=== PATIENT | female | born 1960 | race Asian ===

== ENCOUNTER 2020-01-05 07:28 | Inpatient (IN) | payer OTHER ==
[2020-01-05] VITALS (12 sets, daily range): BP systolic 112–130; BP diastolic 57–72
[~2020-01-05] VITALS: Ht 162.6 cm; Wt 59.9 kg
--- NOTE | 2020-01-05 07:30 | NUR ---
ED Nurse Note: Patient brought into ED from home by RA 61 due to shortness of breath, per EMS, O2 sat was 74% on RA, on NRB 15L 93% upon arrival to ED. patient is alert awake x 4 ambulatory. patient placed on a hospital gown, on oxygen 15L NRB. Dr. Limon made aware, will continue to monitor.
--- NOTE | 2020-01-05 07:39 | NUR ---
ED Nurse Note: Dr Limon at bedside. RT at bedside.
--- NOTE | 2020-01-05 07:41 | Emergency Room Report ---
History of Present Illness General Chief Complaint: Dyspnea/Respdistress Source: Patient, EMS Present Illness HPI Patient is a 59-year-old female who presents after increased difficulty with breathing for the past 2 days. Patient had been brought by paramedics. She had recent positive novel coronavirus infection.Reports having some trace hemoptysis. Nonproductive cough primarily. prior history of hypertension as well as diabetes. She reports taking metformin. Denies any fever. Denies any chest pain. Denies any leg pain or swelling. Had tested on Monday after preceding URI symptoms. Allergies: Coded Allergies: No Known Allergies (Unverified , 01/05/20) COVID-19 Screening Contact w/high risk pt: No Recent Travel to affected area: No Experienced COVID-19 symptoms?: Yes COVID-19 symptoms experienced: Shortness of Breath, Cough Patient History Past Medical History: see triage record, DM, HTN Past Surgical History: none Now: No Reviewed Nursing Documentation: PMH: Agreed; PSxH: Agreed Nursing Documentation-PMH Past Medical History: No History, Except For Hx Diabetes: Yes Review of Systems All Other Systems: negative except mentioned in HPI Physical Exam Vital Signs Date Time Temp Pulse Resp B/P (MAP) Pulse Ox O2 Delivery O2 Flow Rate FiO2 01/05/20 07:21 97.3 88 22 132/70 (90) 93 Non-Rebreather 15.0 Sp02 EP Interpretation: reviewed, normal General Appearance: normal inspection, alert, GCS 15, moderate distress Head: atraumatic ENT: normal ENT inspection, hearing grossly normal, normal voice Neck: normal inspection, full range of motion, supple, no bony tend Respiratory: normal inspection, lungs clear, normal breath sounds, no respiratory distress, no retraction, no wheezing Cardiovascular #1: regular rate, rhythm, no edema Gastrointestinal: normal inspection, normal bowel sounds, non tender, soft, no guarding, no hernia Genitourinary: no CVA tenderness Musculoskeletal: normal inspection, back normal, normal range of motion Neurologic: alert, motor strength/tone normal, 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 Differential included but was not limited to anemia, pneumonia, pneumothorax, myocardial infarction, pericardial effusion, congestive heart failure, acidosis. Because of complexity of patient' s case laboratory tests and imaging studies were ordered.Chest x-ray 1 view showed bilateral patchy infiltrates consistent with pneumonia versus coronavirus infection. Patient was started on supplemental oxygen. Dr. Brianna Laurent was contacted for [facility] for inpatient management due to panel physician. Labs Test 01/05/20 07:40 01/05/20 08:21 White Blood Count 8.2 K/UL (4.8-10.8) Red Blood Count 4.35 M/UL (4.20-5.40) Hemoglobin 14.0 G/DL (12.0-16.0) Hematocrit 38.3 % (37.0-47.0) Mean Corpuscular Volume 88 FL (80-99) Mean Corpuscular Hemoglobin 32.2 PG (27.0-31.0) Mean Corpuscular Hemoglobin Concent 36.6 G/DL (32.0-36.0) Red Cell Distribution Width 10.0 % (11.6-14.8) Platelet Count 134 K/UL (150-450) Mean Platelet Volume 7.7 FL (6.5-10.1) Neutrophils (%) (Auto) % (45.0-75.0) Lymphocytes (%) (Auto) % (20.0-45.0) Monocytes (%) (Auto) % (1.0-10.0) Eosinophils (%) (Auto) % (0.0-3.0) Basophils (%) (Auto) % (0.0-2.0) Differential Total Cells Counted 100 Neutrophils % (Manual) 95 % (45-75) Lymphocytes % (Manual) 3 % (20-45) Monocytes % (Manual) 2 % (1-10) Eosinophils % (Manual) 0 % (0-3) Basophils % (Manual) 0 % (0-2) Band Neutrophils 0 % (0-8) Platelet Estimate Decreased Platelet Morphology Normal Red Blood Cell Morphology Normal Prothrombin Time 9.5 SEC (9.30-11.50) Prothromb Time International Ratio 0.9 (0.9-1.1) Activated Partial Thromboplast Time 37 SEC (23-33) D-Dimer 0.71 mg/L FEU (0.00-0.49) Sodium Level 133 MMOL/L (136-145) Potassium Level 3.8 MMOL/L (3.5-5.1) Chloride Level 96 MMOL/L (98-107) Carbon Dioxide Level 28 MMOL/L (21-32) Anion Gap 9 mmol/L (5-15) Blood Urea Nitrogen 11 mg/dL (7-18) Creatinine 0.6 MG/DL (0.55-1.30) Estimat Glomerular Filtration Rate > 60 mL/min (>60) Glucose Level 103 MG/DL (74-106) Lactic Acid Level 1.50 mmol/L (0.4-2.0) Calcium Level 9.0 MG/DL (8.5-10.1) Total Bilirubin 0.4 MG/DL (0.2-1.0) Aspartate Amino Transf (AST/SGOT) 51 U/L (15-37) Alanine Aminotransferase (ALT/SGPT) 22 U/L (12-78) Alkaline Phosphatase 53 U/L (46-116) Total Creatine Kinase 120 U/L (26-308) Creatine Kinase MB 0.9 NG/ML (0.0-3.6) Creatine Kinase MB Relative Index 0.7 Troponin I 0.000 ng/mL (0.000-0.056) Pro-B-Type Natriuretic Peptide 194 pg/mL (0-125) Total Protein 7.0 G/DL (6.4-8.2) Albumin 3.0 G/DL (3.4-5.0) Globulin 4.0 g/dL Albumin/Globulin Ratio 0.8 (1.0-2.7) Arterial Blood pH 7.465 (7.350-7.450) Arterial Blood Partial Pressure CO2 38.5 mmHg (35.0-45.0) Arterial Blood Partial Pressure O2 148.0 mmHg (75.0-100.0) Arterial Blood HCO3 27.1 mmol/L (22.0-26.0) Arterial Blood Oxygen Saturation 98.2 % (95-100) Arterial Blood Base Excess 3.3 (-2-2) Jun Test Positive EKG Diagnostic Results Rate: normal Rhythm: NSR ST Segments: no acute changes Last Vital Signs Date Time Temp Pulse Resp B/P (MAP) Pulse Ox O2 Delivery O2 Flow Rate FiO2 4/12/20 07:36 97.3 86 20 130/72 96 Non-Rebreather 15.0 Status: unchanged Disposition: ADMITTED INPATIENT Condition: Stable Tonny Limon MD Jan 05, 2020 07:41
--- NOTE | 2020-01-05 07:45 | NUR ---
ED Nurse Note: patient reports she got tested positive on 12/31/19. patient reports the symptoms (coughing and flu like symptoms) since last week.
[2020-01-05 08:24] LABS: HEMATOCRIT 38.3 % (37.0-47.0); MEAN CORPUSCULAR VOLUME 88 FL (80-99); PLATELET COUNT 134 K/UL (150-450); RED BLOOD COUNT 4.35 M/UL (4.20-5.40); WHITE BLOOD COUNT 8.2 K/UL (4.8-10.8)
[2020-01-05 08:31] LABS: INR 0.9 (0.9-1.1)
[2020-01-05 08:33] LABS: ANION GAP 9 mmol/L (5-15); BLOOD UREA NITROGEN 11 mg/dL (7-18); CARBON DIOXIDE 28 MMOL/L (21-32); CHLORIDE 96 MMOL/L (98-107); CREATININE 0.6 MG/DL (0.55-1.30); POTASSIUM 3.8 MMOL/L (3.5-5.1); SODIUM 133 MMOL/L (136-145)
[2020-01-05] MEDS ORDERED: Azithromycin 500 MG in D5W 275 ML IVPB ONE (08:45)
[2020-01-05] MEDS ORDERED: cefTRIAXone 1 GM in NS 55 ML IVPB ONE (08:45)
[2020-01-05 08:46] LABS: ALANINE AMINOTRANSFERASE 22 U/L (12-78); ALBUMIN/GLOBULIN RATIO 0.8 (1.0-2.7); ALKALINE PHOSPHATASE 53 U/L (46-116); ASPARTATE AMINO TRANSFERASE 51 U/L (15-37); BILIRUBIN,TOTAL 0.4 MG/DL (0.2-1.0); CKMB 0.9 NG/ML (0.0-3.6); CREATINE KINASE 120 U/L (26-308)
--- NOTE | 2020-01-05 10:36 | NUR ---
HAND-OFF: Report given to Bernie CHRISTINE. endorsed all plan of care to Bernie CHRISTINE.
--- NOTE | 2020-01-05 10:51 | Diagnostic Imaging Report ---
EXAM: XR Chest, 1 View CLINICAL HISTORY: SOB TECHNIQUE: Frontal view of the chest. COMPARISON: No relevant prior studies available. FINDINGS: There are bilateral airspace opacities, by far most pronounced in the lower lung zones, though there is some involvement in the right mid and upper lung. Favor infectious etiology, though edema is theoretically possible as well. The heart is not grossly enlarged. There is no pneumothorax. IMPRESSION: Basilar predominant airspace infiltrates are suspicious for pneumonia. Edema is less likely.
--- NOTE | 2020-01-05 11:00 | NUR ---
ED Nurse Note: Received report from EMMETT Ray for continuity of care. Pt is on bed, awake and alert, VSS satting at 96% on 10LPM via venturi mask. Pt is AOx4, calm and cooperative noted with episodes of productive coughing. Safety measures met. will continue to monitor pt.
--- NOTE | 2020-01-05 11:20 | NUR ---
ED Nurse Note: Dr. Laurent at bedside.
--- NOTE | 2020-01-05 11:36 | NUR ---
ED Nurse Note: Pt was able to urinate; obtained specimen, sent to labs.
[2020-01-05 11:42] LABS: APPEARANCE,URINE CLEAR; BILIRUBIN, URINE NEGATIVE (NEGATIVE); GLUCOSE, URINE (UA) 4+ (NEGATIVE); KETONES,URINE 1+ (NEGATIVE); LEUKOCYTE ESTERASE ,URINE NEGATIVE (NEGATIVE); NITRITE,URINE NEGATIVE (NEGATIVE); PH,URINE 6 (4.5-8.0); PROTEIN,URINE 3+ (NEGATIVE); UROBILINOGEN,URINE NORMAL MG/DL (0.0-1.0)
[2020-01-05 11:44] LABS: COLOR,URINE YELLOW
--- NOTE | 2020-01-05 12:08 | NUR ---
ED Nurse Note: Pt was seen by Dr. mOer, ordered pt to be on a non-rebreather mask, called RT.
--- NOTE | 2020-01-05 13:20 | History and Physical ---
History of Present Illness General Reason for Hospitalization: Dyspnea/Respdistress Present Illness HPI 59-year-old female with PMH of HTN, DM on metformin who presents with S OB x2 days. 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 Patient was not given any medications at the time and was sent home, today patient noted worsening shortness of breath and hemoptysis x1. Patient had associated chest pain with her cough, denies any palpitations, diaphoresis. Throughout this time denies any fevers, N/V, diarrhea, abdominal pain, dysuria /hematuria. In the ED, CXR revealed bilateral infiltrates, right larger than left. Patient admitted for further treatment and evaluation. PMH: HTN, DM on metformin FH: Reviewed and not pertinent Sx: Reviewed, patient denies any past surgeries SH: Patient lives at home alone, denies tobacco/EtOH Allergies:NKDA Allergies: Coded Allergies: No Known Allergies (Unverified , 01/05/20) COVID-19 Screening Contact w/high risk pt: No Recent Travel to affected area: No Experienced COVID-19 symptoms?: Yes COVID-19 symptoms experienced: Shortness of Breath, Cough Patient History Healthcare decision maker Resuscitation status Advanced Directive on File Review of Systems Constitutional: Denies: no symptoms, see HPI, chills, sweats, fever, malaise, weakness, other Eye: Denies: no symptoms, see HPI, eye pain, blurred vision, tearing, double vision, nose pain, nose congestion, acuity changes, discharge, other ENT: Denies: no symptoms, see HPI, ear pain, ear discharge, nose pain, nose congestion, throat pain, throat swelling, mouth pain, hearing loss, nasal discharge, other Respiratory: Reports: cough Cardiovascular: Reports: chest pain Gastrointestinal: Denies: no symptoms, see HPI, abdominal pain, constipation, diarrhea, nausea, vomiting, melena, hematemesis, other Genitourinary: Denies: no symptoms, see HPI, discharge, dysuria, frequency, hematuria, pain, retention, incontinence, urgency, vag bleed/dc, other Musculoskeletal: Denies: no symptoms, see HPI, back pain, gout, joint pain, joint swelling, muscle pain, muscle stiffness, other Skin: Denies: no symptoms, see HPI, rash, change in color, change in hair/nails , dryness, lesions, other Psychiatric: Denies: no symptoms, see HPI, prior hx, anxiety, depressed feelings, emotional problems, SI, HI, hallucinations, other Neurological: Denies: no symptoms, see HPI, headache, numbness, paresthesia, seizure, tingling, tremors, focal weakness, syncope, dizziness, other Physical Exam Physical Exam Narrative General: NAD, A&O x 3, communicates easily HEENT: NCAT, EOMi, MMM CV: RRR, no murmurs, rubs, or gallops Pulm: Good air movement in lungs bilaterally, no accessory muscle usage, on nonrebreather GI: Soft, nontender, nondistended Neuro: CN 2-12 grossly intact bilaterally, no focal signs. Ext: No lower extremity edema bilaterally Skin: no rashes lesions or ulcers Last 24 Hour Vital Signs Date Time Temp Pulse Resp B/P (MAP) Pulse Ox O2 Delivery O2 Flow Rate FiO2 01/05/20 12:30 98.6 83 17 121/65 95 Non-Rebreather 15.0 01/05/20 10:45 98.6 82 18 125/67 90 Non-Rebreather 15.0 01/05/20 10:30 97.9 82 26 121/72 92 Venturi Mask 10.0 01/05/20 08:30 98.7 83 23 118/71 97 Non-Rebreather 15.0 01/05/20 07:36 97.3 86 20 130/72 96 Non-Rebreather 15.0 01/05/20 07:30 88 20 Non-Rebreather 15.0 01/05/20 07:21 97.3 88 22 132/70 (90) 93 Non-Rebreather 15.0 Laboratory Tests Test 01/05/20 07:40 01/05/20 08:21 01/05/20 11:28 White Blood Count 8.2 K/UL (4.8-10.8) Red Blood Count 4.35 M/UL (4.20-5.40) Hemoglobin 14.0 G/DL (12.0-16.0) Hematocrit 38.3 % (37.0-47.0) Mean Corpuscular Volume 88 FL (80-99) Mean Corpuscular Hemoglobin 32.2 PG (27.0-31.0) H Mean Corpuscular Hemoglobin Concent 36.6 G/DL (32.0-36.0) H Red Cell Distribution Width 10.0 % (11.6-14.8) L Platelet Count 134 K/UL (150-450) L Mean Platelet Volume 7.7 FL (6.5-10.1) Neutrophils (%) (Auto) % (45.0-75.0) Lymphocytes (%) (Auto) % (20.0-45.0) Monocytes (%) (Auto) % (1.0-10.0) Eosinophils (%) (Auto) % (0.0-3.0) Basophils (%) (Auto) % (0.0-2.0) Differential Total Cells Counted 100 Neutrophils % (Manual) 95 % (45-75) H Lymphocytes % (Manual) 3 % (20-45) L Monocytes % (Manual) 2 % (1-10) Eosinophils % (Manual) 0 % (0-3) Basophils % (Manual) 0 % (0-2) Band Neutrophils 0 % (0-8) Platelet Estimate Decreased L Platelet Morphology Normal Red Blood Cell Morphology Normal Prothrombin Time 9.5 SEC (9.30-11.50) Prothromb Time International Ratio 0.9 (0.9-1.1) Activated Partial Thromboplast Time 37 SEC (23-33) H D-Dimer 0.71 mg/L FEU (0.00-0.49) H Sodium Level 133 MMOL/L (136-145) L Potassium Level 3.8 MMOL/L (3.5-5.1) Chloride Level 96 MMOL/L (98-107) L Carbon Dioxide Level 28 MMOL/L (21-32) Anion Gap 9 mmol/L (5-15) Blood Urea Nitrogen 11 mg/dL (7-18) Creatinine 0.6 MG/DL (0.55-1.30) Estimat Glomerular Filtration Rate > 60 mL/min (>60) Glucose Level 103 MG/DL (74-106) Lactic Acid Level 1.50 mmol/L (0.4-2.0) Calcium Level 9.0 MG/DL (8.5-10.1) Total Bilirubin 0.4 MG/DL (0.2-1.0) Aspartate Amino Transf (AST/SGOT) 51 U/L (15-37) H Alanine Aminotransferase (ALT/SGPT) 22 U/L (12-78) Alkaline Phosphatase 53 U/L (46-116) Total Creatine Kinase 120 U/L (26-308) Creatine Kinase MB 0.9 NG/ML (0.0-3.6) Creatine Kinase MB Relative Index 0.7 Troponin I 0.000 ng/mL (0.000-0.056) Pro-B-Type Natriuretic Peptide 194 pg/mL (0-125) H Total Protein 7.0 G/DL (6.4-8.2) Albumin 3.0 G/DL (3.4-5.0) L Globulin 4.0 g/dL Albumin/Globulin Ratio 0.8 (1.0-2.7) L Arterial Blood pH 7.465 (7.350-7.450) Arterial Blood Partial Pressure CO2 38.5 mmHg (35.0-45.0) Arterial Blood Partial Pressure O2 148.0 mmHg (75.0-100.0) H Arterial Blood HCO3 27.1 mmol/L (22.0-26.0) H Arterial Blood Oxygen Saturation 98.2 % (95-100) Arterial Blood Base Excess 3.3 (-2-2) H Jun Test Positive Urine Color Yellow Urine Appearance Clear Urine pH 6 (4.5-8.0) Urine Specific [place] 1.015 (1.005-1.035) Urine Protein 3+ (NEGATIVE) H Urine Glucose (UA) 4+ (NEGATIVE) H Urine Ketones 1+ (NEGATIVE) H Urine Blood 1+ (NEGATIVE) H Urine Nitrite Negative (NEGATIVE) Urine Bilirubin Negative (NEGATIVE) Urine Urobilinogen Normal MG/DL (0.0-1.0) Urine Leukocyte Esterase Negative (NEGATIVE) Urine RBC 0-2 /HPF (0 - 2) Urine WBC 0-2 /HPF (0 - 2) Urine Squamous Epithelial Cells Few /LPF (NONE/OCC) Urine Bacteria Occasional /HPF (NONE) Urine Yeast Few /HPF (NONE) H Height (Feet): 5 Height (Inches): 4.00 Weight (Pounds): 130 Medications Current Medications Medications (Trade) Dose Ordered Sig/Neha Route PRN Reason Start Time Stop Time Status Last Admin Dose Admin Acetaminophen (Tylenol) 650 mg Q4H PRN ORAL Mild Pain (Pain Scale 1-3) 01/05/20 09:00 02/04/20 08:59 Acetaminophen (Tylenol) 650 mg Q4H PRN ORAL Temp >100.5 01/05/20 09:00 02/04/20 08:59 Dextrose (Dextrose 50%) 25 ml Q30M PRN IV Hypoglycemia 01/05/20 09:00 04/04/20 08:59 Dextrose (Dextrose 50%) 50 ml Q30M PRN IV Hypoglycemia 01/05/20 09:00 04/04/20 08:59 Assessment/Plan Assessment/Plan: 59-year-old female with PMH of HTN, DM on metformin who presents with S OB x2 days. 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 #Acute respiratory failure #COVID positive as o/p #CAP/PNA #Hemoptysis #chest pain - likely MSK 2/2 cough -admit to SDU -droplet/contact isolation -cont. supplemental O2 prn, on non-rebreather -CXR reviewed -trop negative, d-dimer elevated, 0.71 -EKG -f/u on BCx, UCx -f/u on COVID -abx per ID -Pulm and ID following, recs appreciated #HTN -pt unsure of home medications -not hypertensive at this time, ctm #NIDDM, type 2 -holding home metformin while in-pt -ISS, accuchecks qAC/HS DVT PPx: no chemical ppx due to hemoptysis, SCDs Time spent on encounter: 75 mins, >50% on counseling, coordination of care. D/w ER, ER nursing staff, ID and Pulm. Additional 25 mins spent on review of labs, charts, progress notes. Time of note doesn't reflect time of encounter. Veronica Laurent M.D. Jan 05, 2020 13:20
--- NOTE | 2020-01-05 14:57 | NUR ---
ED Nurse Note: Pt's still on bed, awake and alert, VSS, on 10LPM via NRB. Offered warm blanket.
--- NOTE | 2020-01-05 16:00 | NUR ---
ED Nurse Note: Pt complained of mild pain on epigastric area, pain medication given with cup of water. Offered snacks but pt refused. VSS, NAD. Will continue to monitor.
--- NOTE | 2020-01-05 16:15 | Consultation ---
DATE OF CONSULTATION: 01/05/2020 PULMONARY CONSULTATION HISTORY OF PRESENT ILLNESS: This is a 59-year-old female who was admitted to the hospital with shortness of breath. The patient reports having tested positive for COVID-19. She reports hemoptysis. She is a known diabetic and hypertensive. She denies fever or chest pain. The patient was admitted to the hospital. PAST MEDICAL HISTORY: Hypertension, diabetes mellitus. PAST SURGICAL HISTORY: None. REVIEW OF SYSTEMS: The patient denies any headaches, hematemesis, melena. She admits to having hemoptysis. HOME MEDICATIONS: Reviewed and reconciled in chart. PHYSICAL EXAMINATION: GENERAL: Reveals a 59-year-old female. VITAL SIGNS: O2 saturation 93% on non-rebreather mask, blood pressure 130/70, heart rate 84, respirations 18. HEENT: Unremarkable. CHEST: Decreased breath sounds bilaterally with normal heart sounds. ABDOMEN: Soft. No pedal edema LABORATORY AND DIAGNOSTIC DATA: Lab testing shows normal CBC and BMP. Lactic acid 1.5. Troponin negative. Coags are negative. ABG, pH 7.4, pO2 148. Imaging studies shows bilateral infiltrates. IMPRESSION: 1. Bilateral pneumonia. 2. Hemoptysis. 3. Hypertension 4. Diabetes. DISCUSSION: Admitted to the hospital. Agree with management and care. Consider CT chest to exclude PE versus pneumonia. We will follow. Shaun Omer M.D. DR: Liv JOB#: [id number] CC: ROMINA
--- NOTE | 2020-01-05 19:02 | NUR ---
ED Nurse Note: Noted respirations going on 37-40pbm right now. Notified ERMD, called RT.
--- NOTE | 2020-01-05 19:24 | NUR ---
ED Nurse Note: report given to EMMETT Jack for continuity of care.
--- NOTE | 2020-01-05 20:23 | NUR ---
ED Nurse Note: CALLED AND SPOKE TO TIANA CHRISTINE TO RENDER REPORT, NO NURSE ASSIGNED, ROOM NOT READY.
[2020-01-05] MEDS ORDERED: cefTRIAXone 1 GM in D5W 50 ML IVPB SCH (21:30)
--- NOTE | 2020-01-05 21:41 | Infectious Diseases Prog Note ---
Assessment/Plan Assessment/Plan Full consult dictated: A) 1) covid-19 virus infection with pna 2) possible CAP 3) hemoptysis 4) pmh noted P) 1) ceftriaxone and doxycycline 2) hydroxychloroquine 3) avoid azithromycin with potential qtc prolongation 3) will f/u 4) thanks Subjective Allergies: Coded Allergies: No Known Allergies (Unverified , 01/05/20) Objective Vital Signs Last 24 Hour Vital Signs Date Time Temp Pulse Resp B/P (MAP) Pulse Ox O2 Delivery O2 Flow Rate FiO2 01/05/20 18:15 98.6 89 24 127/62 91 Non-Rebreather 15.0 01/05/20 16:31 98.6 01/05/20 16:10 98.6 85 24 121/64 95 Non-Rebreather 15.0 01/05/20 14:56 98.6 88 22 127/62 95 Non-Rebreather 15.0 01/05/20 12:30 98.6 83 17 121/65 95 Non-Rebreather 15.0 01/05/20 10:45 98.6 82 18 125/67 90 Non-Rebreather 15.0 01/05/20 10:30 97.9 82 26 121/72 92 Venturi Mask 10.0 01/05/20 08:30 98.7 83 23 118/71 97 Non-Rebreather 15.0 01/05/20 07:36 97.3 86 20 130/72 96 Non-Rebreather 15.0 01/05/20 07:30 88 20 Non-Rebreather 15.0 01/05/20 07:21 97.3 88 22 132/70 (90) 93 Non-Rebreather 15.0 Height (Feet): 5 Height (Inches): 4.00 Weight (Pounds): 130 Laboratory Tests Test 01/05/20 07:40 01/05/20 08:21 01/05/20 11:28 White Blood Count 8.2 K/UL (4.8-10.8) Red Blood Count 4.35 M/UL (4.20-5.40) Hemoglobin 14.0 G/DL (12.0-16.0) Hematocrit 38.3 % (37.0-47.0) Mean Corpuscular Volume 88 FL (80-99) Mean Corpuscular Hemoglobin 32.2 PG (27.0-31.0) H Mean Corpuscular Hemoglobin Concent 36.6 G/DL (32.0-36.0) H Red Cell Distribution Width 10.0 % (11.6-14.8) L Platelet Count 134 K/UL (150-450) L Mean Platelet Volume 7.7 FL (6.5-10.1) Neutrophils (%) (Auto) % (45.0-75.0) Lymphocytes (%) (Auto) % (20.0-45.0) Monocytes (%) (Auto) % (1.0-10.0) Eosinophils (%) (Auto) % (0.0-3.0) Basophils (%) (Auto) % (0.0-2.0) Differential Total Cells Counted 100 Neutrophils % (Manual) 95 % (45-75) H Lymphocytes % (Manual) 3 % (20-45) L Monocytes % (Manual) 2 % (1-10) Eosinophils % (Manual) 0 % (0-3) Basophils % (Manual) 0 % (0-2) Band Neutrophils 0 % (0-8) Platelet Estimate Decreased L Platelet Morphology Normal Red Blood Cell Morphology Normal Prothrombin Time 9.5 SEC (9.30-11.50) Prothromb Time International Ratio 0.9 (0.9-1.1) Activated Partial Thromboplast Time 37 SEC (23-33) H D-Dimer 0.71 mg/L FEU (0.00-0.49) H Sodium Level 133 MMOL/L (136-145) L Potassium Level 3.8 MMOL/L (3.5-5.1) Chloride Level 96 MMOL/L (98-107) L Carbon Dioxide Level 28 MMOL/L (21-32) Anion Gap 9 mmol/L (5-15) Blood Urea Nitrogen 11 mg/dL (7-18) Creatinine 0.6 MG/DL (0.55-1.30) Estimat Glomerular Filtration Rate > 60 mL/min (>60) Glucose Level 103 MG/DL (74-106) Lactic Acid Level 1.50 mmol/L (0.4-2.0) Calcium Level 9.0 MG/DL (8.5-10.1) Total Bilirubin 0.4 MG/DL (0.2-1.0) Aspartate Amino Transf (AST/SGOT) 51 U/L (15-37) H Alanine Aminotransferase (ALT/SGPT) 22 U/L (12-78) Alkaline Phosphatase 53 U/L (46-116) Total Creatine Kinase 120 U/L (26-308) Creatine Kinase MB 0.9 NG/ML (0.0-3.6) Creatine Kinase MB Relative Index 0.7 Troponin I 0.000 ng/mL (0.000-0.056) Pro-B-Type Natriuretic Peptide 194 pg/mL (0-125) H Total Protein 7.0 G/DL (6.4-8.2) Albumin 3.0 G/DL (3.4-5.0) L Globulin 4.0 g/dL Albumin/Globulin Ratio 0.8 (1.0-2.7) L Arterial Blood pH 7.465 (7.350-7.450) Arterial Blood Partial Pressure CO2 38.5 mmHg (35.0-45.0) Arterial Blood Partial Pressure O2 148.0 mmHg (75.0-100.0) H Arterial Blood HCO3 27.1 mmol/L (22.0-26.0) H Arterial Blood Oxygen Saturation 98.2 % (95-100) Arterial Blood Base Excess 3.3 (-2-2) H Jun Test Positive Urine Color Yellow Urine Appearance Clear Urine pH 6 (4.5-8.0) Urine Specific [place] 1.015 (1.005-1.035) Urine Protein 3+ (NEGATIVE) H Urine Glucose (UA) 4+ (NEGATIVE) H Urine Ketones 1+ (NEGATIVE) H Urine Blood 1+ (NEGATIVE) H Urine Nitrite Negative (NEGATIVE) Urine Bilirubin Negative (NEGATIVE) Urine Urobilinogen Normal MG/DL (0.0-1.0) Urine Leukocyte Esterase Negative (NEGATIVE) Urine RBC 0-2 /HPF (0 - 2) Urine WBC 0-2 /HPF (0 - 2) Urine Squamous Epithelial Cells Few /LPF (NONE/OCC) Urine Bacteria Occasional /HPF (NONE) Urine Yeast Few /HPF (NONE) H Current Medications Medications (Trade) Dose Ordered Sig/Neha Route PRN Reason Start Time Stop Time Status Last Admin Dose Admin Acetaminophen (Tylenol) 650 mg Q4H PRN ORAL Mild Pain (Pain Scale 1-3) 01/05/20 09:00 02/04/20 08:59 01/05/20 16:01 Acetaminophen (Tylenol) 650 mg Q4H PRN ORAL Temp >100.5 01/05/20 09:00 02/04/20 08:59 Dextrose (Dextrose 50%) 25 ml Q30M PRN IV Hypoglycemia 01/05/20 09:00 04/04/20 08:59 Dextrose (Dextrose 50%) 50 ml Q30M PRN IV Hypoglycemia 01/05/20 09:00 04/04/20 08:59 Pham Doyle MD Jan 05, 2020 21:41
[2020-01-05] MEDS ORDERED: Hydroxychloroquine Fact Sheet MISC ONE (21:45)
[2020-01-05] MEDS: Hydroxychloroquine 400mg tab ORAL SCH (21:49)
--- NOTE | 2020-01-05 22:10 | NUR ---
ED Nurse Note: Patient renderd plaquenil along with a fact sheet that could not be scanned. Will continue to monitor until transport.
--- NOTE | 2020-01-05 23:01 | NUR ---
ED Nurse Note: Called and rendered report to Haley CHRISTINE. Room clean with no striker inside.
[2020-01-05] MEDS ORDERED: HYDROCHLOROTH12.5 MG ORAL (23:09)
[2020-01-05] MEDS ORDERED: METFORMIN HCL500 M1 ORAL (23:09)
--- NOTE | 2020-01-05 23:33 | NUR ---
ED Nurse Note: Called to verify striker bed in room prior to transport.
--- NOTE | 2020-01-05 23:59 | NUR ---
ED Nurse Note: Patient transported to floor without incident, $140.00 head verified upon arrival to room, accompanied by certified endoscopy technician and 1 RN.
[2020-01-06] VITALS (7 sets, daily range): BP systolic 114–128; BP diastolic 59–76
--- NOTE | 2020-01-06 | NUR ---
NURSE NOTES: received pt from Marcie CHRISTINE., pt is awake and AOx4 Italian speaker. pt is on non-breather mask 15L and O2sat is at 96-97% with non productive cough. pt's Left AC 20G IV site intact, clean, and patent. call light within reach. director cardiac on. new gown provided.VSS. belonging list paper signed by patient. skin intact. bed at the lowest position, alarmed, and locked. will continue to monitor pt with plan of care.
[2020-01-06] MEDS ORDERED: Benzonatate 100mg Perles ORAL PRN (01:15)
--- NOTE | 2020-01-06 02:45 | Consultation ---
DATE OF CONSULTATION: 01/05/2020 INFECTIOUS DISEASES CONSULTATION CONSULTING PHYSICIAN: Pham Doyle MD. ATTENDING PHYSICIAN: Chema Barnett MD REFERRING PHYSICIAN: Rebecca Laurent DO. REASON FOR CONSULTATION: COVID-19 virus infection per records and history. CHIEF COMPLAINT: The patient's chief complaint coming into hospital is confirmed COVID-19 and hypoxia. HISTORY OF PRESENT ILLNESS: This is a 59-year-old female seen in the emergency room. The patient presents to [facility] with hypoxia, looks like hemoptysis with confirmed COVID-19 testing outside the hospital. The patient had also shortness of breath and nonproductive cough x5 days. She went to [facility] and tested for COVID-19 and she states she was positive. The patient's chest x-ray at [place] showed bilateral lower lobe infiltrates or airspace infiltrates suspicious for pneumonia. Infectious Diseases consultation was requested. The patient was placed on doxycycline, Rocephin, and hydroxychloroquine. MAR was noted. Notes reviewed. Again the patient was seen in the ER and discussed with physician and RN. REVIEW OF SYSTEMS: She has currently no fevers, however, she came in with hemoptysis, hypoxia, cough, shortness of breath. No fevers or chills. CARDIAC: No chest pain. GASTROINTESTINAL: No nausea, vomiting, or diarrhea. GENITOURINARY: No dysuria or frequency. SKIN: No rash. NEUROLOGIC: No seizures. PULMONARY: As discussed hemoptysis, shortness of breath, cough. PAST MEDICAL HISTORY: The patient's past medical history includes the following: The patient has a past medical history of hypertension, diabetes on metformin. ALLERGIES: No known drug allergies. No antibiotic allergies. SOCIAL HISTORY: Negative for smoking, alcohol, drug abuse. FAMILY HISTORY: Noncontributory. Negative for exposure to tuberculosis or cancer. MEDICATIONS: Upon reviewing the MAR, she is on following medications. She is on acetaminophen. She was given Rocephin and azithromycin. I placed her on Rocephin, doxycycline, hydroxychloroquine. Outside medications were noted and reconciliated. In the outpatient setting, I believe is metformin. Unclear what she is taking for high blood pressure. PHYSICAL EXAMINATION: VITAL SIGNS: Temperature is 98.6, pulse rate 89, respiratory rate 24, blood pressure 127/62, saturation 91% on nonrebreather. GENERAL: She is alert and responsive. HEAD AND NECK: Oral exam, no thrush. Eye exam, no icterus. Normocephalic. HEART: Regular. No gallop or murmur ABDOMEN: Soft. Positive bowel sounds. Nontender. LUNGS: Few bilateral rhonchi and rales. SKIN: No rash. MUSCULOSKELETAL: No effusion. Legs are without cellulitis. PERIPHERAL VASCULAR: No cyanosis or gangrene. GENITOURINARY: No [place]. LINE SITES: Without phlebitis. NEUROLOGIC: Generalized weakness and responsive. LABORATORY DATA: White count 8.2, hemoglobin 14.0. Creatinine 0.6. Urinalysis was nitrite negative. Per the records outside COVID-19 testing was positive. Chest x-ray with airspace infiltrates in the basilar area suspicious for pneumonia. UA was leukocyte esterase negative, 0 to 2 white cells. ASSESSMENT AND PLAN: 1. The patient has bilateral pneumonia and per history positive COVID-19 testing. We will follow up on this. However, because of the hypoxia and bilateral infiltrates, the patient will be empirically started on Rocephin and doxycycline for community-acquired pneumonia and also hydroxychloroquine for possible COVID pneumonias especially with hypoxia and positive chest x-ray finding consistent with possible COVID-19 virus infection pneumonia. Continue Rocephin and doxycycline for community-acquired pneumonia and hydroxychloroquine for COVID treatment. I would avoid azithromycin because of the potential for QTc prolongation with hydroxychloroquine. Check followup labs and chest x-ray. The patient placed on COVID-19 virus isolation. 2. Diabetes. 3. Hypertension. 4. Hemoptysis. 5. Continue treatment per primary consultants. 6. No known drug allergies. 7. Social history is negative. 8. Family history is noncontributory. 9. MAR was noted. 10. Case discussed with RN. 11. Continue treatment per primary consultants. Pham Doyle M.D. DR: Florentino JOB#: [id number] CC: ROMINA
--- NOTE | 2020-01-06 03:30 | NUR ---
NURSE NOTES: provided sandwich, orange juice, cranberry juice, and crackers. call light within reach.
[2020-01-06] MEDS: Guaifenesin/DM 10ml syrup ORAL PRN ×2 (03:51→13:36)
[2020-01-06 05:51] LABS: HEMATOCRIT 38.6 % (37.0-47.0); HEMOGLOBIN 13.7 G/DL (12.0-16.0); MEAN CORPUSCULAR VOLUME 90 FL (80-99); PLATELET COUNT 146 K/UL (150-450); RED BLOOD COUNT 4.28 M/UL (4.20-5.40); RED CELL DISTRIBUTION WIDTH 10.5 % (11.6-14.8); WHITE BLOOD COUNT 8.4 K/UL (4.8-10.8)
[2020-01-06 06:17] LABS: ALANINE AMINOTRANSFERASE 21 U/L (12-78); ALBUMIN 2.7 G/DL (3.4-5.0); ALBUMIN/GLOBULIN RATIO 0.8 (1.0-2.7); ALKALINE PHOSPHATASE 58 U/L (46-116); ANION GAP 12 mmol/L (5-15); ASPARTATE AMINO TRANSFERASE 52 U/L (15-37); BILIRUBIN,TOTAL 0.4 MG/DL (0.2-1.0); BLOOD UREA NITROGEN 11 mg/dL (7-18); CALCIUM 8.7 MG/DL (8.5-10.1); CARBON DIOXIDE 27 MMOL/L (21-32); CHLORIDE 98 MMOL/L (98-107); CREATININE 0.6 MG/DL (0.55-1.30); POTASSIUM 4.2 MMOL/L (3.5-5.1); SODIUM 137 MMOL/L (136-145)
--- NOTE | 2020-01-06 07:04 | NUR ---
HAND-OFF: Report given to Shital CHRISTINE., pt stable condition at this moment. endorsed plan of care.
--- NOTE | 2020-01-06 07:10 | NUR ---
NURSE NOTES: Received report from EMMETT Bradford. The patient is resting on the bed without acute distress or shortness of breath. The patient has intermittent coughing, and per night nurse, the patient received cough medication. The patient is on 15L non-rebreather mask, and oxygen saturation is 94% with oxygen therapy. The patient's bed in the lowest position, call light in reach, and fall and aspiration precaution reinforced. IV site intact and patent. Will continue plan of care.
[2020-01-06] MEDS: Hydroxychloroquine 400mg tab ORAL SCH (08:36)
[2020-01-06] MEDS: cefTRIAXone 1 GM in D5W 50 ML IVPB SCH (08:36)
--- NOTE | 2020-01-06 09:39 | General Progress Note ---
Assessment/Plan Assessment/Plan: 59-year-old female with PMH of HTN, DM on metformin who presents with S OB x2 days. 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 #Acute respiratory failure #COVID positive as o/p #CAP/PNA #Hemoptysis - improved #chest pain - likely MSK 2/2 cough - resolved -cont. in-patient medical care -cont. droplet/contact isolation -cont. supplemental O2 prn, on non-rebreather -CXR reviewed, trop negative -d-dimer elevated, 0.71 -f/u on BCx, UCx -f/u on COVID -abx per ID -Pulm and ID following, recs appreciated -updated Dary maurer, , discussed POC, answered all questions to her satisfaction. #HTN -pt unsure of home medications -not hypertensive at this time, ctm #NIDDM, type 2 -holding home metformin while in-pt -ISS, accuchecks qAC/HS DVT PPx: no chemical ppx due to hemoptysis, SCDs Time spent on encounter: 35 mins, >50% on counseling, coordination of care. D/w RN, ID and Pulm. Additional 25 mins spent on phone with Dary maurer, , discussed POC, answered all questions to her satisfaction. Time of note doesn't reflect time of encounter. Subjective Allergies: Coded Allergies: No Known Allergies (Unverified , 01/05/20) Subjective F/u for COVID positive, acute respiratory distress. Appears comfortable on nonrebreather. Denies S OB at this time. Per nurse, continues to have intermittent cough, will desat once off nonrebreather to 70s/80s. No further episodes of hemoptysis. Objective Last 24 Hour Vital Signs Date Time Temp Pulse Resp B/P (MAP) Pulse Ox O2 Delivery O2 Flow Rate FiO2 01/06/20 07:55 97.8 79 20 114/59 (77) 94 01/06/20 07:53 81 01/06/20 04:00 83 01/06/20 04:00 Non-Rebreather 15.0 01/06/20 04:00 15.0 01/06/20 00:21 87 01/06/20 00:00 15.0 01/06/20 00:00 87 01/06/20 00:00 Non-Rebreather 15.0 01/06/20 00:00 Non-Rebreather 15.0 01/05/20 23:59 98.6 91 23 129/57 90 Non-Rebreather 15.0 01/05/20 22:30 98.6 91 23 129/57 90 Non-Rebreather 15.0 01/05/20 21:00 98.6 90 37 120/59 90 Non-Rebreather 15.0 01/05/20 20:00 98.6 78 32 112/61 93 Non-Rebreather 15.0 01/05/20 19:30 98.6 79 31 127/62 91 Non-Rebreather 15.0 01/05/20 18:15 98.6 89 24 127/62 91 Non-Rebreather 15.0 01/05/20 16:31 98.6 01/05/20 16:10 98.6 85 24 121/64 95 Non-Rebreather 15.0 01/05/20 14:56 98.6 88 22 127/62 95 Non-Rebreather 15.0 01/05/20 12:30 98.6 83 17 121/65 95 Non-Rebreather 15.0 01/05/20 10:45 98.6 82 18 125/67 90 Non-Rebreather 15.0 01/05/20 10:30 97.9 82 26 121/72 92 Venturi Mask 10.0 Intake and Output 01/05/20 01/06/20 19:00 07:00 Intake Total 120 ml Balance 120 ml Intake Oral 120 ml # Voids 3 Laboratory Tests 01/05/20 11:28: Urine Color Yellow, Urine Appearance Clear, Urine pH 6, Urine Specific [place] 1.015, Urine Protein 3+H, Urine Glucose (UA) 4+H, Urine Ketones 1+H, Urine Blood 1+H, Urine Nitrite Negative, Urine Bilirubin Negative, Urine Urobilinogen Normal, Urine Leukocyte Esterase Negative, Urine RBC 0-2, Urine WBC 0-2, Urine Squamous Epithelial Cells Few, Urine Bacteria Occasional, Urine Yeast FewH 01/06/20 04:00: White Blood Count 8.4, Red Blood Count 4.28, Hemoglobin 13.7, Hematocrit 38.6, Mean Corpuscular Volume 90, Mean Corpuscular Hemoglobin 32.1H, Mean Corpuscular Hemoglobin Concent 35.5, Red Cell Distribution Width 10.5L, Platelet Count 146L , Mean Platelet Volume 6.9, Neutrophils (%) (Auto) , Lymphocytes (%) (Auto) , Monocytes (%) (Auto) , Eosinophils (%) (Auto) , Basophils (%) (Auto) , Differential Total Cells Counted [Pending], Neutrophils % (Manual) [Pending], Lymphocytes % (Manual) [Pending], Monocytes % (Manual) [Pending], Eosinophils % (Manual) 0, Basophils % (Manual) 0, Band Neutrophils 0, Platelet Estimate DecreasedL, Platelet Morphology Normal, Red Blood Cell Morphology Normal, Sodium Level 137, Potassium Level 4.2, Chloride Level 98, Carbon Dioxide Level 27, Anion Gap 12, Blood Urea Nitrogen 11, Creatinine 0.6, Estimat Glomerular Filtration Rate > 60, Glucose Level 128H, Calcium Level 8.7, Ferritin 910H, Total Bilirubin 0.4, Aspartate Amino Transf (AST/SGOT) 52H, Alanine Aminotransferase (ALT/SGPT) 21, Alkaline Phosphatase 58, Lactate Dehydrogenase 682H, C-Reactive Protein, Quantitative 22.0H, Total Protein 6.3L, Albumin 2.7L, Globulin 3.6, Albumin/Globulin Ratio 0.8L Height (Feet): 5 Height (Inches): 4.00 Weight (Pounds): 133 Objective General: NAD, A&O x 3, communicates easily HEENT: NCAT, EOMi, MMM CV: RRR, no murmurs, rubs, or gallops Pulm: Good air movement in lungs bilaterally, no accessory muscle usage, on nonrebreather GI: Soft, nontender, nondistended Ext: No lower extremity edema bilaterally Veronica Laurent M.D. Jan 06, 2020 09:39
--- NOTE | 2020-01-06 10:20 | NUR ---
*-* NO INSURANCE INFORMATION IN THE BAR UNABLE TO SEND CLINICALS OR REVIEWS *-*
--- NOTE | 2020-01-06 10:22 | Pulmonology Progress Note ---
Assessment/Plan Assessment/Plan 1. Bilateral pneumonia. History of COVID 19 positivity 2. Hemoptysis. 3. Hypertension 4. Diabetes. DISCUSSION: Admitted to the hospital. Agree with management and care. Consider CT chest to exclude PE versus pneumonia. I will follow. Shaun Omer M.D. Subjective Interval Events: Saturating 95% on NRBM Constitutional: Reports: no symptoms HEENT: Repors: no symptoms Respiratory: Reports: shortness of breath Cardiovascular: Reports: no symptoms Gastrointestinal/Abdominal: Reports: no symptoms Allergies: Coded Allergies: No Known Allergies (Unverified , 01/05/20) Objective Last 24 Hour Vital Signs Date Time Temp Pulse Resp B/P (MAP) Pulse Ox O2 Delivery O2 Flow Rate FiO2 01/06/20 07:55 97.8 79 20 114/59 (77) 94 01/06/20 07:53 81 01/06/20 04:00 83 01/06/20 04:00 Non-Rebreather 15.0 01/06/20 04:00 15.0 01/06/20 00:21 87 01/06/20 00:00 15.0 01/06/20 00:00 87 01/06/20 00:00 Non-Rebreather 15.0 01/06/20 00:00 Non-Rebreather 15.0 01/05/20 23:59 98.6 91 23 129/57 90 Non-Rebreather 15.0 01/05/20 22:30 98.6 91 23 129/57 90 Non-Rebreather 15.0 01/05/20 21:00 98.6 90 37 120/59 90 Non-Rebreather 15.0 01/05/20 20:00 98.6 78 32 112/61 93 Non-Rebreather 15.0 01/05/20 19:30 98.6 79 31 127/62 91 Non-Rebreather 15.0 01/05/20 18:15 98.6 89 24 127/62 91 Non-Rebreather 15.0 01/05/20 16:31 98.6 01/05/20 16:10 98.6 85 24 121/64 95 Non-Rebreather 15.0 01/05/20 14:56 98.6 88 22 127/62 95 Non-Rebreather 15.0 01/05/20 12:30 98.6 83 17 121/65 95 Non-Rebreather 15.0 01/05/20 10:45 98.6 82 18 125/67 90 Non-Rebreather 15.0 01/05/20 10:30 97.9 82 26 121/72 92 Venturi Mask 10.0 Intake and Output 01/05/20 01/06/20 19:00 07:00 Intake Total 120 ml Balance 120 ml Intake Oral 120 ml # Voids 3 General Appearance: no acute distress HEENT: normocephalic Respiratory/Chest: chest wall non-tender Cardiovascular: normal peripheral pulses Abdomen: normal bowel sounds Microbiology Date/Time Source Procedure Growth Status 01/05/20 11:28 Urine,Clean Catch Urine Culture - Preliminary NO GROWTH Resulted Laboratory Tests 01/05/20 11:28: Urine Color Yellow, Urine Appearance Clear, Urine pH 6, Urine Specific [place] 1.015, Urine Protein 3+H, Urine Glucose (UA) 4+H, Urine Ketones 1+H, Urine Blood 1+H, Urine Nitrite Negative, Urine Bilirubin Negative, Urine Urobilinogen Normal, Urine Leukocyte Esterase Negative, Urine RBC 0-2, Urine WBC 0-2, Urine Squamous Epithelial Cells Few, Urine Bacteria Occasional, Urine Yeast FewH 01/06/20 04:00: White Blood Count 8.4, Red Blood Count 4.28, Hemoglobin 13.7, Hematocrit 38.6, Mean Corpuscular Volume 90, Mean Corpuscular Hemoglobin 32.1H, Mean Corpuscular Hemoglobin Concent 35.5, Red Cell Distribution Width 10.5L, Platelet Count 146L , Mean Platelet Volume 6.9, Neutrophils (%) (Auto) , Lymphocytes (%) (Auto) , Monocytes (%) (Auto) , Eosinophils (%) (Auto) , Basophils (%) (Auto) , Differential Total Cells Counted 100, Neutrophils % (Manual) 90H, Lymphocytes % (Manual) 8L, Monocytes % (Manual) 2, Eosinophils % (Manual) , Basophils % ( Manual) , Band Neutrophils , Platelet Estimate DecreasedL, Platelet Morphology Normal, Red Blood Cell Morphology Normal, Sodium Level 137, Potassium Level 4.2 , Chloride Level 98, Carbon Dioxide Level 27, Anion Gap 12, Blood Urea Nitrogen 11, Creatinine 0.6, Estimat Glomerular Filtration Rate > 60, Glucose Level 128H , Calcium Level 8.7, Ferritin 910H, Total Bilirubin 0.4, Aspartate Amino Transf (AST/SGOT) 52H, Alanine Aminotransferase (ALT/SGPT) 21, Alkaline Phosphatase 58 , Lactate Dehydrogenase 682H, C-Reactive Protein, Quantitative 22.0H, Total Protein 6.3L, Albumin 2.7L, Globulin 3.6, Albumin/Globulin Ratio 0.8L Current Medications Medications (Trade) Dose Ordered Sig/Neha Route PRN Reason Start Time Stop Time Status Last Admin Dose Admin Acetaminophen (Tylenol) 650 mg Q4H PRN ORAL Mild Pain (Pain Scale 1-3) 01/05/20 09:00 02/04/20 08:59 01/05/20 16:01 Acetaminophen (Tylenol) 650 mg Q4H PRN ORAL Temp >100.5 01/05/20 09:00 02/04/20 08:59 Benzonatate (Tessalon Perles) 100 mg Q8HR PRN ORAL For Cough 01/06/20 01:15 02/05/20 01:14 Ceftriaxone Sodium 1 gm/ Dextrose 50 ml @ 100 mls/hr Q24H IVPB 01/06/20 09:00 01/13/20 08:59 01/06/20 08:36 Dextrose (Dextrose 50%) 25 ml Q30M PRN IV Hypoglycemia 01/05/20 09:00 04/04/20 08:59 Dextrose (Dextrose 50%) 50 ml Q30M PRN IV Hypoglycemia 01/05/20 09:00 04/04/20 08:59 Doxycycline Hyclate 100 mg/ Dextrose 100 ml @ 100 mls/hr Q12HR IV 01/06/20 09:00 01/13/20 08:59 01/06/20 08:35 Guaifenesin/ Dextromethorphan (Robitussin DM Syrup) 10 ml Q4H PRN ORAL For Cough 01/06/20 01:15 04/05/20 01:14 01/06/20 03:51 Hydroxychloroquine Sulfate (Plaquenil) 200 mg BID ORAL 01/06/20 18:00 01/10/20 09:01 Shaun Omer MD Jan 06, 2020 10:22
--- NOTE | 2020-01-06 10:30 | NUR ---
NURSE NOTES: The patient is stable without acute distress or shortness of breath. The patient is on 15L non-rebreather mask, and oxygen saturation is 94%. Will closely monitor the patient.
--- NOTE | 2020-01-06 12:00 | NUR ---
NURSE NOTES: The patient is stable without acute distress or shortness of breath. The patient is still on 15L non-rebreather, and SpO2 is 94%. Based on ED nurse's note, the patient has history of positive COVID. Spoke with the patient's daughter, the patient got tested from [facility] [employer] system on 12/31/2019 and was informed to be positive on 01/02 and the confirmation # was [id number] [id number]. Notified to the charge nurse. Will continue plan of care.
--- NOTE | 2020-01-06 14:00 | NUR ---
NURSE NOTES: The patient is on 15L non-rebreather, and oxygen saturation is 95% but desats easily if the patient is off from non-rebreather mask. Will closely monitor the patient.
--- NOTE | 2020-01-06 16:00 | NUR ---
NURSE NOTES: The patient is still on 15L non-rebreather, and oxygen saturation is 94-97%. The patient denies of shortness of breath. Will continue plan of care.
--- NOTE | 2020-01-06 17:24 | NUR ---
CASE MANAGEMENT: REVIEW 59 YEAR OLD FEMALE BIBA FROM HOME CC: SOB SI: COVID-19 . HYPOXIA . BILATERAL PNA T 97.3 HR 88 RR 22 BP 132/70 SAT 93% NON-REBREATHER FLOW RATE 15.0 ABG: PH 7.465 PCO2 38.5 PO2 148.0 HCO3 27.1 SAT 98.2 BASE 3.3 IS: AZITHROMYCIN IV X1 CEFTRIAXONE IV X1 PLAQUENIL 400MG PO PATIENT ADMITTED TO STEP DOWN UNIT 01/05/2020 DCP: PATIENT IS FROM HOME
--- NOTE | 2020-01-06 18:00 | NUR ---
NURSE NOTES: The patient is stable without acute distress. The patient is still on 15L non-rebreather mask, and oxygen saturation within normal range. Will continue plan of care.
--- NOTE | 2020-01-06 19:30 | NUR ---
HAND-OFF: Report given to EMMETT Sanchez. The patient is resting on the bed without acute distress or shortness of breath. The patient's bed in the lowest position, call light in reach, and fall and aspiration precaution reinforced. The patient is still on 15L non-rebreather mask, and oxygen saturation within normal range. Endorsed plan of care.
--- NOTE | 2020-01-06 19:30 | NUR ---
NURSE NOTES: Pt report received form Daneil COELHO RN. pt is alert and oriented times 4. pt is on NONE rebreather sating at 90%, doctors are aware of O2 sat and charge nurse DANIEL Troncoso and Sandra are aware. pt is on engineer and geologist showing NSR, no acute cardiac abnormalities noted. pt bed is low, locked, armed, call light within reach, bed rails up times 3. will follow plan of care.
[2020-01-07] VITALS: BP 115/65
[2020-01-07 04:00] VITALS: BP 121/68
--- NOTE | 2020-01-07 04:40 | NUR ---
NURSE NOTES: labs/ blood collected. sent to lab.
[2020-01-07 06:37] LABS: HEMATOCRIT 38.3 % (37.0-47.0); HEMOGLOBIN 13.5 G/DL (12.0-16.0); MEAN CORPUSCULAR VOLUME 90 FL (80-99); PLATELET COUNT 185 K/UL (150-450); RED BLOOD COUNT 4.24 M/UL (4.20-5.40); RED CELL DISTRIBUTION WIDTH 10.4 % (11.6-14.8); WHITE BLOOD COUNT 5.6 K/UL (4.8-10.8)
[2020-01-07 06:47] LABS: ANION GAP 9 mmol/L (5-15); BLOOD UREA NITROGEN 14 mg/dL (7-18); CALCIUM 8.8 MG/DL (8.5-10.1); CARBON DIOXIDE 26 MMOL/L (21-32); CHLORIDE 99 MMOL/L (98-107); CREATININE 0.6 MG/DL (0.55-1.30); SODIUM 134 MMOL/L (136-145)
--- NOTE | 2020-01-07 07:35 | NUR ---
HAND-OFF: Report given to Te LINING STUFFER.
--- NOTE | 2020-01-07 07:36 | NUR ---
NURSE NOTES: Late entry: PT and report given by Daniel Oliveros RN; PT A/O x 4, threat monitoring analyst shows SR, during morning rounds no S/S of respiratory distress on nonrebreather mask 15L saturating at 94% semi-sanders position; PT requested water provided as requested[facility] but has food from home dropped off by daughter at bedside; PT has commode at bedside bed at locked at lowest position with bed alarm on side rails x 2 up; PIV L-AC 20g intact patent, will continue to monitor PT.
[2020-01-07 08:00] VITALS: BP 125/62
[2020-01-07] MEDS: cefTRIAXone 1 GM in D5W 50 ML IVPB SCH (09:50)
--- NOTE | 2020-01-07 10:03 | NUR ---
RADIOLOGY DEPT., CHEST X-RAY DONE.-P.DYE
--- NOTE | 2020-01-07 10:08 | NUR ---
*-* INSURANCE *-* ALL CLINICALS AND REVIEWS HAVE BEENF AXED TO: [facility]# [id number] F: [phone] Addendum: 01/07/20 at 1127 by OBED ARZOLA CM VIPUL:BLESSING P: [phone] Addendum: 01/08/20 at 1010 by OBED ARZOLA CM *-* INSURANCE AUTHORIZATION *-* RECEIVED AUTHORIZATION VIA FAX, FAXED TO ADMITTING APPROVED: 01/04- 2 DAY ATINTERMEDIATE/STEP DOWN LOC [facility] NCM: BLESSING F: [phone] DISCHARGE PLANNING P: [phone]
--- NOTE | 2020-01-07 11:00 | Diagnostic Imaging Report ---
Indication: Shortness of breath Technique: One view of the chest Comparison: For 09/13/2020 Findings: There inspiration currently. Bilateral mostly central mostly interstitial disease with hazy airspace opacity is again demonstrated. Consolidation appears less dense at the lung bases, probably due to the better inspiratory effort, but there does appear to be more disease in the upper lungs. The pleural spaces are clear. The heart size is normal. Impression: Shifting infiltrates, with apparent partial clearing of lung bases but increased disease in the upper lungs. Change in appearance may be in part due to improved inspiratory effort, however.
--- NOTE | 2020-01-07 11:05 | Pulmonology Progress Note ---
Assessment/Plan Assessment/Plan 1. Bilateral pneumonia. History of COVID 19 positivity 2. Hemoptysis. 3. Hypertension 4. Diabetes. DISCUSSION: Admitted to the hospital. Agree with management and care. Consider CT chest to exclude PE versus pneumonia. I will follow. Slowly improving Shaun Omer M.D. Subjective Interval Events: None new; remains on NRBM; SaO2 95 % Constitutional: Reports: no symptoms HEENT: Repors: no symptoms Respiratory: Reports: shortness of breath Cardiovascular: Reports: no symptoms Gastrointestinal/Abdominal: Reports: no symptoms Allergies: Coded Allergies: No Known Allergies (Unverified , 01/05/20) Objective Last 24 Hour Vital Signs Date Time Temp Pulse Resp B/P (MAP) Pulse Ox O2 Delivery O2 Flow Rate FiO2 01/07/20 08:00 97.0 81 19 125/62 (83) 93 01/07/20 08:00 15.0 01/07/20 08:00 Non-Rebreather 15.0 01/07/20 08:00 82 01/07/20 04:00 15.0 01/07/20 04:00 Non-Rebreather 15.0 01/07/20 04:00 74 01/07/20 00:00 Non-Rebreather 15.0 01/07/20 00:00 15.0 01/07/20 00:00 88 01/06/20 20:00 15.0 01/06/20 20:00 Non-Rebreather 15.0 01/06/20 20:00 78 01/06/20 16:00 Non-Rebreather 15.0 01/06/20 16:00 97.9 79 20 117/71 (86) 94 01/06/20 16:00 77 01/06/20 16:00 15.0 01/06/20 15:30 97.9 79 20 117/71 (86) 94 01/06/20 12:00 74 01/06/20 12:00 Non-Rebreather 15.0 01/06/20 12:00 98.1 79 20 115/68 (84) 94 01/06/20 12:00 15.0 01/06/20 11:20 98.1 79 20 115/68 (84) 94 Intake and Output 01/06/20 01/07/20 19:00 07:00 Intake Total 700 ml 100 ml Balance 700 ml 100 ml Intake Oral 700 ml IV Total 100 ml # Voids 4 # Bowel Movements 1 General Appearance: no acute distress HEENT: normocephalic Respiratory/Chest: chest wall non-tender, decreased breath sounds Cardiovascular: normal peripheral pulses Abdomen: normal bowel sounds Microbiology Date/Time Source Procedure Growth Status 01/05/20 07:40 Blood Blood Culture - Preliminary NO GROWTH AFTER 24 HOURS Resulted 01/05/20 07:30 Blood Blood Culture - Preliminary NO GROWTH AFTER 24 HOURS Resulted 01/05/20 08:00 Nasopharynx Coronavirus COVID-19 PCR (TAM) - Final Complete 01/05/20 11:28 Urine,Clean Catch Urine Culture - Preliminary Mixed Gram Positive Organism Resulted Laboratory Tests 01/07/20 03:40: White Blood Count 5.6, Red Blood Count 4.24, Hemoglobin 13.5, Hematocrit 38.3, Mean Corpuscular Volume 90, Mean Corpuscular Hemoglobin 31.9H, Mean Corpuscular Hemoglobin Concent 35.4, Red Cell Distribution Width 10.4L, Platelet Count 185, Mean Platelet Volume 6.9, Neutrophils (%) (Auto) , Lymphocytes (%) (Auto) , Monocytes (%) (Auto) , Eosinophils (%) (Auto) , Basophils (%) (Auto) , Differential Total Cells Counted 100, Neutrophils % (Manual) 87H, Lymphocytes % (Manual) 10L, Monocytes % (Manual) 2, Eosinophils % (Manual) 0, Basophils % ( Manual) 0, Myelocytes % 1H, Band Neutrophils 0, Platelet Estimate Adequate, Platelet Morphology Normal, Red Blood Cell Morphology Normal, Sodium Level 134L , Potassium Level 4.0, Chloride Level 99, Carbon Dioxide Level 26, Anion Gap 9, Blood Urea Nitrogen 14, Creatinine 0.6, Estimat Glomerular Filtration Rate > 60 , Glucose Level 188H, Hemoglobin A1c 6.7H, Calcium Level 8.8 Current Medications Medications (Trade) Dose Ordered Sig/Neha Route PRN Reason Start Time Stop Time Status Last Admin Dose Admin Acetaminophen (Tylenol) 650 mg Q4H PRN ORAL Mild Pain (Pain Scale 1-3) 01/05/20 09:00 02/04/20 08:59 01/05/20 16:01 Acetaminophen (Tylenol) 650 mg Q4H PRN ORAL Temp >100.5 01/05/20 09:00 02/04/20 08:59 Benzonatate (Tessalon Perles) 100 mg Q8HR PRN ORAL For Cough 01/06/20 01:15 02/05/20 01:14 Ceftriaxone Sodium 1 gm/ Dextrose 50 ml @ 100 mls/hr Q24H IVPB 01/06/20 09:00 01/13/20 08:59 01/07/20 09:50 Dextrose (Dextrose 50%) 25 ml Q30M PRN IV Hypoglycemia 01/05/20 09:00 04/04/20 08:59 Dextrose (Dextrose 50%) 50 ml Q30M PRN IV Hypoglycemia 01/05/20 09:00 04/04/20 08:59 Doxycycline Hyclate 100 mg/ Dextrose 100 ml @ 100 mls/hr Q12HR IV 01/06/20 09:00 01/13/20 08:59 01/07/20 09:49 Guaifenesin/ Dextromethorphan (Robitussin DM Syrup) 10 ml Q4H PRN ORAL For Cough 01/06/20 01:15 04/05/20 01:14 01/06/20 13:36 Hydroxychloroquine Sulfate (Plaquenil) 200 mg BID ORAL 01/06/20 18:00 01/10/20 09:01 01/07/20 09:50 Insulin Aspart (NovoLOG) BEFORE MEALS AND HS SUBQ 01/07/20 11:30 04/06/20 11:29 Insulin Detemir (Levemir) 5 units DAILY SUBQ 01/07/20 11:30 04/06/20 11:29 Shaun Omer MD Jan 07, 2020 11:05
[2020-01-07] MEDS ORDERED: Levemir Flexpen SUBQ SCH (11:30)
[2020-01-07] MEDS ORDERED: NovoLOG Insulin Flexpen SUBQ SCH ×2 (11:30)
[2020-01-07 12:00] VITALS: BP 133/49
--- NOTE | 2020-01-07 12:03 | NUR ---
NURSE NOTES: MD Negra made rounds, updates given, no new orders given.
[2020-01-07] MEDS: Guaifenesin/DM 10ml syrup ORAL PRN (14:45)
--- NOTE | 2020-01-07 14:55 | NUR ---
NURSE NOTES: Got call from PT family that PT was having trouble breathing, upon entering room with Amalia RT; oxygen got disconnected from the nonrebreather mask, reconnected mask to oxygen, placed a new pulse ox to PT; VSS, no S/S of respiratory distress, PT saturating at 92%. Will continue to monitor PT.
[2020-01-07 16:00] VITALS: BP 140/65
[2020-01-07] MEDS: NovoLOG Insulin Flexpen SUBQ SCH ×2 (16:14→20:38)
--- NOTE | 2020-01-07 16:25 | General Progress Note ---
Assessment/Plan Assessment/Plan: 59-year-old female with PMH of HTN, DM on metformin who presents with SOB x2 days. 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 #Acute respiratory failure #COVID positive as o/p #COVID POSITIVE while in-pt #CAP/PNA #Hemoptysis - resolved #chest pain - likely MSK 2/2 cough - resolved #bacteruria -cont. in-patient medical care, tele -cont. droplet/contact isolation -cont. supplemental O2 prn, on non-rebreather -CXR reviewed, trop negative -d-dimer elevated, 0.71 -COVID Positive -BCx NGTD -UCx w/ bacteriuria, likely contaminant versus colonized, no dysuria at this time we will continue to monitor -abx per ID -Pulm and ID following, recs appreciated -updated Barrera Knox w/POC -Updated nieceDary, , discussed POC, answered all questions to her satisfaction. #HTN -pt unsure of home medications -not hypertensive at this time, ctm #NIDDM, type 2 -holding home metformin while in-pt -ISS low, accuchecks qAC/HS DVT PPx: no chemical ppx due to hemoptysis, SCDs Time spent on encounter: 35 mins, >50% on counseling, coordination of care. D/w RN, ID and Pulm. Additional 25 mins spent on phone with daughter and niece,discussed POC, answered all questions to her satisfaction. Time of note doesn't reflect time of encounter. Subjective Allergies: Coded Allergies: No Known Allergies (Unverified , 01/05/20) Subjective F/u for COVID positive, acute respiratory distress. Remains on nonrebreather. States she feels SOB when off it. Objective Last 24 Hour Vital Signs Date Time Temp Pulse Resp B/P (MAP) Pulse Ox O2 Delivery O2 Flow Rate FiO2 01/07/20 12:00 83 01/07/20 12:00 15.0 01/07/20 12:00 Non-Rebreather 15.0 01/07/20 12:00 97.5 89 20 133/49 (77) 91 01/07/20 08:00 97.0 81 19 125/62 (83) 93 01/07/20 08:00 15.0 01/07/20 08:00 Non-Rebreather 15.0 01/07/20 08:00 82 01/07/20 04:00 15.0 01/07/20 04:00 Non-Rebreather 15.0 01/07/20 04:00 74 01/07/20 00:00 Non-Rebreather 15.0 01/07/20 00:00 15.0 01/07/20 00:00 88 01/06/20 20:00 15.0 01/06/20 20:00 Non-Rebreather 15.0 01/06/20 20:00 78 Intake and Output 01/06/20 01/07/20 19:00 07:00 Intake Total 700 ml 100 ml Balance 700 ml 100 ml Intake Oral 700 ml IV Total 100 ml # Voids 4 # Bowel Movements 1 Laboratory Tests 01/07/20 03:40: White Blood Count 5.6, Red Blood Count 4.24, Hemoglobin 13.5, Hematocrit 38.3, Mean Corpuscular Volume 90, Mean Corpuscular Hemoglobin 31.9H, Mean Corpuscular Hemoglobin Concent 35.4, Red Cell Distribution Width 10.4L, Platelet Count 185, Mean Platelet Volume 6.9, Neutrophils (%) (Auto) , Lymphocytes (%) (Auto) , Monocytes (%) (Auto) , Eosinophils (%) (Auto) , Basophils (%) (Auto) , Differential Total Cells Counted 100, Neutrophils % (Manual) 87H, Lymphocytes % (Manual) 10L, Monocytes % (Manual) 2, Eosinophils % (Manual) 0, Basophils % ( Manual) 0, Myelocytes % 1H, Band Neutrophils 0, Platelet Estimate Adequate, Platelet Morphology Normal, Red Blood Cell Morphology Normal, Sodium Level 134L , Potassium Level 4.0, Chloride Level 99, Carbon Dioxide Level 26, Anion Gap 9, Blood Urea Nitrogen 14, Creatinine 0.6, Estimat Glomerular Filtration Rate > 60 , Glucose Level 188H, Hemoglobin A1c 6.7H, Calcium Level 8.8 Height (Feet): 5 Height (Inches): 4.00 Weight (Pounds): 133 Objective General: NAD, A&O x 3, alert HEENT: NCAT, EOMi, MMM CV: RRR, no murmurs, rubs, or gallops Pulm: CTAB, no accessory muscle usage, on nonrebreather GI: Soft, nontender, nondistended Ext: No lower extremity edema bilaterally Veronica Laurent M.D. Jan 07, 2020 16:25
--- NOTE | 2020-01-07 17:08 | NUR ---
CASE MANAGEMENT: REVIEW SI: COVID-19 DETECTED . HYPOXIA . BILATERAL PNA T 97.0 HR 82 RR 19 BP 133/49 SAT 91% NON-REBREATHER FLOW RATE 15.0 NA 134 IS: VIBRAMYCIN IV Q12HR CEFTRIAXONE IV Q24HR PLAQUENIL 200MG PO BID STEP DOWN UNIT STATUS DCP: PATIENT IS FROM HOME
--- NOTE | 2020-01-07 18:52 | NUR ---
NURSE NOTES: PT family dropped of porridge for PT; provided PT with everything that was brought by the family; PT kept clean and dry; will continue to monitor PT.
--- NOTE | 2020-01-07 19:20 | NUR ---
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 pt remains stable. pt is alert and oriented times 4, able to follow commands. pt is on non rebreather sating at 94% O2. doctors are aware. pt is on oil analyst showing NSR, no cardiac distress noted. pt bed is low, locked, armed, call light within reach, will follow plan of care.
--- NOTE | 2020-01-07 19:28 | NUR ---
HAND-OFF: Report and PT given to Daniel Oliveros RN. Endorsed EKG tracing to be done for plaquenil QTC value evaluation.
--- NOTE | 2020-01-07 19:39 | Infectious Diseases Prog Note ---
Assessment/Plan Assessment/Plan ASSESSMENT AND PLAN: 1. covid-19 virus infection with pna, possible CAP, hypoxia - hydroxychloroquine - day # 3/5 - rocephin and doxycycline for CAP - day # 3 - monitor labs and chest x-ray - monitor respiratory status - telemetry, EKG if not done 2. Diabetes. 3. Hypertension. 4. Hemoptysis. 5. Continue treatment per primary consultants. 6. No known drug allergies. 7. Social history is negative. 8. Family history is noncontributory. 9. MAR was noted. 10. Case discussed with RN. 11. Continue treatment per primary consultants. Subjective Constitutional: Denies: fever HEENT: Reports: congestion Respiratory: Reports: shortness of breath Cardiovascular: Denies: chest pain Gastrointestinal/Abdominal: Denies: nausea, vomiting, diarrhea Genitourinary: Reports: other - no pollard Neurologic: Denies: headache Psychiatric: Denies: depression Skin: Denies: rash Hematologic: Denies: bleeding Musculoskeletal: Denies: pain Allergies: Coded Allergies: No Known Allergies (Unverified , 01/05/20) Objective Vital Signs Last 24 Hour Vital Signs Date Time Temp Pulse Resp B/P (MAP) Pulse Ox O2 Delivery O2 Flow Rate FiO2 01/07/20 16:00 Non-Rebreather 15.0 01/07/20 16:00 15.0 01/07/20 16:00 94 01/07/20 16:00 98.4 90 19 140/65 (90) 94 01/07/20 12:00 83 01/07/20 12:00 15.0 01/07/20 12:00 Non-Rebreather 15.0 01/07/20 12:00 97.5 89 20 133/49 (77) 91 01/07/20 08:00 97.0 81 19 125/62 (83) 93 01/07/20 08:00 15.0 01/07/20 08:00 Non-Rebreather 15.0 01/07/20 08:00 82 01/07/20 04:00 15.0 01/07/20 04:00 Non-Rebreather 15.0 01/07/20 04:00 74 01/07/20 00:00 Non-Rebreather 15.0 01/07/20 00:00 15.0 01/07/20 00:00 88 01/06/20 20:00 15.0 01/06/20 20:00 Non-Rebreather 15.0 01/06/20 20:00 78 Height (Feet): 5 Height (Inches): 4.00 Weight (Pounds): 133 General Appearance: no acute distress HEENT: normocephalic, atraumatic, anicteric, mucous membranes moist, other - mild sob Respiratory/Chest: crackles/rales, rhonchi - bilaterally Cardiovascular: normal rate, regular rhythm, no gallop/murmur, no JVD Abdomen: normal bowel sounds, soft, non tender, no organomegaly, non distended Genitourinary: other - no pollard Extremities: no cyanosis Skin: no rash 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 Bilateral mostly central mostly interstitial disease with hazy airspace opacity is again demonstrated. Consolidation appears less dense at the lung bases, probably due to the better inspiratory effort, but there does appear to be more disease in the upper lungs. The pleural spaces are clear. The heart size is normal. Impression: Shifting infiltrates, with apparent partial clearing of lung bases but increased disease in the upper lungs. Change in appearance may be in part due to improved inspiratory effort, however. Microbiology Date/Time Source Procedure Growth Status 01/05/20 07:40 Blood Blood Culture - Preliminary NO GROWTH AFTER 24 HOURS Resulted 01/05/20 07:30 Blood Blood Culture - Preliminary NO GROWTH AFTER 24 HOURS Resulted 01/05/20 08:00 Nasopharynx Coronavirus COVID-19 PCR (TAM) - Final Complete 01/05/20 11:28 Urine,Clean Catch Urine Culture - Preliminary Mixed Gram Positive Organism Resulted Laboratory Tests Test 01/07/20 03:40 White Blood Count 5.6 K/UL (4.8-10.8) Red Blood Count 4.24 M/UL (4.20-5.40) Hemoglobin 13.5 G/DL (12.0-16.0) Hematocrit 38.3 % (37.0-47.0) Mean Corpuscular Volume 90 FL (80-99) Mean Corpuscular Hemoglobin 31.9 PG (27.0-31.0) H Mean Corpuscular Hemoglobin Concent 35.4 G/DL (32.0-36.0) Red Cell Distribution Width 10.4 % (11.6-14.8) L Platelet Count 185 K/UL (150-450) Mean Platelet Volume 6.9 FL (6.5-10.1) Neutrophils (%) (Auto) % (45.0-75.0) Lymphocytes (%) (Auto) % (20.0-45.0) Monocytes (%) (Auto) % (1.0-10.0) Eosinophils (%) (Auto) % (0.0-3.0) Basophils (%) (Auto) % (0.0-2.0) Differential Total Cells Counted 100 Neutrophils % (Manual) 87 % (45-75) H Lymphocytes % (Manual) 10 % (20-45) L Monocytes % (Manual) 2 % (1-10) Eosinophils % (Manual) 0 % (0-3) Basophils % (Manual) 0 % (0-2) Myelocytes % 1 % (0-0) H Band Neutrophils 0 % (0-8) Platelet Estimate Adequate Platelet Morphology Normal Red Blood Cell Morphology Normal Sodium Level 134 MMOL/L (136-145) L Potassium Level 4.0 MMOL/L (3.5-5.1) Chloride Level 99 MMOL/L (98-107) Carbon Dioxide Level 26 MMOL/L (21-32) Anion Gap 9 mmol/L (5-15) Blood Urea Nitrogen 14 mg/dL (7-18) Creatinine 0.6 MG/DL (0.55-1.30) Estimat Glomerular Filtration Rate > 60 mL/min (>60) Glucose Level 188 MG/DL (74-106) H Hemoglobin A1c 6.7 % (4.3-6.0) H Calcium Level 8.8 MG/DL (8.5-10.1) Current Medications Medications (Trade) Dose Ordered Sig/Neha Route PRN Reason Start Time Stop Time Status Last Admin Dose Admin Acetaminophen (Tylenol) 650 mg Q4H PRN ORAL Mild Pain (Pain Scale 1-3) 01/05/20 09:00 02/04/20 08:59 01/05/20 16:01 Acetaminophen (Tylenol) 650 mg Q4H PRN ORAL Temp >100.5 01/05/20 09:00 02/04/20 08:59 Benzonatate (Tessalon Perles) 100 mg Q8HR PRN ORAL For Cough 01/06/20 01:15 02/05/20 01:14 Ceftriaxone Sodium 1 gm/ Dextrose 50 ml @ 100 mls/hr Q24H IVPB 01/06/20 09:00 01/13/20 08:59 01/07/20 09:50 Dextrose (Dextrose 50%) 25 ml Q30M PRN IV Hypoglycemia 01/05/20 09:00 04/04/20 08:59 Dextrose (Dextrose 50%) 50 ml Q30M PRN IV Hypoglycemia 01/05/20 09:00 04/04/20 08:59 Doxycycline Hyclate 100 mg/ Dextrose 100 ml @ 100 mls/hr Q12HR IV 01/06/20 09:00 01/13/20 08:59 01/07/20 09:49 Guaifenesin/ Dextromethorphan (Robitussin DM Syrup) 10 ml Q4H PRN ORAL For Cough 01/06/20 01:15 04/05/20 01:14 01/07/20 14:45 Hydroxychloroquine Sulfate (Plaquenil) 200 mg BID ORAL 01/06/20 18:00 01/10/20 09:01 01/07/20 18:39 Insulin Aspart (NovoLOG) BEFORE MEALS AND HS SUBQ 01/07/20 16:30 04/06/20 16:29 01/07/20 16:14 Pham Doyle MD Jan 07, 2020 19:39
[2020-01-07 20:00] VITALS: BP 148/71
[2020-01-08] VITALS: BP 152/75
[2020-01-08 04:00] VITALS: BP 139/76
--- NOTE | 2020-01-08 04:40 | NUR ---
NURSE NOTES: LABS/ BLOOD DRAWN. taken to lab. EKG done. stored in pts file.
[2020-01-08] MEDS: Guaifenesin/DM 10ml syrup ORAL PRN (05:48)
[2020-01-08] MEDS: NovoLOG Insulin Flexpen SUBQ SCH ×4 (05:56→20:30)
[2020-01-08 06:32] LABS: HEMATOCRIT 37.4 % (37.0-47.0); HEMOGLOBIN 13.7 G/DL (12.0-16.0); MEAN CORPUSCULAR VOLUME 90 FL (80-99); PLATELET COUNT 208 K/UL (150-450); RED BLOOD COUNT 4.14 M/UL (4.20-5.40); RED CELL DISTRIBUTION WIDTH 10.5 % (11.6-14.8); WHITE BLOOD COUNT 9.7 K/UL (4.8-10.8)
[2020-01-08 06:56] LABS: ANION GAP 16 mmol/L (5-15); BLOOD UREA NITROGEN 9 mg/dL (7-18); CALCIUM 8.8 MG/DL (8.5-10.1); CARBON DIOXIDE 22 MMOL/L (21-32); CHLORIDE 98 MMOL/L (98-107); CREATININE 0.5 MG/DL (0.55-1.30); POTASSIUM 3.8 MMOL/L (3.5-5.1); SODIUM 136 MMOL/L (136-145)
--- NOTE | 2020-01-08 07:30 | NUR ---
HAND-OFF: Report given to Kelly CHRISTINE TELE. Pt remains stable
[2020-01-08 08:00] VITALS: BP 122/70
--- NOTE | 2020-01-08 08:00 | NUR ---
[facility] (REPORT FROM RICARDO CHRISTINE). PT IS 59 YEAR OLD FEMALE POSITIVE FOR COVID ([facility] APT #[id number]). SHE TESTED POSITIVE AT [facility] ON 12/31/19 & 01/03/20. ORIENTED PT TO UNIT AND STAFF. EDUCATED ON FALL RISK PRECAUTIONS AND RISK FOR SKIN BREAKDOWN. SAFE AND CLUTTER FREE ENVIRONMENT MAINTAINED AT ALL TIMES. ALL NEEDS ANTICIPATED AND MET. CALL LIGHT KEPT WITHIN REACH AT ALL TIMES. UPDATED PT/PT PRIMARY CONTACT (DAUGHTER) ON PLAN OF CARE. VERBALIZED UNDERSTANDING. Addendum: 01/08/20 at 1405 by Fabi Hayden RN PLEASE NOTE PT VERBALIZES SHE HAS ALL BELONGINGS WITH HER UPON ARRIVAL TO TELE UNIT. PT HAS $140 DOLLARS HUFF (EDUCATED PT ON SENDING HUFF TO SECURITY/FAMILY MEDICINE RESIDENT, PT DECLINED-ON ISOLATION FOR COVID).
--- NOTE | 2020-01-08 08:10 | NUR ---
NURSE NOTES: Patient transferred to 202-1.per bed,observe,droplet,contact isolation,positive COVID,patient on mask,on non rebreather mask,breathing easy,stable,belongings sent with patient,family notfiied,orders transferred
[2020-01-08] MEDS ORDERED: cefTRIAXone 1 GM in D5W 50 ML IVPB SCH (09:00)
[2020-01-08] MEDS ORDERED: Guaifenesin/DM 10ml syrup ORAL PRN (09:15)
--- NOTE | 2020-01-08 09:38 | NUR ---
CASE MANAGEMENT:REVIEW 01/08/20 SI: COVID 19 PNEUMONIA 99.9 N 84 20 139/76 98% ON NON REBREATHER @ 15L GLUCOSE+205 IS: IV ROCEPHIN Q24 IV DOXYCYCLINE Q12 PLAQUENIL PO BID : NOW ON TELEMETRY UNIT DCP: PATIENT IS FROM HOME PLAN: PLAQUENIL ~ DAY 4/5 IV ABX ~ DAY 3
--- NOTE | 2020-01-08 10:27 | General Progress Note ---
Assessment/Plan Assessment/Plan: 59-year-old female with PMH of HTN, DM on metformin who presents with SOB x2 days. 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 #Acute respiratory failure #COVID positive as o/p #COVID POSITIVE while in-pt #CAP/PNA #Hemoptysis - resolved #chest pain - likely MSK 2/2 cough - resolved -cont. in-patient medical care, tele -cont. droplet/contact isolation -cont. supplemental O2 prn, on non-rebreather -CXR reviewed, trop negative -COVID Positive -BCx NGTD -abx per ID -Pulm and ID following, recs appreciated -D/w Pulm, Dr. Omer, will give pt one dose Lasix -Updated Dary maurer, , discussed code status today, answered all questions to her satisfaction. #Elevated D-Dimer -could be 2/2 to above/COVID -d-dimer, 0.71 -anticoagulation held 2/2 hemoptysis from admission -will check LE US #Asymptomatic bacteruria -UCx w/ bacteriuria, likely contaminant versus colonized -no dysuria at this time -continue to monitor -ID following #HTN -pt unsure of home medications -not hypertensive at this time, ctm #NIDDM, type 2 -holding home metformin while in-pt -Hgb A1c 6.7 -ISS low, accuchecks qAC/HS DVT PPx: no chemical ppx due to hemoptysis, SCDs Time spent on encounter: 36 mins, >50% on counseling, coordination of care. Additional 40 mins spent discussing with Pulm, Dr. Omer regarding pt's SOB and obtaining LE US and updating family as well as code status regarding intubation, pt is full code. Time of note doesn't reflect time of encounter. Subjective Allergies: Coded Allergies: No Known Allergies (Unverified , 01/05/20) Subjective F/u for COVID positive, acute respiratory distress. States she feels S OB today, remains on nonrebreather. No further episodes of hemoptysis at this time. Objective Last 24 Hour Vital Signs Date Time Temp Pulse Resp B/P (MAP) Pulse Ox O2 Delivery O2 Flow Rate FiO2 4/15/20 08:00 82 01/08/20 06:18 98.9 01/08/20 04:00 15.0 01/08/20 04:00 89 01/08/20 04:00 99.9 84 20 139/76 (97) 98 01/08/20 04:00 Non-Rebreather 15.0 01/08/20 00:00 89 01/08/20 00:00 Non-Rebreather 15.0 01/08/20 00:00 97.7 81 21 152/75 (100) 97 01/08/20 00:00 15.0 01/07/20 20:00 98.8 84 19 148/71 (96) 96 01/07/20 20:00 Non-Rebreather 15.0 01/07/20 20:00 90 01/07/20 20:00 15.0 01/07/20 16:00 Non-Rebreather 15.0 01/07/20 16:00 15.0 01/07/20 16:00 94 01/07/20 16:00 98.4 90 19 140/65 (90) 94 01/07/20 12:00 83 01/07/20 12:00 15.0 01/07/20 12:00 Non-Rebreather 15.0 01/07/20 12:00 97.5 89 20 133/49 (77) 91 Intake and Output 01/07/20 01/08/20 19:00 07:00 Intake Total 1650 ml 100 ml Balance 1650 ml 100 ml Intake Oral 1500 ml 100 ml IV Total 150 ml # Voids 3 # Bowel Movements 1 Laboratory Tests 01/08/20 05:30: White Blood Count 9.7#, Red Blood Count 4.14L, Hemoglobin 13.7, Hematocrit 37.4 , Mean Corpuscular Volume 90, Mean Corpuscular Hemoglobin 33.0H, Mean Corpuscular Hemoglobin Concent 36.5H, Red Cell Distribution Width 10.5L, Platelet Count 208, Mean Platelet Volume 7.1, Neutrophils (%) (Auto) , Lymphocytes (%) (Auto) , Monocytes (%) (Auto) , Eosinophils (%) (Auto) , Basophils (%) (Auto) , Differential Total Cells Counted 100, Neutrophils % ( Manual) 92H, Lymphocytes % (Manual) 6L, Monocytes % (Manual) 2, Eosinophils % ( Manual) 0, Basophils % (Manual) 0, Band Neutrophils 0, Platelet Estimate Adequate, Platelet Morphology Normal, Red Blood Cell Morphology Normal, Sodium Level 136, Potassium Level 3.8, Chloride Level 98, Carbon Dioxide Level 22, Anion Gap 16H, Blood Urea Nitrogen 9, Creatinine 0.5L, Estimat Glomerular Filtration Rate > 60, Glucose Level 205H, Calcium Level 8.8 Height (Feet): 5 Height (Inches): 4.00 Weight (Pounds): 124 Objective General: NAD, A&O x 3, alert, awake, no diaphoresis HEENT: NCAT, EOMi, MMM CV: RRR, no murmurs, rubs, or gallops Pulm: CTAB, no accessory muscle usage, on nonrebreather GI: Soft, nontender, nondistended Ext: No lower extremity edema bilaterally Veronica Laurent M.D. Jan 08, 2020 10:27
--- NOTE | 2020-01-08 11:15 | Pulmonology Progress Note ---
Assessment/Plan Assessment/Plan 1. Bilateral pneumonia. History of COVID 19 positivity 2. Hemoptysis. 3. Hypertension 4. Diabetes. DISCUSSION: Admitted to the hospital. Agree with management and care. Consider CT chest to exclude PE versus pneumonia. I will follow. Slowly improving On NRBM but SaO2 now 95% Shaun Omer M.D. Subjective Interval Events: None new Constitutional: Reports: no symptoms HEENT: Repors: no symptoms Respiratory: Reports: no symptoms Cardiovascular: Reports: no symptoms Allergies: Coded Allergies: No Known Allergies (Unverified , 01/05/20) Objective Last 24 Hour Vital Signs Date Time Temp Pulse Resp B/P (MAP) Pulse Ox O2 Delivery O2 Flow Rate FiO2 01/08/20 08:00 15.0 01/08/20 08:00 Non-Rebreather 15.0 01/08/20 08:00 97.5 88 20 122/70 (87) 95 01/08/20 08:00 82 01/08/20 06:18 98.9 01/08/20 04:00 15.0 01/08/20 04:00 89 01/08/20 04:00 99.9 84 20 139/76 (97) 98 01/08/20 04:00 Non-Rebreather 15.0 01/08/20 00:00 89 01/08/20 00:00 Non-Rebreather 15.0 01/08/20 00:00 97.7 81 21 152/75 (100) 97 01/08/20 00:00 15.0 01/07/20 20:00 98.8 84 19 148/71 (96) 96 01/07/20 20:00 Non-Rebreather 15.0 01/07/20 20:00 90 01/07/20 20:00 15.0 01/07/20 16:00 Non-Rebreather 15.0 01/07/20 16:00 15.0 01/07/20 16:00 94 01/07/20 16:00 98.4 90 19 140/65 (90) 94 01/07/20 12:00 83 01/07/20 12:00 15.0 01/07/20 12:00 Non-Rebreather 15.0 01/07/20 12:00 97.5 89 20 133/49 (77) 91 Intake and Output 01/07/20 01/08/20 19:00 07:00 Intake Total 1650 ml 100 ml Balance 1650 ml 100 ml Intake Oral 1500 ml 100 ml IV Total 150 ml # Voids 3 # Bowel Movements 1 General Appearance: no acute distress HEENT: normocephalic Respiratory/Chest: chest wall non-tender Cardiovascular: normal peripheral pulses Abdomen: normal bowel sounds Microbiology Date/Time Source Procedure Growth Status 01/05/20 11:28 Urine,Clean Catch Urine Culture - Preliminary Mixed Gram Positive Organism Resulted Laboratory Tests 01/08/20 05:30: White Blood Count 9.7#, Red Blood Count 4.14L, Hemoglobin 13.7, Hematocrit 37.4 , Mean Corpuscular Volume 90, Mean Corpuscular Hemoglobin 33.0H, Mean Corpuscular Hemoglobin Concent 36.5H, Red Cell Distribution Width 10.5L, Platelet Count 208, Mean Platelet Volume 7.1, Neutrophils (%) (Auto) , Lymphocytes (%) (Auto) , Monocytes (%) (Auto) , Eosinophils (%) (Auto) , Basophils (%) (Auto) , Differential Total Cells Counted 100, Neutrophils % ( Manual) 92H, Lymphocytes % (Manual) 6L, Monocytes % (Manual) 2, Eosinophils % ( Manual) 0, Basophils % (Manual) 0, Band Neutrophils 0, Platelet Estimate Adequate, Platelet Morphology Normal, Red Blood Cell Morphology Normal, Sodium Level 136, Potassium Level 3.8, Chloride Level 98, Carbon Dioxide Level 22, Anion Gap 16H, Blood Urea Nitrogen 9, Creatinine 0.5L, Estimat Glomerular Filtration Rate > 60, Glucose Level 205H, Calcium Level 8.8 Current Medications Medications (Trade) Dose Ordered Sig/Neha Route PRN Reason Start Time Stop Time Status Last Admin Dose Admin Acetaminophen (Tylenol) 650 mg Q4H PRN ORAL Mild Pain (Pain Scale 1-3) 01/08/20 09:00 02/04/20 08:59 01/08/20 09:21 Acetaminophen (Tylenol) 650 mg Q4H PRN ORAL Temp >100.5 01/08/20 09:00 02/04/20 08:59 Benzonatate (Tessalon Perles) 100 mg Q8H PRN ORAL For Cough 01/08/20 14:00 02/07/20 13:59 Ceftriaxone Sodium 1 gm/ Dextrose 50 ml @ 100 mls/hr Q24H IVPB 01/08/20 09:00 01/13/20 08:59 01/08/20 10:30 Dextrose (Dextrose 50%) 25 ml Q30M PRN IV Hypoglycemia 01/08/20 08:30 04/04/20 08:59 Dextrose (Dextrose 50%) 50 ml Q30M PRN IV Hypoglycemia 01/08/20 08:30 04/04/20 08:59 Doxycycline Hyclate 100 mg/ Dextrose 100 ml @ 100 mls/hr Q12HR IV 01/08/20 09:00 01/13/20 08:59 01/08/20 09:16 Guaifenesin/ Dextromethorphan (Robitussin DM Syrup) 10 ml Q4H PRN ORAL For Cough 01/08/20 09:15 04/05/20 01:14 01/08/20 09:20 Hydroxychloroquine Sulfate (Plaquenil) 200 mg BID ORAL 01/08/20 09:00 01/10/20 09:01 01/08/20 09:20 Insulin Aspart (NovoLOG) BEFORE MEALS AND HS SUBQ 01/08/20 11:30 04/06/20 16:29 Shaun Omer MD Jan 08, 2020 11:15
[2020-01-08 12:00] VITALS: BP 132/70
--- NOTE | 2020-01-08 13:59 | NUR ---
*-* INSURANCE *-* UPDATED CLINICALS AND REVIEWS HAVE BEEN FAXED TO: [facility] TRK# [id number] VIPUL:BLESSING P: [phone] F: [phone]
[2020-01-08] MEDS ORDERED: Benzonatate 100mg Perles ORAL PRN (14:00)
[2020-01-08 16:07] VITALS: BP 127/80
--- NOTE | 2020-01-08 19:15 | NUR ---
GAVE FULL REPORT TO SEE CHRISTINE. PT RESTING IN BED NO APPARENT DISTRESS.
--- NOTE | 2020-01-08 19:30 | NUR ---
NURSE NOTES: Report received from EMMETT Dunlap. Patient alert, awake, and seen sitting up on bed. AOX4. Able to verbalize needsOn 15L oxygen per nonrebreather mask. No signs of acute distress or difficulty breathing. IV on RFA 18g, intact, and flushed. No erythema, bleeding, or infiltration. Denies pain or discomfort at this time. Skin intact. Bed rails raised x2. Bed in lowest position, brakes engaged, call light placed within reach. Will continue to monitor.
[2020-01-08 20:00] VITALS: BP 124/78
--- NOTE | 2020-01-08 21:27 | NUR ---
NURSE NOTES: Called and left a message with Dr. Gonzalez's answering service regarding patient's request for Morphine sulfate. Awaiting call back from supervisor functional testing doctor. Addendum: 01/08/20 at 2128 by Abdifatah Liu RN [facility]
[2020-01-08] MEDS ORDERED: Morphine Sulfate 2mg/ml Inj(IV/IM USE ONLY) IVP SCH (21:45)
[2020-01-09] VITALS: BP 141/77
[2020-01-09 04:00] VITALS: BP 138/76
--- NOTE | 2020-01-09 04:50 | NUR ---
NURSE NOTES: Dr. Tonny Miranda ([phone]) called inquiring about patient's condition because patient called him complaining of shortness of breath. Relayed that the patient is on 15L nonrebreather mask and has been saturating at 97%. Asked for nurse to call him back if anything changes with patient's condition.
--- NOTE | 2020-01-09 05:00 | NUR ---
NURSE NOTES: Called and left a message with Dr. Posadas regarding patient's anxiety. Awaiting call back.
--- NOTE | 2020-01-09 05:07 | NUR ---
NURSE NOTES: Dr. Vargas returned the call and ordered for Ativan 1mg PO once. Will carry out order.
[2020-01-09] MEDS ORDERED: LORazepam 1mg tab ORAL SCH (05:15)
[2020-01-09 05:21] LABS: HEMATOCRIT 37.6 % (37.0-47.0); HEMOGLOBIN 13.5 G/DL (12.0-16.0); MEAN CORPUSCULAR VOLUME 89 FL (80-99); PLATELET COUNT 197 K/UL (150-450); RED BLOOD COUNT 4.22 M/UL (4.20-5.40); RED CELL DISTRIBUTION WIDTH 10.3 % (11.6-14.8); WHITE BLOOD COUNT 13.9 K/UL (4.8-10.8)
[2020-01-09 05:50] LABS: ANION GAP 16 mmol/L (5-15); BLOOD UREA NITROGEN 9 mg/dL (7-18); CALCIUM 8.5 MG/DL (8.5-10.1); CARBON DIOXIDE 22 MMOL/L (21-32); CHLORIDE 93 MMOL/L (98-107); CREATININE 0.6 MG/DL (0.55-1.30); POTASSIUM 3.3 MMOL/L (3.5-5.1); SODIUM 131 MMOL/L (136-145)
[2020-01-09] MEDS: NovoLOG Insulin Flexpen SUBQ SCH ×4 (06:29→21:00)
--- NOTE | 2020-01-09 06:38 | NUR ---
NURSE NOTES: Patient noted to be asleep on bed. Oxygen saturating at 97%.
--- NOTE | 2020-01-09 07:26 | NUR ---
HAND-OFF: Report given to Wero RN. Plan of care endorsed.
--- NOTE | 2020-01-09 07:30 | NUR ---
NURSE NOTES: Received patient sitting on floor, calling someone on her cellphone. No SOB or acute distress. Assisted patient back to bed. Placed back on non rebreather mask. No complaints of discomfor or pain at this time. IV line intact. Refused to change into hospital gown. HOB elevated. Bed locked in lowest position. Call light within reach. Will continue plan of care.
[2020-01-09 08:00] VITALS: BP 144/69
[2020-01-09] MEDS ORDERED: cefTRIAXone 1 GM in D5W 55 ML IVPB SCH (09:00)
--- NOTE | 2020-01-09 09:20 | NUR ---
CASE MANAGEMENT:REVIEW 01/09/20 SI: COVID 19 PNEUMONIA 98.0 87 18 138/76 98% ON NON REBREATHER @ 15L WBC+13.9 NA-131 K-3.3 GLUCOSE+226 IS: IV ROCEPHIN Q24 IV DOXYCYCLINE Q12 PLAQUENIL PO BID : NOW ON TELEMETRY UNIT DCP: PATIENT IS FROM HOME PLAN: PLAQUENIL ~ DAY 5/5 IV ABX ~ DAY 4
--- NOTE | 2020-01-09 09:44 | NUR ---
NURSE NOTES: Patient noted to be trying to get up several times, but is easily redirected back to bed each time.
--- NOTE | 2020-01-09 10:32 | NUR ---
*-* INSURANCE *-* UPDATED CLINICALS AND REVIEWS HAVE BEEN FAXED TO: [facility] TRK# [id number] NCM:BLESSING P: [phone] F: [phone] Addendum: 01/10/20 at 0902 by OBED ARZOLA CM *-* INSURANCE AUTHORIZATION *-* RECEIVED A FAX WITH FROM [employer]. WITH AUTH FAXED TO ADMITING; APPROVED: 01/04- @ [facility] TRK# [id number] NCM:ANISA CANTU P: [phone] F: [phone] F: [phone] DISCHARGIGNG NEEDS P: [phone]
--- NOTE | 2020-01-09 11:08 | Pulmonology Progress Note ---
Assessment/Plan Assessment/Plan 1. Bilateral pneumonia. History of COVID 19 positivity 2. Hemoptysis. Resolved 3. Hypertension 4. Diabetes. DISCUSSION: Agree with management and care. Await lower ext duplex. I will follow. Slowly improving On NRBM but SaO2 now 95-99% Shaun Omer M.D. Subjective Interval Events: Saturating better Constitutional: Reports: no symptoms HEENT: Repors: no symptoms Respiratory: Reports: no symptoms Cardiovascular: Reports: no symptoms Gastrointestinal/Abdominal: Reports: no symptoms Allergies: Coded Allergies: No Known Allergies (Unverified , 01/05/20) Objective Last 24 Hour Vital Signs Date Time Temp Pulse Resp B/P (MAP) Pulse Ox O2 Delivery O2 Flow Rate FiO2 01/09/20 10:35 96 144/69 01/09/20 09:00 Non-Rebreather 15.0 01/09/20 08:00 98.0 100 22 144/69 (94) 99 01/09/20 08:00 15.0 01/09/20 08:00 96 01/09/20 04:00 15.0 01/09/20 04:00 87 01/09/20 04:00 98.0 92 18 138/76 (96) 98 01/09/20 00:00 88 01/09/20 00:00 96.6 95 19 141/77 (98) 92 01/08/20 21:00 Non-Rebreather 15.0 01/08/20 20:00 89 01/08/20 20:00 15.0 01/08/20 20:00 97.7 91 20 124/78 (93) 96 01/08/20 16:07 15.0 01/08/20 16:07 97.6 94 20 127/80 (96) 95 01/08/20 16:00 89 01/08/20 12:00 98 01/08/20 12:00 97.4 92 18 132/70 (90) 97 01/08/20 12:00 15.0 Intake and Output 01/08/20 01/09/20 19:00 07:00 Intake Total 500 ml 100 ml Output Total 600 ml Balance -100 ml 100 ml Intake Oral 500 ml IV Total 100 ml Output Urine Total 600 ml # Voids 2 # Bowel Movements 1 1 General Appearance: no acute distress HEENT: normocephalic Respiratory/Chest: chest wall non-tender, lungs clear Cardiovascular: normal peripheral pulses Abdomen: normal bowel sounds Laboratory Tests 01/09/20 03:53: White Blood Count 13.9H, Red Blood Count 4.22, Hemoglobin 13.5, Hematocrit 37.6 , Mean Corpuscular Volume 89, Mean Corpuscular Hemoglobin 31.9H, Mean Corpuscular Hemoglobin Concent 35.8, Red Cell Distribution Width 10.3L, Platelet Count 197, Mean Platelet Volume 6.3L, Neutrophils (%) (Auto) , Lymphocytes (%) (Auto) , Monocytes (%) (Auto) , Eosinophils (%) (Auto) , Basophils (%) (Auto) , Differential Total Cells Counted 100, Neutrophils % ( Manual) 90H, Lymphocytes % (Manual) 9L, Monocytes % (Manual) 1, Eosinophils % ( Manual) 0, Basophils % (Manual) 0, Band Neutrophils 0, Platelet Estimate Adequate, Platelet Morphology Normal, Red Blood Cell Morphology Normal, Sodium Level 131L, Potassium Level 3.3L, Chloride Level 93L, Carbon Dioxide Level 22, Anion Gap 16H, Blood Urea Nitrogen 9, Creatinine 0.6, Estimat Glomerular Filtration Rate > 60, Glucose Level 226H, Calcium Level 8.5 Current Medications Medications (Trade) Dose Ordered Sig/Neha Route PRN Reason Start Time Stop Time Status Last Admin Dose Admin Acetaminophen (Tylenol) 650 mg Q4H PRN ORAL Mild Pain (Pain Scale 1-3) 01/08/20 09:00 02/04/20 08:59 01/08/20 09:21 Acetaminophen (Tylenol) 650 mg Q4H PRN ORAL Temp >100.5 01/08/20 09:00 02/04/20 08:59 Amlodipine Besylate (Norvasc) 5 mg DAILY ORAL 01/09/20 10:00 02/08/20 09:59 01/09/20 10:35 Benzonatate (Tessalon Perles) 100 mg Q8H PRN ORAL For Cough 01/08/20 14:00 02/07/20 13:59 Dextrose (Dextrose 50%) 25 ml Q30M PRN IV Hypoglycemia 01/08/20 08:30 04/04/20 08:59 Dextrose (Dextrose 50%) 50 ml Q30M PRN IV Hypoglycemia 01/08/20 08:30 04/04/20 08:59 Doxycycline Hyclate 100 mg/ Dextrose 100 ml @ 100 mls/hr Q12HR IV 01/08/20 09:00 01/13/20 08:59 01/09/20 08:35 Guaifenesin/ Dextromethorphan (Robitussin DM Syrup) 10 ml Q4H PRN ORAL For Cough 01/08/20 09:15 04/05/20 01:14 01/08/20 09:20 Hydroxychloroquine Sulfate (Plaquenil) 200 mg BID ORAL 01/08/20 09:00 01/10/20 09:01 01/09/20 08:34 Insulin Aspart (NovoLOG) BEFORE MEALS AND HS SUBQ 01/08/20 11:30 04/06/20 16:29 01/09/20 06:29 Piperacillin Sod/ Tazobactam Sod 3.375 gm/Sodium Chloride 110 ml @ 27.5 mls/hr Q8H IVPB 01/09/20 11:00 01/16/20 10:59 Shaun Omer MD Jan 09, 2020 11:07
[2020-01-09] MEDS: Piperacillin/Tazobactam 3.375 GM in NS 110 ML IVPB SCH ×2 (11:19→18:01)
--- NOTE | 2020-01-09 11:51 | NUR ---
NURSE NOTES: Patient complaining of SOB, RR at 32. O2 sat taken, fluctuating from 89-96. Dr Omer aware, ordered for ABG stat, noted and carried out.
[2020-01-09 12:00] VITALS: BP 160/79
--- NOTE | 2020-01-09 12:35 | NUR ---
NURSE NOTES: Patient found sitting on floor crouched, said she did not fall. Still complaining of SOB, already reported previously to MD. Assisted back to bed.
--- NOTE | 2020-01-09 12:41 | NUR ---
NURSE NOTES: ABG results relayed to Dr Omer, with orders to place patient on prone position. Noted and carried out. Latest RR noted at 42.
--- NOTE | 2020-01-09 13:00 | General Progress Note ---
Assessment/Plan Assessment/Plan: 59-year-old female with PMH of HTN, DM on metformin who presents with SOB x2 days. Patient notes [employer] she had nonproductive cough x5 days, 2 days ago went to a community clinic and was tested for COVID 19 and was stated she was positive. #Acute respiratory failure #COVID positive as o/p #COVID POSITIVE while in-pt #CAP/PNA #Hemoptysis - resolved #chest pain - likely MSK 2/2 cough - resolved -cont. in-patient medical care, tele -cont. droplet/contact isolation -cont. supplemental O2 prn, on non-rebreather -CXR reviewed, trop negative -COVID Positive -BCx NGTD -abx per ID -ID: hydroxychloroquine, zosyn and doxcy -D/w Pulm, Dr. Omer, pt appears to be decompensating, will place pt in prone position, -STAT CXR ordered -Updated Dary maurer, , who put daughter, Ree, on the phone, updated both on pt presentation, concern for acute decompensation, POC was explained to both family members. #Elevated D-Dimer -likely 2/2 to above/COVID -d-dimer, 0.71 -LE US ordered, pending #Asymptomatic bacteruria -UCx w/ bacteriuria, likely contaminant versus colonized -no dysuria at this time -continue to monitor -ID following #HTN -pt unsure of home medications -not hypertensive at this time, ctm #NIDDM, type 2 -holding home metformin while in-pt -Hgb A1c 6.7 -ISS low, accuchecks qAC/HS DVT PPx: SCDs Time spent on encounter: 37 mins, spent 25 mins w/coordination of care, discussed proning, CXR and respiration status w/Pulm and RN. Additional 25 mins spent on phone with daughter and niece as mentioned above. Time of note doesn't reflect time of encounter. Subjective Allergies: Coded Allergies: No Known Allergies (Unverified , 01/05/20) Subjective F/u for COVID positive, acute respiratory distress. Had episode of confusion this AM. States breathing unchanged, still feels SOB on nonrebreather. Objective Last 24 Hour Vital Signs Date Time Temp Pulse Resp B/P (MAP) Pulse Ox O2 Delivery O2 Flow Rate FiO2 4/16/20 12:00 98.0 102 28 160/79 (106) 92 01/09/20 12:00 15.0 01/09/20 10:35 96 144/69 01/09/20 09:00 Non-Rebreather 15.0 01/09/20 08:00 98.0 100 22 144/69 (94) 99 01/09/20 08:00 15.0 01/09/20 08:00 96 01/09/20 04:00 15.0 01/09/20 04:00 87 01/09/20 04:00 98.0 92 18 138/76 (96) 98 01/09/20 00:00 88 01/09/20 00:00 96.6 95 19 141/77 (98) 92 01/08/20 21:00 Non-Rebreather 15.0 01/08/20 20:00 89 01/08/20 20:00 15.0 01/08/20 20:00 97.7 91 20 124/78 (93) 96 01/08/20 16:07 15.0 01/08/20 16:07 97.6 94 20 127/80 (96) 95 01/08/20 16:00 89 Intake and Output 01/08/20 01/09/20 19:00 07:00 Intake Total 500 ml 100 ml Output Total 600 ml Balance -100 ml 100 ml Intake Oral 500 ml IV Total 100 ml Output Urine Total 600 ml # Voids 2 # Bowel Movements 1 1 Laboratory Tests 01/09/20 03:53: White Blood Count 13.9H, Red Blood Count 4.22, Hemoglobin 13.5, Hematocrit 37.6 , Mean Corpuscular Volume 89, Mean Corpuscular Hemoglobin 31.9H, Mean Corpuscular Hemoglobin Concent 35.8, Red Cell Distribution Width 10.3L, Platelet Count 197, Mean Platelet Volume 6.3L, Neutrophils (%) (Auto) , Lymphocytes (%) (Auto) , Monocytes (%) (Auto) , Eosinophils (%) (Auto) , Basophils (%) (Auto) , Differential Total Cells Counted 100, Neutrophils % ( Manual) 90H, Lymphocytes % (Manual) 9L, Monocytes % (Manual) 1, Eosinophils % ( Manual) 0, Basophils % (Manual) 0, Band Neutrophils 0, Platelet Estimate Adequate, Platelet Morphology Normal, Red Blood Cell Morphology Normal, Sodium Level 131L, Potassium Level 3.3L, Chloride Level 93L, Carbon Dioxide Level 22, Anion Gap 16H, Blood Urea Nitrogen 9, Creatinine 0.6, Estimat Glomerular Filtration Rate > 60, Glucose Level 226H, Calcium Level 8.5 01/09/20 12:11: Arterial Blood pH 7.455H, Arterial Blood Partial Pressure CO2 29.0L, Arterial Blood Partial Pressure O2 56.5L, Arterial Blood HCO3 19.9L, Arterial Blood Oxygen Saturation 89.7*L, Arterial Blood Base Excess -2.8L, Jun Test Positive Height (Feet): 5 Height (Inches): 4.00 Weight (Pounds): 124 Objective General: NAD, A&O x 3, alert, awake, no diaphoresis HEENT: NCAT, EOMi, MMM CV: RRR, no murmurs, rubs, or gallops Pulm: CTAB, no wheezes/rales/rhonchi, on nonrebreather GI: Soft, nontender, nondistended Ext: No lower extremity edema bilaterally Veronica Laurent M.D. Jan 09, 2020 13:00
[2020-01-09] MEDS ORDERED: Morphine Sulfate 2mg/ml Inj(IV/IM USE ONLY) IVP SCH (13:15)
--- NOTE | 2020-01-09 13:26 | NUR ---
NURSE NOTES: Dr Laurent made aware of patient's condition, with orders for morphine 1mg IV now, noted and carried out. Daughter Barrera trying to attempt facetime with patient, patient made aware. Patient maintained on prone position.
--- NOTE | 2020-01-09 14:32 | NUR ---
NURSE NOTES: Patient verbalizes she is feeling better, no complaints of pain. RR at 34. Patient is calm and relaxed in bed.
--- NOTE | 2020-01-09 14:58 | Diagnostic Imaging Report ---
Indication: Shortness of breath Technique: One view of the chest Comparison: 01/07/2020 Findings: Hazy infiltrates throughout the right lung have worsened since prior study. There is also slight worsening of hazy left mid and lower lung infiltrates since prior study. The heart size is normal. The pleural spaces remain clear. Impression: Worsening bilateral infiltrates, likely pneumonia, right greater than left, over 2 days
--- NOTE | 2020-01-09 15:07 | NUR ---
RADIOLOGY DEPT., CHEST X-RAY COMPLETED.-P.DYE
[2020-01-09 16:00] VITALS: BP 147/76
--- NOTE | 2020-01-09 16:14 | NUR ---
NURSE NOTES: Patient noted getting out of bed to find a more comfortable position. Easily redirected back to bed. RR at 44.
--- NOTE | 2020-01-09 19:00 | NUR ---
NURSE NOTES: Patient with SOB, requesting for morphine for discomfort but Dr Laurent denied to give orders. Instead gave orders for stat ABG, to refer results to Dr Omer, orders noted and carried out.
--- NOTE | 2020-01-09 19:12 | NUR ---
HAND-OFF: Report given to Zac. Endorsed to relay stat ABG results to Dr Omer for possible transfer to ICU and intubation.
--- NOTE | 2020-01-09 19:13 | NUR ---
Received pt from Mikey Mendoza. Pt is awake in bed on non rebreather mask 15L. Pt is tachypneic with HOB elevated. Iv site intact and patent. Bed locked in lowest position bed alarm on, call light within reach. Isolation precautions active. Will follow up with ABG results and notify Dr. Omer per request.
--- NOTE | 2020-01-09 19:39 | Consultation ---
History of Present Illness General Chief Complaint: Dyspnea/Respdistress Reason for Consultation: hyponatremia Present Illness HPI This is a 59 year old female with past medical history of diabetes and hypertension, presented on 01/04 with several days of progressively worsening shortness of breath and cough. She was found to be positive for covid. Hospital course complicated by hyponatremia. Allergies: Coded Allergies: No Known Allergies (Unverified , 01/05/20) Medication History Scheduled Hydrochlorothiazide* (Hydrochlorothiazide*), 12.5 MG ORAL DAILY, (Reported) Metformin Hcl* (Metformin Hcl*), 500 MG ORAL TWICE A DAY, (Reported) Patient History Healthcare decision maker jose luis westfall Resuscitation status Full Code Advanced Directive on File No Review of Systems All Other Systems: negative except mentioned in HPI Physical Exam Last 24 Hour Vital Signs Date Time Temp Pulse Resp B/P (MAP) Pulse Ox O2 Delivery O2 Flow Rate FiO2 01/09/20 16:00 92 01/09/20 16:00 97.9 95 44 147/76 (99) 92 01/09/20 16:00 15.0 01/09/20 12:00 98.0 102 28 160/79 (106) 92 01/09/20 12:00 100 01/09/20 12:00 15.0 01/09/20 10:35 96 144/69 01/09/20 09:00 Non-Rebreather 15.0 01/09/20 08:00 98.0 100 22 144/69 (94) 99 01/09/20 08:00 15.0 01/09/20 08:00 96 01/09/20 04:00 15.0 01/09/20 04:00 87 01/09/20 04:00 98.0 92 18 138/76 (96) 98 01/09/20 00:00 88 01/09/20 00:00 96.6 95 19 141/77 (98) 92 01/08/20 21:00 Non-Rebreather 15.0 01/08/20 20:00 89 01/08/20 20:00 15.0 01/08/20 20:00 97.7 91 20 124/78 (93) 96 Intake and Output 01/08/20 01/09/20 19:00 07:00 Intake Total 500 ml 100 ml Output Total 600 ml Balance -100 ml 100 ml Intake Oral 500 ml IV Total 100 ml Output Urine Total 600 ml # Voids 2 # Bowel Movements 1 1 Laboratory Tests Test 01/09/20 03:53 01/09/20 12:11 White Blood Count 13.9 K/UL (4.8-10.8) H Red Blood Count 4.22 M/UL (4.20-5.40) Hemoglobin 13.5 G/DL (12.0-16.0) Hematocrit 37.6 % (37.0-47.0) Mean Corpuscular Volume 89 FL (80-99) Mean Corpuscular Hemoglobin 31.9 PG (27.0-31.0) H Mean Corpuscular Hemoglobin Concent 35.8 G/DL (32.0-36.0) Red Cell Distribution Width 10.3 % (11.6-14.8) L Platelet Count 197 K/UL (150-450) Mean Platelet Volume 6.3 FL (6.5-10.1) L Neutrophils (%) (Auto) % (45.0-75.0) Lymphocytes (%) (Auto) % (20.0-45.0) Monocytes (%) (Auto) % (1.0-10.0) Eosinophils (%) (Auto) % (0.0-3.0) Basophils (%) (Auto) % (0.0-2.0) Differential Total Cells Counted 100 Neutrophils % (Manual) 90 % (45-75) H Lymphocytes % (Manual) 9 % (20-45) L Monocytes % (Manual) 1 % (1-10) Eosinophils % (Manual) 0 % (0-3) Basophils % (Manual) 0 % (0-2) Band Neutrophils 0 % (0-8) Platelet Estimate Adequate Platelet Morphology Normal Red Blood Cell Morphology Normal Sodium Level 131 MMOL/L (136-145) L Potassium Level 3.3 MMOL/L (3.5-5.1) L Chloride Level 93 MMOL/L (98-107) L Carbon Dioxide Level 22 MMOL/L (21-32) Anion Gap 16 mmol/L (5-15) H Blood Urea Nitrogen 9 mg/dL (7-18) Creatinine 0.6 MG/DL (0.55-1.30) Estimat Glomerular Filtration Rate > 60 mL/min (>60) Glucose Level 226 MG/DL (74-106) H Calcium Level 8.5 MG/DL (8.5-10.1) Arterial Blood pH 7.455 (7.350-7.450) Arterial Blood Partial Pressure CO2 29.0 mmHg (35.0-45.0) L Arterial Blood Partial Pressure O2 56.5 mmHg (75.0-100.0) L Arterial Blood HCO3 19.9 mmol/L (22.0-26.0) L Arterial Blood Oxygen Saturation 89.7 % (95-100) *L Arterial Blood Base Excess -2.8 (-2-2) L Jun Test Positive Height (Feet): 5 Height (Inches): 4.00 Weight (Pounds): 124 Medications Current Medications Medications (Trade) Dose Ordered Sig/Neha Route PRN Reason Start Time Stop Time Status Last Admin Dose Admin Acetaminophen (Tylenol) 650 mg Q4H PRN ORAL Mild Pain (Pain Scale 1-3) 01/08/20 09:00 02/04/20 08:59 01/08/20 09:21 Acetaminophen (Tylenol) 650 mg Q4H PRN ORAL Temp >100.5 01/08/20 09:00 02/04/20 08:59 Amlodipine Besylate (Norvasc) 5 mg DAILY ORAL 01/09/20 10:00 02/08/20 09:59 01/09/20 10:35 Benzonatate (Tessalon Perles) 100 mg Q8H PRN ORAL For Cough 01/08/20 14:00 02/07/20 13:59 Dextrose (Dextrose 50%) 25 ml Q30M PRN IV Hypoglycemia 01/08/20 08:30 04/04/20 08:59 Dextrose (Dextrose 50%) 50 ml Q30M PRN IV Hypoglycemia 01/08/20 08:30 04/04/20 08:59 Doxycycline Hyclate 100 mg/ Dextrose 100 ml @ 100 mls/hr Q12HR IV 01/08/20 09:00 01/13/20 08:59 01/09/20 08:35 Guaifenesin/ Dextromethorphan (Robitussin DM Syrup) 10 ml Q4H PRN ORAL For Cough 01/08/20 09:15 04/05/20 01:14 01/08/20 09:20 Hydroxychloroquine Sulfate (Plaquenil) 200 mg BID ORAL 01/08/20 09:00 01/10/20 09:01 01/09/20 17:46 Insulin Aspart (NovoLOG) BEFORE MEALS AND HS SUBQ 01/08/20 11:30 04/06/20 16:29 01/09/20 16:38 Piperacillin Sod/ Tazobactam Sod 3.375 gm/Sodium Chloride 110 ml @ 27.5 mls/hr Q8H IVPB 01/09/20 11:00 01/16/20 10:59 01/09/20 18:01 Objective Narrative General: NAD, A&O x 3, alert, awake, no diaphoresis HEENT: NCAT, EOMi, MMM CV: RRR, no murmurs, rubs, or gallops Pulm: CTAB, no wheezes/rales/rhonchi, on nonrebreather GI: Soft, nontender, nondistended Ext: No lower extremity edema bilaterally Assessment/Plan Diagnosis [place] I: #Hyponatremia- mild- l r/o SIADH in the setting of pneumonia #hypokalemia- repleted #COVID pneumonia #hypoxemic respiratary failure #HTN #DM - check urine osm and urine sodium - check TSH - check am cortisol - replete K - abx per ID- on zosyn, doxy, plaquenil - continue amlodipine 5mg daily - BG control - breathing tx per pulm - supplemental O2 Justin Hopper M.D. Jan 09, 2020 19:39
[2020-01-09 20:00] VITALS: BP 129/61
--- NOTE | 2020-01-09 20:02 | Infectious Diseases Prog Note ---
Assessment/Plan Assessment/Plan ASSESSMENT AND PLAN: 1. covid-19 virus infection with pna, possible CAP, hypoxia ? septic, leukocytosis - hydroxychloroquine - day # 5/5 - cover bacterial pna/infection with vancomycin and zosyn, on doxycycline - monitor labs and chest x-ray - monitor respiratory status - chest x-ray worse - may need icu care - communicated with Dr. Laurent 2. Diabetes. 3. Hypertension. 4. Hemoptysis. 5. Continue treatment per primary consultants. 6. No known drug allergies. 7. Social history is negative. 8. Family history is noncontributory. 9. MAR was noted. 10. Case discussed with RN. 11. Continue treatment per primary consultants. Subjective Constitutional: Reports: fatigue, other - increased sob, on 15 liters O2; Denies: fever HEENT: Reports: congestion Respiratory: Reports: shortness of breath Gastrointestinal/Abdominal: Denies: nausea, vomiting, diarrhea Genitourinary: Reports: other - no pollard Neurologic: Denies: headache Psychiatric: Reports: other - NA Skin: Denies: rash Hematologic: Denies: bleeding Musculoskeletal: Denies: pain Allergies: Coded Allergies: No Known Allergies (Unverified , 01/05/20) Objective Vital Signs Last 24 Hour Vital Signs Date Time Temp Pulse Resp B/P (MAP) Pulse Ox O2 Delivery O2 Flow Rate FiO2 01/09/20 16:00 92 01/09/20 16:00 97.9 95 44 147/76 (99) 92 01/09/20 16:00 15.0 01/09/20 12:00 98.0 102 28 160/79 (106) 92 01/09/20 12:00 100 01/09/20 12:00 15.0 01/09/20 10:35 96 144/69 01/09/20 09:00 Non-Rebreather 15.0 01/09/20 08:00 98.0 100 22 144/69 (94) 99 01/09/20 08:00 15.0 01/09/20 08:00 96 01/09/20 04:00 15.0 01/09/20 04:00 87 01/09/20 04:00 98.0 92 18 138/76 (96) 98 01/09/20 00:00 88 01/09/20 00:00 96.6 95 19 141/77 (98) 92 01/08/20 21:00 Non-Rebreather 15.0 01/08/20 20:00 89 01/08/20 20:00 15.0 01/08/20 20:00 97.7 91 20 124/78 (93) 96 Height (Feet): 5 Height (Inches): 4.00 Weight (Pounds): 124 General Appearance: other - + sob HEENT: normocephalic, atraumatic, anicteric Respiratory/Chest: crackles/rales, rhonchi - bilaterally Cardiovascular: normal rate, regular rhythm, no gallop/murmur Abdomen: normal bowel sounds, soft, non tender, no organomegaly, non distended Genitourinary: other - no pollard Extremities: no cyanosis Skin: no rash Neurologic/Psychiatric: method consultant II-XII grossly normal, alert, responsive Lymphatic: no neck adenopathy Musculoskeletal: no effusion Objective 01/07/20 - Procedure: XRAY Chest 1v Indication: Shortness of breath Technique: One view of the chest Comparison: For 09/13/2020 Findings: There inspiration currently. Bilateral mostly central mostly interstitial disease with hazy airspace opacity is again demonstrated. Consolidation appears less dense at the lung bases, probably due to the better inspiratory effort, but there does appear to be more disease in the upper lungs. The pleural spaces are clear. The heart size is normal. Impression: Shifting infiltrates, with apparent partial clearing of lung bases but increased disease in the upper lungs. Change in appearance may be in part due to improved inspiratory effort, however. Chest x-ray - 01/09/20 - Procedure: XRAY Chest 1v Indication: Shortness of breath Technique: One view of the chest Comparison: 01/07/2020 Findings: Hazy infiltrates throughout the right lung have worsened since prior study. There is also slight worsening of hazy left mid and lower lung infiltrates since prior study. The heart size is normal. The pleural spaces remain clear. Impression: Worsening bilateral infiltrates, likely pneumonia, right greater than left, over 2 days Microbiology Date/Time Source Procedure Growth Status 01/05/20 07:40 Blood Blood Culture - Preliminary NO GROWTH AFTER 72 HOURS Resulted 01/05/20 08:00 Nasopharynx Coronavirus COVID-19 PCR (TAM) - Final Complete 01/05/20 11:28 Urine,Clean Catch Urine Culture - Preliminary Mixed Gram Positive Organism YEAST Resulted Laboratory Tests Test 01/09/20 03:53 01/09/20 12:11 01/09/20 19:45 White Blood Count 13.9 K/UL (4.8-10.8) H Red Blood Count 4.22 M/UL (4.20-5.40) Hemoglobin 13.5 G/DL (12.0-16.0) Hematocrit 37.6 % (37.0-47.0) Mean Corpuscular Volume 89 FL (80-99) Mean Corpuscular Hemoglobin 31.9 PG (27.0-31.0) H Mean Corpuscular Hemoglobin Concent 35.8 G/DL (32.0-36.0) Red Cell Distribution Width 10.3 % (11.6-14.8) L Platelet Count 197 K/UL (150-450) Mean Platelet Volume 6.3 FL (6.5-10.1) L Neutrophils (%) (Auto) % (45.0-75.0) Lymphocytes (%) (Auto) % (20.0-45.0) Monocytes (%) (Auto) % (1.0-10.0) Eosinophils (%) (Auto) % (0.0-3.0) Basophils (%) (Auto) % (0.0-2.0) Differential Total Cells Counted 100 Neutrophils % (Manual) 90 % (45-75) H Lymphocytes % (Manual) 9 % (20-45) L Monocytes % (Manual) 1 % (1-10) Eosinophils % (Manual) 0 % (0-3) Basophils % (Manual) 0 % (0-2) Band Neutrophils 0 % (0-8) Platelet Estimate Adequate Platelet Morphology Normal Red Blood Cell Morphology Normal Sodium Level 131 MMOL/L (136-145) L Potassium Level 3.3 MMOL/L (3.5-5.1) L Chloride Level 93 MMOL/L (98-107) L Carbon Dioxide Level 22 MMOL/L (21-32) Anion Gap 16 mmol/L (5-15) H Blood Urea Nitrogen 9 mg/dL (7-18) Creatinine 0.6 MG/DL (0.55-1.30) Estimat Glomerular Filtration Rate > 60 mL/min (>60) Glucose Level 226 MG/DL (74-106) H Calcium Level 8.5 MG/DL (8.5-10.1) Arterial Blood pH 7.455 (7.350-7.450) 7.446 (7.350-7.450) Arterial Blood Partial Pressure CO2 29.0 mmHg (35.0-45.0) L 30.0 mmHg (35.0-45.0) L Arterial Blood Partial Pressure O2 56.5 mmHg (75.0-100.0) L 77.1 mmHg (75.0-100.0) Arterial Blood HCO3 19.9 mmol/L (22.0-26.0) L 20.2 mmol/L (22.0-26.0) L Arterial Blood Oxygen Saturation 89.7 % (95-100) *L 95.1 % (95-100) Arterial Blood Base Excess -2.8 (-2-2) L -2.7 (-2-2) L Jun Test Positive Positive Current Medications Medications (Trade) Dose Ordered Sig/Neha Route PRN Reason Start Time Stop Time Status Last Admin Dose Admin Acetaminophen (Tylenol) 650 mg Q4H PRN ORAL Mild Pain (Pain Scale 1-3) 01/08/20 09:00 02/04/20 08:59 01/09/20 19:39 Acetaminophen (Tylenol) 650 mg Q4H PRN ORAL Temp >100.5 01/08/20 09:00 02/04/20 08:59 Amlodipine Besylate (Norvasc) 5 mg DAILY ORAL 01/09/20 10:00 02/08/20 09:59 01/09/20 10:35 Benzonatate (Tessalon Perles) 100 mg Q8H PRN ORAL For Cough 01/08/20 14:00 02/07/20 13:59 Dextrose (Dextrose 50%) 25 ml Q30M PRN IV Hypoglycemia 01/08/20 08:30 04/04/20 08:59 Dextrose (Dextrose 50%) 50 ml Q30M PRN IV Hypoglycemia 01/08/20 08:30 04/04/20 08:59 Doxycycline Hyclate 100 mg/ Dextrose 100 ml @ 100 mls/hr Q12HR IV 01/08/20 09:00 01/13/20 08:59 01/09/20 08:35 Guaifenesin/ Dextromethorphan (Robitussin DM Syrup) 10 ml Q4H PRN ORAL For Cough 01/08/20 09:15 04/05/20 01:14 01/08/20 09:20 Hydroxychloroquine Sulfate (Plaquenil) 200 mg BID ORAL 01/08/20 09:00 01/10/20 09:01 01/09/20 17:46 Insulin Aspart (NovoLOG) BEFORE MEALS AND HS SUBQ 01/08/20 11:30 04/06/20 16:29 01/09/20 16:38 Piperacillin Sod/ Tazobactam Sod 3.375 gm/Sodium Chloride 110 ml @ 27.5 mls/hr Q8H IVPB 01/09/20 11:00 01/16/20 10:59 01/09/20 18:01 Pham Doyle MD Jan 09, 2020 20:02
[2020-01-09] MEDS: Vancomycin 1.5gm/NS Premix IVPB SCH (21:00)
[2020-01-09] MEDS: Morphine Sulfate 2mg/ml Inj(IV/IM USE ONLY) IVP PRN (21:07)
[2020-01-10] VITALS (19 sets, daily range): BP systolic 41–160; BP diastolic 19–108
--- NOTE | 2020-01-10 01:35 | NUR ---
HAND-OFF: Report given to EMMETT Hatch. Transferred pt to ICU, with oxygen support. Belongings verified. Pt has $101.[address] to [address] money in lock box, stating she wants to keep the money. Iv site intact and patent. Bed locked in lowest position, call light within reach. Endorsed plan of care.
--- NOTE | 2020-01-10 02:00 | NUR ---
NURSE NOTES: received pt from tele awake and restless and c/o of pain medicated with ms relief
[2020-01-10] MEDS: Morphine Sulfate 2mg/ml Inj(IV/IM USE ONLY) IVP PRN ×3 (02:45→18:29)
[2020-01-10] MEDS: Piperacillin/Tazobactam 3.375 GM in NS 110 ML IVPB SCH ×3 (03:00→18:27)
--- NOTE | 2020-01-10 04:00 | NUR ---
NURSE NOTES: pt awake and restless asking for pain
[2020-01-10 04:55] LABS: HEMATOCRIT 37.7 % (37.0-47.0); HEMOGLOBIN 13.7 G/DL (12.0-16.0); MEAN CORPUSCULAR VOLUME 89 FL (80-99); PLATELET COUNT 161 K/UL (150-450); RED BLOOD COUNT 4.24 M/UL (4.20-5.40); RED CELL DISTRIBUTION WIDTH 10.2 % (11.6-14.8); WHITE BLOOD COUNT 14.7 K/UL (4.8-10.8)
[2020-01-10 05:21] LABS: ALANINE AMINOTRANSFERASE 24 U/L (12-78); ALBUMIN 2.1 G/DL (3.4-5.0); ALBUMIN/GLOBULIN RATIO 0.5 (1.0-2.7); ALKALINE PHOSPHATASE 127 U/L (46-116); ANION GAP 16 mmol/L (5-15); ASPARTATE AMINO TRANSFERASE 52 U/L (15-37); BILIRUBIN,TOTAL 0.7 MG/DL (0.2-1.0); BLOOD UREA NITROGEN 10 mg/dL (7-18); CALCIUM 8.5 MG/DL (8.5-10.1); CARBON DIOXIDE 21 MMOL/L (21-32); CHLORIDE 92 MMOL/L (98-107); CREATININE 0.6 MG/DL (0.55-1.30); POTASSIUM 3.3 MMOL/L (3.5-5.1); SODIUM 129 MMOL/L (136-145)
[2020-01-10 05:29] LABS: PHOSPHORUS 2.3 MG/DL (2.5-4.9)
[2020-01-10] MEDS: NovoLOG Insulin Flexpen SUBQ SCH ×4 (05:45→20:54)
--- NOTE | 2020-01-10 06:00 | NUR ---
NURSE NOTES:restles at in tre[place]
--- NOTE | 2020-01-10 07:30 | NUR ---
HAND-OFF: Report given to dejan urbano using sbar.
--- NOTE | 2020-01-10 07:33 | NUR ---
NURSE NOTES: late entry: received report from filomena. roche pt in bed, restless. moving about the bed, removing cardiac leads and bp cuff. pt a/ox4. on non-rebreather 15l 100%. labored breaths, accessory muscles. desats in 88, ranging 88-95%. abdomen soft, round. no bm since 01/07. diet ccho, poor appetite. blood sugar checks ac+hs last 194 units given. pt continent. no drains. iv access rt ac18g, lt ac 22g. tkp. pt moves upper and lower extremities. pt educated on use of call light, encouraged to lay prone to better saturate. locked in low position. airborne precautions in place. will contine to monitor pt.
--- NOTE | 2020-01-10 08:54 | General Progress Note ---
Assessment/Plan Assessment/Plan: 59-year-old female with PMH of HTN, DM on metformin who presents with SOB x2 days. Patient notes [employer] she had nonproductive cough x5 days, 2 days ago went to a community clinic and was tested for COVID 19 and was stated she was positive. #Acute respiratory failure #COVID positive as o/p #COVID POSITIVE while in-pt #CAP/PNA #Hemoptysis - resolved #chest pain - likely MSK 2/2 cough - resolved -cont. in-patient medical care, tele -cont. droplet/contact isolation -cont. supplemental O2 prn, on non-rebreather -CXR reviewed, trop negative -COVID Positive -BCx NGTD -01/08 CXR reviwed with interval worsening of lungs -on NRBM SpO2 95-99% -d/w pt use of Actrema and Ivermectin, pt states she understands the risks and benefits and wishes to try these medications at this time -D/w Dr. Omer and Dr. Doyle who are aware and agree -d/c doxycycline -start azithro, Actrema, Ivermectin per ID/Pulm -encourage prone positioning -Updated daughter, eRe, , explained to daughter medications, potential outcomes, advanced life care planning and code status, answered all questions to her satisfaction. #Hyponatremia -concern for SIADH given setting of PNA -Urine/Serum Osm pending -Nephro consulted, recs appreciated #Elevated D-Dimer -likely 2/2 to above/COVID -d-dimer, 0.71 -LE US ordered, pending #Asymptomatic bacteruria -UCx w/ bacteriuria, likely contaminant versus colonized -no dysuria at this time -continue to monitor -ID following #HTN -pt unsure of home medications -not hypertensive at this time, ctm #NIDDM, type 2 -holding home metformin while in-pt -Hgb A1c 6.7 -ISS low, accuchecks qAC/HS DVT PPx: SCDs Time spent on encounter: 65 mins, 36 mins spent on critical care time. Critical Care Services performed include: Telemetry Review Hemodynamic measurement interpretation Laboratory data review and interpretation Radiology image review and interpretation Interpretation of ABG's Discussion of patient's care with ICU team, Nursing staff D/w Dr. Omer and Dr. Doyle reguarding CXR, medications Spent additional 30 mins discussing with pt's daughter code status, end of life , medications. Answered all questions to her satisfaction. Time of note doesn't reflect time of encounter. Subjective Allergies: Coded Allergies: No Known Allergies (Unverified , 01/05/20) Subjective F/u for COVID positive, acute respiratory distress. Pt w/increased work of breathing yesterday, improved w/morphine. Pt transferred to ICU for further care. Remains on non-rebreather, states breathing is same as previous days. Denies CP , abd pain at this time. Objective Last 24 Hour Vital Signs Date Time Temp Pulse Resp B/P (MAP) Pulse Ox O2 Delivery O2 Flow Rate FiO2 01/10/20 07:00 97 110/70 (83) 94 01/10/20 06:40 95 Non-Rebreather 15.0 100 01/10/20 06:00 97 118/70 (86) 97 01/10/20 05:00 97 124/108 (113) 99 01/10/20 04:00 Non-Rebreather 15.0 01/10/20 04:00 97 40 118/58 (78) 95 01/10/20 04:00 15.0 01/10/20 04:00 100 01/10/20 03:17 99 26 103/61 (75) 92 01/10/20 03:00 98 32 110/46 (67) 96 01/10/20 02:00 98.4 96 29 116/70 (85) 98 01/10/20 00:00 96 01/10/20 00:00 97.0 96 22 127/73 (91) 90 01/09/20 21:00 Non-Rebreather 15.0 01/09/20 20:09 97.9 01/09/20 20:00 88 01/09/20 20:00 97.7 88 26 129/61 (83) 90 01/09/20 20:00 15.0 01/09/20 16:00 92 01/09/20 16:00 97.9 95 44 147/76 (99) 92 01/09/20 16:00 15.0 01/09/20 12:00 98.0 102 28 160/79 (106) 92 4/16/20 12:00 100 01/09/20 12:00 15.0 01/09/20 10:35 96 144/69 01/09/20 09:00 Non-Rebreather 15.0 Intake and Output 01/09/20 01/10/20 19:00 07:00 Intake Total 510.0 ml 850 ml Output Total 250 ml Balance 510.0 ml 600 ml Intake Oral 300 ml 850 ml IV Total 210.0 ml Output Urine Total 250 ml # Voids 1 Laboratory Tests 01/09/20 12:11: Arterial Blood pH 7.455H, Arterial Blood Partial Pressure CO2 29.0L, Arterial Blood Partial Pressure O2 56.5L, Arterial Blood HCO3 19.9L, Arterial Blood Oxygen Saturation 89.7*L, Arterial Blood Base Excess -2.8L, Jun Test Positive 01/09/20 19:45: Arterial Blood pH 7.446, Arterial Blood Partial Pressure CO2 30.0L, Arterial Blood Partial Pressure O2 77.1, Arterial Blood HCO3 20.2L, Arterial Blood Oxygen Saturation 95.1, Arterial Blood Base Excess -2.7L, Jun Test Positive 01/09/20 22:35: Urine Random Sodium < 20L, Urine Creatinine 78.6 01/10/20 03:26: White Blood Count 14.7H, Red Blood Count 4.24, Hemoglobin 13.7, Hematocrit 37.7 , Mean Corpuscular Volume 89, Mean Corpuscular Hemoglobin 32.3H, Mean Corpuscular Hemoglobin Concent 36.3H, Red Cell Distribution Width 10.2L, Platelet Count 161, Mean Platelet Volume 7.4, Neutrophils (%) (Auto) , Lymphocytes (%) (Auto) , Monocytes (%) (Auto) , Eosinophils (%) (Auto) , Basophils (%) (Auto) , Neutrophils % (Manual) [Pending], Lymphocytes % (Manual) [Pending], Platelet Estimate [Pending], Platelet Morphology [Pending], Sodium Level 129L, Potassium Level 3.3L, Chloride Level 92L, Carbon Dioxide Level 21, Anion Gap 16H, Blood Urea Nitrogen 10, Creatinine 0.6, Estimat Glomerular Filtration Rate > 60, Glucose Level 195H, Osmolality 271L, Calcium Level 8.5, Phosphorus Level 2.3L, Magnesium Level 1.8, Total Bilirubin 0.7, Aspartate Amino Transf (AST/SGOT) 52H, Alanine Aminotransferase (ALT/SGPT) 24, Alkaline Phosphatase 127H, Total Protein 6.3L, Albumin 2.1L, Globulin 4.2, Albumin/ Globulin Ratio 0.5L, Thyroid Stimulating Hormone (TSH) 0.176L, Cortisol AM Sample [Pending] Height (Feet): 5 Height (Inches): 4.00 Weight (Pounds): 124 Objective General: NAD, A&O x 3, alert, awake, laying lateral recumbent HEENT: NCAT, EOMi, MMM CV: RRR, no murmurs, rubs, or gallops Pulm: CTAB, no wheezes/rales/rhonchi, on nonrebreather GI: Soft, nontender, nondistended Ext: No lower extremity edema bilaterally Veronica Laurent M.D. Jan 10, 2020 08:53
--- NOTE | 2020-01-10 08:57 | NUR ---
*-* INSURANCE *-* UPDATED CLINICALS AND REVIEWS HAVE BEEN FAXED TO: [facility] TRK# [id number] VIPUL:BLESSING P: [phone] F: [phone]
--- NOTE | 2020-01-10 10:17 | NUR ---
NURSE NOTES: late entry: md joiner here to see pt. was informed of sob, sats, pt unwilling to remain in prone position for extended periods. c/o pain and requests morphine atc. k 3.3.
--- NOTE | 2020-01-10 10:18 | Pulmonology Progress Note ---
Assessment/Plan Assessment/Plan 1. Bilateral pneumonia. COVID 19 positivity 2. Hemoptysis. Resolved 3. Hypertension 4. Diabetes. 5. Hyponatremia 6. Hypoklemia 7. Worsening CXR DISCUSSION: Agree with management and care. Await lower ext duplex. I will follow. On NRBM but SaO2 now 95-99% Has begun proning since yesterday Will treat with Actemra and Ivermecti Added Azithro DC Vibramicin Discussed with patient nd advised risks nd benefits of Actemra and Ivermectin Patient agrees Dr Brianna Laurent aware and agrees Dr. Meneses (ID) aware and agrees Shaun Omer M.D. Subjective Interval Events: Transferred to ICU over night due to hypoxemia. Constitutional: Reports: no symptoms HEENT: Repors: no symptoms Respiratory: Reports: shortness of breath Cardiovascular: Reports: no symptoms Gastrointestinal/Abdominal: Reports: no symptoms Genitourinary: Reports: no symptoms Allergies: Coded Allergies: No Known Allergies (Unverified , 01/05/20) Objective Last 24 Hour Vital Signs Date Time Temp Pulse Resp B/P (MAP) Pulse Ox O2 Delivery O2 Flow Rate FiO2 01/10/20 09:55 102 133/69 01/10/20 07:00 97 110/70 (83) 94 01/10/20 06:40 95 Non-Rebreather 15.0 100 01/10/20 06:00 97 118/70 (86) 97 01/10/20 05:00 97 124/108 (113) 99 01/10/20 04:00 Non-Rebreather 15.0 01/10/20 04:00 97 40 118/58 (78) 95 01/10/20 04:00 15.0 01/10/20 04:00 100 01/10/20 03:17 99 26 103/61 (75) 92 01/10/20 03:00 98 32 110/46 (67) 96 01/10/20 02:00 98.4 96 29 116/70 (85) 98 01/10/20 00:00 96 01/10/20 00:00 97.0 96 22 127/73 (91) 90 4/16/20 21:00 Non-Rebreather 15.0 01/09/20 20:09 97.9 01/09/20 20:00 88 01/09/20 20:00 97.7 88 26 129/61 (83) 90 01/09/20 20:00 15.0 01/09/20 16:00 92 01/09/20 16:00 97.9 95 44 147/76 (99) 92 01/09/20 16:00 15.0 01/09/20 12:00 98.0 102 28 160/79 (106) 92 01/09/20 12:00 100 01/09/20 12:00 15.0 01/09/20 10:35 96 144/69 Intake and Output 01/09/20 01/10/20 19:00 07:00 Intake Total 510.0 ml 850 ml Output Total 250 ml Balance 510.0 ml 600 ml Intake Oral 300 ml 850 ml IV Total 210.0 ml Output Urine Total 250 ml # Voids 1 General Appearance: no acute distress HEENT: normocephalic Respiratory/Chest: chest wall non-tender, decreased breath sounds Cardiovascular: normal peripheral pulses Laboratory Tests 01/09/20 12:11: Arterial Blood pH 7.455H, Arterial Blood Partial Pressure CO2 29.0L, Arterial Blood Partial Pressure O2 56.5L, Arterial Blood HCO3 19.9L, Arterial Blood Oxygen Saturation 89.7*L, Arterial Blood Base Excess -2.8L, Jun Test Positive 01/09/20 19:45: Arterial Blood pH 7.446, Arterial Blood Partial Pressure CO2 30.0L, Arterial Blood Partial Pressure O2 77.1, Arterial Blood HCO3 20.2L, Arterial Blood Oxygen Saturation 95.1, Arterial Blood Base Excess -2.7L, Jun Test Positive 01/09/20 22:35: Urine Random Sodium < 20L, Urine Creatinine 78.6 01/10/20 03:26: White Blood Count 14.7H, Red Blood Count 4.24, Hemoglobin 13.7, Hematocrit 37.7 , Mean Corpuscular Volume 89, Mean Corpuscular Hemoglobin 32.3H, Mean Corpuscular Hemoglobin Concent 36.3H, Red Cell Distribution Width 10.2L, Platelet Count 161, Mean Platelet Volume 7.4, Neutrophils (%) (Auto) , Lymphocytes (%) (Auto) , Monocytes (%) (Auto) , Eosinophils (%) (Auto) , Basophils (%) (Auto) , Differential Total Cells Counted 100, Neutrophils % ( Manual) 93H, Lymphocytes % (Manual) 2L, Monocytes % (Manual) 0L, Eosinophils % ( Manual) 0, Basophils % (Manual) 0, Band Neutrophils 5, Platelet Estimate Adequate, Platelet Morphology Normal, Red Blood Cell Morphology Normal, Sodium Level 129L, Potassium Level 3.3L, Chloride Level 92L, Carbon Dioxide Level 21, Anion Gap 16H, Blood Urea Nitrogen 10, Creatinine 0.6, Estimat Glomerular Filtration Rate > 60, Glucose Level 195H, Osmolality 271L, Calcium Level 8.5, Phosphorus Level 2.3L, Magnesium Level 1.8, Total Bilirubin 0.7, Aspartate Amino Transf (AST/SGOT) 52H, Alanine Aminotransferase (ALT/SGPT) 24, Alkaline Phosphatase 127H, Total Protein 6.3L, Albumin 2.1L, Globulin 4.2, Albumin/ Globulin Ratio 0.5L, Thyroid Stimulating Hormone (TSH) 0.176L, Cortisol AM Sample [Pending] Current Medications Medications (Trade) Dose Ordered Sig/Neha Route PRN Reason Start Time Stop Time Status Last Admin Dose Admin Acetaminophen (Tylenol) 650 mg Q4H PRN ORAL Mild Pain (Pain Scale 1-3) 01/08/20 09:00 02/04/20 08:59 01/09/20 19:39 Acetaminophen (Tylenol) 650 mg Q4H PRN ORAL Temp >100.5 01/08/20 09:00 02/04/20 08:59 Amlodipine Besylate (Norvasc) 5 mg DAILY ORAL 01/09/20 10:00 02/08/20 09:59 01/10/20 09:55 Azithromycin 250 mg/Dextrose 275 ml @ 275 mls/hr Q24HRS IV 01/10/20 11:00 01/15/20 10:59 Benzonatate (Tessalon Perles) 100 mg Q8H PRN ORAL For Cough 01/08/20 14:00 02/07/20 13:59 Dextrose (Dextrose 50%) 25 ml Q30M PRN IV Hypoglycemia 01/08/20 08:30 04/04/20 08:59 Dextrose (Dextrose 50%) 50 ml Q30M PRN IV Hypoglycemia 01/08/20 08:30 04/04/20 08:59 Furosemide (Lasix) 40 mg ONCE IV 01/10/20 10:00 01/10/20 11:00 Guaifenesin/ Dextromethorphan (Robitussin DM Syrup) 10 ml Q4H PRN ORAL For Cough 01/08/20 09:15 04/05/20 01:14 01/08/20 09:20 Insulin Aspart (NovoLOG) BEFORE MEALS AND HS SUBQ 01/08/20 11:30 04/06/20 16:29 01/10/20 05:45 Ivermectin (StromectoL) 12 mg ONCE ONCE ORAL 01/10/20 10:00 01/10/20 10:01 UNV Morphine Sulfate (Morphine Sulfate) 1 mg EVERY 6 HOURS PRN IVP Severe Pain (Pain Scale 7-10) 01/09/20 20:30 01/16/20 20:29 01/10/20 09:58 Piperacillin Sod/ Tazobactam Sod 3.375 gm/Sodium Chloride 110 ml @ 27.5 mls/hr Q8H IVPB 01/09/20 11:00 01/16/20 10:59 01/10/20 03:00 Potassium Chloride 100 ml @ 100 mls/hr Q1H IVPB 01/10/20 10:30 01/10/20 13:29 Tocilizumab 400 mg/Sodium Chloride 130 ml @ 130 mls/hr ONCE ONCE IV 01/10/20 11:30 01/10/20 12:29 Vancomycin HCl (Vanco rx to dose) 1 ea DAILY PRN MISC Per rx protocol 01/09/20 20:00 02/08/20 19:59 Vancomycin/Sodium Chloride 275 ml @ 137.5 mls/ hr Q24H IVPB 01/09/20 21:00 01/14/20 20:59 01/09/20 21:00 Shaun Omer MD Jan 10, 2020 10:18
--- NOTE | 2020-01-10 10:24 | Diagnostic Imaging Report ---
Indication: Dyspnea Technique: One view of the chest Comparison: 01/09/2020 Findings: There is worsening bilateral parenchymal consolidation throughout the right lung and increased consolidation in the left mid and lower lung with some involvement of the apices as well, less severe than on the right. There may be a small amount of pleural fluid now present. Impression: Worsening bilateral right greater than left infiltrates Suspect developing bilateral pleural effusions
--- NOTE | 2020-01-10 10:50 | NUR ---
RD ASSESSMENT & RECOMMENDATIONS SEE CARE ACTIVITY FOR COMPLETE ASSESSMENT DAILY ESTIMATED NEEDS: Needs based on DM, cardiac, pulmonary/ 56kg 25-30 kcals/kg 6083-8004 total kcals 1-1.3 g protein/kg 56-73 g total protein 20-25 mL/kg 9695-5330 total fluid mLs NUTRITION DIAGNOSIS: Altered nutrition related lab values R/T clinical condition, diabetes as evidenced by low Na (129), elev BG (195 226), elev POC glu (194 214 208 218 218), A1C 6.7. CURRENT DIET:CCHO MED, mech soft finely chopped PO DIET RECOMMENDATIONS: Continue CCHO Med/ texture as tolerated ADDITIONAL RECOMMENDATIONS: * Calibrated bedscale wt * Consider [employer] for appropriate texture -> for possible texture upgrade for improved PO acceptance * Monitor for hypoglycemia w/ poor PO * Add Glucerna TID w/ poor PO * Monitor lytes, replete as needed
[2020-01-10] MEDS: Azithromycin 250 MG in D5W 275 ML IV SCH (10:54)
--- NOTE | 2020-01-10 11:03 | NUR ---
CASE MANAGEMENT:REVIEW 01/10/20 SI: COVID 19 PNEUMONIA 97.0 102 40 110/70 94% ON NON REBREATHER @ 15L 100% FIO2 WBC+14.7 NA-129 K-3.3 GLUCOSE+271 IS: IV TOCILIZUMAB X1 IVERMECTIN PO X1 IV AZITHROMYCIN Q24 IV VANCOMYCIN Q24 IV ZOSYN Q8HRS IV KCL Q1HRS X3 BAGS NORVASC PO QD : NOW ON TELEMETRY UNIT DCP: PATIENT IS FROM HOME PLAN: PRONE POSITIONING
--- NOTE | 2020-01-10 11:20 | NUR ---
NURSE NOTES: 10kcl administered. ivp.
--- NOTE | 2020-01-10 11:29 | Infectious Diseases Prog Note ---
Assessment/Plan Assessment/Plan ASSESSMENT AND PLAN: Patient in icu exam deferred for covid-19 isolation - patient seen thru window d/w RN 1. covid-19 virus infection with pna, possible CAP, hypoxia ? septic, leukocytosis - s/p hydroxychloroquine - day # 5/5 - cover bacterial pna/infection with vancomycin and zosyn - tocilizumab - monitor labs and chest x-ray - monitor respiratory status - chest x-ray worse - communicated with Dr. Laurent - d/w Dr. Omer 2. Diabetes. 3. Hypertension. 4. Hemoptysis. 5. Continue treatment per primary consultants. 6. No known drug allergies. 7. Social history is negative. 8. Family history is noncontributory. 9. MAR was noted. 10. Case discussed with RN. 11. Continue treatment per primary consultants. Subjective Allergies: Coded Allergies: No Known Allergies (Unverified , 01/05/20) Objective Vital Signs Last 24 Hour Vital Signs Date Time Temp Pulse Resp B/P (MAP) Pulse Ox O2 Delivery O2 Flow Rate FiO2 01/10/20 09:55 102 133/69 01/10/20 07:00 97 110/70 (83) 94 01/10/20 06:40 95 Non-Rebreather 15.0 100 01/10/20 06:00 97 118/70 (86) 97 01/10/20 05:00 97 124/108 (113) 99 01/10/20 04:00 Non-Rebreather 15.0 01/10/20 04:00 97 40 118/58 (78) 95 01/10/20 04:00 15.0 01/10/20 04:00 100 01/10/20 03:17 99 26 103/61 (75) 92 01/10/20 03:00 98 32 110/46 (67) 96 01/10/20 02:00 98.4 96 29 116/70 (85) 98 01/10/20 00:00 96 01/10/20 00:00 97.0 96 22 127/73 (91) 90 01/09/20 21:00 Non-Rebreather 15.0 01/09/20 20:09 97.9 01/09/20 20:00 88 01/09/20 20:00 97.7 88 26 129/61 (83) 90 01/09/20 20:00 15.0 01/09/20 16:00 92 01/09/20 16:00 97.9 95 44 147/76 (99) 92 01/09/20 16:00 15.0 01/09/20 12:00 98.0 102 28 160/79 (106) 92 01/09/20 12:00 100 01/09/20 12:00 15.0 Height (Feet): 5 Height (Inches): 4.00 Weight (Pounds): 124 Objective 01/07/20 - Procedure: XRAY Chest 1v Indication: Shortness of breath Technique: One view of the chest Comparison: For 09/13/2020 Findings: There inspiration currently. Bilateral mostly central mostly interstitial disease with hazy airspace opacity is again demonstrated. Consolidation appears less dense at the lung bases, probably due to the better inspiratory effort, but there does appear to be more disease in the upper lungs. The pleural spaces are clear. The heart size is normal. Impression: Shifting infiltrates, with apparent partial clearing of lung bases but increased disease in the upper lungs. Change in appearance may be in part due to improved inspiratory effort, however. Chest x-ray - 01/09/20 - Procedure: XRAY Chest 1v Indication: Shortness of breath Technique: One view of the chest Comparison: 01/07/2020 Findings: Hazy infiltrates throughout the right lung have worsened since prior study. There is also slight worsening of hazy left mid and lower lung infiltrates since prior study. The heart size is normal. The pleural spaces remain clear. Impression: Worsening bilateral infiltrates, likely pneumonia, right greater than left, over 2 days Laboratory Tests Test 01/09/20 12:11 01/09/20 19:45 01/09/20 22:35 01/10/20 03:26 Arterial Blood pH 7.455 (7.350-7.450) 7.446 (7.350-7.450) Arterial Blood Partial Pressure CO2 29.0 mmHg (35.0-45.0) L 30.0 mmHg (35.0-45.0) L Arterial Blood Partial Pressure O2 56.5 mmHg (75.0-100.0) L 77.1 mmHg (75.0-100.0) Arterial Blood HCO3 19.9 mmol/L (22.0-26.0) L 20.2 mmol/L (22.0-26.0) L Arterial Blood Oxygen Saturation 89.7 % (95-100) *L 95.1 % (95-100) Arterial Blood Base Excess -2.8 (-2-2) L -2.7 (-2-2) L Jun Test Positive Positive Urine Random Sodium < 20 mmol/L (20-110) L Urine Creatinine 78.6 MG/DL (30.0-125.0) White Blood Count 14.7 K/UL (4.8-10.8) H Red Blood Count 4.24 M/UL (4.20-5.40) Hemoglobin 13.7 G/DL (12.0-16.0) Hematocrit 37.7 % (37.0-47.0) Mean Corpuscular Volume 89 FL (80-99) Mean Corpuscular Hemoglobin 32.3 PG (27.0-31.0) H Mean Corpuscular Hemoglobin Concent 36.3 G/DL (32.0-36.0) H Red Cell Distribution Width 10.2 % (11.6-14.8) L Platelet Count 161 K/UL (150-450) Mean Platelet Volume 7.4 FL (6.5-10.1) Neutrophils (%) (Auto) % (45.0-75.0) Lymphocytes (%) (Auto) % (20.0-45.0) Monocytes (%) (Auto) % (1.0-10.0) Eosinophils (%) (Auto) % (0.0-3.0) Basophils (%) (Auto) % (0.0-2.0) Differential Total Cells Counted 100 Neutrophils % (Manual) 93 % (45-75) H Lymphocytes % (Manual) 2 % (20-45) L Monocytes % (Manual) 0 % (1-10) L Eosinophils % (Manual) 0 % (0-3) Basophils % (Manual) 0 % (0-2) Band Neutrophils 5 % (0-8) Platelet Estimate Adequate Platelet Morphology Normal Red Blood Cell Morphology Normal Sodium Level 129 MMOL/L (136-145) L Potassium Level 3.3 MMOL/L (3.5-5.1) L Chloride Level 92 MMOL/L (98-107) L Carbon Dioxide Level 21 MMOL/L (21-32) Anion Gap 16 mmol/L (5-15) H Blood Urea Nitrogen 10 mg/dL (7-18) Creatinine 0.6 MG/DL (0.55-1.30) Estimat Glomerular Filtration Rate > 60 mL/min (>60) Glucose Level 195 MG/DL (74-106) H Osmolality 271 mOsm/kg (297-317) L Calcium Level 8.5 MG/DL (8.5-10.1) Phosphorus Level 2.3 MG/DL (2.5-4.9) L Magnesium Level 1.8 MG/DL (1.8-2.4) Total Bilirubin 0.7 MG/DL (0.2-1.0) Aspartate Amino Transf (AST/SGOT) 52 U/L (15-37) H Alanine Aminotransferase (ALT/SGPT) 24 U/L (12-78) Alkaline Phosphatase 127 U/L (46-116) H Total Protein 6.3 G/DL (6.4-8.2) L Albumin 2.1 G/DL (3.4-5.0) L Globulin 4.2 g/dL Albumin/Globulin Ratio 0.5 (1.0-2.7) L Thyroid Stimulating Hormone (TSH) 0.176 uiU/mL (0.358-3.740) Cortisol AM Sample Pending Current Medications Medications (Trade) Dose Ordered Sig/Neha Route PRN Reason Start Time Stop Time Status Last Admin Dose Admin Acetaminophen (Tylenol) 650 mg Q4H PRN ORAL Mild Pain (Pain Scale 1-3) 01/08/20 09:00 02/04/20 08:59 01/10/20 10:57 Acetaminophen (Tylenol) 650 mg Q4H PRN ORAL Temp >100.5 01/08/20 09:00 02/04/20 08:59 Amlodipine Besylate (Norvasc) 5 mg DAILY ORAL 01/09/20 10:00 02/08/20 09:59 01/10/20 09:55 Azithromycin 250 mg/Dextrose 275 ml @ 275 mls/hr Q24HRS IV 01/10/20 11:00 01/15/20 10:59 01/10/20 10:54 Benzonatate (Tessalon Perles) 100 mg Q8H PRN ORAL For Cough 01/08/20 14:00 02/07/20 13:59 Dextrose (Dextrose 50%) 25 ml Q30M PRN IV Hypoglycemia 01/08/20 08:30 04/04/20 08:59 Dextrose (Dextrose 50%) 50 ml Q30M PRN IV Hypoglycemia 01/08/20 08:30 04/04/20 08:59 Guaifenesin/ Dextromethorphan (Robitussin DM Syrup) 10 ml Q4H PRN ORAL For Cough 01/08/20 09:15 04/05/20 01:14 01/08/20 09:20 Insulin Aspart (NovoLOG) BEFORE MEALS AND HS SUBQ 01/08/20 11:30 04/06/20 16:29 01/10/20 05:45 Ivermectin (StromectoL) 12 mg ONCE ONCE ORAL 01/10/20 11:30 01/10/20 11:31 Morphine Sulfate (Morphine Sulfate) 1 mg EVERY 6 HOURS PRN IVP Severe Pain (Pain Scale 7-10) 01/09/20 20:30 01/16/20 20:29 01/10/20 09:58 Piperacillin Sod/ Tazobactam Sod 3.375 gm/Sodium Chloride 110 ml @ 27.5 mls/hr Q8H IVPB 01/09/20 11:00 01/16/20 10:59 01/10/20 10:54 Potassium Chloride 100 ml @ 100 mls/hr Q1H IVPB 01/10/20 10:30 01/10/20 13:29 01/10/20 10:53 Tocilizumab 400 mg/Sodium Chloride 130 ml @ 130 mls/hr ONCE ONCE IV 01/10/20 11:30 01/10/20 12:29 Vancomycin HCl (Vanco rx to dose) 1 ea DAILY PRN MISC Per rx protocol 01/09/20 20:00 02/08/20 19:59 Vancomycin/Sodium Chloride 275 ml @ 137.5 mls/ hr Q24H IVPB 01/09/20 21:00 01/14/20 20:59 01/09/20 21:00 Pham Doyle MD Jan 10, 2020 11:29
[2020-01-10] MEDS ORDERED: Tocilizumab 400 MG in NS 110 ML IV ONE (11:30)
--- NOTE | 2020-01-10 11:48 | NUR ---
*-* INSURANCE *-* UPDATED CLINICALS AND REVIEWS HAVE BEEN FAXED TO: [facility] TRK# [id number] VIPUL:BLESSING P: [phone] F: [phone]
--- NOTE | 2020-01-10 12:00 | NUR ---
NURSE NOTES: late entry: pt restless. moving about the bed, removing cardiac leads and bp cuff. pt gets wrapped up in tubing . new iv placed lt and rt hand 22g. on non-rebreather 15l 100%. labored breaths. desats in 88, ranging 88-95%. pt refused lunch, poor appetite. blood sugar checks. pt voids used bedpan. assisted pt into prone to better saturate, sats increased to 99%. pt unable to lay in that position for extended period. estimated 15-20min. locked in low position. airborne precautions in place. will continue to monitor pt.
--- NOTE | 2020-01-10 12:41 | Nephrology Progress Note ---
Assessment/Plan Plan #Hyponatremia- mild- l r/o SIADH in the setting of pneumonia #hypokalemia- repleted #COVID pneumonia #hypoxemic respiratary failure #HTN #DM - lasix 40IV today - replete K - will consider one dose of tolvaptan if sodium continues to drop - repeat urine sodium and os - abx per ID- on zosyn, doxy, plaquenil - continue amlodipine 5mg daily - BG control - breathing tx per pulm - supplemental O2 Subjective ROS Limited/Unobtainable: Yes Subjective Transferred to ICU for worsening resp failure sodium down to 129 K low -repleted s/p lasox 40 IV chest xray with worsning infiltrate Objective Objective Last 24 Hour Vital Signs Date Time Temp Pulse Resp B/P (MAP) Pulse Ox O2 Delivery O2 Flow Rate FiO2 01/10/20 09:55 102 133/69 01/10/20 07:00 97 110/70 (83) 94 01/10/20 06:40 95 Non-Rebreather 15.0 100 01/10/20 06:00 97 118/70 (86) 97 01/10/20 05:00 97 124/108 (113) 99 01/10/20 04:00 Non-Rebreather 15.0 01/10/20 04:00 97 40 118/58 (78) 95 01/10/20 04:00 15.0 01/10/20 04:00 100 01/10/20 03:17 99 26 103/61 (75) 92 01/10/20 03:00 98 32 110/46 (67) 96 01/10/20 02:00 98.4 96 29 116/70 (85) 98 01/10/20 00:00 96 01/10/20 00:00 97.0 96 22 127/73 (91) 90 01/09/20 21:00 Non-Rebreather 15.0 01/09/20 20:09 97.9 01/09/20 20:00 88 01/09/20 20:00 97.7 88 26 129/61 (83) 90 01/09/20 20:00 15.0 01/09/20 16:00 92 01/09/20 16:00 97.9 95 44 147/76 (99) 92 01/09/20 16:00 15.0 Intake and Output 01/09/20 01/10/20 19:00 07:00 Intake Total 510.0 ml 850 ml Output Total 250 ml Balance 510.0 ml 600 ml Intake Oral 300 ml 850 ml IV Total 210.0 ml Output Urine Total 250 ml # Voids 1 Laboratory Tests 01/09/20 19:45: Arterial Blood pH 7.446, Arterial Blood Partial Pressure CO2 30.0L, Arterial Blood Partial Pressure O2 77.1, Arterial Blood HCO3 20.2L, Arterial Blood Oxygen Saturation 95.1, Arterial Blood Base Excess -2.7L, Jun Test Positive 01/09/20 22:35: Urine Random Sodium < 20L, Urine Creatinine 78.6 01/10/20 03:26: White Blood Count 14.7H, Red Blood Count 4.24, Hemoglobin 13.7, Hematocrit 37.7 , Mean Corpuscular Volume 89, Mean Corpuscular Hemoglobin 32.3H, Mean Corpuscular Hemoglobin Concent 36.3H, Red Cell Distribution Width 10.2L, Platelet Count 161, Mean Platelet Volume 7.4, Neutrophils (%) (Auto) , Lymphocytes (%) (Auto) , Monocytes (%) (Auto) , Eosinophils (%) (Auto) , Basophils (%) (Auto) , Differential Total Cells Counted 100, Neutrophils % ( Manual) 93H, Lymphocytes % (Manual) 2L, Monocytes % (Manual) 0L, Eosinophils % ( Manual) 0, Basophils % (Manual) 0, Band Neutrophils 5, Platelet Estimate Adequate, Platelet Morphology Normal, Red Blood Cell Morphology Normal, Sodium Level 129L, Potassium Level 3.3L, Chloride Level 92L, Carbon Dioxide Level 21, Anion Gap 16H, Blood Urea Nitrogen 10, Creatinine 0.6, Estimat Glomerular Filtration Rate > 60, Glucose Level 195H, Osmolality 271L, Calcium Level 8.5, Phosphorus Level 2.3L, Magnesium Level 1.8, Total Bilirubin 0.7, Aspartate Amino Transf (AST/SGOT) 52H, Alanine Aminotransferase (ALT/SGPT) 24, Alkaline Phosphatase 127H, Total Protein 6.3L, Albumin 2.1L, Globulin 4.2, Albumin/ Globulin Ratio 0.5L, Thyroid Stimulating Hormone (TSH) 0.176L, Cortisol AM Sample [Pending] Height (Feet): 5 Height (Inches): 4.00 Weight (Pounds): 124 General Appearance: lethargic Neck: non-tender Cardiovascular: normal peripheral pulses, normal rate Respiratory/Chest: rhonchi - bilaterally, other - on non-rebreather Abdomen: normal bowel sounds, non tender Extremities: non-tender Justin Hopper M.D. Jan 10, 2020 12:41
--- NOTE | 2020-01-10 15:10 | NUR ---
RADIOLOGY DEPT., CHEST X-RAY DONE.-P.DYE
--- NOTE | 2020-01-10 16:20 | NUR ---
NURSE NOTES: late entry: pt restless. moving about the bed, removed bp cuff. on non-rebreather 15l 100%. labored breaths. desats in 88, ranging 88-95%. pt refused lunch, poor appetite. pt in high fowlers. pt requests bedpan, voids x 1. u.a obtained, sent to lab. pt c/o of pain, requested morpine. administered per md order. airborne precautions in place. will continue to monitor pt.
--- NOTE | 2020-01-10 19:24 | NUR ---
NURSE NOTES: Received patient from EMMETT Weston. Will continue plan of care.
--- NOTE | 2020-01-10 20:00 | NUR ---
NURSE NOTES: Patient is sleeping and keeps moving around in bed. Vital signs stable. No temperature, 97.7F at the moment. On non-rebreather mask at 100% 15L. Shows signs of no distress. Will continue plan of care.
--- NOTE | 2020-01-10 20:01 | NUR ---
HAND-OFF: Report given to ne roche endorsed pt belongings. and photos from daughter.
--- NOTE | 2020-01-10 20:30 | NUR ---
NURSE NOTES: $101.93 is placed at the bedside with patient. Patient refuses to place belonging (money) in hospital safe.
[2020-01-10] MEDS: Vancomycin 1.5gm/NS Premix IVPB SCH (20:52)
--- NOTE | 2020-01-10 22:00 | NUR ---
NURSE NOTES: Patient is extremely restless and keeps moving in bed. She states that she understands to not get out of bed and to use the call light. Also shows understanding to keep the mask on and to either sit in high fowlers position or prone to breathe better. Safety measures are on, bed low, locked and alarm is on. Will monitor.
[2020-01-11] VITALS (31 sets, daily range): BP systolic 65–137; BP diastolic 27–78
[2020-01-11] MEDS: Morphine Sulfate 2mg/ml Inj(IV/IM USE ONLY) IVP PRN (00:56)
--- NOTE | 2020-01-11 02:00 | NUR ---
NURSE NOTES: Patient continues to extremely restless. Was seen hanging off the bed, feet touching the floor. Restraints are highly recommended for patient has been reminded numerous times to relax, rest and to not get out of bed.
--- NOTE | 2020-01-11 02:05 | NUR ---
NURSE NOTES: Patient has already pulled out 3/4 IV, continues to pull off O2 mask and pulling on other medical devices. Restraint education given.
[2020-01-11] MEDS: Piperacillin/Tazobactam 3.375 GM in NS 110 ML IVPB SCH ×3 (03:24→20:25)
--- NOTE | 2020-01-11 04:00 | NUR ---
NURSE NOTES: Daughter Barrera called for updates. Provided updates and explained to her that patient was needed to be placed on non-violent bilateral soft wrist restraints. She states an understanding for her mom's safety. Patient is finally resting, occasionally still shows restlessness but saturations are now above 90%. Will call daughter when patient is more awake and alert.
--- NOTE | 2020-01-11 05:00 | NUR ---
NURSE NOTES: Patient became very lethargic and O2 saturations are not >90% anymore. STAT ABG ordered. Blood drawn and sent to the lab for morning results.
--- NOTE | 2020-01-11 05:25 | NUR ---
NURSE NOTES: ABG resulted, Dr. Omer called to inform his with the results and he said to intubate. Informed him to contact ER
--- NOTE | 2020-01-11 06:00 | NUR ---
NURSE NOTES: Patient was intubated by Dr. Suarez. ETT 7.5 @ 23cm to the lipline to vent with settings of AC:14, TV:500, FiO2:100%.
--- NOTE | 2020-01-11 06:17 | Emergency Room Report ---
History of Present Illness General Chief Complaint: Dyspnea/Respdistress Source: Patient, EMS Present Illness Allergies: Coded Allergies: No Known Allergies (Unverified , 01/05/20) COVID-19 Screening Contact w/high risk pt: No Recent Travel to affected area: No Experienced COVID-19 symptoms?: Yes COVID-19 symptoms experienced: Shortness of Breath, Cough Patient History Now: No Nursing Documentation-PM Past Medical History: No History, Except For Hx Cardiac Problems: Yes Hx Hypertension: Yes Hx Diabetes: Yes Hx Cancer: No Hx Gastrointestinal Problems: No Hx Neurological Problems: No Physical Exam Vital Signs Date Time Temp Pulse Resp B/P (MAP) Pulse Ox O2 Delivery O2 Flow Rate FiO2 01/07/20 08:00 82 01/07/20 08:00 Non-Rebreather 15.0 01/07/20 08:00 97.0 19 125/62 (83) 93 01/10/20 06:40 100 Procedures Critical Care Time Critical Care Time i. I feel this is a highly complex case requiring extensive working including EKG/Rhythm strip, Xray/CT/US, Blood/urine lab work, repeat exams while in ED, and administration of strong opiates/narcotics for pain control, admission to hospital or close patient follow up. Total time: 30 min bedside evaluation and treatment excludes procedures (EKG). Reason for critical care: Respiratory failure Possible complications: hypotension, hypertension, [place], shock, arrhythmias, metabolic acidosis, end organ damage, respiratory failure. Interventions: Intubation Course: Patient COVID positive. Attempted treatment with nonrebreather. Patient not tolerating prone positioning. O2 sats worsening. ABG worsening. I intubated patient using glide scope. I wore full PAPR. O2 saturations improved. Equal breath sounds bilaterally. Consultations: nursing staff, EMS, family Performed by: Dr Suarez Tolerated well condition = critical j. because of unstable vital signs this patient had a condition that could potentially threaten life or limb. I feel this is a critical patient who required my full attention while patient was considered critical. Total Critical Care Time excluding procedures was greater than 35 minutes Intubation Intubation : Consent: Emergent Intubation Method: orotracheal Tube Size (cm): 7.5 Medications: Etomidate, Rocuronium Breath Sounds after Intubation: equal Intubation Complications: no complications Post Intubation Xray: Yes Attempts: One Patient Tolerated: Well Complications: None Medical Decision Making Diagnostic Impression: Primary Impression: Respiratory failure with hypoxia Additional Impressions: COVID-19 virus infection Diabetes type 2, controlled ER Course PAPRI was called to the ICU to evaluate this patient. COVID positive confirmed. Hypoxic. Not tolerating prone positioning. ABGs worsening. On evaluation patient hypoxic. Altered. In isolation. I wore full PAPR. Patient intubated using glide scope. Equal breath sounds bilaterally. O2 saturations improved. Care resumed by admitting physician Last Vital Signs Date Time Temp Pulse Resp B/P (MAP) Pulse Ox O2 Delivery O2 Flow Rate FiO2 01/11/20 05:00 140 35 82 01/11/20 04:00 Non-Rebreather 15.0 01/11/20 01:19 72/34 (47) 01/11/20 00:00 98.2 01/10/20 19:15 28 Status: improved Disposition: ADMITTED INPATIENT Condition: Critical Referrals: NOT CHOSEN IPA/,REFERRING (PCP) Bernabe Suarez MD Jan 11, 2020 06:17
[2020-01-11] MEDS: NovoLOG Insulin Flexpen SUBQ SCH ×4 (06:30→20:58)
[2020-01-11 06:38] LABS: HEMOGLOBIN 14.6 G/DL (12.0-16.0); MEAN CORPUSCULAR VOLUME 91 FL (80-99); PLATELET COUNT 98 K/UL (150-450); RED BLOOD COUNT 4.53 M/UL (4.20-5.40); RED CELL DISTRIBUTION WIDTH 11.1 % (11.6-14.8); WHITE BLOOD COUNT 17.7 K/UL (4.8-10.8)
[2020-01-11 06:49] LABS: ANION GAP 24 mmol/L (5-15); BLOOD UREA NITROGEN 15 mg/dL (7-18); CALCIUM 8.8 MG/DL (8.5-10.1); CARBON DIOXIDE 17 MMOL/L (21-32); CHLORIDE 92 MMOL/L (98-107); CREATININE 0.8 MG/DL (0.55-1.30); SODIUM 132 MMOL/L (136-145)
--- NOTE | 2020-01-11 07:00 | NUR ---
NURSE NOTES: Attempted to reach daughter Barrera kruse via cell phone for updates but no answer.
--- NOTE | 2020-01-11 07:30 | NUR ---
HAND-OFF: Report given to EMMETT Jackson.
--- NOTE | 2020-01-11 07:50 | NUR ---
NURSE NOTES: Called and left a message for Dr Hopper regarding patient's lab sodium and potassium lab results this morning. Awaiting for call back/orders.
--- NOTE | 2020-01-11 08:00 | NUR ---
NURSE NOTES: Received report from Yadira Mata RN. Observed patient in bed, appears to be sleeping. Patient is orally intubated with vent settings AC 12 TV 500 FiO2 100% and PEEP 5. Patient is saturating 100%. Patient has an OGT, pending xray/placement confirmation. campus monitor shows sinus tachycardia with HR 140. Bed locked, alarmed, and in lowest position, side rails up x3, and call light left within reach. Patient remains is on airborne precautions at this time. Will continue to monitor.
--- NOTE | 2020-01-11 09:17 | NUR ---
RD ASSESSMENT & RECOMMENDATIONS SEE CARE ACTIVITY FOR COMPLETE ASSESSMENT DAILY ESTIMATED NEEDS: Needs based on DM, Cardiac, Critical Care/ 56kg 22-28 kcals/kg 8998-2952 total kcals 1.2-2 g protein/kg 67-112 g total protein 20-25 mL/kg 5665-5849 total fluid mLs NUTRITION DIAGNOSIS: * Swallowing difficulty R/T respiratory status as evidenced by s/p intubation, w/ an order OGT insertion, pt is COVID-19 positive * Altered nutrition related lab values R/T clinical condition, diabetes as evidenced by low Na (129->132), elev BG (274 195 226), elev POC glu (194-323), A1C 6.7. CURRENT DIET:NPO PO DIET RECOMMENDATIONS: ACOUSTIC ENGINEER eval post extubation ENTERAL NUTRITION RECOMMENDATIONS: Vital AF 1.2 @ 50ml/hr x 24 hrs to provide 1200ml, 1440kcal, 90g prot, 973ml free water * As medically appropriate, initiate TF. * Vital AF 1.2 recommended for critical care and carb control * Initiate Vital AF 1.2 @ 20ml/hr x 6 hrs, advance 10ml q 4-6 hrs as tolerated to goal rate. * HOB over 30 degrees/ water flush per MD ADDITIONAL RECOMMENDATIONS: * Calibrated bedscale wt * Monitor lytes, replete as needed (phos low) * Monitor BGs closely w/ TF, need for additional glycemics . . .
--- NOTE | 2020-01-11 09:24 | Diagnostic Imaging Report ---
EXAM: XR Chest, 1 View CLINICAL HISTORY: S/P INTUB TECHNIQUE: Frontal view of the chest. COMPARISON: Chest x-rays dated 01/10/20 FINDINGS: Lungs: No significant interval change in the diffuse interstitial and alveolar opacities in bilateral lungs. Pleural space: Unremarkable. The costophrenic angles are sharp. No visible pneumothorax. Heart: Unremarkable. No cardiomegaly. Mediastinum: Unremarkable. Bones/joints: Unremarkable. Tubes, lines and devices: Endotracheal tube tip approximately 4.3 cm above the lauri. NG tube extends below the diaphragm, with its tip in the left upper abdominal quadrant, likely within the gastric body. Telemetry leads overlie the thorax. IMPRESSION: 1. Endotracheal tube tip approximately 4.3 cm above the lauri, with expected radiographic position. 2. No significant interval change in the diffuse interstitial and alveolar opacities in bilateral lungs. This is concerning for multifocal pneumonia versus pulmonary edema or ARDS.
--- NOTE | 2020-01-11 09:39 | NUR ---
NURSE NOTES: Unable to give medication at this time; awaiting for xray results for placement confirmation of OGT.
--- NOTE | 2020-01-11 10:04 | Diagnostic Imaging Report ---
EXAM: XR Abdomen, 2 Views CLINICAL HISTORY: NGT TECHNIQUE: Frontal supine views of the abdomen/pelvis . COMPARISON: No relevant prior studies available. FINDINGS: Intraperitoneal space: No evidence of free air below the diaphragm. Gastrointestinal tract: There is a relative paucity bowel gas, with an unremarkable pattern. Organs: The renal shadows appear unremarkable. No evidence of organomegaly. No abnormal calcifications in the abdomen or pelvis. Bones/joints: Unremarkable. Tubes, lines and devices: Nasogastric tube tip in the left upper abdominal quadrant, likely within the gastric body. Telemetry leads overlie the upper abdomen. IMPRESSION: Nasogastric tube tip in the left upper abdominal quadrant, likely within the gastric body.
--- NOTE | 2020-01-11 10:05 | NUR ---
NURSE NOTES: Dr Vigil present in the unit, reported lab results for this morning, states he will put in some orders. Also ordered to insert pollard catheter, will enter and will carry out. Patient still appears to be sleeping at this time, orally intubated, saturating 98%. RT at bedside for ABG draw. Will continue to monitor patient.
--- NOTE | 2020-01-11 11:45 | Pulmonology Progress Note ---
Assessment/Plan Assessment/Plan 1. Bilateral pneumonia. COVID 19 positivity 2. Hemoptysis. Resolved 3. Hypertension 4. Diabetes. 5. Hyponatremia 6. Respiratory failure; intubated 01/10/20 DISCUSSION: Agree with management and care. Will adjust vent Will start propofol Will treat with Actemra and Ivermecti On Azithro DC Vibramicin Discussed with patient and advised risks nd benefits of Actemra and Ivermectin Patient agrees Dr Brianna Laurent aware and agrees Dr. Meneses (ID) aware and agrees Shaun Omer M.D. Subjective Interval Events: Intubated overnight Constitutional: Reports: no symptoms HEENT: Repors: no symptoms Respiratory: Reports: no symptoms Cardiovascular: Reports: no symptoms Gastrointestinal/Abdominal: Reports: no symptoms Allergies: Coded Allergies: No Known Allergies (Unverified , 01/05/20) Objective Last 24 Hour Vital Signs Date Time Temp Pulse Resp B/P (MAP) Pulse Ox O2 Delivery O2 Flow Rate FiO2 01/11/20 11:00 105 25 110/75 (87) 100 01/11/20 10:53 108 22 100 01/11/20 10:00 104 26 96/63 (74) 98 01/11/20 09:20 105 24 100 01/11/20 09:00 104 96/63 01/11/20 09:00 109 30 96/54 (68) 100 01/11/20 08:00 109 01/11/20 08:00 118 23 97/49 (65) 99 01/11/20 07:14 94 Mechanical Ventilator 40.0 100 01/11/20 07:04 94 14 100 01/11/20 07:00 144 19 121/66 (84) 100 01/11/20 06:00 84 19 100 01/11/20 06:00 Mechanical Ventilator 01/11/20 06:00 147 13 135/72 (93) 100 01/11/20 06:00 40 01/11/20 05:00 140 35 82 01/11/20 04:00 143 28 30 01/11/20 04:00 Non-Rebreather 15.0 01/11/20 04:00 15.0 4/18/20 03:29 118 01/11/20 03:00 128 25 94 01/11/20 02:00 109 40 87 01/11/20 01:19 83 29 72/34 (47) 01/11/20 01:00 91 27 65/27 (40) 97 01/11/20 00:05 127 42 135/71 (92) 90 01/11/20 00:00 Non-Rebreather 15.0 01/11/20 00:00 98.2 103 31 83/69 (74) 80 01/11/20 00:00 15.0 01/10/20 23:03 84 01/10/20 23:00 88 25 106/85 (92) 97 01/10/20 22:00 79 29 106/66 (79) 90 01/10/20 21:00 85 25 116/52 (73) 90 01/10/20 21:00 Non-Rebreather 15.0 01/10/20 20:18 97.6 92 22 106/59 (75) 76 01/10/20 20:10 85 01/10/20 20:00 112 37 01/10/20 20:00 15.0 01/10/20 20:00 Non-Rebreather 15.0 01/10/20 19:15 95 Nasal Cannula 2.0 28 01/10/20 19:00 87 01/10/20 18:00 93 21 119/54 (75) 97 01/10/20 17:27 107 35 160/65 (96) 89 01/10/20 17:00 94 33 97 01/10/20 16:00 15.0 01/10/20 16:00 84 01/10/20 16:00 99.3 88 38 97 01/10/20 15:00 94 33 83/54 (64) 99 01/10/20 14:00 106 28 85 01/10/20 13:00 81 25 98 01/10/20 12:00 91 37 96 01/10/20 12:00 15.0 01/10/20 12:00 100 Intake and Output 01/10/20 01/11/20 19:00 07:00 Intake Total 1630.0 ml 496.96 ml Balance 1630.0 ml 496.96 ml Intake Oral 265 ml IV Total 1365.0 ml 496.96 ml # Voids 3 3 General Appearance: no acute distress HEENT: normocephalic Respiratory/Chest: chest wall non-tender, decreased breath sounds Cardiovascular: normal peripheral pulses Abdomen: normal bowel sounds Laboratory Tests 01/10/20 19:05: Urine Osmolality 503H 01/11/20 04:00: Arterial Blood pH 7.228*L, Arterial Blood Partial Pressure CO2 38.1, Arterial Blood Partial Pressure O2 45.4*L, Arterial Blood HCO3 15.5*L, Arterial Blood Oxygen Saturation 75.6*L, Arterial Blood Base Excess -11.3*L, Jun Test Positive 01/11/20 05:00: White Blood Count 17.7H, Red Blood Count 4.53, Hemoglobin 14.6, Hematocrit 41.0 , Mean Corpuscular Volume 91, Mean Corpuscular Hemoglobin 32.2H, Mean Corpuscular Hemoglobin Concent 35.5, Red Cell Distribution Width 11.1L, Platelet Count 98L, Mean Platelet Volume 8.2, Neutrophils (%) (Auto) , Lymphocytes (%) (Auto) , Monocytes (%) (Auto) , Eosinophils (%) (Auto) , Basophils (%) (Auto) , Differential Total Cells Counted 100, Neutrophils % ( Manual) 93H, Lymphocytes % (Manual) 4L, Monocytes % (Manual) 1, Eosinophils % ( Manual) 0, Basophils % (Manual) 0, Metamyelocytes % 1H, Band Neutrophils 1, Platelet Estimate DecreasedL, Platelet Morphology Normal, Red Blood Cell Morphology Normal, Sodium Level 132L, Potassium Level 3.0L, Chloride Level 92L, Carbon Dioxide Level 17L, Anion Gap 24H, Blood Urea Nitrogen 15, Creatinine 0.8 , Estimat Glomerular Filtration Rate > 60, Glucose Level 274H, Calcium Level 8.8 01/11/20 10:14: Arterial Blood pH 7.367, Arterial Blood Partial Pressure CO2 30.0L, Arterial Blood Partial Pressure O2 143.0H, Arterial Blood HCO3 16.8*L, Arterial Blood Oxygen Saturation 97.8, Arterial Blood Base Excess -7.2L, Jun Test Positive Current Medications Medications (Trade) Dose Ordered Sig/Neha Route PRN Reason Start Time Stop Time Status Last Admin Dose Admin Acetaminophen (Tylenol) 650 mg Q4H PRN ORAL Mild Pain (Pain Scale 1-3) 01/08/20 09:00 02/04/20 08:59 01/10/20 18:28 Acetaminophen (Tylenol) 650 mg Q4H PRN ORAL Temp >100.5 01/08/20 09:00 02/04/20 08:59 Amlodipine Besylate (Norvasc) 5 mg DAILY ORAL 01/09/20 10:00 02/08/20 09:59 01/10/20 09:55 Azithromycin 250 mg/Dextrose 275 ml @ 275 mls/hr Q24HRS IV 01/10/20 11:00 01/15/20 10:59 01/10/20 10:54 Benzonatate (Tessalon Perles) 100 mg Q8H PRN ORAL For Cough 01/08/20 14:00 02/07/20 13:59 Dextrose (Dextrose 50%) 25 ml Q30M PRN IV Hypoglycemia 01/08/20 08:30 04/04/20 08:59 Dextrose (Dextrose 50%) 50 ml Q30M PRN IV Hypoglycemia 01/08/20 08:30 04/04/20 08:59 Guaifenesin/ Dextromethorphan (Robitussin DM Syrup) 10 ml Q4H PRN ORAL For Cough 01/08/20 09:15 04/05/20 01:14 01/08/20 09:20 Insulin Aspart (NovoLOG) BEFORE MEALS AND HS SUBQ 01/08/20 11:30 04/06/20 16:29 01/11/20 06:30 Morphine Sulfate (Morphine Sulfate) 1 mg EVERY 6 HOURS PRN IVP Severe Pain (Pain Scale 7-10) 01/09/20 20:30 01/16/20 20:29 01/11/20 00:56 Piperacillin Sod/ Tazobactam Sod 3.375 gm/Sodium Chloride 110 ml @ 27.5 mls/hr Q8H IVPB 01/09/20 11:00 01/16/20 10:59 01/11/20 03:24 Vancomycin HCl (Vanco rx to dose) 1 ea DAILY PRN MISC Per rx protocol 01/09/20 20:00 02/08/20 19:59 Vancomycin/Sodium Chloride 275 ml @ 137.5 mls/ hr Q24H IVPB 01/09/20 21:00 01/14/20 20:59 01/10/20 20:52 Shaun Omer MD Jan 11, 2020 11:45
[2020-01-11] MEDS: Azithromycin 250 MG in D5W 275 ML IV SCH (11:52)
--- NOTE | 2020-01-11 12:00 | NUR ---
NURSE NOTES: Patient lethargic at this time. Repositioned, oral care provided. Patient remains orally intubated with ETT 7.5 @ 23cm middle lipline. Vent settings are AC 12, TV 500, FiO2 100%, and PEEP 5. Patient is saturating 100% at this time. Blood glucose 287mg/dL, insulin held; pt is NPO at this time. OGT in place. Bradshaw catheter inserted using sterile technique, patient tolerated procedure well. Urine output noted to be pale yellow, 150ml. Bag placed to drain by gravity. Restraints care provided. Patient left clean and dry. No s/s of pain/distress. Will continue to monitor.
--- NOTE | 2020-01-11 12:25 | General Progress Note ---
Assessment/Plan Assessment/Plan: 59-year-old female with PMH of HTN, DM on metformin who presents with SOB x2 days. 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 #Acute hypoxic respiratory failure #COVID positive as o/p #COVID POSITIVE while in-pt #CAP/PNA #Hemoptysis - resolved #chest pain - likely MSK 2/2 cough - resolved -Appreciate ICU care -Cont current vent setting per Pulm, wean as tolerated -cont. droplet/contact isolation -cont. supplemental O2 prn, on non-rebreather -CXR reviewed, trop negative -COVID Positive -BCx NGTD -on NRBM SpO2 95-99% -S/pActrema and Ivermectin -D/w Dr. Omer and Dr. Doyle who are aware and agree -d/c doxycycline -start azithro, Actrema, Ivermectin per ID/Pulm -encourage prone positioning -Updated daughter, Barrera, #Hyponatremia #Hypokalemia -concern for SIADH given setting of PNA -Replace with IV KCl, BMP in AM -Nephro consulted, recs appreciated #Elevated D-Dimer -likely 2/2 to above/COVID -d-dimer, 0.71 #Asymptomatic bacteruria -UCx w/ bacteriuria, likely contaminant versus colonized -no dysuria at this time -continue to monitor -ID following #HTN -pt unsure of home medications -CTM #NIDDM, type 2 -holding home metformin while in-pt -Hgb A1c 6.7 -ISS low, accuchecks qAC/HS DVT PPx: SCDs Time spent on encounter: 70 mins, 38 mins spent on critical care time. Critical Care Services performed include: Telemetry Review Hemodynamic measurement interpretation Laboratory data review and interpretation Radiology image review and interpretation Interpretation of ABG's Review of vent setting Discussion of patient's care with ICU team, Nursing staff D/w Dr. Omer and Dr. Doyle Time of note doesn't reflect time of encounter. Subjective Date patient seen: Jan 11, 2020 Time patient seen: 09:00 ROS Limited/Unobtainable: Yes Allergies: Coded Allergies: No Known Allergies (Unverified , 01/05/20) Subjective Covering for Dr. Laurent Patient became hypoxic and confused overnight, ABG done which showed pH 7.22, PCO2 38 PO2 45 patient was intubated at the recommendation of Pulmonology Spoke with daughter this morning to provide update on patient's condition and her plan of care. Objective Last 24 Hour Vital Signs Date Time Temp Pulse Resp B/P (MAP) Pulse Ox O2 Delivery O2 Flow Rate FiO2 01/11/20 11:00 105 25 110/75 (87) 100 01/11/20 10:53 108 22 100 01/11/20 10:00 104 26 96/63 (74) 98 01/11/20 09:20 105 24 100 01/11/20 09:00 104 96/63 01/11/20 09:00 109 30 96/54 (68) 100 01/11/20 08:00 109 01/11/20 08:00 118 23 97/49 (65) 99 01/11/20 07:14 94 Mechanical Ventilator 40.0 100 01/11/20 07:04 94 14 100 01/11/20 07:00 144 19 121/66 (84) 100 01/11/20 06:00 84 19 100 01/11/20 06:00 Mechanical Ventilator 01/11/20 06:00 147 13 135/72 (93) 100 01/11/20 06:00 40 01/11/20 05:00 140 35 82 01/11/20 04:00 143 28 30 01/11/20 04:00 Non-Rebreather 15.0 01/11/20 04:00 15.0 01/11/20 03:29 118 01/11/20 03:00 128 25 94 01/11/20 02:00 109 40 87 01/11/20 01:19 83 29 72/34 (47) 01/11/20 01:00 91 27 65/27 (40) 97 01/11/20 00:05 127 42 135/71 (92) 90 01/11/20 00:00 Non-Rebreather 15.0 01/11/20 00:00 98.2 103 31 83/69 (74) 80 01/11/20 00:00 15.0 01/10/20 23:03 84 01/10/20 23:00 88 25 106/85 (92) 97 01/10/20 22:00 79 29 106/66 (79) 90 01/10/20 21:00 85 25 116/52 (73) 90 01/10/20 21:00 Non-Rebreather 15.0 01/10/20 20:18 97.6 92 22 106/59 (75) 76 01/10/20 20:10 85 01/10/20 20:00 112 37 01/10/20 20:00 15.0 01/10/20 20:00 Non-Rebreather 15.0 01/10/20 19:15 95 Nasal Cannula 2.0 28 01/10/20 19:00 87 01/10/20 18:00 93 21 119/54 (75) 97 01/10/20 17:27 107 35 160/65 (96) 89 01/10/20 17:00 94 33 97 01/10/20 16:00 15.0 01/10/20 16:00 84 01/10/20 16:00 99.3 88 38 97 01/10/20 15:00 94 33 83/54 (64) 99 01/10/20 14:00 106 28 85 01/10/20 13:00 81 25 98 Intake and Output 01/10/20 01/11/20 19:00 07:00 Intake Total 1630.0 ml 496.96 ml Balance 1630.0 ml 496.96 ml Intake Oral 265 ml IV Total 1365.0 ml 496.96 ml # Voids 3 3 Laboratory Tests 01/10/20 19:05: Urine Osmolality 503H 01/11/20 04:00: Arterial Blood pH 7.228*L, Arterial Blood Partial Pressure CO2 38.1, Arterial Blood Partial Pressure O2 45.4*L, Arterial Blood HCO3 15.5*L, Arterial Blood Oxygen Saturation 75.6*L, Arterial Blood Base Excess -11.3*L, Jun Test Positive 01/11/20 05:00: White Blood Count 17.7H, Red Blood Count 4.53, Hemoglobin 14.6, Hematocrit 41.0 , Mean Corpuscular Volume 91, Mean Corpuscular Hemoglobin 32.2H, Mean Corpuscular Hemoglobin Concent 35.5, Red Cell Distribution Width 11.1L, Platelet Count 98L, Mean Platelet Volume 8.2, Neutrophils (%) (Auto) , Lymphocytes (%) (Auto) , Monocytes (%) (Auto) , Eosinophils (%) (Auto) , Basophils (%) (Auto) , Differential Total Cells Counted 100, Neutrophils % ( Manual) 93H, Lymphocytes % (Manual) 4L, Monocytes % (Manual) 1, Eosinophils % ( Manual) 0, Basophils % (Manual) 0, Metamyelocytes % 1H, Band Neutrophils 1, Platelet Estimate DecreasedL, Platelet Morphology Normal, Red Blood Cell Morphology Normal, Sodium Level 132L, Potassium Level 3.0L, Chloride Level 92L, Carbon Dioxide Level 17L, Anion Gap 24H, Blood Urea Nitrogen 15, Creatinine 0.8 , Estimat Glomerular Filtration Rate > 60, Glucose Level 274H, Calcium Level 8.8 , Triglycerides Level [Pending] 01/11/20 10:14: Arterial Blood pH 7.367, Arterial Blood Partial Pressure CO2 30.0L, Arterial Blood Partial Pressure O2 143.0H, Arterial Blood HCO3 16.8*L, Arterial Blood Oxygen Saturation 97.8, Arterial Blood Base Excess -7.2L, Jun Test Positive Height (Feet): 5 Height (Inches): 4.00 Weight (Pounds): 124 General Appearance: lethargic, other - Intubated Neck: normal alignment Cardiovascular: normal rate, regular rhythm Respiratory/Chest: lungs clear, normal breath sounds Abdomen: non tender, soft Benjamin Sarah MD Jan 11, 2020 12:25
--- NOTE | 2020-01-11 12:30 | NUR ---
NURSE NOTES: Triglycerides drawn prior to starting propofol drip. Propofol started at 5mcg/kg/hr as ordered. Patient remains orally intubated. Dr Omer ordered to change vent settings, will notify RT. Will continue to monitor patient.
[2020-01-11] MEDS ORDERED: Rocuronium Bromide 50mg/5ml Inj IV ONE (13:16)
[2020-01-11] MEDS ORDERED: Etomidate 40mg/20ml Inj IV ONE (13:16)
--- NOTE | 2020-01-11 14:00 | NUR ---
NURSE NOTES: RT notified to change vent settings per Dr Omer's order. FiO2 down to 80%, AC 18; patient continue to saturate 98-100%. Bilateral wrist restraints remains on to prevent self extubation. Potassium replacement ongoing. Patient is sedated at -2RASS. Propofol infusing at 5mcg/hr. No s/s of pain/discomfort at this time.
--- NOTE | 2020-01-11 16:00 | NUR ---
NURSE NOTES: Dr Omer notified and made aware regarding patient's triglyceride levels, ordered to stop Propofol drip. New orders for sedation given as PRN. Patient remains lethargic. Patient remains orally intubated, restraints on bilateral wrists to prevent self extubation. Bradshaw catheter intact. No s/s of pain/distress at this time. Will continue to monitor.
--- NOTE | 2020-01-11 18:00 | Infectious Diseases Prog Note ---
Assessment/Plan Assessment/Plan ASSESSMENT AND PLAN: Patient in icu exam deferred for covid-19 isolation - patient seen thru window d/w RN 1. covid-19 virus infection with pna, possible bacterial pna, hypoxia, vent, respiratory failure sepsis, fevers, leukocytosis - s/p hydroxychloroquine - day # 5/5 - cover bacterial pna/infection with vancomycin and zosyn, on azithromycin - tocilizumab x 1 given - monitor labs and chest x-ray - monitor respiratory status - chest x-ray worse 2. Diabetes. 3. Hypertension. 4. Hemoptysis. 5. Continue treatment per primary consultants. 6. No known drug allergies. 7. Social history is negative. 8. Family history is noncontributory. 9. MAR was noted. 10. Case discussed with RN. 11. Continue treatment per primary consultants. 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 Gastrointestinal/Abdominal: Denies: nausea, vomiting, diarrhea Genitourinary: Reports: other - + pollard Neurologic: Reports: other - sedated Psychiatric: Reports: other - NA Skin: Denies: rash Hematologic: Denies: bleeding Musculoskeletal: Reports: other - NA Allergies: Coded Allergies: No Known Allergies (Unverified , 01/05/20) Objective Vital Signs Last 24 Hour Vital Signs Date Time Temp Pulse Resp B/P (MAP) Pulse Ox O2 Delivery O2 Flow Rate FiO2 01/11/20 17:25 108 28 80 01/11/20 16:30 101.6 100 29 117/69 (85) 97 01/11/20 16:00 105 01/11/20 16:00 80 01/11/20 16:00 108 31 118/67 (84) 98 01/11/20 16:00 Mechanical Ventilator 01/11/20 15:30 107 28 113/66 (82) 99 01/11/20 15:29 114 38 80 01/11/20 15:00 108 27 114/64 (81) 98 01/11/20 15:00 29 114/64 Mechanical Ventilator 01/11/20 14:30 109 29 120/73 (89) 99 01/11/20 14:15 112 29 121/66 (84) 97 4/18/20 14:00 29 132/72 Mechanical Ventilator 01/11/20 14:00 113 30 132/72 (92) 96 01/11/20 13:30 108 27 117/69 (85) 96 01/11/20 13:22 109 29 80 01/11/20 13:15 108 31 127/67 (87) 97 01/11/20 13:00 105 27 124/75 (91) 100 01/11/20 13:00 28 124/75 Mechanical Ventilator 01/11/20 12:58 106 35 131/71 (91) 100 01/11/20 12:43 106 27 137/71 (93) 99 01/11/20 12:39 108 27 125/70 (88) 99 01/11/20 12:18 25 110/75 Mechanical Ventilator 40.0 100 01/11/20 12:00 Mechanical Ventilator 01/11/20 12:00 100 01/11/20 12:00 108 01/11/20 12:00 98.9 103 28 113/71 (85) 100 01/11/20 11:00 105 25 110/75 (87) 100 01/11/20 10:53 108 22 100 01/11/20 10:00 104 26 96/63 (74) 98 01/11/20 09:20 105 24 100 01/11/20 09:00 104 96/63 01/11/20 09:00 109 30 96/54 (68) 100 01/11/20 08:00 Mechanical Ventilator 01/11/20 08:00 109 01/11/20 08:00 118 23 97/49 (65) 99 01/11/20 08:00 100 01/11/20 07:14 94 Mechanical Ventilator 40.0 100 01/11/20 07:04 94 14 100 01/11/20 07:00 144 19 121/66 (84) 100 01/11/20 06:00 84 19 100 01/11/20 06:00 Mechanical Ventilator 01/11/20 06:00 147 13 135/72 (93) 100 01/11/20 06:00 40 01/11/20 05:00 140 35 82 01/11/20 04:00 143 28 30 01/11/20 04:00 Non-Rebreather 15.0 01/11/20 04:00 15.0 01/11/20 03:29 118 01/11/20 03:00 128 25 94 01/11/20 02:00 109 40 87 01/11/20 01:19 83 29 72/34 (47) 01/11/20 01:00 91 27 65/27 (40) 97 01/11/20 00:05 127 42 135/71 (92) 90 01/11/20 00:00 Non-Rebreather 15.0 01/11/20 00:00 98.2 103 31 83/69 (74) 80 01/11/20 00:00 15.0 01/10/20 23:03 84 01/10/20 23:00 88 25 106/85 (92) 97 01/10/20 22:00 79 29 106/66 (79) 90 01/10/20 21:00 85 25 116/52 (73) 90 01/10/20 21:00 Non-Rebreather 15.0 01/10/20 20:18 97.6 92 22 106/59 (75) 76 01/10/20 20:10 85 01/10/20 20:00 112 37 01/10/20 20:00 15.0 01/10/20 20:00 Non-Rebreather 15.0 01/10/20 19:15 95 Nasal Cannula 2.0 28 01/10/20 19:00 87 01/10/20 18:00 93 21 119/54 (75) 97 Height (Feet): 5 Height (Inches): 4.00 Weight (Pounds): 124 General Appearance: other - on vent, no pressors HEENT: normocephalic, atraumatic, anicteric Respiratory/Chest: crackles/rales, rhonchi - bilaterally Cardiovascular: normal rate, regular rhythm, no gallop/murmur, no JVD Abdomen: normal bowel sounds, soft, non tender, no organomegaly, non distended Genitourinary: other - + pollard - urine clear Extremities: no cyanosis Skin: no rash Neurologic/Psychiatric: other - sedated, weak, on vent Lymphatic: no neck adenopathy Musculoskeletal: no effusion Objective 01/07/20 - Procedure: XRAY Chest 1v Indication: Shortness of breath Technique: One view of the chest Comparison: For 09/13/2020 Findings: There inspiration currently. Bilateral mostly central mostly interstitial disease with hazy airspace opacity is again demonstrated. Consolidation appears less dense at the lung bases, probably due to the better inspiratory effort, but there does appear to be more disease in the upper lungs. The pleural spaces are clear. The heart size is normal. Impression: Shifting infiltrates, with apparent partial clearing of lung bases but increased disease in the upper lungs. Change in appearance may be in part due to improved inspiratory effort, however. Chest x-ray - 01/09/20 - Procedure: XRAY Chest 1v Indication: Shortness of breath Technique: One view of the chest Comparison: 01/07/2020 Findings: Hazy infiltrates throughout the right lung have worsened since prior study. There is also slight worsening of hazy left mid and lower lung infiltrates since prior study. The heart size is normal. The pleural spaces remain clear. Impression: Worsening bilateral infiltrates, likely pneumonia, right greater than left, over 2 days Chest x-ray - 01/11/20 - IMPRESSION: 1. Endotracheal tube tip approximately 4.3 cm above the lauri, with expected radiographic position. 2. No significant interval change in the diffuse interstitial and alveolar opacities in bilateral lungs. This is concerning for multifocal pneumonia versus pulmonary edema or ARDS. Microbiology Date/Time Source Procedure Growth Status 01/05/20 07:40 Blood Blood Culture - Final NO GROWTH AFTER 5 DAYS Complete 01/05/20 08:00 Nasopharynx Coronavirus COVID-19 PCR (TAM) - Final Complete 01/05/20 11:28 Urine,Clean Catch Urine Culture - Final Mixed Gram Positive Organism Shazia Glabrata Complete Laboratory Tests Test 01/10/20 19:05 01/11/20 04:00 01/11/20 05:00 01/11/20 10:14 Urine Osmolality 503 mOsm/kg (429-449) H Arterial Blood pH 7.228 (7.350-7.450) 7.367 (7.350-7.450) Arterial Blood Partial Pressure CO2 38.1 mmHg (35.0-45.0) 30.0 mmHg (35.0-45.0) L Arterial Blood Partial Pressure O2 45.4 mmHg (75.0-100.0) 143.0 mmHg (75.0-100.0) H Arterial Blood HCO3 15.5 mmol/L (22.0-26.0) *L 16.8 mmol/L (22.0-26.0) *L Arterial Blood Oxygen Saturation 75.6 % (95-100) *L 97.8 % (95-100) Arterial Blood Base Excess -11.3 (-2-2) *L -7.2 (-2-2) L Jun Test Positive Positive White Blood Count 17.7 K/UL (4.8-10.8) H Red Blood Count 4.53 M/UL (4.20-5.40) Hemoglobin 14.6 G/DL (12.0-16.0) Hematocrit 41.0 % (37.0-47.0) Mean Corpuscular Volume 91 FL (80-99) Mean Corpuscular Hemoglobin 32.2 PG (27.0-31.0) H Mean Corpuscular Hemoglobin Concent 35.5 G/DL (32.0-36.0) Red Cell Distribution Width 11.1 % (11.6-14.8) L Platelet Count 98 K/UL (150-450) L Mean Platelet Volume 8.2 FL (6.5-10.1) Neutrophils (%) (Auto) % (45.0-75.0) Lymphocytes (%) (Auto) % (20.0-45.0) Monocytes (%) (Auto) % (1.0-10.0) Eosinophils (%) (Auto) % (0.0-3.0) Basophils (%) (Auto) % (0.0-2.0) Differential Total Cells Counted 100 Neutrophils % (Manual) 93 % (45-75) H Lymphocytes % (Manual) 4 % (20-45) L Monocytes % (Manual) 1 % (1-10) Eosinophils % (Manual) 0 % (0-3) Basophils % (Manual) 0 % (0-2) Metamyelocytes % 1 % (0-0) H Band Neutrophils 1 % (0-8) Platelet Estimate Decreased L Platelet Morphology Normal Red Blood Cell Morphology Normal Sodium Level 132 MMOL/L (136-145) L Potassium Level 3.0 MMOL/L (3.5-5.1) L Chloride Level 92 MMOL/L (98-107) L Carbon Dioxide Level 17 MMOL/L (21-32) L Anion Gap 24 mmol/L (5-15) H Blood Urea Nitrogen 15 mg/dL (7-18) Creatinine 0.8 MG/DL (0.55-1.30) Estimat Glomerular Filtration Rate > 60 mL/min (>60) Glucose Level 274 MG/DL (74-106) H Calcium Level 8.8 MG/DL (8.5-10.1) Triglycerides Level 199 MG/DL (30-150) H Test 01/11/20 12:30 Triglycerides Level 186 MG/DL (30-150) H Current Medications Medications (Trade) Dose Ordered Sig/Neha Route PRN Reason Start Time Stop Time Status Last Admin Dose Admin Acetaminophen (Tylenol) 650 mg Q4H PRN ORAL Mild Pain (Pain Scale 1-3) 01/08/20 09:00 02/04/20 08:59 01/11/20 17:00 Acetaminophen (Tylenol) 650 mg Q4H PRN ORAL Temp >100.5 01/08/20 09:00 02/04/20 08:59 Azithromycin 250 mg/Dextrose 275 ml @ 275 mls/hr Q24HRS IV 01/10/20 11:00 01/15/20 10:59 01/11/20 11:52 Benzonatate (Tessalon Perles) 100 mg Q8H PRN ORAL For Cough 01/08/20 14:00 02/07/20 13:59 Dextrose (Dextrose 50%) 25 ml Q30M PRN IV Hypoglycemia 01/08/20 08:30 04/04/20 08:59 Dextrose (Dextrose 50%) 50 ml Q30M PRN IV Hypoglycemia 01/08/20 08:30 04/04/20 08:59 Guaifenesin/ Dextromethorphan (Robitussin DM Syrup) 10 ml Q4H PRN ORAL For Cough 01/08/20 09:15 04/05/20 01:14 01/08/20 09:20 Insulin Aspart (NovoLOG) BEFORE MEALS AND HS SUBQ 01/08/20 11:30 04/06/20 16:29 01/11/20 06:30 Midazolam HCl 100 ml @ 0 mls/hr Q24H PRN IV Agitation 01/11/20 16:15 04/10/20 16:14 Morphine Sulfate (Morphine Sulfate) 1 mg EVERY 6 HOURS PRN IVP Severe Pain (Pain Scale 7-10) 01/09/20 20:30 01/16/20 20:29 01/11/20 00:56 Piperacillin Sod/ Tazobactam Sod 3.375 gm/Sodium Chloride 110 ml @ 27.5 mls/hr Q8H IVPB 01/11/20 20:00 01/18/20 19:59 Potassium Chloride 100 ml @ 50 mls/hr ONCE ONCE IVPB 01/11/20 17:00 01/11/20 18:59 01/11/20 16:27 Vancomycin HCl (Vanco rx to dose) 1 ea DAILY PRN MISC Per rx protocol 01/09/20 20:00 02/08/20 19:59 Vancomycin/Sodium Chloride 275 ml @ 137.5 mls/ hr Q24H IVPB 01/09/20 21:00 01/14/20 20:59 01/10/20 20:52 Pham Doyle MD Jan 11, 2020 18:00
--- NOTE | 2020-01-11 18:00 | NUR ---
NURSE NOTES: Patient remains lethargic. Orally intubated with 7.5 at 23cm lipline, with vent settings AC 18, TV 500, FiO2 80%, and PEEP 5. OGT in place; pt remains NPO. Bed bath given, no BM noted, left patient clean and dry. Bradshaw catheter intact and draining well to gravity. Repositioned patient and placed pillows on bilateral lower extremities. Restraints care provided, released and reapplied. Skin and circulation intact. Patient was febrile 101.6F axillary, tylenol was given and cooling measures applied. No s/s of pain/discomfort. Will continue to monitor.
--- NOTE | 2020-01-11 18:30 | NUR ---
NURSE NOTES: Late entry: Spoke with patient's daughter, updated with plan of care, informed and made aware of patient's condition; daughter verbalized understanding.
--- NOTE | 2020-01-11 19:16 | NUR ---
HAND-OFF: Report given to Justine Mata RN. Endorsed plan of care.
--- NOTE | 2020-01-11 19:30 | NUR ---
Nurse Note: Report received from EMMETT Jackson for continuity of care. Pt resting in bed, no signs of acute distress, does not show signs of pain. Pt is tachypneic; ETT 7.5 at 23cm lip line, vent settings AC 18, TV 500, FiO2 80%, and PEEP 5. Three peripheral IV noted; patent, infusing NS to keep lines open. Per AM nurse, axillary temp 101.6F, cooling measures and Tylenol administered. Bradshaw cath intact, urine output noted. Bilateral soft wrist restraint noted; skin intact, peripheral pulses present. All safety measures met; will continue to monitor.
--- NOTE | 2020-01-11 20:05 | NUR ---
RESPIRATORY NOTE: Received pt on AC 18, 500VT, 80%, PEEP +5. Pt intubated w/ ETT 7.5 @ 23cm lipline, secured by anchorfast. Pt restless/sedated. B/S viridiana. diminished, sxn scant amounts of bloody secretions. Vent plugged into red outlet, ambubag at bedside. Pt in no apparent distress at this time. Will continue to monitor pt.
--- NOTE | 2020-01-11 20:30 | NUR ---
Nurse Note: Versed started at 1 mg/hr; pt struggling with intubation. Pt RR 34 with rapid and shallow breaths. No changes to vent settings per RT. Oral temp 98.6F oral after Tylenol and cooling measures. All safety measures met; will continue to monitor.
--- NOTE | 2020-01-11 21:20 | Consultation ---
History of Present Illness General Date patient seen: Jan 10, 2020 Chief Complaint: Dyspnea/Respdistress Reason for Consultation: hyponatremia Present Illness HPI 59 year old female with past medical history of diabetes and hypertension, presented on 01/04 with several days of progressively worsening shortness of breath and cough. She was found to be positive for covid. Hospital course complicated by hyponatremia. 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 jose luis westfall Resuscitation status Full Code Advanced Directive on File No Physical Exam General Appearance: lethargic Lines, tubes and drains: peripheral Physical Exam Narrative pupils reactive withdraws all 4 to pain cc 35 min Last 24 Hour Vital Signs Date Time Temp Pulse Resp B/P (MAP) Pulse Ox O2 Delivery O2 Flow Rate FiO2 01/11/20 20:24 34 Endotracheal Tube 80 01/11/20 19:00 104 32 125/65 (85) 97 01/11/20 18:00 107 26 117/70 (86) 98 01/11/20 17:30 101.6 01/11/20 17:25 108 28 80 01/11/20 17:00 107 32 125/70 (88) 95 01/11/20 16:30 101.6 100 29 117/69 (85) 97 01/11/20 16:00 105 01/11/20 16:00 80 01/11/20 16:00 108 31 118/67 (84) 98 01/11/20 16:00 Mechanical Ventilator 01/11/20 15:30 107 28 113/66 (82) 99 01/11/20 15:29 114 38 80 01/11/20 15:00 108 27 114/64 (81) 98 01/11/20 15:00 29 114/64 Mechanical Ventilator 01/11/20 14:30 109 29 120/73 (89) 99 01/11/20 14:15 112 29 121/66 (84) 97 01/11/20 14:00 29 132/72 Mechanical Ventilator 01/11/20 14:00 113 30 132/72 (92) 96 01/11/20 13:30 108 27 117/69 (85) 96 01/11/20 13:22 109 29 80 20 13:15 108 31 127/67 (87) 97 01/11/20 13:00 105 27 124/75 (91) 100 01/11/20 13:00 28 124/75 Mechanical Ventilator 01/11/20 12:58 106 35 131/71 (91) 100 01/11/20 12:43 106 27 137/71 (93) 99 20 12:39 108 27 125/70 (88) 99 01/11/20 12:18 25 110/75 Mechanical Ventilator 40.0 100 01/11/20 12:00 Mechanical Ventilator 01/11/20 12:00 100 01/11/20 12:00 108 01/11/20 12:00 98.9 103 28 113/71 (85) 100 01/11/20 11:00 105 25 110/75 (87) 100 01/11/20 10:53 108 22 100 01/11/20 10:00 104 26 96/63 (74) 98 01/11/20 09:20 105 24 100 01/11/20 09:00 104 96/63 01/11/20 09:00 109 30 96/54 (68) 100 01/11/20 08:00 Mechanical Ventilator 01/11/20 08:00 109 01/11/20 08:00 118 23 97/49 (65) 99 01/11/20 08:00 100 01/11/20 07:14 94 Mechanical Ventilator 40.0 100 01/11/20 07:04 94 14 100 01/11/20 07:00 144 19 121/66 (84) 100 01/11/20 06:00 84 19 100 01/11/20 06:00 Mechanical Ventilator 01/11/20 06:00 147 13 135/72 (93) 100 01/11/20 06:00 40 01/11/20 05:00 140 35 82 01/11/20 04:00 143 28 30 01/11/20 04:00 Non-Rebreather 15.0 01/11/20 04:00 15.0 01/11/20 03:29 118 01/11/20 03:00 128 25 94 01/11/20 02:00 109 40 87 01/11/20 01:19 83 29 72/34 (47) 01/11/20 01:00 91 27 65/27 (40) 97 01/11/20 00:05 127 42 135/71 (92) 90 01/11/20 00:00 Non-Rebreather 15.0 01/11/20 00:00 98.2 103 31 83/69 (74) 80 01/11/20 00:00 15.0 01/10/20 23:03 84 01/10/20 23:00 88 25 106/85 (92) 97 01/10/20 22:00 79 29 106/66 (79) 90 Intake and Output 01/10/20 01/11/20 19:00 07:00 Intake Total 1630.0 ml 496.96 ml Balance 1630.0 ml 496.96 ml Intake Oral 265 ml IV Total 1365.0 ml 496.96 ml # Voids 3 3 Laboratory Tests Test 01/11/20 04:00 01/11/20 05:00 01/11/20 10:14 01/11/20 12:30 Arterial Blood pH 7.228 (7.350-7.450) 7.367 (7.350-7.450) Arterial Blood Partial Pressure CO2 38.1 mmHg (35.0-45.0) 30.0 mmHg (35.0-45.0) L Arterial Blood Partial Pressure O2 45.4 mmHg (75.0-100.0) 143.0 mmHg (75.0-100.0) H Arterial Blood HCO3 15.5 mmol/L (22.0-26.0) *L 16.8 mmol/L (22.0-26.0) *L Arterial Blood Oxygen Saturation 75.6 % (95-100) *L 97.8 % (95-100) Arterial Blood Base Excess -11.3 (-2-2) *L -7.2 (-2-2) L Jun Test Positive Positive White Blood Count 17.7 K/UL (4.8-10.8) H Red Blood Count 4.53 M/UL (4.20-5.40) Hemoglobin 14.6 G/DL (12.0-16.0) Hematocrit 41.0 % (37.0-47.0) Mean Corpuscular Volume 91 FL (80-99) Mean Corpuscular Hemoglobin 32.2 PG (27.0-31.0) H Mean Corpuscular Hemoglobin Concent 35.5 G/DL (32.0-36.0) Red Cell Distribution Width 11.1 % (11.6-14.8) L Platelet Count 98 K/UL (150-450) L Mean Platelet Volume 8.2 FL (6.5-10.1) Neutrophils (%) (Auto) % (45.0-75.0) Lymphocytes (%) (Auto) % (20.0-45.0) Monocytes (%) (Auto) % (1.0-10.0) Eosinophils (%) (Auto) % (0.0-3.0) Basophils (%) (Auto) % (0.0-2.0) Differential Total Cells Counted 100 Neutrophils % (Manual) 93 % (45-75) H Lymphocytes % (Manual) 4 % (20-45) L Monocytes % (Manual) 1 % (1-10) Eosinophils % (Manual) 0 % (0-3) Basophils % (Manual) 0 % (0-2) Metamyelocytes % 1 % (0-0) H Band Neutrophils 1 % (0-8) Platelet Estimate Decreased L Platelet Morphology Normal Red Blood Cell Morphology Normal Sodium Level 132 MMOL/L (136-145) L Potassium Level 3.0 MMOL/L (3.5-5.1) L Chloride Level 92 MMOL/L (98-107) L Carbon Dioxide Level 17 MMOL/L (21-32) L Anion Gap 24 mmol/L (5-15) H Blood Urea Nitrogen 15 mg/dL (7-18) Creatinine 0.8 MG/DL (0.55-1.30) Estimat Glomerular Filtration Rate > 60 mL/min (>60) Glucose Level 274 MG/DL (74-106) H Calcium Level 8.8 MG/DL (8.5-10.1) Triglycerides Level 199 MG/DL (30-150) H 186 MG/DL (30-150) H Height (Feet): 5 Height (Inches): 4.00 Weight (Pounds): 124 Medications Current Medications Medications (Trade) Dose Ordered Sig/Neha Route PRN Reason Start Time Stop Time Status Last Admin Dose Admin Acetaminophen (Tylenol) 650 mg Q4H PRN ORAL Mild Pain (Pain Scale 1-3) 01/08/20 09:00 02/04/20 08:59 01/11/20 17:00 Acetaminophen (Tylenol) 650 mg Q4H PRN ORAL Temp >100.5 01/08/20 09:00 02/04/20 08:59 Azithromycin 250 mg/Dextrose 275 ml @ 275 mls/hr Q24HRS IV 01/10/20 11:00 01/15/20 10:59 01/11/20 11:52 Benzonatate (Tessalon Perles) 100 mg Q8H PRN ORAL For Cough 01/08/20 14:00 02/07/20 13:59 Dextrose (Dextrose 50%) 25 ml Q30M PRN IV Hypoglycemia 01/08/20 08:30 04/04/20 08:59 Dextrose (Dextrose 50%) 50 ml Q30M PRN IV Hypoglycemia 01/08/20 08:30 04/04/20 08:59 Guaifenesin/ Dextromethorphan (Robitussin DM Syrup) 10 ml Q4H PRN ORAL For Cough 01/08/20 09:15 04/05/20 01:14 01/08/20 09:20 Insulin Aspart (NovoLOG) BEFORE MEALS AND HS SUBQ 01/08/20 11:30 04/06/20 16:29 01/11/20 20:58 Midazolam HCl 100 ml @ 0 mls/hr Q24H PRN IV Agitation 01/11/20 16:15 04/10/20 16:14 01/11/20 20:24 Morphine Sulfate (Morphine Sulfate) 1 mg EVERY 6 HOURS PRN IVP Severe Pain (Pain Scale 7-10) 01/09/20 20:30 01/16/20 20:29 01/11/20 00:56 Piperacillin Sod/ Tazobactam Sod 3.375 gm/Sodium Chloride 110 ml @ 27.5 mls/hr Q8H IVPB 01/11/20 20:00 01/18/20 19:59 01/11/20 20:25 Vancomycin HCl (Vanco rx to dose) 1 ea DAILY PRN MISC Per rx protocol 01/09/20 20:00 02/08/20 19:59 Vancomycin/Sodium Chloride 275 ml @ 137.5 mls/ hr Q24H IVPB 01/09/20 21:00 01/14/20 20:59 01/10/20 20:52 Assessment/Plan Problem List: (1) Diabetes mellitus out of control ICD Codes: E11.65 - Type 2 diabetes mellitus with hyperglycemia SNOMED: 78723948, 060091074 (2) Anemia ICD Codes: D64.9 - Anemia, unspecified SNOMED: 111731999 (3) Elevated LFTs ICD Codes: R79.89 - Other specified abnormal findings of blood chemistry SNOMED: 708782709, 534311741 (4) Respiratory failure with hypoxia ICD Codes: J96.91 - Respiratory failure, unspecified with hypoxia SNOMED: 29596076057877734 Qualifiers: Qualified Codes: J96.91 - Respiratory failure, unspecified with hypoxia (5) COVID-19 virus infection ICD Codes: U07.1 - COVID-19 SNOMED: 904250885 (6) Diabetes type 2, controlled ICD Codes: E11.9 - Type 2 diabetes mellitus without complications SNOMED: 34861701, 774278601 Qualifiers: Qualified Codes: E11.8 - Type 2 diabetes mellitus with unspecified complications (7) HTN (hypertension) ICD Codes: I10 - Essential (primary) hypertension SNOMED: 71266746 Assessment/Plan: now with resp failure, sepsis encephalopathy, acute icu level of care imminent intubation map > 65 for herbologist perfusion broad spectrum atb covd management ct brain when able Royal Peguero MD Jan 11, 2020 21:20
--- NOTE | 2020-01-11 21:21 | Neurology Progress Note ---
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, intubated covid + fevers intubated and sedated Objective Physical Exam Last Vital Signs Date Time Temp Pulse Resp B/P (MAP) Pulse Ox O2 Delivery O2 Flow Rate FiO2 01/11/20 20:24 34 Endotracheal Tube 80 01/11/20 19:00 104 125/65 (85) 97 01/11/20 17:30 101.6 01/11/20 12:18 40.0 Laboratory Tests Test 01/11/20 04:00 01/11/20 05:00 01/11/20 10:14 01/11/20 12:30 Arterial Blood pH 7.228 (7.350-7.450) 7.367 (7.350-7.450) Arterial Blood Partial Pressure CO2 38.1 mmHg (35.0-45.0) 30.0 mmHg (35.0-45.0) L Arterial Blood Partial Pressure O2 45.4 mmHg (75.0-100.0) 143.0 mmHg (75.0-100.0) H Arterial Blood HCO3 15.5 mmol/L (22.0-26.0) *L 16.8 mmol/L (22.0-26.0) *L Arterial Blood Oxygen Saturation 75.6 % (95-100) *L 97.8 % (95-100) Arterial Blood Base Excess -11.3 (-2-2) *L -7.2 (-2-2) L Jun Test Positive Positive White Blood Count 17.7 K/UL (4.8-10.8) H Red Blood Count 4.53 M/UL (4.20-5.40) Hemoglobin 14.6 G/DL (12.0-16.0) Hematocrit 41.0 % (37.0-47.0) Mean Corpuscular Volume 91 FL (80-99) Mean Corpuscular Hemoglobin 32.2 PG (27.0-31.0) H Mean Corpuscular Hemoglobin Concent 35.5 G/DL (32.0-36.0) Red Cell Distribution Width 11.1 % (11.6-14.8) L Platelet Count 98 K/UL (150-450) L Mean Platelet Volume 8.2 FL (6.5-10.1) Neutrophils (%) (Auto) % (45.0-75.0) Lymphocytes (%) (Auto) % (20.0-45.0) Monocytes (%) (Auto) % (1.0-10.0) Eosinophils (%) (Auto) % (0.0-3.0) Basophils (%) (Auto) % (0.0-2.0) Differential Total Cells Counted 100 Neutrophils % (Manual) 93 % (45-75) H Lymphocytes % (Manual) 4 % (20-45) L Monocytes % (Manual) 1 % (1-10) Eosinophils % (Manual) 0 % (0-3) Basophils % (Manual) 0 % (0-2) Metamyelocytes % 1 % (0-0) H Band Neutrophils 1 % (0-8) Platelet Estimate Decreased L Platelet Morphology Normal Red Blood Cell Morphology Normal Sodium Level 132 MMOL/L (136-145) L Potassium Level 3.0 MMOL/L (3.5-5.1) L Chloride Level 92 MMOL/L (98-107) L Carbon Dioxide Level 17 MMOL/L (21-32) L Anion Gap 24 mmol/L (5-15) H Blood Urea Nitrogen 15 mg/dL (7-18) Creatinine 0.8 MG/DL (0.55-1.30) Estimat Glomerular Filtration Rate > 60 mL/min (>60) Glucose Level 274 MG/DL (74-106) H Calcium Level 8.8 MG/DL (8.5-10.1) Triglycerides Level 199 MG/DL (30-150) H 186 MG/DL (30-150) H Head: normocophalic Neck: no rigidity Neurologic Exam Objective intubated sedated withdraws to pain cc 35 min Impression/Recommendations Problems: (1) Respiratory failure with hypoxia (2) COVID-19 virus infection (3) Diabetes type 2, controlled (4) HTN (hypertension) Diagnostic Impression Encephalopathy, now intubated. Rule out hemorrhagic encephalitis if no improvement in MS COVID + Royal Peguero MD Jan 11, 2020 21:21
--- NOTE | 2020-01-11 22:00 | NUR ---
Nurse Note: Tolerating versed well; pt no longer fighting vent and no titration needed. Pt resting. BS 336; 6U insulin administered per sliding scale. Restraints noted; no skin breakdown. Bradshaw cath patent with urine output noted. Oral care completed; turned as needed. All safety measures met; will continue to monitor.
[2020-01-11] MEDS ORDERED: Vancomycin 1.5gm/NS Premix IVPB SCH (23:00)
--- NOTE | 2020-01-11 23:35 | NUR ---
Nurse Note: Pt was tolerating Versed at 1ml/hr. Titrated Versed per protocol; pt fighting vent, RR fluctuating between 34-38 bpm; pt on 6ml/hr. Pt reacts to suctioning and light touch. Afebrile, HR >100bpm, O2 99% on vent. Urine output noted. All safety measures met; will continue to monitor.
[2020-01-12] VITALS (37 sets, daily range): BP systolic 63–134; BP diastolic 34–74
[2020-01-12] MEDS: Morphine Sulfate 2mg/ml Inj(IV/IM USE ONLY) IVP PRN (00:18)
--- NOTE | 2020-01-12 01:35 | NUR ---
Nurse Note: Pt titrated up on Versed; pt remains HR >100bpm, RR >30 breath per min. 100.9F axillary, Tylenol administered. Pt resting. No BM; urine output present. Pt suctioned as needed; oral care provided. All safety measures met; will continue to monitor.
--- NOTE | 2020-01-12 03:45 | NUR ---
Nurse Note: Oral temp 101.4F; axillary temp 102.6F. Ice packs applied. Pt cleaned, turned; kept comfortable. Bradshaw care completed. Passive range of motion performed on all extremities. Skin remains intact. Versed at 18 ml/hr infusing; pt tolerating well. Spoke with Barrera, daughter , provided with updates. All safety measures met; will continue to monitor.
[2020-01-12] MEDS: Piperacillin/Tazobactam 3.375 GM in NS 110 ML IVPB SCH ×3 (04:15→20:07)
[2020-01-12] MEDS: NovoLOG Insulin Flexpen SUBQ SCH ×4 (06:11→21:02)
--- NOTE | 2020-01-12 06:40 | NUR ---
Nurse Note: Pt resting in bed, no signs of acute distress, does not show signs of pain. Axillary temp at 102.7; ice applied. Pt is tachypneic; ETT 7.5 at 23cm lip line, vent settings AC 18, TV 500, FiO2 80%, and PEEP 5. Three peripheral IV noted; patent, infusing NS to keep lines open. Versed infusing at 18ml/hr. Bradshaw cath intact, urine output noted. No BM. Skin remains intact. Bilateral soft wrist restraint noted; skin intact, peripheral pulses present. Head of bed kept above 30 degrees. All safety measures met; will continue to monitor.
[2020-01-12 07:03] LABS: ANION GAP 15 mmol/L (5-15); BLOOD UREA NITROGEN 36 mg/dL (7-18); CALCIUM 8.3 MG/DL (8.5-10.1); CARBON DIOXIDE 23 MMOL/L (21-32); CHLORIDE 100 MMOL/L (98-107); CREATININE 1.8 MG/DL (0.55-1.30); POTASSIUM 3.6 MMOL/L (3.5-5.1); SODIUM 138 MMOL/L (136-145)
--- NOTE | 2020-01-12 07:27 | NUR ---
Nurse Note: Endorsed care to EMMETT Myers.
--- NOTE | 2020-01-12 09:45 | Nephrology Progress Note ---
Assessment/Plan Plan #Hyponatremia- mild- l r/o SIADH in the setting of pneumonia- improved #KADEN- concerns for developing ATN in the setting of sepsis- r/o vanco toxicity #hypokalemia- repleted #COVID pneumonia #hypoxemic respiratary failure #HTN #DM - start 1/2NS + 20 meq kcl at 75cc/hr - check UA - check urine sodium and urine cr - switching vanco to linezolid - s/p actemra - will consider one dose of tolvaptan if sodium continues to drop - hold amlodipine 5mg daily - abx per ID- on vanco zosyn, doxy, plaquenil - BG control - breathing tx per pulm - supplemental O2 Subjective ROS Limited/Unobtainable: Yes Subjective intubated for worsening resp failure recevied actemra febrile cr up to1.8 Objective Objective Last 24 Hour Vital Signs Date Time Temp Pulse Resp B/P (MAP) Pulse Ox O2 Delivery O2 Flow Rate FiO2 01/12/20 09:10 100 38 80 01/12/20 07:25 127 38 80 01/12/20 07:00 102.7 126 38 116/70 (85) 98 01/12/20 06:10 34 Endotracheal Tube 80 01/12/20 06:00 123 35 120/73 (89) 97 01/12/20 06:00 101.4 01/12/20 05:30 31 Endotracheal Tube 80 01/12/20 05:29 123 33 80 01/12/20 05:00 121 31 114/70 (85) 97 01/12/20 04:30 31 Endotracheal Tube 80 01/12/20 04:00 114 27 115/66 (82) 98 01/12/20 04:00 Mechanical Ventilator 01/12/20 04:00 80 01/12/20 04:00 114 01/12/20 03:30 28 Endotracheal Tube 80 01/12/20 03:27 120 33 80 01/12/20 03:00 101.4 120 32 109/60 (76) 97 01/12/20 02:30 32 Mechanical Ventilator 80 01/12/20 02:00 123 35 104/66 (79) 93 01/12/20 01:50 100.9 01/12/20 01:50 100.9 01/12/20 01:30 34 Endotracheal Tube 80 01/12/20 01:00 130 30 102/70 (81) 100 01/12/20 00:59 124 35 80 01/12/20 00:30 37 Endotracheal Tube 80 01/12/20 00:00 Mechanical Ventilator 01/12/20 00:00 80 01/12/20 00:00 123 01/12/20 00:00 100.9 123 35 120/74 (89) 93 01/11/20 23:30 34 Endotracheal Tube 80 01/11/20 23:27 107 31 80 01/11/20 23:15 30 Endotracheal Tube 80 01/11/20 23:00 32 Endotracheal Tube 80 01/11/20 23:00 107 28 133/78 (96) 97 01/11/20 22:45 38 Endotracheal Tube 80 01/11/20 22:30 36 Endotracheal Tube 80 01/11/20 22:15 28 Mechanical Ventilator 80 01/11/20 22:00 98.6 104 34 128/73 (91) 97 01/11/20 22:00 98.6 01/11/20 21:24 28 Mechanical Ventilator 80 01/11/20 21:16 103 40 80 01/11/20 21:09 24 Mechanical Ventilator 80 01/11/20 21:00 101 33 122/69 (86) 99 01/11/20 20:54 26 Mechanical Ventilator 80 01/11/20 20:39 28 Mechanical Ventilator 80 01/11/20 20:24 34 Endotracheal Tube 80 01/11/20 20:03 113 39 80 01/11/20 20:00 100 01/11/20 20:00 100 31 113/70 (84) 98 20 20:00 Mechanical Ventilator 01/11/20 20:00 80 01/11/20 19:00 104 32 125/65 (85) 97 01/11/20 18:00 107 26 117/70 (86) 98 1820 17:25 108 28 80 20 17:00 107 32 125/70 (88) 95 01/11/20 16:30 101.6 100 29 117/69 (85) 97 20 16:00 105 01/11/20 16:00 80 20 16:00 108 31 118/67 (84) 98 01/11/20 16:00 Mechanical Ventilator 01/11/20 15:30 107 28 113/66 (82) 99 01/11/20 15:29 114 38 80 01/11/20 15:00 108 27 114/64 (81) 98 01/11/20 15:00 29 114/64 Mechanical Ventilator 01/11/20 14:30 109 29 120/73 (89) 99 01/11/20 14:15 112 29 121/66 (84) 97 01/11/20 14:00 29 132/72 Mechanical Ventilator 01/11/20 14:00 113 30 132/72 (92) 96 01/11/20 13:30 108 27 117/69 (85) 96 01/11/20 13:22 109 29 80 01/11/20 13:15 108 31 127/67 (87) 97 01/11/20 13:00 105 27 124/75 (91) 100 01/11/20 13:00 28 124/75 Mechanical Ventilator 01/11/20 12:58 106 35 131/71 (91) 100 01/11/20 12:43 106 27 137/71 (93) 99 01/11/20 12:39 108 27 125/70 (88) 99 01/11/20 12:18 25 110/75 Mechanical Ventilator 40.0 100 01/11/20 12:00 Mechanical Ventilator 01/11/20 12:00 100 01/11/20 12:00 108 01/11/20 12:00 98.9 103 28 113/71 (85) 100 01/11/20 11:00 105 25 110/75 (87) 100 01/11/20 10:53 108 22 100 01/11/20 10:00 104 26 96/63 (74) 98 Intake and Output 01/11/20 01/12/20 19:00 07:00 Intake Total 743.84369 ml 665 ml Output Total 570 ml 410 ml Balance 173.63499 ml 255 ml Free Water 180 ml IV Total 693.12009 ml 485 ml Other 50 ml Output Urine Total 570 ml 410 ml Laboratory Tests 01/11/20 10:14: Arterial Blood pH 7.367, Arterial Blood Partial Pressure CO2 30.0L, Arterial Blood Partial Pressure O2 143.0H, Arterial Blood HCO3 16.8*L, Arterial Blood Oxygen Saturation 97.8, Arterial Blood Base Excess -7.2L, Jun Test Positive 01/11/20 12:30: Triglycerides Level 186H 01/12/20 05:05: Sodium Level 138, Potassium Level 3.6, Chloride Level 100, Carbon Dioxide Level 23, Anion Gap 15, Blood Urea Nitrogen 36H, Creatinine 1.8#H, Estimat Glomerular Filtration Rate 29.0, Glucose Level 350H, Calcium Level 8.3L, Phosphorus Level 2.0L, Magnesium Level 2.2 Height (Feet): 5 Height (Inches): 4.00 Weight (Pounds): 124 Justni Hopper M.D. Jan 12, 2020 09:45
--- NOTE | 2020-01-12 10:05 | NUR ---
NURSE NOTES: Dr. Omer updated of patient condition at the bedside, patient remains on ventilator setting of AC 18, Tv: 500, Fio2 of 80% and peep of 5. informed of phosphorus level of 2.0, will place orders. no verbal orders given at this time.
[2020-01-12] MEDS ORDERED: Sodium Phosphate 30 MM in NS 275 ML IVPB ONE (11:00)
--- NOTE | 2020-01-12 11:06 | Pulmonology Progress Note ---
Assessment/Plan Assessment/Plan 1. Bilateral pneumonia. COVID 19 positivity 2. Hemoptysis. Resolved 3. Hypertension 4. Diabetes. 5. Hyponatremia 6. Respiratory failure; intubated 01/10/20 DISCUSSION: Agree with management and care. Will adjust vent Will provide sedation IV fluids plus bolus Has received Actemra and Ivermecti On Azithro DC Vibramicin Discussed with patient and advised risks nd benefits of Actemra and Ivermectin Patient agrees Dr Brianna Laurent aware and agrees Dr. Meneses (ID) aware and agrees Shaun Omer M.D. Subjective Interval Events: Remains intubated; mild leucocytosisl; cr 1.8 Constitutional: Reports: no symptoms HEENT: Repors: no symptoms Respiratory: Reports: no symptoms Cardiovascular: Reports: no symptoms Gastrointestinal/Abdominal: Reports: no symptoms Genitourinary: Reports: no symptoms Allergies: Coded Allergies: No Known Allergies (Unverified , 01/05/20) Objective Last 24 Hour Vital Signs Date Time Temp Pulse Resp B/P (MAP) Pulse Ox O2 Delivery O2 Flow Rate FiO2 01/12/20 10:30 112 18 84/53 (63) 100 01/12/20 10:00 90 18 104/64 (77) 100 01/12/20 09:30 106 30 115/68 (84) 99 01/12/20 09:10 100 38 80 01/12/20 09:00 112 32 103/68 (80) 99 01/12/20 08:30 119 33 111/71 (84) 100 01/12/20 08:00 80 01/12/20 08:00 Mechanical Ventilator 01/12/20 08:00 102.3 121 32 106/66 (79) 99 01/12/20 08:00 125 01/12/20 07:30 123 34 100/67 (78) 98 01/12/20 07:25 127 38 80 01/12/20 07:00 102.7 126 38 116/70 (85) 98 01/12/20 06:10 34 Endotracheal Tube 80 01/12/20 06:00 123 35 120/73 (89) 97 01/12/20 06:00 101.4 01/12/20 05:30 31 Endotracheal Tube 80 01/12/20 05:29 123 33 80 01/12/20 05:00 121 31 114/70 (85) 97 01/12/20 04:30 31 Endotracheal Tube 80 01/12/20 04:00 114 27 115/66 (82) 98 01/12/20 04:00 Mechanical Ventilator 01/12/20 04:00 80 01/12/20 04:00 114 01/12/20 03:30 28 Endotracheal Tube 80 01/12/20 03:27 120 33 80 01/12/20 03:00 101.4 120 32 109/60 (76) 97 01/12/20 02:30 32 Mechanical Ventilator 80 01/12/20 02:00 123 35 104/66 (79) 93 01/12/20 01:50 100.9 01/12/20 01:50 100.9 01/12/20 01:30 34 Endotracheal Tube 80 01/12/20 01:00 130 30 102/70 (81) 100 01/12/20 00:59 124 35 80 01/12/20 00:30 37 Endotracheal Tube 80 01/12/20 00:00 Mechanical Ventilator 01/12/20 00:00 80 01/12/20 00:00 123 01/12/20 00:00 100.9 123 35 120/74 (89) 93 01/11/20 23:30 34 Endotracheal Tube 80 01/11/20 23:27 107 31 80 01/11/20 23:15 30 Endotracheal Tube 80 01/11/20 23:00 32 Endotracheal Tube 80 01/11/20 23:00 107 28 133/78 (96) 97 01/11/20 22:45 38 Endotracheal Tube 80 01/11/20 22:30 36 Endotracheal Tube 80 01/11/20 22:15 28 Mechanical Ventilator 80 01/11/20 22:00 98.6 104 34 128/73 (91) 97 01/11/20 22:00 98.6 01/11/20 21:24 28 Mechanical Ventilator 80 01/11/20 21:16 103 40 80 01/11/20 21:09 24 Mechanical Ventilator 80 01/11/20 21:00 101 33 122/69 (86) 99 01/11/20 20:54 26 Mechanical Ventilator 80 4/18/20 20:39 28 Mechanical Ventilator 80 18/20 20:24 34 Endotracheal Tube 80 01/10/20 20:03 113 39 80 418/20 20:00 100 18/20 20:00 100 31 113/70 (84) 98 418/20 20:00 Mechanical Ventilator 20 20:00 80 4/18/20 19:00 104 32 125/65 (85) 97 01/11/20 18:00 107 26 117/70 (86) 98 20 17:25 108 28 80 418/20 17:00 107 32 125/70 (88) 95 20 16:30 101.6 100 29 117/69 (85) 97 01/11/20 16:00 105 01/11/20 16:00 80 01/11/20 16:00 108 31 118/67 (84) 98 01/11/20 16:00 Mechanical Ventilator 01/11/20 15:30 107 28 113/66 (82) 99 01/11/20 15:29 114 38 80 01/11/20 15:00 108 27 114/64 (81) 98 01/10/20 15:00 29 114/64 Mechanical Ventilator 01/11/20 14:30 109 29 120/73 (89) 99 01/10/ 14:15 112 29 121/66 (84) 97 01/10/20 14:00 29 132/72 Mechanical Ventilator 01/11/20 14:00 113 30 132/72 (92) 96 01/10/20 13:30 108 27 117/69 (85) 96 01/11/20 13:22 109 29 80 20 13:15 108 31 127/67 (87) 97 18/20 13:00 105 27 124/75 (91) 100 18/20 13:00 28 124/75 Mechanical Ventilator 01/11/20 12:58 106 35 131/71 (91) 100 01/10/20 12:43 106 27 137/71 (93) 99 01/10/20 12:39 108 27 125/70 (88) 99 18/20 12:18 25 110/75 Mechanical Ventilator 40.0 100 01/11/20 12:00 Mechanical Ventilator 01/11/20 12:00 100 01/11/20 12:00 108 01/11/20 12:00 98.9 103 28 113/71 (85) 100 Intake and Output 01/11/20 01/12/20 19:00 07:00 Intake Total 743.92056 ml 665 ml Output Total 570 ml 410 ml Balance 173.38660 ml 255 ml Free Water 180 ml IV Total 693.69801 ml 485 ml Other 50 ml Output Urine Total 570 ml 410 ml General Appearance: no acute distress HEENT: normocephalic Respiratory/Chest: chest wall non-tender, lungs clear Abdomen: normal bowel sounds Laboratory Tests 01/11/20 12:30: Triglycerides Level 186H 01/12/20 05:05: Sodium Level 138, Potassium Level 3.6, Chloride Level 100, Carbon Dioxide Level 23, Anion Gap 15, Blood Urea Nitrogen 36H, Creatinine 1.8#H, Estimat Glomerular Filtration Rate 29.0, Glucose Level 350H, Calcium Level 8.3L, Phosphorus Level 2.0L, Magnesium Level 2.2 Current Medications Medications (Trade) Dose Ordered Sig/Neha Route PRN Reason Start Time Stop Time Status Last Admin Dose Admin Acetaminophen (Tylenol) 650 mg Q4H PRN ORAL Mild Pain (Pain Scale 1-3) 01/08/20 09:00 02/04/20 08:59 01/12/20 00:38 Acetaminophen (Tylenol) 650 mg Q4H PRN ORAL Temp >100.5 01/08/20 09:00 02/04/20 08:59 Azithromycin 250 mg/Dextrose 275 ml @ 275 mls/hr Q24HRS IV 01/10/20 11:00 01/15/20 10:59 01/11/20 11:52 Benzonatate (Tessalon Perles) 100 mg Q8H PRN ORAL For Cough 01/08/20 14:00 02/07/20 13:59 Dextrose (Dextrose 50%) 25 ml Q30M PRN IV Hypoglycemia 01/08/20 08:30 04/04/20 08:59 Dextrose (Dextrose 50%) 50 ml Q30M PRN IV Hypoglycemia 01/08/20 08:30 04/04/20 08:59 Guaifenesin/ Dextromethorphan (Robitussin DM Syrup) 10 ml Q4H PRN ORAL For Cough 01/08/20 09:15 7/12/20 01:14 01/08/20 09:20 Insulin Aspart (NovoLOG) BEFORE MEALS AND HS SUBQ 01/08/20 11:30 04/06/20 16:29 01/12/20 06:11 Midazolam HCl 100 ml @ 0 mls/hr Q24H PRN IV Agitation 01/11/20 16:15 04/10/20 16:14 01/12/20 06:10 Morphine Sulfate (Morphine Sulfate) 1 mg EVERY 6 HOURS PRN IVP Severe Pain (Pain Scale 7-10) 01/09/20 20:30 01/16/20 20:29 01/12/20 00:18 Piperacillin Sod/ Tazobactam Sod 3.375 gm/Sodium Chloride 110 ml @ 27.5 mls/hr Q8H IVPB 01/11/20 20:00 01/18/20 19:59 01/12/20 04:15 Sodium Chloride 1,000 ml @ 75 mls/hr [id number] IV 01/12/20 09:45 02/11/20 09:44 Sodium Phosphate 30 mm/Sodium Chloride 285 ml @ 47.5 mls/hr ONCE ONCE IVPB 01/12/20 11:00 01/12/20 16:59 Vancomycin HCl (Vanco rx to dose) 1 ea DAILY PRN MISC Per rx protocol 01/09/20 20:00 02/08/20 19:59 Shaun Omer MD Jan 12, 2020 11:06
--- NOTE | 2020-01-12 11:10 | General Progress Note ---
Assessment/Plan Assessment/Plan: 59-year-old female with PMH of HTN, DM on metformin who presents with SOB x2 days. 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 #Acute hypoxic respiratory failure #COVID positive as o/p #COVID POSITIVE while in-pt #CAP/PNA -Appreciate ICU care -Cont current vent setting per Pulm, wean as tolerated -cont. droplet/contact isolation -cont. supplemental O2 prn, on non-rebreather -CXR reviewed, trop negative -COVID Positive -BCx NGTD -S/p Actemra and Ivermectin -D/w Dr. Omer -continue vanco, Zosyn, azithromycin -Updated daughter, Barrera, #Hyponatremia #Hypokalemia #KADEN -Nephro following, recs appreciated monitor BMP closely #Elevated D-Dimer -likely 2/2 to above/COVID -d-dimer, 0.71 #Asymptomatic bacteruria -UCx w/ bacteriuria, likely contaminant versus colonized -no dysuria at this time -continue to monitor -ID following #HTN -pt unsure of home medications -CTM #NIDDM, type 2 -holding home metformin while in-pt -Hgb A1c 6.7 -ISS low, accuchecks qAC/HS DVT PPx: SCDs Time spent on encounter: 75 mins, 40 mins spent on critical care time. Critical Care Services performed include: Telemetry Review Hemodynamic measurement interpretation Laboratory data review and interpretation Radiology image review and interpretation Interpretation of ABG's Review of vent setting Discussion of patient's care with ICU team, Nursing staff D/w Dr. Omer and Dr. Doyle Time of note doesn't reflect time of encounter. Subjective Date patient seen: Jan 12, 2020 Time patient seen: 09:22 ROS Limited/Unobtainable: Yes Allergies: Coded Allergies: No Known Allergies (Unverified , 01/05/20) Subjective Covering for Dr. 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 Objective Last 24 Hour Vital Signs Date Time Temp Pulse Resp B/P (MAP) Pulse Ox O2 Delivery O2 Flow Rate FiO2 01/12/20 10:30 112 18 84/53 (63) 100 4/19/20 10:00 90 18 104/64 (77) 100 01/12/20 09:30 106 30 115/68 (84) 99 01/12/20 09:10 100 38 80 01/12/20 09:00 112 32 103/68 (80) 99 01/12/20 08:30 119 33 111/71 (84) 100 01/12/20 08:00 80 01/12/20 08:00 Mechanical Ventilator 01/12/20 08:00 102.3 121 32 106/66 (79) 99 01/12/20 08:00 125 01/12/20 07:30 123 34 100/67 (78) 98 01/12/20 07:25 127 38 80 01/12/20 07:00 102.7 126 38 116/70 (85) 98 01/12/20 06:10 34 Endotracheal Tube 80 01/12/20 06:00 123 35 120/73 (89) 97 01/12/20 06:00 101.4 01/12/20 05:30 31 Endotracheal Tube 80 01/12/20 05:29 123 33 80 01/12/20 05:00 121 31 114/70 (85) 97 01/12/20 04:30 31 Endotracheal Tube 80 01/12/20 04:00 114 27 115/66 (82) 98 01/12/20 04:00 Mechanical Ventilator 01/12/20 04:00 80 01/12/20 04:00 114 01/12/20 03:30 28 Endotracheal Tube 80 01/12/20 03:27 120 33 80 01/12/20 03:00 101.4 120 32 109/60 (76) 97 01/12/20 02:30 32 Mechanical Ventilator 80 01/12/20 02:00 123 35 104/66 (79) 93 01/12/20 01:50 100.9 01/12/20 01:50 100.9 01/12/20 01:30 34 Endotracheal Tube 80 01/12/20 01:00 130 30 102/70 (81) 100 01/12/20 00:59 124 35 80 01/12/20 00:30 37 Endotracheal Tube 80 01/12/20 00:00 Mechanical Ventilator 01/12/20 00:00 80 01/12/20 00:00 123 01/12/20 00:00 100.9 123 35 120/74 (89) 93 4/18/20 23:30 34 Endotracheal Tube 80 18/20 23:27 107 31 80 4/18/20 23:15 30 Endotracheal Tube 80 1820 23:00 32 Endotracheal Tube 80 4/18/20 23:00 107 28 133/78 (96) 97 18/20 22:45 38 Endotracheal Tube 80 20 22:30 36 Endotracheal Tube 80 01/10/20 22:15 28 Mechanical Ventilator 80 20 22:00 98.6 104 34 128/73 (91) 97 1820 22:00 98.6 18/20 21:24 28 Mechanical Ventilator 80 20 21:16 103 40 80 01/10/20 21:09 24 Mechanical Ventilator 80 01/10/20 21:00 101 33 122/69 (86) 99 18/20 20:54 26 Mechanical Ventilator 80 20 20:39 28 Mechanical Ventilator 80 20 20:24 34 Endotracheal Tube 80 20 20:03 113 39 80 418/20 20:00 100 /18/20 20:00 100 31 113/70 (84) 98 18/20 20:00 Mechanical Ventilator 20 20:00 80 01/10/20 19:00 104 32 125/65 (85) 97 4/18/20 18:00 107 26 117/70 (86) 98 4/18/20 17:25 108 28 80 /18/20 17:00 107 32 125/70 (88) 95 18/20 16:30 101.6 100 29 117/69 (85) 97 4/18/20 16:00 105 /18/20 16:00 80 418/20 16:00 108 31 118/67 (84) 98 18/20 16:00 Mechanical Ventilator 20 15:30 107 28 113/66 (82) 99 18/20 15:29 114 38 80 4/18/20 15:00 108 27 114/64 (81) 98 4/18/20 15:00 29 114/64 Mechanical Ventilator 20 14:30 109 29 120/73 (89) 99 4/18/20 14:15 112 29 121/66 (84) 97 01/11/20 14:00 29 132/72 Mechanical Ventilator 01/11/20 14:00 113 30 132/72 (92) 96 01/11/20 13:30 108 27 117/69 (85) 96 01/11/20 13:22 109 29 80 01/11/20 13:15 108 31 127/67 (87) 97 01/11/20 13:00 105 27 124/75 (91) 100 01/11/20 13:00 28 124/75 Mechanical Ventilator 01/11/20 12:58 106 35 131/71 (91) 100 01/11/20 12:43 106 27 137/71 (93) 99 01/11/20 12:39 108 27 125/70 (88) 99 01/11/20 12:18 25 110/75 Mechanical Ventilator 40.0 100 01/11/20 12:00 Mechanical Ventilator 01/11/20 12:00 100 01/11/20 12:00 108 01/11/20 12:00 98.9 103 28 113/71 (85) 100 01/11/20 11:00 105 25 110/75 (87) 100 Intake and Output 01/11/20 01/12/20 19:00 07:00 Intake Total 743.22006 ml 665 ml Output Total 570 ml 410 ml Balance 173.94738 ml 255 ml Free Water 180 ml IV Total 693.58384 ml 485 ml Other 50 ml Output Urine Total 570 ml 410 ml Laboratory Tests 01/11/20 12:30: Triglycerides Level 186H 01/12/20 05:05: Sodium Level 138, Potassium Level 3.6, Chloride Level 100, Carbon Dioxide Level 23, Anion Gap 15, Blood Urea Nitrogen 36H, Creatinine 1.8#H, Estimat Glomerular Filtration Rate 29.0, Glucose Level 350H, Calcium Level 8.3L, Phosphorus Level 2.0L, Magnesium Level 2.2 Height (Feet): 5 Height (Inches): 4.00 Weight (Pounds): 124 General Appearance: other - Intubated Neck: normal alignment Cardiovascular: normal rate, regular rhythm Respiratory/Chest: lungs clear, normal breath sounds Benjamin Sarah MD Jan 12, 2020 11:10
--- NOTE | 2020-01-12 12:05 | NUR ---
NURSE NOTES: Dr. Taveras called to inform of blood pressure at 75/34, left message on dr. joiner mailbox.
--- NOTE | 2020-01-12 12:14 | NUR ---
NURSE NOTES: Dr. Omer returned call and ordered to place for Levophed and central line insertion.
--- NOTE | 2020-01-12 12:35 | NUR ---
NURSE NOTES: Consent for central Line placement from daughter Barrera Parikh. consent verified by EMMETT camacho over telephone. ER physician called to inform of order.
--- NOTE | 2020-01-12 12:45 | Diagnostic Imaging Report ---
EXAM: XR Chest, 1 View CLINICAL HISTORY: Shortness of breath TECHNIQUE: Frontal view of the chest. COMPARISON: Chest x-ray dated 01/11/20 FINDINGS: Lungs: No significant change in diffuse bilateral interstitial and airspace opacities. Pleural space: Unremarkable. The costophrenic angles are sharp. No visible pneumothorax. Heart: Unremarkable. No cardiomegaly. Mediastinum: Unremarkable. Bones/joints: Unremarkable. Tubes, lines and devices: Stable positioning of endotracheal and nasogastric tubes pre- Telemetry leads overlie the thorax. IMPRESSION: No significant changes compared to the prior chest x-ray. Persistent diffuse patchy bilateral pulmonary opacities.
[2020-01-12] MEDS: Azithromycin 250 MG in D5W 275 ML IV SCH (12:47)
--- NOTE | 2020-01-12 12:51 | Infectious Diseases Prog Note ---
Assessment/Plan Assessment/Plan ASSESSMENT AND PLAN: Patient in icu exam deferred for covid-19 isolation - patient seen thru window d/w RN 1. covid-19 virus infection with pna, possible bacterial pna, hypoxia, vent, respiratory failure sepsis, fevers, leukocytosis - s/p hydroxychloroquine - day # 5/ - cover bacterial pna/infection with zosyn, zyvox, azithromycin - tocilizumab x 1 given - monitor labs and chest x-ray - monitor respiratory status - chest x-ray worse - critical 2. Diabetes. 3. Hypertension. 4. Hemoptysis. 5. Continue treatment per primary consultants. 6. No known drug allergies. 7. Social history is negative. 8. Family history is noncontributory. 9. MAR was noted. 10. Case discussed with RN. 11. Continue treatment per primary consultants. Subjective Allergies: Coded Allergies: No Known Allergies (Unverified , 01/05/20) Objective Vital Signs Last 24 Hour Vital Signs Date Time Temp Pulse Resp B/P (MAP) Pulse Ox O2 Delivery O2 Flow Rate FiO2 01/12/20 12:30 97 18 86/34 (51) 100 01/12/20 12:00 97 01/12/20 12:00 98 18 75/34 (48) 100 01/12/20 11:30 101 18 70/38 (49) 100 01/12/20 11:20 109 24 80 01/12/20 11:00 109 18 63/42 (49) 100 01/12/20 10:30 112 18 84/53 (63) 100 01/12/20 10:00 90 18 104/64 (77) 100 01/12/20 09:30 106 30 115/68 (84) 99 01/12/20 09:10 100 38 80 01/12/20 09:00 112 32 103/68 (80) 99 01/12/20 08:30 119 33 111/71 (84) 100 01/12/20 08:00 80 01/12/20 08:00 Mechanical Ventilator 01/12/20 08:00 102.3 121 32 106/66 (79) 99 01/12/20 08:00 125 01/12/20 07:30 123 34 100/67 (78) 98 01/12/20 07:25 127 38 80 01/12/20 07:00 102.7 126 38 116/70 (85) 98 01/12/20 06:10 34 Endotracheal Tube 80 01/12/20 06:00 123 35 120/73 (89) 97 01/12/20 06:00 101.4 01/12/20 05:30 31 Endotracheal Tube 80 01/12/20 05:29 123 33 80 01/12/20 05:00 121 31 114/70 (85) 97 01/12/20 04:30 31 Endotracheal Tube 80 01/12/20 04:00 114 27 115/66 (82) 98 01/12/20 04:00 Mechanical Ventilator 01/12/20 04:00 80 01/12/20 04:00 114 01/12/20 03:30 28 Endotracheal Tube 80 01/12/20 03:27 120 33 80 01/12/20 03:00 101.4 120 32 109/60 (76) 97 01/12/20 02:30 32 Mechanical Ventilator 80 01/12/20 02:00 123 35 104/66 (79) 93 01/12/20 01:50 100.9 01/12/20 01:50 100.9 01/12/20 01:30 34 Endotracheal Tube 80 01/12/20 01:00 130 30 102/70 (81) 100 01/12/20 00:59 124 35 80 01/12/20 00:30 37 Endotracheal Tube 80 01/12/20 00:00 Mechanical Ventilator 01/12/20 00:00 80 01/12/20 00:00 123 01/12/20 00:00 100.9 123 35 120/74 (89) 93 01/11/20 23:30 34 Endotracheal Tube 80 01/11/20 23:27 107 31 80 01/11/20 23:15 30 Endotracheal Tube 80 01/11/20 23:00 32 Endotracheal Tube 80 01/11/20 23:00 107 28 133/78 (96) 97 01/11/20 22:45 38 Endotracheal Tube 80 01/11/20 22:30 36 Endotracheal Tube 80 01/11/20 22:15 28 Mechanical Ventilator 80 01/11/20 22:00 98.6 104 34 128/73 (91) 97 01/11/20 22:00 98.6 01/11/20 21:24 28 Mechanical Ventilator 80 01/11/20 21:16 103 40 80 4/18/20 21:09 24 Mechanical Ventilator 80 20 21:00 101 33 122/69 (86) 99 20 20:54 26 Mechanical Ventilator 80 01/11/20 20:39 28 Mechanical Ventilator 80 01/11/20 20:24 34 Endotracheal Tube 80 20 20:03 113 39 80 20 20:00 100 20 20:00 100 31 113/70 (84) 98 20 20:00 Mechanical Ventilator 01/11/20 20:00 80 01/11/20 19:00 104 32 125/65 (85) 97 01/11/20 18:00 107 26 117/70 (86) 98 01/11/20 17:25 108 28 80 01/11/20 17:00 107 32 125/70 (88) 95 01/11/20 16:30 101.6 100 29 117/69 (85) 97 01/11/20 16:00 105 01/11/20 16:00 80 01/11/20 16:00 108 31 118/67 (84) 98 01/11/20 16:00 Mechanical Ventilator 01/11/20 15:30 107 28 113/66 (82) 99 01/11/20 15:29 114 38 80 01/11/20 15:00 108 27 114/64 (81) 98 01/11/20 15:00 29 114/64 Mechanical Ventilator 01/11/20 14:30 109 29 120/73 (89) 99 01/11/20 14:15 112 29 121/66 (84) 97 01/11/20 14:00 29 132/72 Mechanical Ventilator 01/11/20 14:00 113 30 132/72 (92) 96 20 13:30 108 27 117/69 (85) 96 20 13:22 109 29 80 01/11/20 13:15 108 31 127/67 (87) 97 20 13:00 105 27 124/75 (91) 100 20 13:00 28 124/75 Mechanical Ventilator 01/11/20 12:58 106 35 131/71 (91) 100 Height (Feet): 5 Height (Inches): 4.00 Weight (Pounds): 124 Objective 01/07/20 - Procedure: XRAY Chest 1v Indication: Shortness of breath Technique: One view of the chest Comparison: For 09/13/2020 Findings: There inspiration currently. Bilateral mostly central mostly interstitial disease with hazy airspace opacity is again demonstrated. Consolidation appears less dense at the lung bases, probably due to the better inspiratory effort, but there does appear to be more disease in the upper lungs. The pleural spaces are clear. The heart size is normal. Impression: Shifting infiltrates, with apparent partial clearing of lung bases but increased disease in the upper lungs. Change in appearance may be in part due to improved inspiratory effort, however. Chest x-ray - 01/09/20 - Procedure: XRAY Chest 1v Indication: Shortness of breath Technique: One view of the chest Comparison: 01/07/2020 Findings: Hazy infiltrates throughout the right lung have worsened since prior study. There is also slight worsening of hazy left mid and lower lung infiltrates since prior study. The heart size is normal. The pleural spaces remain clear. Impression: Worsening bilateral infiltrates, likely pneumonia, right greater than left, over 2 days Chest x-ray - 01/11/20 - IMPRESSION: 1. Endotracheal tube tip approximately 4.3 cm above the lauri, with expected radiographic position. 2. No significant interval change in the diffuse interstitial and alveolar opacities in bilateral lungs. This is concerning for multifocal pneumonia versus pulmonary edema or ARDS. Laboratory Tests Test 01/12/20 05:05 Sodium Level 138 MMOL/L (136-145) Potassium Level 3.6 MMOL/L (3.5-5.1) Chloride Level 100 MMOL/L (98-107) Carbon Dioxide Level 23 MMOL/L (21-32) Anion Gap 15 mmol/L (5-15) Blood Urea Nitrogen 36 mg/dL (7-18) H Creatinine 1.8 MG/DL (0.55-1.30) #H Estimat Glomerular Filtration Rate 29.0 mL/min (>60) Glucose Level 350 MG/DL (74-106) H Calcium Level 8.3 MG/DL (8.5-10.1) L Phosphorus Level 2.0 MG/DL (2.5-4.9) L Magnesium Level 2.2 MG/DL (1.8-2.4) Current Medications Medications (Trade) Dose Ordered Sig/Neha Route PRN Reason Start Time Stop Time Status Last Admin Dose Admin Acetaminophen (Tylenol) 650 mg Q4H PRN ORAL Mild Pain (Pain Scale 1-3) 01/08/20 09:00 02/04/20 08:59 01/12/20 00:38 Acetaminophen (Tylenol) 650 mg Q4H PRN ORAL Temp >100.5 01/08/20 09:00 02/04/20 08:59 Azithromycin 250 mg/Dextrose 275 ml @ 275 mls/hr Q24HRS IV 01/10/20 11:00 01/15/20 10:59 01/11/20 11:52 Benzonatate (Tessalon Perles) 100 mg Q8H PRN ORAL For Cough 01/08/20 14:00 02/07/20 13:59 Dextrose (Dextrose 50%) 25 ml Q30M PRN IV Hypoglycemia 01/08/20 08:30 04/04/20 08:59 Dextrose (Dextrose 50%) 50 ml Q30M PRN IV Hypoglycemia 01/08/20 08:30 04/04/20 08:59 Guaifenesin/ Dextromethorphan (Robitussin DM Syrup) 10 ml Q4H PRN ORAL For Cough 01/08/20 09:15 04/05/20 01:14 01/08/20 09:20 Insulin Aspart (NovoLOG) BEFORE MEALS AND HS SUBQ 01/08/20 11:30 04/06/20 16:29 01/12/20 06:11 Midazolam HCl 100 ml @ 0 mls/hr Q24H PRN IV Agitation 01/11/20 16:15 04/10/20 16:14 01/12/20 06:10 Morphine Sulfate (Morphine Sulfate) 1 mg EVERY 6 HOURS PRN IVP Severe Pain (Pain Scale 7-10) 01/09/20 20:30 01/16/20 20:29 01/12/20 00:18 Norepinephrine Bitartrate 4 mg/ Dextrose 250 ml @ 0 mls/hr Q24H IV 01/12/20 12:30 02/11/20 12:29 Piperacillin Sod/ Tazobactam Sod 3.375 gm/Sodium Chloride 110 ml @ 27.5 mls/hr Q8H IVPB 01/11/20 20:00 01/18/20 19:59 01/12/20 04:15 Sodium 1,000 ml @ 75 mls/hr [id number] IV 01/12/20 12:00 02/11/20 11:59 Sodium Chloride 1,000 ml @ 75 mls/hr [id number] IV 01/12/20 09:45 02/11/20 09:44 Sodium Phosphate 30 mm/Sodium Chloride 285 ml @ 47.5 mls/hr ONCE ONCE IVPB 01/12/20 11:00 01/12/20 16:59 Vancomycin HCl (Vanco rx to dose) 1 ea DAILY PRN MISC Per rx protocol 01/09/20 20:00 02/08/20 19:59 Pham Doyle MD Jan 12, 2020 12:51
[2020-01-12] MEDS: 1/2NS w/KCl 20mEq 1000ml 1,000 ML IV SCH (13:25)
--- NOTE | 2020-01-12 13:43 | Consultation ---
History of Present Illness General Date patient seen: Jan 12, 2020 Chief Complaint: Dyspnea/Respdistress Reason for Consultation: hyponatremia Present Illness HPI 59 year old female presented to [facility] [place] [facility] with SOB. noted to by hypoxic and abnormal labs. intubated in ICU on support. ill and deteriorating. surgery called to evaluate and assist with care. patient seen, chart reviewed, patient examined. COVID + Allergies: Coded Allergies: No Known Allergies (Unverified , 01/05/20) Medication History Scheduled Hydrochlorothiazide* (Hydrochlorothiazide*), 12.5 MG ORAL DAILY, (Reported) Metformin Hcl* (Metformin Hcl*), 500 MG ORAL TWICE A DAY, (Reported) Patient History Limited by: medical condition History Provided By: Medical Record, PMD Healthcare decision maker jose luis westfall Resuscitation status Full Code Advanced Directive on File No Past Medical/Surgical History Past Medical/Surgical History: (1) Respiratory failure with hypoxia (2) COVID-19 virus infection (3) Diabetes type 2, controlled (4) HTN (hypertension) Review of Systems ROS Narrative unable to obtain given medical condition Physical Exam General Appearance: moderate distress Lines, tubes and drains: other HEENT: normocephalic, anicteric Neck: normal inspection Respiratory/Chest: no respiratory distress, no accessory muscle use, decreased breath sounds, on vent Cardiovascular/Chest: tachycardia Abdomen: soft, no organomegaly, no mass Extremities: normal inspection, no calf tenderness, normal capillary refill Skin Exam: warm/dry Neurologic: unresponsiveness Last 24 Hour Vital Signs Date Time Temp Pulse Resp B/P (MAP) Pulse Ox O2 Delivery O2 Flow Rate FiO2 01/12/20 12:30 97 18 86/34 (51) 100 01/12/20 12:00 97 01/12/20 12:00 98 18 75/34 (48) 100 01/12/20 11:30 101 18 70/38 (49) 100 01/12/20 11:20 109 24 80 01/12/20 11:00 109 18 63/42 (49) 100 01/12/20 10:30 112 18 84/53 (63) 100 01/12/20 10:00 90 18 104/64 (77) 100 01/12/20 09:30 106 30 115/68 (84) 99 01/12/20 09:10 100 38 80 01/12/20 09:00 112 32 103/68 (80) 99 01/12/20 08:30 119 33 111/71 (84) 100 01/12/20 08:00 80 01/12/20 08:00 Mechanical Ventilator 01/12/20 08:00 102.3 121 32 106/66 (79) 99 01/12/20 08:00 125 01/12/20 07:30 123 34 100/67 (78) 98 01/12/20 07:25 127 38 80 01/12/20 07:00 102.7 126 38 116/70 (85) 98 01/12/20 06:10 34 Endotracheal Tube 80 01/12/20 06:00 123 35 120/73 (89) 97 01/12/20 06:00 101.4 01/12/20 05:30 31 Endotracheal Tube 80 01/12/20 05:29 123 33 80 01/12/20 05:00 121 31 114/70 (85) 97 01/12/20 04:30 31 Endotracheal Tube 80 01/12/20 04:00 114 27 115/66 (82) 98 01/12/20 04:00 Mechanical Ventilator 01/12/20 04:00 80 01/12/20 04:00 114 01/12/20 03:30 28 Endotracheal Tube 80 01/12/20 03:27 120 33 80 01/12/20 03:00 101.4 120 32 109/60 (76) 97 01/12/20 02:30 32 Mechanical Ventilator 80 01/12/20 02:00 123 35 104/66 (79) 93 01/12/20 01:50 100.9 01/12/20 01:50 100.9 01/12/20 01:30 34 Endotracheal Tube 80 01/12/20 01:00 130 30 102/70 (81) 100 01/12/20 00:59 124 35 80 01/12/20 00:30 37 Endotracheal Tube 80 01/12/20 00:00 Mechanical Ventilator 01/12/20 00:00 80 01/12/20 00:00 123 01/12/20 00:00 100.9 123 35 120/74 (89) 93 01/11/20 23:30 34 Endotracheal Tube 80 01/11/20 23:27 107 31 80 01/11/20 23:15 30 Endotracheal Tube 80 01/11/20 23:00 32 Endotracheal Tube 80 4/18/20 23:00 107 28 133/78 (96) 97 18/20 22:45 38 Endotracheal Tube 80 01/10/20 22:30 36 Endotracheal Tube 80 18/20 22:15 28 Mechanical Ventilator 80 18/20 22:00 98.6 104 34 128/73 (91) 97 18/20 22:00 98.6 18/20 21:24 28 Mechanical Ventilator 80 01/10/20 21:16 103 40 80 18/20 21:09 24 Mechanical Ventilator 80 18/20 21:00 101 33 122/69 (86) 99 18/20 20:54 26 Mechanical Ventilator 80 20 20:39 28 Mechanical Ventilator 80 01/10/20 20:24 34 Endotracheal Tube 80 20 20:03 113 39 80 18/20 20:00 100 20 20:00 100 31 113/70 (84) 98 20 20:00 Mechanical Ventilator 20 20:00 80 20 19:00 104 32 125/65 (85) 97 01/10/20 18:00 107 26 117/70 (86) 98 18/20 17:25 108 28 80 18/20 17:00 107 32 125/70 (88) 95 18/20 16:30 101.6 100 29 117/69 (85) 97 18/20 16:00 105 18/20 16:00 80 01/10/20 16:00 108 31 118/67 (84) 98 18/20 16:00 Mechanical Ventilator 20 15:30 107 28 113/66 (82) 99 18/20 15:29 114 38 80 18/20 15:00 108 27 114/64 (81) 98 18/20 15:00 29 114/64 Mechanical Ventilator 20 14:30 109 29 120/73 (89) 99 01/10/20 14:15 112 29 121/66 (84) 97 20 14:00 29 132/72 Mechanical Ventilator 1820 14:00 113 30 132/72 (92) 96 Intake and Output 01/11/20 01/12/20 19:00 07:00 Intake Total 743.14125 ml 665 ml Output Total 570 ml 410 ml Balance 173.00186 ml 255 ml Free Water 180 ml IV Total 693.21671 ml 485 ml Other 50 ml Output Urine Total 570 ml 410 ml Laboratory Tests Test 01/12/20 05:05 Sodium Level 138 MMOL/L (136-145) Potassium Level 3.6 MMOL/L (3.5-5.1) Chloride Level 100 MMOL/L (98-107) Carbon Dioxide Level 23 MMOL/L (21-32) Anion Gap 15 mmol/L (5-15) Blood Urea Nitrogen 36 mg/dL (7-18) H Creatinine 1.8 MG/DL (0.55-1.30) #H Estimat Glomerular Filtration Rate 29.0 mL/min (>60) Glucose Level 350 MG/DL (74-106) H Calcium Level 8.3 MG/DL (8.5-10.1) L Phosphorus Level 2.0 MG/DL (2.5-4.9) L Magnesium Level 2.2 MG/DL (1.8-2.4) Height (Feet): 5 Height (Inches): 4.00 Weight (Pounds): 124 Medications Current Medications Medications (Trade) Dose Ordered Sig/Neha Route PRN Reason Start Time Stop Time Status Last Admin Dose Admin Acetaminophen (Tylenol) 650 mg Q4H PRN ORAL Mild Pain (Pain Scale 1-3) 01/08/20 09:00 02/04/20 08:59 01/12/20 00:38 Acetaminophen (Tylenol) 650 mg Q4H PRN ORAL Temp >100.5 01/08/20 09:00 02/04/20 08:59 Azithromycin 250 mg/Dextrose 275 ml @ 275 mls/hr Q24HRS IV 01/10/20 11:00 01/15/20 10:59 01/12/20 12:47 Benzonatate (Tessalon Perles) 100 mg Q8H PRN ORAL For Cough 01/08/20 14:00 02/07/20 13:59 Dextrose (Dextrose 50%) 25 ml Q30M PRN IV Hypoglycemia 01/08/20 08:30 04/04/20 08:59 Dextrose (Dextrose 50%) 50 ml Q30M PRN IV Hypoglycemia 01/08/20 08:30 04/04/20 08:59 Guaifenesin/ Dextromethorphan (Robitussin DM Syrup) 10 ml Q4H PRN ORAL For Cough 01/08/20 09:15 04/05/20 01:14 01/08/20 09:20 Insulin Aspart (NovoLOG) BEFORE MEALS AND HS SUBQ 01/08/20 11:30 04/06/20 16:29 01/12/20 13:21 Linezolid 300 ml @ 300 mls/hr EVERY 12 HOURS IVPB 01/12/20 21:00 01/19/20 20:59 Midazolam HCl 100 ml @ 0 mls/hr Q24H PRN IV Agitation 01/11/20 16:15 04/10/20 16:14 01/12/20 06:10 Morphine Sulfate (Morphine Sulfate) 1 mg EVERY 6 HOURS PRN IVP Severe Pain (Pain Scale 7-10) 01/09/20 20:30 01/16/20 20:29 01/12/20 00:18 Norepinephrine Bitartrate 4 mg/ Dextrose 250 ml @ 0 mls/hr Q24H IV 01/12/20 12:30 02/11/20 12:29 Piperacillin Sod/ Tazobactam Sod 3.375 gm/Sodium Chloride 110 ml @ 27.5 mls/hr Q8H IVPB 01/11/20 20:00 01/18/20 19:59 01/12/20 13:24 Sodium 1,000 ml @ 75 mls/hr [id number] IV 01/12/20 12:00 02/11/20 11:59 01/12/20 13:25 Sodium Chloride 1,000 ml @ 75 mls/hr [id number] IV 01/12/20 09:45 02/11/20 09:44 01/12/20 12:48 Sodium Phosphate 30 mm/Sodium Chloride 285 ml @ 47.5 mls/hr ONCE ONCE IVPB 01/12/20 11:00 01/12/20 16:59 01/12/20 12:47 Assessment/Plan Problem List: (1) Respiratory failure with hypoxia Assessment & Plan: COVID + intubated on support ICD Codes: J96.91 - Respiratory failure, unspecified with hypoxia SNOMED: 74005186832719986 (2) COVID-19 virus infection Assessment & Plan: septic covid organ failure hypotensive needs urgent pressors needs central venous access see noted fluids vent support w will follow with recs ICD Codes: U07.1 - COVID-19 SNOMED: 525603718 (3) Diabetes type 2, controlled ICD Codes: E11.9 - Type 2 diabetes mellitus without complications SNOMED: 34383970, 048370889 (4) HTN (hypertension) ICD Codes: I10 - Essential (primary) hypertension SNOMED: 07563336 Jaylan Daley Jan 12, 2020 13:43
--- NOTE | 2020-01-12 13:45 | Operative Note - PDOC ---
Operative Note Operative Note Date of Operation/Procedure: Jan 12, 2020 Pre-op Diagnosis: sepsis COVID 19+ hypotensive multiorgan failure Post-op Diagnosis: same as pre-op Surgeon: barbie Anesthesia: local Specimen: none Complications: none Condition: unstable Estimated Blood Loss: minimal Drains: none Implant(s) used?: No Indications for Procedure see consult note Description of Procedure all COVID precautions taken right groin prepped and draped local infiltrated finder needle used and right femoral vein cannulated on first stick. good venous flow noted guidewire placed and needle removed small skin incision made. dilator used triple lumen catheter placed over wire without complication wire removed and discarded. line sutured in place all 3 ports flushed and aspirated dressings applied okay for use Jaylan Daley Jan 12, 2020 13:45
--- NOTE | 2020-01-12 14:35 | NUR ---
NURSE NOTES: Dr. gotti placed central line catheter on the right femoral. scant amount of blood noted at the insertion site, patient started in Levophed at 2mcg/min, titrated up to 8mcg/min with bp of 130 sbp. patient currently running d51/2ns with 20mEq of potassium.
--- NOTE | 2020-01-12 14:45 | NUR ---
NURSE NOTES: Dr. Garcia updated on patient progression after central line placement, no verbal orders given at this time.
[2020-01-12 16:34] LABS: APPEARANCE,URINE CLOUDY; BILIRUBIN, URINE NEGATIVE (NEGATIVE); GLUCOSE, URINE (UA) 2+ (NEGATIVE); KETONES,URINE 1+ (NEGATIVE); LEUKOCYTE ESTERASE ,URINE NEGATIVE (NEGATIVE); NITRITE,URINE NEGATIVE (NEGATIVE); PH,URINE 5 (4.5-8.0); PROTEIN,URINE 3+ (NEGATIVE); UROBILINOGEN,URINE NORMAL MG/DL (0.0-1.0)
[2020-01-12 16:45] LABS: COLOR,URINE YELLOW
--- NOTE | 2020-01-12 17:50 | NUR ---
NURSE NOTES: Dr. Hopper office called to report results of morning urinalysis, sodium urine osmolality. left call back number.
--- NOTE | 2020-01-12 18:06 | NUR ---
NURSE NOTES: Dr. Felton updated on patient condition this morning at the bedside, no verbal orders given at this time.
--- NOTE | 2020-01-12 19:34 | NUR ---
HAND-OFF: Report given to EMMETT lFetcher.
--- NOTE | 2020-01-12 19:40 | NUR ---
Nurse Note: Report received from EMMETT Myers for continuity of care. Pt sedated, no movement noted in bed, no signs of acute distress, does not show signs of pain. ETT 7.5 at 23cm lip line, vent settings AC 18, TV 500, FiO2 80%, and PEEP 8. Three peripheral IV noted; patent, infusing NS to keep lines open. RT femoral central line placed; infusing 1/2 NS at 50cc. Levophed infusing at 6mcg/min via RT femoral central line. Bradshaw cath intact, urine output noted. No BM. Skin remains intact. Bilateral soft wrist restraint taken off; skin intact, peripheral pulses weak but present. Head of bed kept above 30 degrees. Pt has cooling blankets and ice on body. All safety measures met; will continue to monitor.
[2020-01-12] MEDS: Dyna-Hex 2% Top Sol 2oz TOPIC SCH (20:07)
--- NOTE | 2020-01-12 20:26 | Neurology Progress Note ---
Interim History Interim History ROS Limited/Unobtainable: Yes Interim History covid + fevers intubated and sedated Objective Physical Exam Last Vital Signs Date Time Temp Pulse Resp B/P (MAP) Pulse Ox O2 Delivery O2 Flow Rate FiO2 01/12/20 18:30 88 18 133/54 (80) 96 01/12/20 16:51 100 01/12/20 16:00 Mechanical Ventilator 01/12/20 16:00 98.5 01/11/20 12:18 40.0 Laboratory Tests Test 01/12/20 05:05 01/12/20 14:00 Sodium Level 138 MMOL/L (136-145) Potassium Level 3.6 MMOL/L (3.5-5.1) Chloride Level 100 MMOL/L (98-107) Carbon Dioxide Level 23 MMOL/L (21-32) Anion Gap 15 mmol/L (5-15) Blood Urea Nitrogen 36 mg/dL (7-18) H Creatinine 1.8 MG/DL (0.55-1.30) #H Estimat Glomerular Filtration Rate 29.0 mL/min (>60) Glucose Level 350 MG/DL (74-106) H Calcium Level 8.3 MG/DL (8.5-10.1) L Phosphorus Level 2.0 MG/DL (2.5-4.9) L Magnesium Level 2.2 MG/DL (1.8-2.4) Urine Color Yellow Urine Appearance Cloudy Urine pH 5 (4.5-8.0) Urine Specific Lorman 1.015 (1.005-1.035) Urine Protein 3+ (NEGATIVE) H Urine Glucose (UA) 2+ (NEGATIVE) H Urine Ketones 1+ (NEGATIVE) H Urine Blood 3+ (NEGATIVE) H Urine Nitrite Negative (NEGATIVE) Urine Bilirubin Negative (NEGATIVE) Urine Urobilinogen Normal MG/DL (0.0-1.0) Urine Leukocyte Esterase Negative (NEGATIVE) Urine RBC 0-2 /HPF (0 - 2) Urine WBC 0-2 /HPF (0 - 2) Urine Squamous Epithelial Cells Few /LPF (NONE/OCC) Urine Bacteria Moderate /HPF (NONE) H Urine Yeast Moderate /HPF (NONE) H Urine Random Sodium < 20 mmol/L (20-110) L Urine Creatinine 222.4 MG/DL (30.0-125.0) H Head: normocophalic Neck: no rigidity Neurologic Exam Objective intubated sedated withdraws to pain cc 35 min Impression/Recommendations Problems: (1) Respiratory failure with hypoxia (2) COVID-19 virus infection (3) Diabetes type 2, controlled (4) HTN (hypertension) Diagnostic Impression Encephalopathy, now intubated. Rule out hemorrhagic encephalitis if no improvement in MS COVID + Royal Peguero MD Jan 12, 2020 20:26
--- NOTE | 2020-01-12 22:00 | NUR ---
Nurse Note: Vanco trough drawn and sent to lab; awaiting results. Pt was seen by RT, no changes to vent and pt was suctioned. Ice removed from body; axillary temp 97.7F. New bag of levo hung at 2150 starting at 6 mcg/min; MAP >65. All safety measures met; will continue to monitor.
[2020-01-13] VITALS (33 sets, daily range): BP systolic 81–154; BP diastolic 46–75
--- NOTE | 2020-01-13 00:30 | NUR ---
Nurse Note: Pt remains at baseline. Pt calm, VSS, no signs of acute distress. Pt remains on vent; tolerating well. Pt continues to be on levo at 6 mcg/min via RT femoral central line. All safety measures met; will continue to monitor.
--- NOTE | 2020-01-13 02:00 | NUR ---
Nurse Note: Pt afebrile, cooling blanket turned off. No changes to vent settings. No changes to levo infusion rate. Urine output noted. All safety measures met; will continue to monitor.
[2020-01-13] MEDS: 1/2NS w/KCl 20mEq 1000ml 1,000 ML IV SCH (03:08)
[2020-01-13] MEDS: Piperacillin/Tazobactam 3.375 GM in NS 110 ML IVPB SCH ×3 (03:09→20:47)
--- NOTE | 2020-01-13 04:30 | NUR ---
Nurse Note: BP at 75/58; increased levophed rate per protocol; will monitor BP. HR >100 beats per min. RT femoral central line dressing changed; slight blood around insertion site. No gag reflex seen with suctioned by RT. Redness seen at mid sacrum; pt turned as needed. Head of bed elevated 30 degree. All safety measures met; will continue to monitor.
[2020-01-13 05:10] LABS: HEMATOCRIT 38.6 % (37.0-47.0); HEMOGLOBIN 13.4 G/DL (12.0-16.0); MEAN CORPUSCULAR VOLUME 93 FL (80-99); PLATELET COUNT 18 K/UL (150-450); RED BLOOD COUNT 4.15 M/UL (4.20-5.40); RED CELL DISTRIBUTION WIDTH 12.1 % (11.6-14.8); WHITE BLOOD COUNT 21.8 K/UL (4.8-10.8)
[2020-01-13 05:39] LABS: ANION GAP 16 mmol/L (5-15); BLOOD UREA NITROGEN 44 mg/dL (7-18); CALCIUM 7.4 MG/DL (8.5-10.1); CARBON DIOXIDE 21 MMOL/L (21-32); CHLORIDE 102 MMOL/L (98-107); CREATININE 2.1 MG/DL (0.55-1.30); PHOSPHORUS 5.1 MG/DL (2.5-4.9); POTASSIUM 3.7 MMOL/L (3.5-5.1); SODIUM 138 MMOL/L (136-145)
[2020-01-13] MEDS: NovoLOG Insulin Flexpen SUBQ SCH ×4 (06:38→21:35)
--- NOTE | 2020-01-13 06:40 | NUR ---
Nurse Note; Pt sedated, no movement noted in bed, no signs of acute distress, does not show signs of pain. ETT 7.5 at 23cm lip line, vent settings AC 18, TV 500, FiO2 80%, and PEEP 8. Three peripheral IV noted; patent, infusing NS to keep lines open. RT femoral central line placed; infusing 1/2 NS at 50cc. Levophed infusing at 14mcg/min via RT femoral central line. New Levo started, BP 85/58. Bradshaw cath intact, urine output noted. No BM. Sacral pressure injury noted, picture taken and uploaded. Peripheral pulses weak but present. Head of bed kept above 30 degrees. All safety measures met; will continue to monitor.
--- NOTE | 2020-01-13 07:20 | NUR ---
Nurse Note: Endorsed care to EMMETT Pedraza for continuity of care.
--- NOTE | 2020-01-13 07:30 | NUR ---
NURSE NOTES: Received report from EMMETT Fletcher. Pt is observed laying in bed, appears to be sleeping, non responsive to voice and/or painful stimuli. Patient is orally intubated, ETT 7.5, 23cm at the lip line, with vent settings AC 18 TV 500 FiO2 100% and PEEP 8. Patient is saturating 100%. Patient has an OGT, Currently clamped as pt is NPO. media monitor shows Sinus Tachycardia with HR 115. Right femoral TLC running Levophed @ 14mcg/min and 1/2 NS w/ 20mEq KCL @ 75mL/hr. Bed locked and in lowest position, side rails up x3, and call light left within reach. Patient remains on airborne precautions at this time. Will continue to monitor.
[2020-01-13] MEDS: Azithromycin 250 MG in D5W 275 ML IV SCH (09:10)
--- NOTE | 2020-01-13 09:40 | NUR ---
NURSE NOTES: Dr. Omer at bedside assessing pt. Updated him of pt's current condition. Patient's ventilator settings changed to AC: 24, TV: 500, Fio2 of 100% and peep of 8.
--- NOTE | 2020-01-13 09:47 | NUR ---
NURSE NOTES: Tylenol 650MG given and ice packs applied for temp of 101.2. Will monitor.
--- NOTE | 2020-01-13 10:02 | General Progress Note ---
Assessment/Plan Assessment/Plan: 59-year-old female with PMH of HTN, DM on metformin who presents with SOB x2 days. Patient notes PULL OVER she had nonproductive cough x5 days, 2 days ago went to a community clinic and was tested for COVID 19 and was stated she was positive. #Acute hypoxic respiratory failure s/p intubation 01/09 #COVID positive as o/p #COVID POSITIVE while in-pt #CAP/PNA #Elevated D-Dimer -Appreciate ICU care -intubated 01/09 -Cont current vent setting per Pulm, wean as tolerated -cont. droplet/contact isolation -BCx NGTD -S/p Actemra and Ivermectin -continue vanco, Zosyn, azithromycin -CXR with worsening infiltrates -prone positioning initiated -lasix 60 x1 -D/w Dr. Omer, Dr. Doyle, Dr. Hopper, plan to transfer to [facility] for higher level of care -Updated daughterBarrera, -transfer order in place #Thrombocytopenia -plts 18 this am, ?lab error -no signs of bleeding -cont to monitor for signs of bleeding -transfuse for signs of bleeding and plts <50k or when plts <10k -repeat CBC #Hyponatremia #Hypokalemia #KADEN -Cr worsening today, 0.8>>1.5>>2.1 -Concern for need for CRRT -Nephro following, plan to transfer to [facility] for higher level of care #Asymptomatic bacteruria -UCx w/ bacteriuria, likely contaminant versus colonized -no dysuria at this time -continue to monitor -ID following #HTN -pt unsure of home medications -CTM #NIDDM, type 2 -holding home metformin while in-pt -Hgb A1c 6.7 -ISS low, accuchecks qAC/HS DVT PPx: SCDs Prognosis: poor Time spent on encounter: 75 mins, 40 mins spent on critical care time. Critical Care Services performed include: Telemetry Review Hemodynamic measurement interpretation Laboratory data review and interpretation Radiology image review and interpretation Interpretation of ABG's Review of vent setting Discussion of patient's care with ICU team, Nursing staff D/w Dr. Omer, Dr. Doyle, and Dr. Hopper on POC. Time of note doesn't reflect time of encounter. Subjective Allergies: Coded Allergies: No Known Allergies (Unverified , 01/05/20) Subjective F/u for COVID positive, acute respiratory distress s/p intubation. Pt remains intubated, non-responsive at this time off sedation. CXR with worsening infiltrates, concern for ARDS, Cr worsening. Objective Last 24 Hour Vital Signs Date Time Temp Pulse Resp B/P (MAP) Pulse Ox O2 Delivery O2 Flow Rate FiO2 01/13/20 09:30 110 18 130/62 (84) 100 01/13/20 09:00 111 18 129/60 (83) 100 01/13/20 08:30 110 18 122/56 (78) 100 01/13/20 08:00 100 01/13/20 08:00 101.2 114 18 124/65 (84) 100 01/13/20 08:00 Mechanical Ventilator 01/13/20 07:30 116 18 132/67 (88) 100 01/13/20 07:15 117 18 129/62 (84) 100 01/13/20 07:14 116 18 100 01/13/20 07:00 115 18 125/65 (85) 100 01/13/20 07:00 122/67 01/13/20 06:14 92/60 01/13/20 06:00 113 18 115/64 (81) 100 01/13/20 06:00 85/58 01/13/20 05:00 111 18 85/58 (67) 100 01/13/20 05:00 102/63 01/13/20 04:45 107/61 01/13/20 04:30 102/64 01/13/20 04:15 98/61 01/13/20 04:00 98/57 01/13/20 04:00 97.7 106 18 102/63 (76) 100 01/13/20 04:00 95 01/13/20 04:00 Mechanical Ventilator 01/13/20 04:00 106 01/13/20 04:00 100 01/13/20 03:45 96/73 01/13/20 03:30 75/88 01/13/20 03:30 97 18 100 01/13/20 03:15 81/45 01/13/20 03:00 70/52 01/13/20 03:00 97 18 81/46 (58) 100 01/13/20 02:00 113/55 4/20/20 02:00 97 18 118/56 (76) 100 01/13/20 01:00 96 17 109/48 (68) 100 01/13/20 01:00 109/48 01/13/20 00:00 113/58 01/13/20 00:00 97.9 95 18 119/56 (77) 100 01/13/20 00:00 Mechanical Ventilator 01/13/20 00:00 100 01/12/20 23:30 97 18 100 01/12/20 23:00 94 18 124/57 (79) 100 01/12/20 23:00 121/62 01/12/20 22:00 97.7 92 18 133/61 (85) 100 01/12/20 22:00 128/53 01/12/20 22:00 97.7 01/12/20 21:50 129/60 01/12/20 21:00 89 16 134/61 (85) 100 01/12/20 20:00 100 01/12/20 20:00 97.4 91 17 128/53 (78) 95 01/12/20 20:00 Mechanical Ventilator 01/12/20 20:00 91 01/12/20 19:30 89 18 100 01/12/20 18:30 88 18 133/54 (80) 96 01/12/20 18:00 87 18 129/54 (79) 95 01/12/20 17:30 91 18 129/51 (77) 95 01/12/20 17:00 92 18 123/50 (74) 95 01/12/20 16:51 96 13 100 01/12/20 16:30 94 18 128/49 (75) 95 01/12/20 16:00 100 01/12/20 16:00 Mechanical Ventilator 01/12/20 16:00 92 01/12/20 16:00 98.5 96 18 126/51 (76) 95 01/12/20 15:30 97 18 125/50 (75) 95 01/12/20 15:00 96 18 131/49 (76) 86 01/12/20 14:45 97 18 130/49 (76) 87 01/12/20 14:30 97 18 127/49 (75) 87 01/12/20 14:15 97 18 113/51 (71) 88 01/12/20 14:00 99.5 99 18 126/49 (74) 88 01/12/20 14:00 95/42 01/12/20 13:45 98 18 95/42 (59) 91 01/12/20 13:28 99 18 100 01/12/20 13:00 100.2 99 18 84/36 (52) 94 01/12/20 12:30 97 18 86/34 (51) 100 01/12/20 12:00 Mechanical Ventilator 01/12/20 12:00 100 01/12/20 12:00 97 01/12/20 12:00 98 18 75/34 (48) 100 01/12/20 11:30 101 18 70/38 (49) 100 01/12/20 11:20 109 24 80 01/12/20 11:00 109 18 63/42 (49) 100 01/12/20 10:30 112 18 84/53 (63) 100 Intake and Output 01/12/20 01/13/20 19:00 07:00 Intake Total 1835.750 ml 1455.0 ml Output Total 470 ml 570 ml Balance 1365.750 ml 885.0 ml Free Water 180 ml IV Total 1835.750 ml 1275.0 ml Output Urine Total 470 ml 570 ml Laboratory Tests 01/12/20 14:00: Urine Color Yellow, Urine Appearance Cloudy, Urine pH 5, Urine Specific Brenton 1.015, Urine Protein 3+H, Urine Glucose (UA) 2+H, Urine Ketones 1+H, Urine Blood 3+H, Urine Nitrite Negative, Urine Bilirubin Negative, Urine Urobilinogen Normal, Urine Leukocyte Esterase Negative, Urine RBC 0-2, Urine WBC 0-2, Urine Squamous Epithelial Cells Few, Urine Bacteria ModerateH, Urine Yeast ModerateH, Urine Random Sodium < 20L, Urine Creatinine 222.4H 01/12/20 20:00: Vancomycin Level Trough 12.4H 01/13/20 04:00: White Blood Count 21.8H, Red Blood Count 4.15L, Hemoglobin 13.4, Hematocrit 38.6 , Mean Corpuscular Volume 93, Mean Corpuscular Hemoglobin 32.3H, Mean Corpuscular Hemoglobin Concent 34.8, Red Cell Distribution Width 12.1, Platelet Count 18L, Mean Platelet Volume 7.3, Neutrophils (%) (Auto) , Lymphocytes (%) ( Auto) , Monocytes (%) (Auto) , Eosinophils (%) (Auto) , Basophils (%) (Auto) , Differential Total Cells Counted 100, Neutrophils % (Manual) 96H, Lymphocytes % (Manual) 2L, Monocytes % (Manual) 1, Basophils % (Manual) 1, Platelet Estimate [ Pending], Platelet Morphology [Pending], Red Blood Cell Morphology Normal, Sodium Level 138, Potassium Level 3.7, Chloride Level 102, Carbon Dioxide Level 21, Anion Gap 16H, Blood Urea Nitrogen 44H, Creatinine 2.1H, Estimat Glomerular Filtration Rate 24.3, Glucose Level 404H, Calcium Level 7.4L, Phosphorus Level 5.1H, Magnesium Level 2.1 01/13/20 08:44: Arterial Blood pH 7.200*L, Arterial Blood Partial Pressure CO2 57.1*H, Arterial Blood Partial Pressure O2 137.1H, Arterial Blood HCO3 21.8L, Arterial Blood Oxygen Saturation 97.9, Arterial Blood Base Excess -6.8L, Jun Test Positive Height (Feet): 5 Height (Inches): 4.00 Weight (Pounds): 132 Objective General: intubated, unresponsive off sedation HEENT: NCAT, ET tube in place CV: tachycardic, HR 105 on exam Pulm: coarse rhonchi, b/l symmetrical rise in lungs GI: Soft, nontender, nondistended Ext: No lower extremity edema bilaterally Veronica Laurent M.D. Jan 13, 2020 10:02
--- NOTE | 2020-01-13 10:20 | Surgery Progress Note ---
Surgery Progress Note Subjective Additional Comments worsening leukocytosis ill appearing line okay prognosis guarded Objective Last 24 Hour Vital Signs Date Time Temp Pulse Resp B/P (MAP) Pulse Ox O2 Delivery O2 Flow Rate FiO2 01/13/20 10:00 106 24 124/53 (76) 100 01/13/20 10:00 124/53 01/13/20 09:30 110 18 130/62 (84) 100 01/13/20 09:00 111 18 129/60 (83) 100 01/13/20 09:00 129/60 01/13/20 08:30 110 18 122/56 (78) 100 01/13/20 08:00 100 01/13/20 08:00 101.2 114 18 124/65 (84) 100 01/13/20 08:00 Mechanical Ventilator 01/13/20 07:30 116 18 132/67 (88) 100 01/13/20 07:15 117 18 129/62 (84) 100 01/13/20 07:14 116 18 100 01/13/20 07:00 115 18 125/65 (85) 100 01/13/20 07:00 122/67 01/13/20 06:14 92/60 01/13/20 06:00 113 18 115/64 (81) 100 01/13/20 06:00 85/58 01/13/20 05:00 111 18 85/58 (67) 100 01/13/20 05:00 102/63 01/13/20 04:45 107/61 01/13/20 04:30 102/64 01/13/20 04:15 98/61 01/13/20 04:00 98/57 01/13/20 04:00 97.7 106 18 102/63 (76) 100 01/13/20 04:00 95 01/13/20 04:00 Mechanical Ventilator 01/13/20 04:00 106 01/13/20 04:00 100 01/13/20 03:45 96/73 01/13/20 03:30 75/88 01/13/20 03:30 97 18 100 01/13/20 03:15 81/45 01/13/20 03:00 70/52 01/13/20 03:00 97 18 81/46 (58) 100 01/13/20 02:00 113/55 01/13/20 02:00 97 18 118/56 (76) 100 01/13/20 01:00 96 17 109/48 (68) 100 01/13/20 01:00 109/48 01/13/20 00:00 113/58 01/13/20 00:00 97.9 95 18 119/56 (77) 100 01/13/20 00:00 Mechanical Ventilator 01/13/20 00:00 100 01/12/20 23:30 97 18 100 01/12/20 23:00 94 18 124/57 (79) 100 01/12/20 23:00 121/62 01/12/20 22:00 97.7 92 18 133/61 (85) 100 01/12/20 22:00 128/53 01/12/20 22:00 97.7 01/12/20 21:50 129/60 01/12/20 21:00 89 16 134/61 (85) 100 01/12/20 20:00 100 01/12/20 20:00 97.4 91 17 128/53 (78) 95 01/12/20 20:00 Mechanical Ventilator 01/12/20 20:00 91 01/12/20 19:30 89 18 100 01/12/20 18:30 88 18 133/54 (80) 96 01/12/20 18:00 87 18 129/54 (79) 95 01/12/20 17:30 91 18 129/51 (77) 95 01/12/20 17:00 92 18 123/50 (74) 95 01/12/20 16:51 96 13 100 01/12/20 16:30 94 18 128/49 (75) 95 01/12/20 16:00 100 01/12/20 16:00 Mechanical Ventilator 01/12/20 16:00 92 01/12/20 16:00 98.5 96 18 126/51 (76) 95 01/12/20 15:30 97 18 125/50 (75) 95 01/12/20 15:00 96 18 131/49 (76) 86 01/12/20 14:45 97 18 130/49 (76) 87 01/12/20 14:30 97 18 127/49 (75) 87 01/12/20 14:15 97 18 113/51 (71) 88 01/12/20 14:00 99.5 99 18 126/49 (74) 88 01/12/20 14:00 95/42 01/12/20 13:45 98 18 95/42 (59) 91 01/12/20 13:28 99 18 100 01/12/20 13:00 100.2 99 18 84/36 (52) 94 01/12/20 12:30 97 18 86/34 (51) 100 01/12/20 12:00 Mechanical Ventilator 01/12/20 12:00 100 01/12/20 12:00 97 01/12/20 12:00 98 18 75/34 (48) 100 01/12/20 11:30 101 18 70/38 (49) 100 01/12/20 11:20 109 24 80 01/12/20 11:00 109 18 63/42 (49) 100 01/12/20 10:30 112 18 84/53 (63) 100 I&O Intake and Output 01/12/20 01/13/20 18:59 06:59 Intake Total 1771.250 ml 1537.5 ml Output Total 510 ml 470 ml Balance 1261.250 ml 1067.5 ml Free Water 180 ml IV Total 1771.250 ml 1357.5 ml Output Urine Total 510 ml 470 ml Dressing: dry Wound: clean Drains: other Cardiovascular: RSR Respiratory: decreased breath sounds Abdomen: soft, non-tender, present bowel sounds Extremities: no cyanosis Laboratory Tests Test 01/12/20 14:00 01/12/20 20:00 01/13/20 04:00 01/13/20 08:44 Urine Color Yellow Urine Appearance Cloudy Urine pH 5 (4.5-8.0) Urine Specific [place] 1.015 (1.005-1.035) Urine Protein 3+ (NEGATIVE) H Urine Glucose (UA) 2+ (NEGATIVE) H Urine Ketones 1+ (NEGATIVE) H Urine Blood 3+ (NEGATIVE) H Urine Nitrite Negative (NEGATIVE) Urine Bilirubin Negative (NEGATIVE) Urine Urobilinogen Normal MG/DL (0.0-1.0) Urine Leukocyte Esterase Negative (NEGATIVE) Urine RBC 0-2 /HPF (0 - 2) Urine WBC 0-2 /HPF (0 - 2) Urine Squamous Epithelial Cells Few /LPF (NONE/OCC) Urine Bacteria Moderate /HPF (NONE) H Urine Yeast Moderate /HPF (NONE) H Urine Random Sodium < 20 mmol/L (20-110) L Urine Creatinine 222.4 MG/DL (30.0-125.0) H Vancomycin Level Trough 12.4 ug/mL (5.0-12.0) H White Blood Count 21.8 K/UL (4.8-10.8) H Red Blood Count 4.15 M/UL (4.20-5.40) L Hemoglobin 13.4 G/DL (12.0-16.0) Hematocrit 38.6 % (37.0-47.0) Mean Corpuscular Volume 93 FL (80-99) Mean Corpuscular Hemoglobin 32.3 PG (27.0-31.0) H Mean Corpuscular Hemoglobin Concent 34.8 G/DL (32.0-36.0) Red Cell Distribution Width 12.1 % (11.6-14.8) Platelet Count 18 K/UL (150-450) L Mean Platelet Volume 7.3 FL (6.5-10.1) Neutrophils (%) (Auto) % (45.0-75.0) Lymphocytes (%) (Auto) % (20.0-45.0) Monocytes (%) (Auto) % (1.0-10.0) Eosinophils (%) (Auto) % (0.0-3.0) Basophils (%) (Auto) % (0.0-2.0) Differential Total Cells Counted 100 Neutrophils % (Manual) 96 % (45-75) H Lymphocytes % (Manual) 2 % (20-45) L Monocytes % (Manual) 1 % (1-10) Basophils % (Manual) 1 % (0-2) Platelet Estimate Pending Platelet Morphology Pending Red Blood Cell Morphology Normal Sodium Level 138 MMOL/L (136-145) Potassium Level 3.7 MMOL/L (3.5-5.1) Chloride Level 102 MMOL/L (98-107) Carbon Dioxide Level 21 MMOL/L (21-32) Anion Gap 16 mmol/L (5-15) H Blood Urea Nitrogen 44 mg/dL (7-18) H Creatinine 2.1 MG/DL (0.55-1.30) H Estimat Glomerular Filtration Rate 24.3 mL/min (>60) Glucose Level 404 MG/DL (74-106) H Calcium Level 7.4 MG/DL (8.5-10.1) L Phosphorus Level 5.1 MG/DL (2.5-4.9) H Magnesium Level 2.1 MG/DL (1.8-2.4) Arterial Blood pH 7.200 (7.350-7.450) Arterial Blood Partial Pressure CO2 57.1 mmHg (35.0-45.0) *H Arterial Blood Partial Pressure O2 137.1 mmHg (75.0-100.0) H Arterial Blood HCO3 21.8 mmol/L (22.0-26.0) L Arterial Blood Oxygen Saturation 97.9 % (95-100) Arterial Blood Base Excess -6.8 (-2-2) L Jun Test Positive Plan Problems: (1) Respiratory failure with hypoxia Assessment & Plan: COVID + intubated on support (2) COVID-19 virus infection Assessment & Plan: septic covid organ failure hypotensive needs urgent pressors needs central venous access see noted fluids vent support w will follow with recs (3) Diabetes type 2, controlled (4) HTN (hypertension) Jaylan Daley Jan 13, 2020 10:20
[2020-01-13] MEDS: Norepinephrine Bitartrate 8 MG in D5W 500ml 550 ML IV SCH (10:30)
--- NOTE | 2020-01-13 11:04 | Pulmonology Progress Note ---
Assessment/Plan Assessment/Plan 1. Bilateral pneumonia. COVID 19 positivity 2. Hemoptysis. Resolved 3. Hypertension 4. Diabetes. 5. Hyponatremia 6. Respiratory failure; intubated 01/10/20 7. ARDS 8. ATN DISCUSSION: Agree with management and care. Will adjust vent Will provide sedation as needed; currently unresponsive IV fluids plus bolus Has received Actemra and Ivermecti On Azithro Discussed previously with patient and advised risks and benefits of Actemra and Ivermectin Patient agreed May need HD Shaun Omer M.D. Subjective Interval Events: CXR shows bilateral whiteout; pt unresponsive Constitutional: Reports: no symptoms HEENT: Repors: no symptoms Respiratory: Reports: no symptoms Cardiovascular: Reports: no symptoms Gastrointestinal/Abdominal: Reports: no symptoms Allergies: Coded Allergies: No Known Allergies (Unverified , 01/05/20) Objective Last 24 Hour Vital Signs Date Time Temp Pulse Resp B/P (MAP) Pulse Ox O2 Delivery O2 Flow Rate FiO2 01/13/20 10:30 128/63 01/13/20 10:15 100.9 01/13/20 10:00 106 24 124/53 (76) 100 01/13/20 10:00 124/53 01/13/20 09:30 110 18 130/62 (84) 100 01/13/20 09:00 111 18 129/60 (83) 100 01/13/20 09:00 129/60 01/13/20 08:30 110 18 122/56 (78) 100 01/13/20 08:00 100 01/13/20 08:00 101.2 114 18 124/65 (84) 100 01/13/20 08:00 Mechanical Ventilator 01/13/20 07:30 116 18 132/67 (88) 100 01/13/20 07:15 117 18 129/62 (84) 100 01/13/20 07:14 116 18 100 01/13/20 07:00 115 18 125/65 (85) 100 01/13/20 07:00 122/67 01/13/20 06:14 92/60 4/20/20 06:00 113 18 115/64 (81) 100 01/13/20 06:00 85/58 01/13/20 05:00 111 18 85/58 (67) 100 01/13/20 05:00 102/63 01/13/20 04:45 107/61 01/13/20 04:30 102/64 01/13/20 04:15 98/61 01/13/20 04:00 98/57 01/13/20 04:00 97.7 106 18 102/63 (76) 100 01/13/20 04:00 95 01/13/20 04:00 Mechanical Ventilator 01/13/20 04:00 106 01/13/20 04:00 100 01/13/20 03:45 96/73 01/13/20 03:30 75/88 01/13/20 03:30 97 18 100 01/13/20 03:15 81/45 01/13/20 03:00 70/52 01/13/20 03:00 97 18 81/46 (58) 100 01/13/20 02:00 113/55 01/13/20 02:00 97 18 118/56 (76) 100 01/13/20 01:00 96 17 109/48 (68) 100 01/13/20 01:00 109/48 01/13/20 00:00 113/58 01/13/20 00:00 97.9 95 18 119/56 (77) 100 01/13/20 00:00 Mechanical Ventilator 01/13/20 00:00 100 01/12/20 23:30 97 18 100 01/12/20 23:00 94 18 124/57 (79) 100 01/12/20 23:00 121/62 01/12/20 22:00 97.7 92 18 133/61 (85) 100 01/12/20 22:00 128/53 01/12/20 22:00 97.7 01/12/20 21:50 129/60 01/12/20 21:00 89 16 134/61 (85) 100 01/12/20 20:00 100 01/12/20 20:00 97.4 91 17 128/53 (78) 95 20 20:00 Mechanical Ventilator 01/12/20 20:00 91 01/12/20 19:30 89 18 100 01/12/20 18:30 88 18 133/54 (80) 96 01/12/20 18:00 87 18 129/54 (79) 95 01/12/20 17:30 91 18 129/51 (77) 95 01/12/20 17:00 92 18 123/50 (74) 95 01/12/20 16:51 96 13 100 01/12/20 16:30 94 18 128/49 (75) 95 01/12/20 16:00 100 01/12/20 16:00 Mechanical Ventilator 01/12/20 16:00 92 01/12/20 16:00 98.5 96 18 126/51 (76) 95 01/12/20 15:30 97 18 125/50 (75) 95 01/12/20 15:00 96 18 131/49 (76) 86 01/12/20 14:45 97 18 130/49 (76) 87 01/12/20 14:30 97 18 127/49 (75) 87 01/12/20 14:15 97 18 113/51 (71) 88 01/12/20 14:00 99.5 99 18 126/49 (74) 88 01/12/20 14:00 95/42 01/12/20 13:45 98 18 95/42 (59) 91 01/12/20 13:28 99 18 100 01/12/20 13:00 100.2 99 18 84/36 (52) 94 01/12/20 12:30 97 18 86/34 (51) 100 01/12/20 12:00 Mechanical Ventilator 01/12/20 12:00 100 01/12/20 12:00 97 01/12/20 12:00 98 18 75/34 (48) 100 01/12/20 11:30 101 18 70/38 (49) 100 01/12/20 11:20 109 24 80 Intake and Output 01/12/20 01/13/20 19:00 07:00 Intake Total 1835.750 ml 1455.0 ml Output Total 470 ml 570 ml Balance 1365.750 ml 885.0 ml Free Water 180 ml IV Total 1835.750 ml 1275.0 ml Output Urine Total 470 ml 570 ml General Appearance: no acute distress HEENT: normocephalic Respiratory/Chest: chest wall non-tender, decreased breath sounds Cardiovascular: normal peripheral pulses Abdomen: normal bowel sounds Extremities: no cyanosis Neurologic/Psychiatric: unresponsiveness Microbiology Date/Time Source Procedure Growth Status 01/12/20 14:00 Urine,Clean Catch Urine Culture - Preliminary NO GROWTH Resulted Laboratory Tests 01/12/20 14:00: Urine Color Yellow, Urine Appearance Cloudy, Urine pH 5, Urine Specific [place] 1.015, Urine Protein 3+H, Urine Glucose (UA) 2+H, Urine Ketones 1+H, Urine Blood 3+H, Urine Nitrite Negative, Urine Bilirubin Negative, Urine Urobilinogen Normal, Urine Leukocyte Esterase Negative, Urine RBC 0-2, Urine WBC 0-2, Urine Squamous Epithelial Cells Few, Urine Bacteria ModerateH, Urine Yeast ModerateH, Urine Random Sodium < 20L, Urine Creatinine 222.4H 01/12/20 20:00: Vancomycin Level Trough 12.4H 01/13/20 04:00: White Blood Count 21.8H, Red Blood Count 4.15L, Hemoglobin 13.4, Hematocrit 38.6 , Mean Corpuscular Volume 93, Mean Corpuscular Hemoglobin 32.3H, Mean Corpuscular Hemoglobin Concent 34.8, Red Cell Distribution Width 12.1, Platelet Count 18L, Mean Platelet Volume 7.3, Neutrophils (%) (Auto) , Lymphocytes (%) ( Auto) , Monocytes (%) (Auto) , Eosinophils (%) (Auto) , Basophils (%) (Auto) , Differential Total Cells Counted 100, Neutrophils % (Manual) 96H, Lymphocytes % (Manual) 2L, Monocytes % (Manual) 1, Eosinophils % (Manual) 0, Basophils % ( Manual) 1, Band Neutrophils 0, Platelet Estimate DecreasedL, Platelet Morphology Normal, Red Blood Cell Morphology Normal, Sodium Level 138, Potassium Level 3.7, Chloride Level 102, Carbon Dioxide Level 21, Anion Gap 16H , Blood Urea Nitrogen 44H, Creatinine 2.1H, Estimat Glomerular Filtration Rate 24.3, Glucose Level 404H, Calcium Level 7.4L, Phosphorus Level 5.1H, Magnesium Level 2.1 01/13/20 08:44: Arterial Blood pH 7.200*L, Arterial Blood Partial Pressure CO2 57.1*H, Arterial Blood Partial Pressure O2 137.1H, Arterial Blood HCO3 21.8L, Arterial Blood Oxygen Saturation 97.9, Arterial Blood Base Excess -6.8L, Jun Test Positive Current Medications Medications (Trade) Dose Ordered Sig/Neha Route PRN Reason Start Time Stop Time Status Last Admin Dose Admin Acetaminophen (Tylenol) 650 mg Q4H PRN ORAL Mild Pain (Pain Scale 1-3) 01/08/20 09:00 02/04/20 08:59 01/13/20 09:45 Acetaminophen (Tylenol) 650 mg Q4H PRN ORAL Temp >100.5 01/08/20 09:00 02/04/20 08:59 Azithromycin 250 mg/Dextrose 275 ml @ 275 mls/hr Q24HRS IV 01/10/20 11:00 01/15/20 10:59 01/13/20 09:10 Benzonatate (Tessalon Perles) 100 mg Q8H PRN ORAL For Cough 01/08/20 14:00 02/07/20 13:59 Chlorhexidine Gluconate (Saritha-Hex 2%) 1 applic DAILY@2000 TOPIC 01/12/20 20:00 04/11/20 19:59 01/12/20 20:07 Dextrose (Dextrose 50%) 25 ml Q30M PRN IV Hypoglycemia 01/08/20 08:30 04/04/20 08:59 Dextrose (Dextrose 50%) 50 ml Q30M PRN IV Hypoglycemia 01/08/20 08:30 04/04/20 08:59 Guaifenesin/ Dextromethorphan (Robitussin DM Syrup) 10 ml Q4H PRN ORAL For Cough 01/08/20 09:15 04/05/20 01:14 01/08/20 09:20 Insulin Aspart (NovoLOG) BEFORE MEALS AND HS SUBQ 01/08/20 11:30 04/06/20 16:29 01/13/20 06:38 Linezolid 300 ml @ 300 mls/hr EVERY 12 HOURS IVPB 01/12/20 21:00 01/19/20 20:59 01/13/20 09:10 Midazolam HCl 100 ml @ 0 mls/hr Q24H PRN IV Agitation 01/11/20 16:15 04/10/20 16:14 01/12/20 06:10 Morphine Sulfate (Morphine Sulfate) 1 mg EVERY 6 HOURS PRN IVP Severe Pain (Pain Scale 7-10) 01/09/20 20:30 01/16/20 20:29 01/12/20 00:18 Norepinephrine Bitartrate 8 mg/ Dextrose 558 ml @ 0 mls/hr Q24H IV 01/13/20 10:00 02/12/20 09:59 01/13/20 10:30 Piperacillin Sod/ Tazobactam Sod 3.375 gm/Sodium Chloride 110 ml @ 27.5 mls/hr Q8H IVPB 01/11/20 20:00 01/18/20 19:59 01/13/20 03:09 Sodium 1,000 ml @ 75 mls/hr [id number] IV 01/12/20 12:00 02/11/20 11:59 01/13/20 03:08 Shaun Omer MD Jan 13, 2020 11:04
--- NOTE | 2020-01-13 11:10 | Diagnostic Imaging Report ---
Indication: Shortness of breath Technique: One view of the chest Comparison: 01/12/2020 Findings: Solitary inspiration on the current exam. Interstitial and airspace opacities appear slightly improved, but this is probably artifact of the greater lung volumes. Diffuse mostly airspace opacities in the right lung appear worse than on the prior exam despite the better inspiration. No effusions. The heart size is normal. Stable satisfactory positions of endotracheal and orogastric tubes. Impression: Probably stable left and slightly worse right parenchymal opacities, over one day, appearance suggestive of pneumonia/ARDS
--- NOTE | 2020-01-13 11:31 | NUR ---
Social Work Patient is currently intubated in the ICU. Chart reviewed as well as Psychosocial Assessment completed with daughter, Barrera Parikh ([phone]) who explains she lives in [place]. Patient has a sister, Vinh Sandhu ([phone]) who lives in [facility] and is supportive as needed. According to daughter, patient lives alone in a multi-plex with multiple steps and was independent prior, still driving. 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 Daughter is an only child and making the decisions for patient (patient does not have an AD), while daughter requests for full code, full treatment. Daughter explains she would like communication to be provided as soon as possible, i.e intubation, extubation. Pending progress at this time. Brief support provided to daughter who also explains she has been in regular contact with nursing. SW/CM to follow for support and/or other discharge planning needs (as needed).
--- NOTE | 2020-01-13 11:34 | NUR ---
*-* INSURANCE *-* UPDATED CLINICALS AND REVIEWS HAVE BEEN FAXED TO: [facility] TRK# [id number] VIPUL:BLESSING P: [phone] F: [phone] Addendum: 01/13/20 at 1440 by OBED ARZOLA CM F: [phone]
--- NOTE | 2020-01-13 12:10 | NUR ---
NURSE NOTES: Temp now down to 99.5. Pt turned and repositioned for comfort. Oral care complete. Spoke to daughter, updated her on pt's current condition.
--- NOTE | 2020-01-13 12:18 | Nephrology Progress Note ---
Assessment/Plan Plan #KADEN- concerns for developing ATN in the setting of sepsis- r/o vanco toxicity- now with worsening renal failure #Hyponatremia- mild- l r/o SIADH in the setting of pneumonia- improved #hypokalemia- repleted #COVID pneumonia #hypoxemic respiratary failure #HTN #DM - lasix 60 IV today - maharkur placamenet to HD initiation if uop declines - plan for transfer to [facility] for higher level care- will likely need CVVHD and possibly echo support - CXR with worsening infiltrates - prone positioning initiated - switching vanco to linezolid - s/p actemra - hold amlodipine 5mg daily - BG control - breathing tx per pulm - supplemental O2 via vent Subjective ROS Limited/Unobtainable: Yes Subjective intubated for worsening resp failure recevied actemra worsening resp status cr up to 2.1 Objective Objective Last 24 Hour Vital Signs Date Time Temp Pulse Resp B/P (MAP) Pulse Ox O2 Delivery O2 Flow Rate FiO2 01/13/20 12:00 99.5 103 24 143/75 (97) 100 01/13/20 11:30 100 24 154/73 (100) 100 01/13/20 11:18 102 24 100 01/13/20 11:00 100 24 139/71 (93) 100 01/13/20 10:30 128/63 01/13/20 10:15 100.9 01/13/20 10:00 106 24 124/53 (76) 100 01/13/20 10:00 124/53 01/13/20 09:30 110 18 130/62 (84) 100 01/13/20 09:00 111 18 129/60 (83) 100 01/13/20 09:00 129/60 01/13/20 08:30 110 18 122/56 (78) 100 01/13/20 08:00 100 01/13/20 08:00 101.2 114 18 124/65 (84) 100 01/13/20 08:00 Mechanical Ventilator 01/13/20 07:30 116 18 132/67 (88) 100 01/13/20 07:15 117 18 129/62 (84) 100 01/13/20 07:14 116 18 100 01/13/20 07:00 115 18 125/65 (85) 100 01/13/20 07:00 122/67 4/20/20 06:14 92/60 01/13/20 06:00 113 18 115/64 (81) 100 01/13/20 06:00 85/58 01/13/20 05:00 111 18 85/58 (67) 100 01/13/20 05:00 102/63 01/13/20 04:45 107/61 01/13/20 04:30 102/64 01/13/20 04:15 98/61 01/13/20 04:00 98/57 01/13/20 04:00 97.7 106 18 102/63 (76) 100 01/13/20 04:00 95 01/13/20 04:00 Mechanical Ventilator 01/13/20 04:00 106 01/13/20 04:00 100 01/13/20 03:45 96/73 01/13/20 03:30 75/88 01/13/20 03:30 97 18 100 01/13/20 03:15 81/45 01/13/20 03:00 70/52 01/13/20 03:00 97 18 81/46 (58) 100 01/13/20 02:00 113/55 01/13/20 02:00 97 18 118/56 (76) 100 01/13/20 01:00 96 17 109/48 (68) 100 01/13/20 01:00 109/48 01/13/20 00:00 113/58 01/13/20 00:00 97.9 95 18 119/56 (77) 100 01/13/20 00:00 Mechanical Ventilator 01/13/20 00:00 100 01/12/20 23:30 97 18 100 01/12/20 23:00 94 18 124/57 (79) 100 01/12/20 23:00 121/62 01/12/20 22:00 97.7 92 18 133/61 (85) 100 01/12/20 22:00 128/53 01/12/20 22:00 97.7 01/12/20 21:50 129/60 01/12/20 21:00 89 16 134/61 (85) 100 01/12/20 20:00 100 01/12/20 20:00 97.4 91 17 128/53 (78) 95 01/12/20 20:00 Mechanical Ventilator 01/12/20 20:00 91 01/12/20 19:30 89 18 100 01/12/20 18:30 88 18 133/54 (80) 96 01/12/20 18:00 87 18 129/54 (79) 95 01/12/20 17:30 91 18 129/51 (77) 95 01/12/20 17:00 92 18 123/50 (74) 95 01/12/20 16:51 96 13 100 01/12/20 16:30 94 18 128/49 (75) 95 01/12/20 16:00 100 01/12/20 16:00 Mechanical Ventilator 01/12/20 16:00 92 01/12/20 16:00 98.5 96 18 126/51 (76) 95 01/12/20 15:30 97 18 125/50 (75) 95 01/12/20 15:00 96 18 131/49 (76) 86 01/12/20 14:45 97 18 130/49 (76) 87 01/12/20 14:30 97 18 127/49 (75) 87 01/12/20 14:15 97 18 113/51 (71) 88 01/12/20 14:00 99.5 99 18 126/49 (74) 88 01/12/20 14:00 95/42 01/12/20 13:45 98 18 95/42 (59) 91 01/12/20 13:28 99 18 100 01/12/20 13:00 100.2 99 18 84/36 (52) 94 01/12/20 12:30 97 18 86/34 (51) 100 Intake and Output 01/12/20 01/13/20 19:00 07:00 Intake Total 1835.750 ml 1455.0 ml Output Total 470 ml 570 ml Balance 1365.750 ml 885.0 ml Free Water 180 ml IV Total 1835.750 ml 1275.0 ml Output Urine Total 470 ml 570 ml Laboratory Tests 01/12/20 14:00: Urine Color Yellow, Urine Appearance Cloudy, Urine pH 5, Urine Specific [place] 1.015, Urine Protein 3+H, Urine Glucose (UA) 2+H, Urine Ketones 1+H, Urine Blood 3+H, Urine Nitrite Negative, Urine Bilirubin Negative, Urine Urobilinogen Normal, Urine Leukocyte Esterase Negative, Urine RBC 0-2, Urine WBC 0-2, Urine Squamous Epithelial Cells Few, Urine Bacteria ModerateH, Urine Yeast ModerateH, Urine Random Sodium < 20L, Urine Creatinine 222.4H 01/12/20 20:00: Vancomycin Level Trough 12.4H 01/13/20 04:00: White Blood Count 21.8H, Red Blood Count 4.15L, Hemoglobin 13.4, Hematocrit 38.6 , Mean Corpuscular Volume 93, Mean Corpuscular Hemoglobin 32.3H, Mean Corpuscular Hemoglobin Concent 34.8, Red Cell Distribution Width 12.1, Platelet Count 18L, Mean Platelet Volume 7.3, Neutrophils (%) (Auto) , Lymphocytes (%) ( Auto) , Monocytes (%) (Auto) , Eosinophils (%) (Auto) , Basophils (%) (Auto) , Differential Total Cells Counted 100, Neutrophils % (Manual) 96H, Lymphocytes % (Manual) 2L, Monocytes % (Manual) 1, Eosinophils % (Manual) 0, Basophils % ( Manual) 1, Band Neutrophils 0, Platelet Estimate DecreasedL, Platelet Morphology Normal, Red Blood Cell Morphology Normal, Sodium Level 138, Potassium Level 3.7, Chloride Level 102, Carbon Dioxide Level 21, Anion Gap 16H , Blood Urea Nitrogen 44H, Creatinine 2.1H, Estimat Glomerular Filtration Rate 24.3, Glucose Level 404H, Calcium Level 7.4L, Phosphorus Level 5.1H, Magnesium Level 2.1 01/13/20 08:44: Arterial Blood pH 7.200*L, Arterial Blood Partial Pressure CO2 57.1*H, Arterial Blood Partial Pressure O2 137.1H, Arterial Blood HCO3 21.8L, Arterial Blood Oxygen Saturation 97.9, Arterial Blood Base Excess -6.8L, Jun Test Positive Height (Feet): 5 Height (Inches): 4.00 Weight (Pounds): 132 Justin Hopper M.D. Jan 13, 2020 12:18
--- NOTE | 2020-01-13 12:31 | Discharge Summary ---
Discharge Summary Hospital Course Date of Admission Jan 05, 2020 at 08:35 Date of Discharge Admitting Diagnosis Confirmed COVID19, Hypoxia HPI Bryant Parikh is a 59 year old female who was admitted on Jan 05, 2020 at 08: 35 for Confirmed Covid19, Hypoxia Hospital Course 59-year-old female with PMH of HTN, DM on metformin who presents with SOB x2 days. Patient notes [employer] she had nonproductive cough x5 days, 2 days ago went to a community clinic and was tested positive for COVID 19. She comes in for respiratory distress and was once again tested positive for COVID. Pt was placed on non-rebreather, BCx negative, Pulm, Dr. Omer, ID Dr. Doyle were consulted and pt was started on hydroxychloroquin and completed 5 day course, pt was also on CTX and azithromycin for PNA. Pt was tolerating NRB w/ SpO2 maintaining in 95-99% on 15L for several days however were unable to wean off NRB. CXR on 01/08 showed interval worsening of lungs, pt was transferred to ICU for higher level of care on 01/08, at which time pt was started on Actrema, Ivermectin and azithro after discussing w/pt, Pulm and ID. Pt was subsequently intubated on 01/10 due to acute respiratory failure. Pt now on vanc, zoysn and azithromycin per ID. Today pt with worsening renal function, CXR with appearance suggestive of PNA/ARDS, d/w Pulm, Nephro and ID and concern for higher level of care is needed. Transfer for [facility] was placed. Pt transferred to [facility] for CRRT and possible ECMO. Accepting physician will be Dr. Asia Blanchard. Discussed w/cleo Rust, , who is aware of plan. #Acute hypoxic respiratory failure #COVID positive as o/p #COVID POSITIVE while in-pt #CAP/PNA #Hyponatremia #Hypokalemia #KADEN #Elevated D-Dimer #Asymptomatic bacteruria #HTN #NIDDM, type 2 D/c planning >30 mins. Discharge Condition Upon Discharge: critical Discharge Vital Signs Last Vital Signs Date Time Temp Pulse Resp B/P (MAP) Pulse Ox O2 Delivery O2 Flow Rate FiO2 01/13/20 11:18 102 24 100 01/13/20 10:30 128/63 01/13/20 10:15 100.9 01/13/20 10:00 100 01/13/20 08:00 Mechanical Ventilator 01/11/20 12:18 40.0 Discharge Disposition Patient was discharged to transfer to [facility] for higher level of care. Veronica Laurent M.D. Jan 13, 2020 12:31
--- NOTE | 2020-01-13 13:21 | NUR ---
CASE MANAGEMENT: REVIEW SI: COVID-19 . PNA T 101.2 HR 116 RR 24 BP 122/56 SAT 100% MECH VENT FIO2 100 WBC 21.8 BUN 44 CR 2.1 ABG: PH 7.200 PCO2 57.1 P02 137.1 HCO3 21.8 SAT 97.9 BASE -6.8 IS: AZITHROMYCIN IV Q24HR ZOSYN IV Q8HR ZYVOX IV Q12HR LEVOPHED IV Q24HR LASIX 60MG X1 STEP DOWN UNIT STATUS DCP: PATIENT IS FROM HOME. ORDER TO TRANSFER TO [facility]. ALL CLINICALS FAXED TO TRANSFER CENTER.
--- NOTE | 2020-01-13 13:30 | NUR ---
NURSE NOTES: Pt Platelet count reported to be [address] Laurent made aware.
--- NOTE | 2020-01-13 13:49 | NUR ---
CASE MANAGEMENT: DCP ORDER TO TRANSFER TO [facility] NOTED CLINICAL DOCUMENTATION FAXED TO TRANSFER CENTER [phone] / [phone] FAX PER DOC PATIENT IS NOT YET FINANCIALLY ACCEPTED. ACCEPTING / DR BIN SIERRA Addendum: 01/14/20 at 1159 by DIEGO LOU CM PATIENT REFERRED TO [facility] [phone]
--- NOTE | 2020-01-13 14:00 | NUR ---
NURSE NOTES: Central line dressing changed, d/t blood around the insertion site and no Biopatch present. Dressing is not clean, dry, and intact. No evidence of bleeding noted during and after dressing change. Pt tolerated well.
--- NOTE | 2020-01-13 15:10 | NUR ---
NURSE NOTES: Pt proned with the help of 2 RTs and 2 other RNs. Pt tolerated well. Levophed running at 10mcg/min.
--- NOTE | 2020-01-13 16:00 | NUR ---
NURSE NOTES: Levophed decreased to 7mcg/min to maintain SBP >90. Pt remains proned. No distress noted.
[2020-01-13 16:36] LABS: HEMATOCRIT 36.9 % (37.0-47.0); HEMOGLOBIN 12.4 G/DL (12.0-16.0); MEAN CORPUSCULAR VOLUME 95 FL (80-99); PLATELET COUNT 15 K/UL (150-450); RED BLOOD COUNT 3.89 M/UL (4.20-5.40); WHITE BLOOD COUNT 20.2 K/UL (4.8-10.8)
--- NOTE | 2020-01-13 17:05 | NUR ---
NURSE NOTES:WOUND CARE NOTES:Pt presents with Sacral DTPI. Base of wound is indurated purple with maroon borders. No other areas of skin concerns noted. Tx.Plan: Apply Moisture Barrier Paste to buttocks. Cover with Optifoam drsg. Change every 3 days and prn. Apply Cavilon Skin Barrier to both heels. Cover each heel with Optifoam drsg. Change every 7 days and prn. APM/SENDY Mattress overlay. Reposition at least every 2hours or as tolerated. Off-load heels with pillow.
[2020-01-13] MEDS ORDERED: Levemir Flexpen SUBQ SCH (18:00)
--- NOTE | 2020-01-13 19:08 | NUR ---
HAND-OFF: Report given to EMMETT Fletcher.
--- NOTE | 2020-01-13 19:26 | NUR ---
NURSE NOTES: Dr Laurent aware of platelet count of 15. Ordered to transfuse 1 unit platelets if platelets drop below 10. MD Moncada consulted.
[2020-01-13 19:38] LABS: ANION GAP 13 mmol/L (5-15); BLOOD UREA NITROGEN 44 mg/dL (7-18); CALCIUM 7.4 MG/DL (8.5-10.1); CARBON DIOXIDE 23 MMOL/L (21-32); CHLORIDE 103 MMOL/L (98-107); CREATININE 2.4 MG/DL (0.55-1.30); POTASSIUM 3.2 MMOL/L (3.5-5.1); SODIUM 139 MMOL/L (136-145)
--- NOTE | 2020-01-13 19:40 | NUR ---
Nurse Note: Report received from EMMETT Duncan for continuity of care. Pt non verbal, non responsive to deep pain and oral suction, does not show signs of pain. Pt intubated ETT 7.5, 23cm at the lip line, with vent settings AC 24 TV 500 FiO2 100% and PEEP 8, with 100% O2 sat. Ice on pt d/t fever. RT femoral central line infusing Levophed at 7mcg/min and 1/2 NS with 20mEq KCL at 75cc. Peripheral IVs on bilateral extremities. OGT present, no feedings. Bradshaw cath present and urine output noted. Pt is in prone position. All safety measures met; will continue to monitor.
[2020-01-13] MEDS: Dyna-Hex 2% Top Sol 2oz TOPIC SCH (20:47)
--- NOTE | 2020-01-13 20:57 | Infectious Diseases Prog Note ---
Assessment/Plan Assessment/Plan ASSESSMENT AND PLAN: 1. covid-19 virus infection with pna, possible bacterial pna, hypoxia, vent, respiratory failure, sepsis/shock, fevers, leukocytosis, ARF, ARDS - s/p hydroxychloroquine - day # 5/5 - cover bacterial pna/infection with zosyn, zyvox, azithromycin - tocilizumab x 1 given - monitor labs and chest x-ray - monitor respiratory status - chest x-ray worse - critical - for transfer to [facility] - ecmo and CRRT 2. Diabetes. 3. Hypertension. 4. Hemoptysis. 5. Continue treatment per primary consultants. 6. No known drug allergies. 7. Social history is negative. 8. Family history is noncontributory. 9. MAR was noted. 10. Case discussed with RN. 11. Continue treatment per primary consultants. Subjective Constitutional: Reports: fever, other - on vent, on pressors HEENT: Reports: congestion Respiratory: Reports: shortness of breath Cardiovascular: Reports: other - + pressors Gastrointestinal/Abdominal: Denies: nausea, vomiting, diarrhea Genitourinary: Reports: other - + pollard Neurologic: Reports: other - weak, lethargic Psychiatric: Reports: other - NA Skin: Denies: rash Hematologic: Denies: bleeding Musculoskeletal: Reports: other - NA Allergies: Coded Allergies: No Known Allergies (Unverified , 01/05/20) Objective Vital Signs Last 24 Hour Vital Signs Date Time Temp Pulse Resp B/P (MAP) Pulse Ox O2 Delivery O2 Flow Rate FiO2 01/13/20 20:00 100 01/13/20 20:00 Mechanical Ventilator 01/13/20 20:00 97 22 127/73 (91) 100 01/13/20 19:00 97 0 126/49 (74) 100 01/13/20 19:00 126/49 01/13/20 18:00 129/50 01/13/20 18:00 98 24 112/70 (84) 100 01/13/20 17:30 100 24 123/70 (87) 100 01/13/20 17:15 100 24 119/70 (86) 100 01/13/20 17:00 119/70 01/13/20 17:00 100.2 101 24 120/71 (87) 100 01/13/20 16:33 100.2 01/13/20 16:30 103 24 137/75 (95) 100 01/13/20 16:00 104 01/13/20 16:00 100.7 104 24 128/71 (90) 100 01/13/20 16:00 100 01/13/20 16:00 131/72 4 16:00 Mechanical Ventilator 01/13/20 15:30 105 24 136/69 (91) 100 01/13/20 15:05 100 18 100 01/13/20 15:00 112/56 01/13/20 15:00 104 24 135/74 (94) 100 01/13/20 14:00 101 24 136/73 (94) 100 01/13/20 14:00 136/76 01/13/20 13:30 101 24 142/65 (90) 100 01/13/20 13:00 104 24 139/75 (96) 100 01/13/20 13:00 145/71 01/13/20 12:00 99.5 103 24 143/75 (97) 100 01/13/20 12:00 102 01/13/20 12:00 Mechanical Ventilator 01/13/20 12:00 150/73 01/13/20 12:00 100 01/13/20 11:30 100 24 154/73 (100) 100 01/13/20 11:18 102 24 100 01/13/20 11:00 150/70 01/13/20 11:00 100 24 139/71 (93) 100 01/13/20 10:30 128/63 01/13/20 10:00 106 24 124/53 (76) 100 01/13/20 10:00 124/53 01/13/20 10:00 100 01/13/20 09:30 110 18 130/62 (84) 100 01/13/20 09:00 111 18 129/60 (83) 100 01/13/20 09:00 129/60 01/13/20 08:30 110 18 122/56 (78) 100 01/13/20 08:00 116 01/13/20 08:00 100 01/13/20 08:00 101.2 114 18 124/65 (84) 100 01/13/20 08:00 Mechanical Ventilator 01/13/20 07:30 116 18 132/67 (88) 100 01/13/20 07:15 117 18 129/62 (84) 100 01/13/20 07:14 116 18 100 01/13/20 07:00 115 18 125/65 (85) 100 01/13/20 07:00 122/67 01/13/20 06:14 92/60 20 06:00 113 18 115/64 (81) 100 01/13/20 06:00 85/58 01/13/20 05:00 111 18 85/58 (67) 100 01/13/20 05:00 102/63 01/13/20 04:45 107/61 01/13/20 04:30 102/64 01/13/20 04:15 98/61 01/13/20 04:00 98/57 01/13/20 04:00 97.7 106 18 102/63 (76) 100 01/13/20 04:00 95 01/13/20 04:00 Mechanical Ventilator 01/13/20 04:00 106 01/13/20 04:00 100 01/13/20 03:45 96/73 01/13/20 03:30 75/88 01/13/20 03:30 97 18 100 01/13/20 03:15 81/45 01/13/20 03:00 70/52 01/13/20 03:00 97 18 81/46 (58) 100 01/13/20 02:00 113/55 01/13/20 02:00 97 18 118/56 (76) 100 01/13/20 01:00 96 17 109/48 (68) 100 01/13/20 01:00 109/48 01/13/20 00:00 113/58 01/13/20 00:00 97.9 95 18 119/56 (77) 100 01/13/20 00:00 Mechanical Ventilator 01/13/20 00:00 100 01/12/20 23:30 97 18 100 01/12/20 23:00 94 18 124/57 (79) 100 01/12/20 23:00 121/62 01/12/20 22:00 97.7 92 18 133/61 (85) 100 01/12/20 22:00 128/53 01/12/20 22:00 97.7 01/12/20 21:50 129/60 01/12/20 21:00 89 16 134/61 (85) 100 Height (Feet): 5 Height (Inches): 4.00 Weight (Pounds): 132 General Appearance: other - + vent and pressors, fi02 - 100%, prone position HEENT: normocephalic, atraumatic, other - oral - intubated Respiratory/Chest: crackles/rales, rhonchi - bilaterally, pleural rub - on vent , other Cardiovascular: normal rate, regular rhythm Abdomen: normal bowel sounds, soft, non tender, no organomegaly Genitourinary: other - + pollard Extremities: no cyanosis Skin: no rash 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 Bilateral mostly central mostly interstitial disease with hazy airspace opacity is again demonstrated. Consolidation appears less dense at the lung bases, probably due to the better inspiratory effort, but there does appear to be more disease in the upper lungs. The pleural spaces are clear. The heart size is normal. Impression: Shifting infiltrates, with apparent partial clearing of lung bases but increased disease in the upper lungs. Change in appearance may be in part due to improved inspiratory effort, however. Chest x-ray - 01/09/20 - Procedure: XRAY Chest 1v Indication: Shortness of breath Technique: One view of the chest Comparison: 01/07/2020 Findings: Hazy infiltrates throughout the right lung have worsened since prior study. There is also slight worsening of hazy left mid and lower lung infiltrates since prior study. The heart size is normal. The pleural spaces remain clear. Impression: Worsening bilateral infiltrates, likely pneumonia, right greater than left, over 2 days Chest x-ray - 01/11/20 - IMPRESSION: 1. Endotracheal tube tip approximately 4.3 cm above the lauri, with expected radiographic position. Chest x-ray - 01/13/20 - Procedure: XRAY Chest 1v Indication: Shortness of breath Technique: One view of the chest Comparison: 01/12/2020 Findings: Solitary inspiration on the current exam. Interstitial and airspace opacities appear slightly improved, but this is probably artifact of the greater lung volumes. Diffuse mostly airspace opacities in the right lung appear worse than on the prior exam despite the better inspiration. No effusions. The heart size is normal. Stable satisfactory positions of endotracheal and orogastric tubes. Impression: Probably stable left and slightly worse right parenchymal opacities , over one day, appearance suggestive of pneumonia/ARDS 2. No significant interval change in the diffuse interstitial and alveolar opacities in bilateral lungs. This is concerning for multifocal pneumonia versus pulmonary edema or ARDS. Microbiology Date/Time Source Procedure Growth Status 01/05/20 07:40 Blood Blood Culture - Final NO GROWTH AFTER 5 DAYS Complete 01/05/20 08:00 Nasopharynx Coronavirus COVID-19 PCR (TAM) - Final Complete 01/12/20 14:00 Urine,Clean Catch Urine Culture - Preliminary NO GROWTH Resulted Microbiology Date/Time Source Procedure Growth Status 01/12/20 14:00 Urine,Clean Catch Urine Culture - Preliminary NO GROWTH Resulted Laboratory Tests Test 01/13/20 04:00 01/13/20 08:44 01/13/20 16:15 01/13/20 16:40 White Blood Count 21.8 K/UL (4.8-10.8) H 20.2 K/UL (4.8-10.8) H Red Blood Count 4.15 M/UL (4.20-5.40) L 3.89 M/UL (4.20-5.40) L Hemoglobin 13.4 G/DL (12.0-16.0) 12.4 G/DL (12.0-16.0) Hematocrit 38.6 % (37.0-47.0) 36.9 % (37.0-47.0) L Mean Corpuscular Volume 93 FL (80-99) 95 FL (80-99) Mean Corpuscular Hemoglobin 32.3 PG (27.0-31.0) H 31.8 PG (27.0-31.0) H Mean Corpuscular Hemoglobin Concent 34.8 G/DL (32.0-36.0) 33.5 G/DL (32.0-36.0) Red Cell Distribution Width 12.1 % (11.6-14.8) 13.0 % (11.6-14.8) Platelet Count 18 K/UL (150-450) L 15 K/UL (150-450) L Mean Platelet Volume 7.3 FL (6.5-10.1) 15.0 FL (6.5-10.1) H Neutrophils (%) (Auto) % (45.0-75.0) % (45.0-75.0) Lymphocytes (%) (Auto) % (20.0-45.0) % (20.0-45.0) Monocytes (%) (Auto) % (1.0-10.0) % (1.0-10.0) Eosinophils (%) (Auto) % (0.0-3.0) % (0.0-3.0) Basophils (%) (Auto) % (0.0-2.0) % (0.0-2.0) Differential Total Cells Counted 100 100 Neutrophils % (Manual) 96 % (45-75) H 94 % (45-75) H Lymphocytes % (Manual) 2 % (20-45) L 3 % (20-45) L Monocytes % (Manual) 1 % (1-10) 1 % (1-10) Eosinophils % (Manual) 0 % (0-3) 0 % (0-3) Basophils % (Manual) 1 % (0-2) 0 % (0-2) Band Neutrophils 0 % (0-8) 2 % (0-8) Platelet Estimate Decreased L Decreased L Platelet Morphology Normal Normal Red Blood Cell Morphology Normal Normal Sodium Level 138 MMOL/L (136-145) 139 MMOL/L (136-145) Potassium Level 3.7 MMOL/L (3.5-5.1) 3.2 MMOL/L (3.5-5.1) L Chloride Level 102 MMOL/L (98-107) 103 MMOL/L (98-107) Carbon Dioxide Level 21 MMOL/L (21-32) 23 MMOL/L (21-32) Anion Gap 16 mmol/L (5-15) H 13 mmol/L (5-15) Blood Urea Nitrogen 44 mg/dL (7-18) H 44 mg/dL (7-18) H Creatinine 2.1 MG/DL (0.55-1.30) H 2.4 MG/DL (0.55-1.30) H Estimat Glomerular Filtration Rate 24.3 mL/min (>60) 20.8 mL/min (>60) Glucose Level 404 MG/DL (74-106) H 326 MG/DL (74-106) H Calcium Level 7.4 MG/DL (8.5-10.1) L 7.4 MG/DL (8.5-10.1) L Phosphorus Level 5.1 MG/DL (2.5-4.9) H 3.1 MG/DL (2.5-4.9) Magnesium Level 2.1 MG/DL (1.8-2.4) Arterial Blood pH 7.200 (7.350-7.450) Arterial Blood Partial Pressure CO2 57.1 mmHg (35.0-45.0) *H Arterial Blood Partial Pressure O2 137.1 mmHg (75.0-100.0) H Arterial Blood HCO3 21.8 mmol/L (22.0-26.0) L Arterial Blood Oxygen Saturation 97.9 % (95-100) Arterial Blood Base Excess -6.8 (-2-2) L Jun Test Positive Current Medications Medications (Trade) Dose Ordered Sig/Neha Route PRN Reason Start Time Stop Time Status Last Admin Dose Admin Acetaminophen (Tylenol) 650 mg Q4H PRN ORAL Mild Pain (Pain Scale 1-3) 01/08/20 09:00 02/04/20 08:59 01/13/20 16:03 Acetaminophen (Tylenol) 650 mg Q4H PRN ORAL Temp >100.5 01/08/20 09:00 02/04/20 08:59 Artificial Tears (Akwa-Tears) 2 drop Q6H PRN BOTH EYES Dry Eyes 01/13/20 12:00 02/12/20 11:59 Azithromycin 250 mg/Dextrose 275 ml @ 275 mls/hr Q24HRS IV 01/10/20 11:00 01/15/20 10:59 01/13/20 09:10 Benzonatate (Tessalon Perles) 100 mg Q8H PRN ORAL For Cough 01/08/20 14:00 02/07/20 13:59 Chlorhexidine Gluconate (Saritha-Hex 2%) 1 applic DAILY@2000 TOPIC 01/12/20 20:00 04/11/20 19:59 01/12/20 20:07 Dextrose (Dextrose 50%) 25 ml Q30M PRN IV Hypoglycemia 01/08/20 08:30 04/04/20 08:59 Dextrose (Dextrose 50%) 50 ml Q30M PRN IV Hypoglycemia 01/08/20 08:30 04/04/20 08:59 Guaifenesin/ Dextromethorphan (Robitussin DM Syrup) 10 ml Q4H PRN ORAL For Cough 01/08/20 09:15 04/05/20 01:14 01/08/20 09:20 Insulin Aspart (NovoLOG) BEFORE MEALS AND HS SUBQ 01/08/20 11:30 04/06/20 16:29 01/13/20 16:51 Insulin Detemir (Levemir) 5 units BEDTIME ONCE SUBQ 01/13/20 21:00 01/13/20 21:01 Insulin Detemir (Levemir) 10 units BEDTIME SUBQ 01/14/20 21:00 04/13/20 20:59 Linezolid 300 ml @ 300 mls/hr EVERY 12 HOURS IVPB 01/12/20 21:00 01/19/20 20:59 01/13/20 09:10 Midazolam HCl 100 ml @ 0 mls/hr Q24H PRN IV Agitation 01/11/20 16:15 04/10/20 16:14 01/12/20 06:10 Morphine Sulfate (Morphine Sulfate) 1 mg EVERY 6 HOURS PRN IVP Severe Pain (Pain Scale 7-10) 01/09/20 20:30 01/16/20 20:29 01/12/20 00:18 Norepinephrine Bitartrate 8 mg/ Dextrose 558 ml @ 0 mls/hr Q24H IV 01/13/20 10:00 02/12/20 09:59 01/13/20 10:30 Piperacillin Sod/ Tazobactam Sod 3.375 gm/Sodium Chloride 110 ml @ 27.5 mls/hr Q8H IVPB 01/11/20 20:00 01/18/20 19:59 01/13/20 11:38 Pham Doyle MD Jan 13, 2020 20:57
[2020-01-13] MEDS ORDERED: Levemir Flexpen SUBQ ONE (21:00)
--- NOTE | 2020-01-13 21:36 | Neurology Progress Note ---
Interim History Interim History ROS Limited/Unobtainable: Yes Interim History remains intubated and sedated Objective Physical Exam Last Vital Signs Date Time Temp Pulse Resp B/P (MAP) Pulse Ox O2 Delivery O2 Flow Rate FiO2 01/13/20 20:00 100 01/13/20 20:00 Mechanical Ventilator 01/13/20 20:00 97 22 127/73 (91) 100 01/13/20 17:00 100.2 01/11/20 12:18 40.0 Laboratory Tests Test 01/13/20 04:00 01/13/20 08:44 01/13/20 16:15 01/13/20 16:40 White Blood Count 21.8 K/UL (4.8-10.8) H 20.2 K/UL (4.8-10.8) H Red Blood Count 4.15 M/UL (4.20-5.40) L 3.89 M/UL (4.20-5.40) L Hemoglobin 13.4 G/DL (12.0-16.0) 12.4 G/DL (12.0-16.0) Hematocrit 38.6 % (37.0-47.0) 36.9 % (37.0-47.0) L Mean Corpuscular Volume 93 FL (80-99) 95 FL (80-99) Mean Corpuscular Hemoglobin 32.3 PG (27.0-31.0) H 31.8 PG (27.0-31.0) H Mean Corpuscular Hemoglobin Concent 34.8 G/DL (32.0-36.0) 33.5 G/DL (32.0-36.0) Red Cell Distribution Width 12.1 % (11.6-14.8) 13.0 % (11.6-14.8) Platelet Count 18 K/UL (150-450) L 15 K/UL (150-450) L Mean Platelet Volume 7.3 FL (6.5-10.1) 15.0 FL (6.5-10.1) H Neutrophils (%) (Auto) % (45.0-75.0) % (45.0-75.0) Lymphocytes (%) (Auto) % (20.0-45.0) % (20.0-45.0) Monocytes (%) (Auto) % (1.0-10.0) % (1.0-10.0) Eosinophils (%) (Auto) % (0.0-3.0) % (0.0-3.0) Basophils (%) (Auto) % (0.0-2.0) % (0.0-2.0) Differential Total Cells Counted 100 100 Neutrophils % (Manual) 96 % (45-75) H 94 % (45-75) H Lymphocytes % (Manual) 2 % (20-45) L 3 % (20-45) L Monocytes % (Manual) 1 % (1-10) 1 % (1-10) Eosinophils % (Manual) 0 % (0-3) 0 % (0-3) Basophils % (Manual) 1 % (0-2) 0 % (0-2) Band Neutrophils 0 % (0-8) 2 % (0-8) Platelet Estimate Decreased L Decreased L Platelet Morphology Normal Normal Red Blood Cell Morphology Normal Normal Sodium Level 138 MMOL/L (136-145) 139 MMOL/L (136-145) Potassium Level 3.7 MMOL/L (3.5-5.1) 3.2 MMOL/L (3.5-5.1) L Chloride Level 102 MMOL/L (98-107) 103 MMOL/L (98-107) Carbon Dioxide Level 21 MMOL/L (21-32) 23 MMOL/L (21-32) Anion Gap 16 mmol/L (5-15) H 13 mmol/L (5-15) Blood Urea Nitrogen 44 mg/dL (7-18) H 44 mg/dL (7-18) H Creatinine 2.1 MG/DL (0.55-1.30) H 2.4 MG/DL (0.55-1.30) H Estimat Glomerular Filtration Rate 24.3 mL/min (>60) 20.8 mL/min (>60) Glucose Level 404 MG/DL (74-106) H 326 MG/DL (74-106) H Calcium Level 7.4 MG/DL (8.5-10.1) L 7.4 MG/DL (8.5-10.1) L Phosphorus Level 5.1 MG/DL (2.5-4.9) H 3.1 MG/DL (2.5-4.9) Magnesium Level 2.1 MG/DL (1.8-2.4) Arterial Blood pH 7.200 (7.350-7.450) Arterial Blood Partial Pressure CO2 57.1 mmHg (35.0-45.0) *H Arterial Blood Partial Pressure O2 137.1 mmHg (75.0-100.0) H Arterial Blood HCO3 21.8 mmol/L (22.0-26.0) L Arterial Blood Oxygen Saturation 97.9 % (95-100) Arterial Blood Base Excess -6.8 (-2-2) L Jun Test Positive Reticulocyte Count Pending Hemoglobin A1c 7.3 % (4.3-6.0) H Ferritin Pending Lactate Dehydrogenase Pending Folate Pending Thyroid Stimulating Hormone (TSH) Pending Head: normocophalic Neck: no rigidity Neurologic Exam Objective intubated sedated withdraws to pain cc 35 min Impression/Recommendations Problems: (1) Respiratory failure with hypoxia (2) COVID-19 virus infection (3) Diabetes type 2, controlled (4) HTN (hypertension) Diagnostic Impression Encephalopathy, now intubated. Rule out hemorrhagic encephalitis if no improvement in MS CHEPEID + Royal Peguero MD Jan 13, 2020 21:36
--- NOTE | 2020-01-13 22:00 | NUR ---
Nurse Note: Pt in prone position, rotated head to LT side with RT. PT level to be drawn and sent to lab.
[2020-01-13 22:59] LABS: INR 1.2 (0.9-1.1)
--- NOTE | 2020-01-13 23:30 | NUR ---
Nurse Note: Called Dr. Moncada about K at 3.2; no answer and no orders. PT drawn, sent to lab, results available. No changes to Levophed; infusing at 7 mcg/min; SBP >110 and MAP >65. Urine output noted. Spoke with family member and informed about pt condition. All safety measures met, will continue to monitor.
[2020-01-14] VITALS (36 sets, daily range): BP systolic 81–131; BP diastolic 50–74
--- NOTE | 2020-01-14 01:15 | NUR ---
Nurse Note: Pt remains in prone position head turned; ETT stable, no signs of desaturation. Pt non verbal, no spontaneous movement noted. Levophed infusing at 7mcg/min; MAP>65. Urine output noted. All safety measures met; will continue to monitor.
[2020-01-14] MEDS: Norepinephrine Bitartrate 8 MG in D5W 500ml 550 ML IV SCH ×2 (01:58→13:35)
[2020-01-14] MEDS: 1/2NS w/KCl 20mEq 1000ml 1,000 ML IV SCH ×2 (02:00→16:29)
--- NOTE | 2020-01-14 03:00 | NUR ---
Nurse Note: Per Dr. Moncada, 1/2NS with KCl 20 mEq at 75cc infusing. Pt turned supine with RTs and RNs. Pt tolerated well; VSS. RT femoral central line in place and patent. Pt cleaned as needed. All safety measures met; will continue to monitor.
[2020-01-14] MEDS: Piperacillin/Tazobactam 3.375 GM in NS 110 ML IVPB SCH ×3 (04:09→20:03)
[2020-01-14 05:28] LABS: HEMATOCRIT 35.3 % (37.0-47.0); HEMOGLOBIN 12.4 G/DL (12.0-16.0); MEAN CORPUSCULAR VOLUME 91 FL (80-99); PLATELET COUNT 16 K/UL (150-450); RED CELL DISTRIBUTION WIDTH 11.6 % (11.6-14.8); WHITE BLOOD COUNT 18.9 K/UL (4.8-10.8)
[2020-01-14 05:52] LABS: ALANINE AMINOTRANSFERASE 57 U/L (12-78); ALBUMIN 1.8 G/DL (3.4-5.0); ALBUMIN/GLOBULIN RATIO 0.6 (1.0-2.7); ALKALINE PHOSPHATASE 113 U/L (46-116); ANION GAP 11 mmol/L (5-15); ASPARTATE AMINO TRANSFERASE 193 U/L (15-37); BILIRUBIN,TOTAL 0.5 MG/DL (0.2-1.0); BLOOD UREA NITROGEN 44 mg/dL (7-18); CALCIUM 8.1 MG/DL (8.5-10.1); CARBON DIOXIDE 26 MMOL/L (21-32); CHLORIDE 101 MMOL/L (98-107); CREATININE 2.3 MG/DL (0.55-1.30); POTASSIUM 3.3 MMOL/L (3.5-5.1); SODIUM 138 MMOL/L (136-145)
--- NOTE | 2020-01-14 06:00 | NUR ---
Nurse Note: Levo increased and infusing at 10mcg/min. MAP < 65 before titrating.
[2020-01-14] MEDS: NovoLOG Insulin Flexpen SUBQ SCH ×4 (06:19→20:46)
--- NOTE | 2020-01-14 06:44 | Consultation ---
History of Present Illness General Chief Complaint: Dyspnea/Respdistress Reason for Consultation: hyponatremia Present Illness Allergies: Coded Allergies: No Known Allergies (Unverified , 01/05/20) Medication History Scheduled Hydrochlorothiazide* (Hydrochlorothiazide*), 12.5 MG ORAL DAILY, (Reported) Metformin Hcl* (Metformin Hcl*), 500 MG ORAL TWICE A DAY, (Reported) Patient History Healthcare decision maker jose luis westfall Resuscitation status Full Code Advanced Directive on File No Physical Exam Last 24 Hour Vital Signs Date Time Temp Pulse Resp B/P (MAP) Pulse Ox O2 Delivery O2 Flow Rate FiO2 01/14/20 06:00 97.6 83 24 116/66 (83) 100 01/14/20 05:00 74 24 87/58 (68) 100 01/14/20 04:00 100 01/14/20 04:00 78 24 121/64 (83) 100 01/14/20 04:00 Mechanical Ventilator 01/14/20 03:25 101 28 100 01/14/20 03:00 75 24 118/60 (79) 100 01/14/20 02:00 98.8 76 24 81/50 (60) 100 01/14/20 01:58 98/57 01/14/20 01:00 102/58 01/14/20 01:00 76 24 102/58 (73) 100 01/14/20 00:00 Mechanical Ventilator 01/14/20 00:00 77 24 112/64 (80) 100 01/14/20 00:00 112/64 01/13/20 23:15 89 18 100 01/13/20 23:00 117/66 01/13/20 23:00 88 23 119/67 (84) 100 01/13/20 22:00 130/69 01/13/20 21:00 127/66 01/13/20 21:00 99.6 96 24 127/66 (86) 100 01/13/20 20:00 100 01/13/20 20:00 Mechanical Ventilator 01/13/20 20:00 97 22 127/73 (91) 100 01/13/20 20:00 113/70 01/13/20 20:00 97 01/13/20 19:54 102 18 100 01/13/20 19:00 97 0 126/49 (74) 100 01/13/20 19:00 126/49 01/13/20 18:00 129/50 420 18:00 98 24 112/70 (84) 100 01/13/20 17:30 100 24 123/70 (87) 100 01/13/20 17:15 100 24 119/70 (86) 100 20 17:00 119/70 01/13/20 17:00 100.2 101 24 120/71 (87) 100 01/13/20 16:33 100.2 01/13/20 16:30 103 24 137/75 (95) 100 01/13/20 16:00 104 01/13/20 16:00 100.7 104 24 128/71 (90) 100 01/13/20 16:00 100 01/13/20 16:00 131/72 01/13/20 16:00 Mechanical Ventilator 01/13/20 15:30 105 24 136/69 (91) 100 01/13/20 15:05 100 18 100 01/13/20 15:00 112/56 01/13/20 15:00 104 24 135/74 (94) 100 01/13/20 14:00 101 24 136/73 (94) 100 01/13/20 14:00 136/76 01/13/20 13:30 101 24 142/65 (90) 100 01/13/20 13:00 104 24 139/75 (96) 100 01/13/20 13:00 145/71 01/13/20 12:00 99.5 103 24 143/75 (97) 100 01/13/20 12:00 102 01/13/20 12:00 Mechanical Ventilator 01/13/20 12:00 150/73 01/13/20 12:00 100 20 11:30 100 24 154/73 (100) 100 01/13/20 11:18 102 24 100 01/13/20 11:00 150/70 01/13/20 11:00 100 24 139/71 (93) 100 01/13/20 10:30 128/63 20 10:00 106 24 124/53 (76) 100 01/13/20 10:00 124/53 01/13/20 10:00 100 01/13/20 09:30 110 18 130/62 (84) 100 01/13/20 09:00 111 18 129/60 (83) 100 01/13/20 09:00 129/60 01/13/20 08:30 110 18 122/56 (78) 100 01/13/20 08:00 116 01/13/20 08:00 100 01/13/20 08:00 101.2 114 18 124/65 (84) 100 01/13/20 08:00 Mechanical Ventilator 01/13/20 07:30 116 18 132/67 (88) 100 01/13/20 07:15 117 18 129/62 (84) 100 01/13/20 07:14 116 18 100 01/13/20 07:00 115 18 125/65 (85) 100 01/13/20 07:00 122/67 Intake and Output 01/13/20 01/14/20 19:00 07:00 Intake Total 1420.655 ml 725.74 ml Output Total 2060 ml 600 ml Balance -639.345 ml 125.74 ml Free Water 140 ml IV Total 1260.655 ml 585.74 ml Other 160 ml Output Urine Total 2060 ml 600 ml Laboratory Tests Test 01/13/20 08:44 01/13/20 16:15 01/13/20 16:40 01/13/20 22:30 Arterial Blood pH 7.200 (7.350-7.450) Arterial Blood Partial Pressure CO2 57.1 mmHg (35.0-45.0) *H Arterial Blood Partial Pressure O2 137.1 mmHg (75.0-100.0) H Arterial Blood HCO3 21.8 mmol/L (22.0-26.0) L Arterial Blood Oxygen Saturation 97.9 % (95-100) Arterial Blood Base Excess -6.8 (-2-2) L Jun Test Positive White Blood Count 20.2 K/UL (4.8-10.8) H Red Blood Count 3.89 M/UL (4.20-5.40) L Hemoglobin 12.4 G/DL (12.0-16.0) Hematocrit 36.9 % (37.0-47.0) L Mean Corpuscular Volume 95 FL (80-99) Mean Corpuscular Hemoglobin 31.8 PG (27.0-31.0) H Mean Corpuscular Hemoglobin Concent 33.5 G/DL (32.0-36.0) Red Cell Distribution Width 13.0 % (11.6-14.8) Platelet Count 15 K/UL (150-450) L Mean Platelet Volume 15.0 FL (6.5-10.1) H Neutrophils (%) (Auto) % (45.0-75.0) Lymphocytes (%) (Auto) % (20.0-45.0) Monocytes (%) (Auto) % (1.0-10.0) Eosinophils (%) (Auto) % (0.0-3.0) Basophils (%) (Auto) % (0.0-2.0) Differential Total Cells Counted 100 Neutrophils % (Manual) 94 % (45-75) H Lymphocytes % (Manual) 3 % (20-45) L Monocytes % (Manual) 1 % (1-10) Eosinophils % (Manual) 0 % (0-3) Basophils % (Manual) 0 % (0-2) Band Neutrophils 2 % (0-8) Platelet Estimate Decreased L Platelet Morphology Normal Red Blood Cell Morphology Normal Reticulocyte Count Pending Sodium Level 139 MMOL/L (136-145) Potassium Level 3.2 MMOL/L (3.5-5.1) L Chloride Level 103 MMOL/L (98-107) Carbon Dioxide Level 23 MMOL/L (21-32) Anion Gap 13 mmol/L (5-15) Blood Urea Nitrogen 44 mg/dL (7-18) H Creatinine 2.4 MG/DL (0.55-1.30) H Estimat Glomerular Filtration Rate 20.8 mL/min (>60) Glucose Level 326 MG/DL (74-106) H Hemoglobin A1c 7.3 % (4.3-6.0) H Calcium Level 7.4 MG/DL (8.5-10.1) L Phosphorus Level 3.1 MG/DL (2.5-4.9) Ferritin 754 NG/ML (8-388) H Lactate Dehydrogenase 2096 U/L (81-234) H Folate 10.4 NG/ML (8.6-58.9) Thyroid Stimulating Hormone (TSH) 0.033 uiU/mL (0.358-3.740) Prothrombin Time 12.4 SEC (9.30-11.50) H Prothromb Time International Ratio 1.2 (0.9-1.1) H Test 01/14/20 04:00 White Blood Count 18.9 K/UL (4.8-10.8) H Red Blood Count 3.90 M/UL (4.20-5.40) L Hemoglobin 12.4 G/DL (12.0-16.0) Hematocrit 35.3 % (37.0-47.0) L Mean Corpuscular Volume 91 FL (80-99) Mean Corpuscular Hemoglobin 31.9 PG (27.0-31.0) H Mean Corpuscular Hemoglobin Concent 35.2 G/DL (32.0-36.0) Red Cell Distribution Width 11.6 % (11.6-14.8) Platelet Count 16 K/UL (150-450) L Mean Platelet Volume 8.5 FL (6.5-10.1) Neutrophils (%) (Auto) % (45.0-75.0) Lymphocytes (%) (Auto) % (20.0-45.0) Monocytes (%) (Auto) % (1.0-10.0) Eosinophils (%) (Auto) % (0.0-3.0) Basophils (%) (Auto) % (0.0-2.0) Neutrophils % (Manual) Pending Lymphocytes % (Manual) Pending Platelet Estimate Pending Platelet Morphology Pending Sodium Level 138 MMOL/L (136-145) Potassium Level 3.3 MMOL/L (3.5-5.1) L Chloride Level 101 MMOL/L (98-107) Carbon Dioxide Level 26 MMOL/L (21-32) Anion Gap 11 mmol/L (5-15) Blood Urea Nitrogen 44 mg/dL (7-18) H Creatinine 2.3 MG/DL (0.55-1.30) H Estimat Glomerular Filtration Rate 21.9 mL/min (>60) Glucose Level 293 MG/DL (74-106) H Calcium Level 8.1 MG/DL (8.5-10.1) L Total Bilirubin 0.5 MG/DL (0.2-1.0) Aspartate Amino Transf (AST/SGOT) 193 U/L (15-37) H Alanine Aminotransferase (ALT/SGPT) 57 U/L (12-78) Alkaline Phosphatase 113 U/L (46-116) Total Protein 5.0 G/DL (6.4-8.2) L Albumin 1.8 G/DL (3.4-5.0) L Globulin 3.2 g/dL Albumin/Globulin Ratio 0.6 (1.0-2.7) L Height (Feet): 5 Height (Inches): 4.00 Weight (Pounds): 131 Medications Current Medications Medications (Trade) Dose Ordered Sig/Neha Route PRN Reason Start Time Stop Time Status Last Admin Dose Admin Acetaminophen (Tylenol) 650 mg Q4H PRN ORAL Mild Pain (Pain Scale 1-3) 01/08/20 09:00 02/04/20 08:59 01/13/20 16:03 Acetaminophen (Tylenol) 650 mg Q4H PRN ORAL Temp >100.5 01/08/20 09:00 02/04/20 08:59 Artificial Tears (Akwa-Tears) 2 drop Q6H PRN BOTH EYES Dry Eyes 01/13/20 12:00 02/12/20 11:59 Azithromycin 250 mg/Dextrose 275 ml @ 275 mls/hr Q24HRS IV 01/10/20 11:00 01/15/20 10:59 01/13/20 09:10 Benzonatate (Tessalon Perles) 100 mg Q8H PRN ORAL For Cough 01/08/20 14:00 02/07/20 13:59 Chlorhexidine Gluconate (Saritha-Hex 2%) 1 applic DAILY@2000 TOPIC 01/12/20 20:00 04/11/20 19:59 01/13/20 20:47 Dextrose (Dextrose 50%) 25 ml Q30M PRN IV Hypoglycemia 01/08/20 08:30 04/04/20 08:59 Dextrose (Dextrose 50%) 50 ml Q30M PRN IV Hypoglycemia 01/08/20 08:30 04/04/20 08:59 Guaifenesin/ Dextromethorphan (Robitussin DM Syrup) 10 ml Q4H PRN ORAL For Cough 01/08/20 09:15 04/05/20 01:14 01/08/20 09:20 Insulin Aspart (NovoLOG) BEFORE MEALS AND HS SUBQ 01/08/20 11:30 04/06/20 16:29 01/14/20 06:19 Insulin Detemir (Levemir) 10 units BEDTIME SUBQ 01/14/20 21:00 04/13/20 20:59 Linezolid 300 ml @ 300 mls/hr EVERY 12 HOURS IVPB 01/12/20 21:00 01/19/20 20:59 01/13/20 20:47 Midazolam HCl 100 ml @ 0 mls/hr Q24H PRN IV Agitation 01/11/20 16:15 04/10/20 16:14 01/12/20 06:10 Morphine Sulfate (Morphine Sulfate) 1 mg EVERY 6 HOURS PRN IVP Severe Pain (Pain Scale 7-10) 01/09/20 20:30 01/16/20 20:29 01/12/20 00:18 Norepinephrine Bitartrate 8 mg/ Dextrose 558 ml @ 0 mls/hr Q24H IV 01/13/20 10:00 02/12/20 09:59 01/14/20 01:58 Piperacillin Sod/ Tazobactam Sod 3.375 gm/Sodium Chloride 110 ml @ 27.5 mls/hr Q8H IVPB 01/11/20 20:00 01/18/20 19:59 01/14/20 04:09 Sodium 1,000 ml @ 75 mls/hr [id number] IV 01/14/20 02:00 02/13/20 01:59 01/14/20 02:00 Assessment/Plan Assessment/Plan: Hematology Consultation ISABEL MORATAYA: [place] RFC: Thrombocytopenia, ongoing DOS: 01/14/2020 HPI 59-year-old female who presents after increased difficulty with breathing for the past 2 days. Patient had been brought by paramedics. She had recent positive novel coronavirus infection.Reports having some trace hemoptysis. Nonproductive cough primarily. prior history of hypertension as well as diabetes. She reports taking metformin. Denies any fever. Denies any chest pain. Denies any leg pain or swelling. Had tested on Monday after preceding URI symptoms. COVID19++, on abx now Allergies: No Known Allergies (Unverified , 01/05/20) COVID-19 Screening Contact w/high risk pt: No Recent Travel to affected area: No Experienced COVID-19 symptoms?: Yes COVID-19 symptoms experienced: Shortness of Breath, Cough Patient History Past Medical History: see triage record, DM, HTN Past Surgical History: none Now: No Reviewed Nursing Documentation: PMH: Agreed; PSxH: Agreed Nursing Documentation-PMH Past Medical History: No History, Except For Hx Diabetes: Yes Review of Systems All Other Systems: negative except mentioned in HPI Physical Exam Sp02 EP Interpretation: reviewed, normal General: normal inspection, alert, GCS 15, moderate distress Heent: normal inspection, full range of motion, supple, no bony tend Respiratory: normal inspection, lungs clear, normal breath sounds ++ vent Cardiovascular: regular rate, rhythm, no edema Gastrointestinal: normal inspection, normal bowel sounds, non tender, soft, no guarding, no hernia Genitourinary: no CVA tenderness Musculoskeletal: normal inspection, back normal, normal range of motion Neurologic: alert, motor strength/tone normal, interventional radiology tech III-XII nml as tested, oriented x3, responsive, speech normal Psychiatric: normal inspection, judgement/insight normal, mood/affect normal Skin: no rash Labs: noted Imaging: reviewed Assessment and Recs # Thrombocytopenia that is severe, may be med related, but has not received heparin, and linezolid usually happens after 2 weeks, also may be due to DIC, coags uptrending, and due to covid-19 virus infection with pna, possible bacterial pna, hypoxia, vent, respiratory failure, sepsis/shock, fevers, leukocytosis, ARF, ARDS --> s/p hydroxychloroquine - day # 5/5 --> cover bacterial pna/infection with zosyn, zyvox, azithromycin --> DIC panel has been ordered and coags uptrending --> fibrinogen and fibrin split products pending --> treat underlying covid19 --> may need transfer to [facility] - ecmo and CRRT # Anemia of kidney disease, chronic disease --> r/o underlying hemolysis --> trend hgb 14-->12 # Leukocytosis --> likely related to covid, pna # Diabetes. --> accuchecks qac and qhs --> per endo # Hypertension. --> sbp goal <140 # Hemoptysis. # KADEN on ckd # COVID19+ # Resp failure on vent Appreciate consultaiton and Chaz Campos RN, MD Jan 14, 2020 06:44
--- NOTE | 2020-01-14 06:45 | NUR ---
Nurse Note: Pt remains non verbal, non responsive to deep pain and oral suction, does not show signs of pain. Pt intubated ETT 7.5, 23cm at the lip line, with vent settings AC 24 TV 500 FiO2 100% and PEEP 8, with 100% O2 sat. Afebrile. RT femoral central line infusing Levophed at 10mcg/min and started 1/2 NS with 20mEq KCL at 75cc. Peripheral IVs on bilateral extremities; patent. OGT present, no feedings; no residual noted. Bradshaw cath present and urine output noted. No BM. Pt cleaned, kept dry, turned as needed. All safety measures met; will continue to monitor.
--- NOTE | 2020-01-14 07:05 | NUR ---
Nurse Note: Endorsed care to EMMETT Duncan. Spoke to Dr. Moncada regarding pt.
--- NOTE | 2020-01-14 07:10 | NUR ---
NURSE NOTES: Dr. Moncada aware of Platelet count of 16. No orders to transfuse at this time. Will repeat blood draw this evening.
--- NOTE | 2020-01-14 07:14 | NUR ---
NURSE NOTES: Received report from EMMETT Fletcher. Pt is observed laying in bed, appears to be sleeping, non responsive to voice and/or painful stimuli. Patient is orally intubated, ETT 7.5, 23cm at the lip line, with vent settings AC 24 TV 500 FiO2 100% and PEEP 8. Patient is saturating 100%. Patient has an OGT, Currently clamped as pt is NPO. 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 Right femoral TLC running Levophed @ 10mcg/min and 1/2 NS w/ 20mEq KCL @ 75mL/hr. PIV BL hand #22g and Lt AC #20g noted and saline locked. Bed locked and in lowest position, side rails up x3, and call light left within reach. Patient remains on airborne precautions at this time. Will continue to monitor.
--- NOTE | 2020-01-14 08:15 | NUR ---
RD ASSESSMENT & RECOMMENDATIONS SEE CARE ACTIVITY FOR COMPLETE ASSESSMENT DAILY ESTIMATED NEEDS: Needs based on DM, Cardiac, Critical Care/ 56kg 22-28 kcals/kg 1320-6251 total kcals 1.2-2 g protein/kg 67-112 g total protein 20-25 mL/kg 0299-1677 total fluid mLs NUTRITION DIAGNOSIS: * Swallowing difficulty R/T respiratory status as evidenced by s/p intubation, w/ an order OGT insertion, pt is COVID-19 positive * Altered nutrition related lab values R/T clinical condition, diabetes as evidenced by low Na (129->132), elev BG (274 195 226), elev POC glu (194-323), A1C 7.3. ENTERAL NUTRITION RECOMMENDATIONS: Vital AF 1.2 @ 50ml/hr x 24 hrs to provide 1200ml, 1440kcal, 90g prot, 973ml free water * As medically appropriate, initiate TF. * Vital AF 1.2 recommended for critical care and carb control * Initiate Vital AF 1.2 @ 20ml/hr x 6 hrs, advance 10ml q 4-6 hrs as tolerated to goal rate. * HOB over 30 degrees/ water flush per MD ADDITIONAL RECOMMENDATIONS: * Calibrated bedscale wt * Monitor lytes, replete as needed * High BG values, on levemir + Scott + Na IVF -> monitor closely for hypoglycemia * Feed as medically able-> unable to feed when in prone position, additionally pt is not hemodynamically stable at this time to feed at goal * Wound care: NPO at this time
[2020-01-14] MEDS: Azithromycin 250 MG in D5W 275 ML IV SCH (09:00)
--- NOTE | 2020-01-14 09:00 | NUR ---
NURSE NOTES: Temp was 96.0 axillary. Henry hugger initiated. Will monitor.
--- NOTE | 2020-01-14 09:12 | General Progress Note ---
Assessment/Plan Assessment/Plan: 59-year-old female with PMH of HTN, DM on metformin who presents with SOB x2 days. Patient notes [employer] she had nonproductive cough x5 days, 2 days ago went to a community clinic and was tested positive for COVID 19. #Acute hypoxic respiratory failure s/p intubation 01/09 #COVID positive as o/p #COVID POSITIVE while in-pt #CAP/PNA #Fever #Acute Toxic Metabolic Encephalopathy #Severe Sepsis, Septic Shock 2/ COVID -Appreciate ICU care -Cont current vent setting per Pulm, wean as tolerated -cont. droplet/contact isolation -01/04: BCx NGTD -S/p Actemra and Ivermectin -01/08: CXR with worsening infiltrates -01/09 pt intubated -01/12: CXR with b/l infitrates, concerning for ARDS -pt unresponsive off sedation -unable to obtain head CT 10/27 COVID -continue Zyvox, Zosyn, azithromycin per ID -01/12: D/w Dr. Omer, Dr. Doyle, Dr. Hopper, plan to transfer to [facility] for higher level of care -01/13: d/w daughter, pulm, nephro and ID, daughter wishes to attempt transfer to [facility] however will accept which hospital has an available bed -transfer order in place, pending acceptance to either [facility] or [facility] depending on acceptance -d/w multiple consultants, ID, Pulm, Nephro, Neurology and daughter regarding POC -Neurology consulted -very poor prognosis #Severe Thrombocytopenia #Elevated D-Dimer -likely multifactorial 2/2 medication related, infection, COVID, DIC -plts 18 >> 16 -no signs of bleeding -cont to monitor for signs of bleeding -transfuse for signs of bleeding and plts <50k or when plts <10k -Hematology consulted, recs appreciated: DIC panel ordered, fibrinogen products pending #Hyponatremia #Hypokalemia #KADEN -Cr worsening today, 0.8>>1.5>>2.1>>2.3 -Concern for need for CRRT -Nephro following: management per nephro #HTN -pt unsure of home medications -CTM #NIDDM, type 2 #Hyperglycemia -holding home metformin while in-pt -Hgb A1c 6.7 -ISS low, accuchecks qAC/HS -detemir 10 qhs -Endo consulted, recs appreciated DVT PPx: SCDs Prognosis: very poor Time spent on encounter: 120 mins, 45 mins spent on critical care time. Critical Care Services performed include: Telemetry Review Hemodynamic measurement interpretation Laboratory data review and interpretation Radiology image review and interpretation Interpretation of ABG's Review of vent setting Discussion of patient's care with ICU team, Nursing staff Additional time spent with coordination of care, discussing case with specialists from [facility] Dr. Chavez, [facility] Dr. Lehman, ICU Dr. Omer, Dr. Hopper , Dr. Alvarez, Dr. Hopper and Dr. Doyle on POC, transfer and prognosis of pt. Time of note doesn't reflect time of encounter. Subjective Allergies: Coded Allergies: No Known Allergies (Unverified , 01/05/20) Subjective F/u for COVID positive, acute respiratory distress s/p intubation. Pt remains intubated, remains unresponsive off sedation. Fevers overnight. Plts remain low, no signs of bleeding at this time, Hematology on board. Pending transfer to [facility]. Objective Last 24 Hour Vital Signs Date Time Temp Pulse Resp B/P (MAP) Pulse Ox O2 Delivery O2 Flow Rate FiO2 01/14/20 07:24 76 24 100 01/14/20 07:00 119/66 01/14/20 07:00 76 24 119/66 (83) 100 01/14/20 06:00 97.6 83 24 116/66 (83) 100 01/14/20 06:00 116/66 01/14/20 05:00 80/50 01/14/20 05:00 74 24 87/58 (68) 100 01/14/20 04:00 78 01/14/20 04:00 121/64 01/14/20 04:00 100 01/14/20 04:00 78 24 121/64 (83) 100 01/14/20 04:00 Mechanical Ventilator 01/14/20 03:25 101 28 100 01/14/20 03:00 75 24 118/60 (79) 100 01/14/20 03:00 118/60 01/14/20 02:00 98.8 76 24 81/50 (60) 100 01/14/20 01:58 98/57 01/14/20 01:00 102/58 01/14/20 01:00 76 24 102/58 (73) 100 01/14/20 00:00 Mechanical Ventilator 01/14/20 00:00 77 24 112/64 (80) 100 01/14/20 00:00 112/64 01/13/20 23:15 89 18 100 01/13/20 23:00 117/66 20 23:00 88 23 119/67 (84) 100 01/13/20 22:00 130/69 20 21:00 127/66 01/13/20 21:00 99.6 96 24 127/66 (86) 100 01/13/20 20:00 100 01/13/20 20:00 Mechanical Ventilator 01/13/20 20:00 97 22 127/73 (91) 100 20 20:00 113/70 01/13/20 20:00 97 01/13/20 19:54 102 18 100 01/13/20 19:00 97 0 126/49 (74) 100 01/13/20 19:00 126/49 01/13/20 18:00 129/50 01/13/20 18:00 98 24 112/70 (84) 100 01/13/20 17:30 100 24 123/70 (87) 100 01/13/20 17:15 100 24 119/70 (86) 100 01/13/20 17:00 119/70 01/13/20 17:00 100.2 101 24 120/71 (87) 100 01/13/20 16:33 100.2 01/13/20 16:30 103 24 137/75 (95) 100 01/13/20 16:00 104 01/13/20 16:00 100.7 104 24 128/71 (90) 100 20 16:00 100 01/13/20 16:00 131/72 01/13/20 16:00 Mechanical Ventilator 01/13/20 15:30 105 24 136/69 (91) 100 20 15:05 100 18 100 01/13/20 15:00 112/56 01/13/20 15:00 104 24 135/74 (94) 100 01/13/20 14:00 101 24 136/73 (94) 100 4/20/20 14:00 136/76 01/13/20 13:30 101 24 142/65 (90) 100 01/13/20 13:00 104 24 139/75 (96) 100 01/13/20 13:00 145/71 01/13/20 12:00 99.5 103 24 143/75 (97) 100 01/13/20 12:00 102 01/13/20 12:00 Mechanical Ventilator 01/13/20 12:00 150/73 01/13/20 12:00 100 01/13/20 11:30 100 24 154/73 (100) 100 01/13/20 11:18 102 24 100 01/13/20 11:00 150/70 01/13/20 11:00 100 24 139/71 (93) 100 01/13/20 10:30 128/63 01/13/20 10:00 106 24 124/53 (76) 100 01/13/20 10:00 124/53 01/13/20 10:00 100 01/13/20 09:30 110 18 130/62 (84) 100 Intake and Output 01/13/20 01/14/20 19:00 07:00 Intake Total 1420.655 ml 1363.18 ml Output Total 2060 ml 650 ml Balance -639.345 ml 713.18 ml Free Water 140 ml IV Total 1260.655 ml 1223.18 ml Other 160 ml Output Urine Total 2060 ml 650 ml Laboratory Tests 01/13/20 16:15: White Blood Count 20.2H, Red Blood Count 3.89L, Hemoglobin 12.4, Hematocrit 36.9L, Mean Corpuscular Volume 95, Mean Corpuscular Hemoglobin 31.8H, Mean Corpuscular Hemoglobin Concent 33.5, Red Cell Distribution Width 13.0, Platelet Count 15L, Mean Platelet Volume 15.0H, Neutrophils (%) (Auto) , Lymphocytes (%) (Auto) , Monocytes (%) (Auto) , Eosinophils (%) (Auto) , Basophils (%) (Auto) , Differential Total Cells Counted 100, Neutrophils % (Manual) 94H, Lymphocytes % (Manual) 3L, Monocytes % (Manual) 1, Eosinophils % (Manual) 0, Basophils % ( Manual) 0, Band Neutrophils 2, Platelet Estimate DecreasedL, Platelet Morphology Normal, Red Blood Cell Morphology Normal, Reticulocyte Count 0.4L 01/13/20 16:40: Sodium Level 139, Potassium Level 3.2L, Chloride Level 103, Carbon Dioxide Level 23, Anion Gap 13, Blood Urea Nitrogen 44H, Creatinine 2.4H, Estimat Glomerular Filtration Rate 20.8, Glucose Level 326H, Hemoglobin A1c 7.3H, Calcium Level 7.4L, Phosphorus Level 3.1, Ferritin 754H, Lactate Dehydrogenase 2096H, Folate 10.4, Thyroid Stimulating Hormone (TSH) 0.033L 01/13/20 22:30: Prothrombin Time 12.4H, Prothromb Time International Ratio 1.2H 01/14/20 04:00: White Blood Count 18.9H, Red Blood Count 3.90L, Hemoglobin 12.4, Hematocrit 35.3L, Mean Corpuscular Volume 91, Mean Corpuscular Hemoglobin 31.9H, Mean Corpuscular Hemoglobin Concent 35.2, Red Cell Distribution Width 11.6, Platelet Count 16L, Mean Platelet Volume 8.5, Neutrophils (%) (Auto) , Lymphocytes (%) ( Auto) , Monocytes (%) (Auto) , Eosinophils (%) (Auto) , Basophils (%) (Auto) , Neutrophils % (Manual) [Pending], Lymphocytes % (Manual) [Pending], Platelet Estimate [Pending], Platelet Morphology [Pending], Sodium Level 138, Potassium Level 3.3L, Chloride Level 101, Carbon Dioxide Level 26, Anion Gap 11, Blood Urea Nitrogen 44H, Creatinine 2.3H, Estimat Glomerular Filtration Rate 21.9, Glucose Level 293H, Calcium Level 8.1L, Total Bilirubin 0.5, Aspartate Amino Transf (AST/SGOT) 193H, Alanine Aminotransferase (ALT/SGPT) 57, Alkaline Phosphatase 113, Total Protein 5.0L, Albumin 1.8L, Globulin 3.2, Albumin/ Globulin Ratio 0.6L Height (Feet): 5 Height (Inches): 4.00 Weight (Pounds): 131 Objective General: intubated, remains unresponsive off sedation HEENT: NCAT, ET tube in place CV: HR 76 on exam Pulm: b/l symmetrical rise in lungs GI: nondistended Ext: No lower extremity edema bilaterally Veronica Laurent M.D. Jan 14, 2020 09:12
--- NOTE | 2020-01-14 10:13 | NUR ---
RADIOLOGY DEPT., CHEST X-RAY DONE.-P.DYE
--- NOTE | 2020-01-14 10:30 | NUR ---
NURSE NOTES: Dr Omer on the unit, updated him on pt's current condition. STAT ABG ordered, RT Lamont informed.
--- NOTE | 2020-01-14 11:59 | NUR ---
CASE MANAGEMENT: REVIEW SI: COVID-19 . PNA T 96.0 HR 75 RR 25 BP 67/44 SAT 100% FIO2 100 WBC 18.9 BUN 44 CR 2.3 IS: AZITHROMYCIN IV Q24HR NA IVF @ 75ML/HR ZOSYN IV Q8HR ZYVOX IV Q12HR LEVOPHED IV Q24HR KCl 20MEQ @ 50ML/HR ICU STATUS DCP: PATIENT IS FROM HOME. ORDER TO TRANSFER TO [facility] [phone]. ORDERS TO TRANSFER TO [facility] [phone]. ALL CLINICALS FAXED TO BOTH TRANSFER CENTERS.
--- NOTE | 2020-01-14 12:13 | Nephrology Progress Note ---
Assessment/Plan Plan #KADEN- concerns for developing ATN in the setting of sepsis- r/o vanco toxicity- now with worsening renal failure #Hyponatremia- mild- l r/o SIADH in the setting of pneumonia- improved #hypokalemia- repleted #COVID pneumonia #hypoxemic respiratary failure #HTN #DM #hypokalemia- cautiously replete - Albumin 25g x1 - lasix 40 IV once - monitor UOP - maharkur placamenet to HD initiation if uop declines - plan for transfer to [facility] for higher level care- will likely need CVVHD and possibly echo support - CXR with worsening infiltrates - prone positioning initiated - switching vanco to linezolid - s/p actemra - hold amlodipine 5mg daily - BG control - breathing tx per pulm - supplemental O2 via vent Subjective ROS Limited/Unobtainable: Yes Subjective intubated for worsening resp failure recevied actemra worsening resp status cr up to 2.4 UOP 2.7L Fio2 100 chest xray; Impression: Probably stable left and slightly worse right parenchymal opacities , over one day, appearance suggestive of pneumonia/ARDS Objective Objective Last 24 Hour Vital Signs Date Time Temp Pulse Resp B/P (MAP) Pulse Ox O2 Delivery O2 Flow Rate FiO2 01/14/20 11:00 81 24 115/59 (77) 100 01/14/20 11:00 115/59 01/14/20 10:30 81 24 130/65 (86) 100 01/14/20 10:00 127/66 01/14/20 10:00 81 24 131/65 (87) 100 01/14/20 09:30 92 25 131/66 (87) 100 01/14/20 09:10 97 24 100 01/14/20 09:00 75 24 123/66 (85) 100 01/14/20 09:00 67/44 01/14/20 08:30 74 24 123/66 (85) 100 01/14/20 08:00 Mechanical Ventilator 01/14/20 08:00 118/64 01/14/20 08:00 96.0 75 24 118/66 (83) 100 01/14/20 08:00 100 01/14/20 08:00 75 01/14/20 07:30 76 24 117/65 (82) 100 4/21/20 07:24 76 24 100 01/14/20 07:00 119/66 01/14/20 07:00 76 24 119/66 (83) 100 01/14/20 06:00 97.6 83 24 116/66 (83) 100 01/14/20 06:00 116/66 01/14/20 05:00 80/50 01/14/20 05:00 74 24 87/58 (68) 100 01/14/20 04:00 78 01/14/20 04:00 121/64 01/14/20 04:00 100 01/14/20 04:00 78 24 121/64 (83) 100 01/14/20 04:00 Mechanical Ventilator 01/14/20 03:25 101 28 100 01/14/20 03:00 75 24 118/60 (79) 100 01/14/20 03:00 118/60 01/14/20 02:00 98.8 76 24 81/50 (60) 100 01/14/20 01:58 98/57 01/14/20 01:00 102/58 01/14/20 01:00 76 24 102/58 (73) 100 01/14/20 00:00 Mechanical Ventilator 01/14/20 00:00 77 24 112/64 (80) 100 01/14/20 00:00 112/64 01/13/20 23:15 89 18 100 01/13/20 23:00 117/66 01/13/20 23:00 88 23 119/67 (84) 100 01/13/20 22:00 130/69 01/13/20 21:00 127/66 01/13/20 21:00 99.6 96 24 127/66 (86) 100 01/13/20 20:00 100 01/13/20 20:00 Mechanical Ventilator 01/13/20 20:00 97 22 127/73 (91) 100 01/13/20 20:00 113/70 01/13/20 20:00 97 01/13/20 19:54 102 18 100 01/13/20 19:00 97 0 126/49 (74) 100 01/13/20 19:00 126/49 01/13/20 18:00 129/50 01/13/20 18:00 98 24 112/70 (84) 100 01/13/20 17:30 100 24 123/70 (87) 100 01/13/20 17:15 100 24 119/70 (86) 100 01/13/20 17:00 119/70 01/13/20 17:00 100.2 101 24 120/71 (87) 100 01/13/20 16:33 100.2 01/13/20 16:30 103 24 137/75 (95) 100 01/13/20 16:00 104 01/13/20 16:00 100.7 104 24 128/71 (90) 100 01/13/20 16:00 100 01/13/20 16:00 131/72 01/13/20 16:00 Mechanical Ventilator 01/13/20 15:30 105 24 136/69 (91) 100 01/13/20 15:05 100 18 100 01/13/20 15:00 112/56 01/13/20 15:00 104 24 135/74 (94) 100 01/13/20 14:00 101 24 136/73 (94) 100 01/13/20 14:00 136/76 01/13/20 13:30 101 24 142/65 (90) 100 01/13/20 13:00 104 24 139/75 (96) 100 01/13/20 13:00 145/71 Intake and Output 01/13/20 01/14/20 19:00 07:00 Intake Total 1420.655 ml 1363.18 ml Output Total 2060 ml 650 ml Balance -639.345 ml 713.18 ml Free Water 140 ml IV Total 1260.655 ml 1223.18 ml Other 160 ml Output Urine Total 2060 ml 650 ml Laboratory Tests 01/13/20 16:15: White Blood Count 20.2H, Red Blood Count 3.89L, Hemoglobin 12.4, Hematocrit 36.9L, Mean Corpuscular Volume 95, Mean Corpuscular Hemoglobin 31.8H, Mean Corpuscular Hemoglobin Concent 33.5, Red Cell Distribution Width 13.0, Platelet Count 15L, Mean Platelet Volume 15.0H, Neutrophils (%) (Auto) , Lymphocytes (%) (Auto) , Monocytes (%) (Auto) , Eosinophils (%) (Auto) , Basophils (%) (Auto) , Differential Total Cells Counted 100, Neutrophils % (Manual) 94H, Lymphocytes % (Manual) 3L, Monocytes % (Manual) 1, Eosinophils % (Manual) 0, Basophils % ( Manual) 0, Band Neutrophils 2, Other Cell Type Pathologist review, Platelet Estimate DecreasedL, Platelet Morphology Normal, Red Blood Cell Morphology Normal, Reticulocyte Count 0.4L 01/13/20 16:40: Sodium Level 139, Potassium Level 3.2L, Chloride Level 103, Carbon Dioxide Level 23, Anion Gap 13, Blood Urea Nitrogen 44H, Creatinine 2.4H, Estimat Glomerular Filtration Rate 20.8, Glucose Level 326H, Hemoglobin A1c 7.3H, Calcium Level 7.4L, Phosphorus Level 3.1, Ferritin 754H, Lactate Dehydrogenase 2096H, Folate 10.4, Thyroid Stimulating Hormone (TSH) 0.033L 01/13/20 22:30: Prothrombin Time 12.4H, Prothromb Time International Ratio 1.2H 01/14/20 04:00: White Blood Count 18.9H, Red Blood Count 3.90L, Hemoglobin 12.4, Hematocrit 35.3L, Mean Corpuscular Volume 91, Mean Corpuscular Hemoglobin 31.9H, Mean Corpuscular Hemoglobin Concent 35.2, Red Cell Distribution Width 11.6, Platelet Count 16L, Mean Platelet Volume 8.5, Neutrophils (%) (Auto) , Lymphocytes (%) ( Auto) , Monocytes (%) (Auto) , Eosinophils (%) (Auto) , Basophils (%) (Auto) , Differential Total Cells Counted 100, Neutrophils % (Manual) 91H, Lymphocytes % (Manual) 5L, Monocytes % (Manual) 2, Eosinophils % (Manual) 1, Basophils % ( Manual) 0, Band Neutrophils 1, Platelet Estimate DecreasedL, Platelet Morphology Normal, Red Blood Cell Morphology Normal, Sodium Level 138, Potassium Level 3.3L, Chloride Level 101, Carbon Dioxide Level 26, Anion Gap 11 , Blood Urea Nitrogen 44H, Creatinine 2.3H, Estimat Glomerular Filtration Rate 21.9, Glucose Level 293H, Calcium Level 8.1L, Total Bilirubin 0.5, Aspartate Amino Transf (AST/SGOT) 193H, Alanine Aminotransferase (ALT/SGPT) 57, Alkaline Phosphatase 113, Total Protein 5.0L, Albumin 1.8L, Globulin 3.2, Albumin/ Globulin Ratio 0.6L 01/14/20 10:52: Arterial Blood pH 7.374, Arterial Blood Partial Pressure CO2 35.3, Arterial Blood Partial Pressure O2 102.6H, Arterial Blood HCO3 20.1L, Arterial Blood Oxygen Saturation 96.8, Arterial Blood Base Excess -4.4L, Jun Test Positive Height (Feet): 5 Height (Inches): 4.00 Weight (Pounds): 131 Objective General: intubated, unresponsive off sedation HEENT: NCAT, ET tube in place CV: tachycardic, Pulm: coarse rhonchi, b/l symmetrical rise in lungs GI: Soft, nontender, nondistended Ext: No lower extremity edema bilaterally Justin Hopper M.D. Jan 14, 2020 12:13
--- NOTE | 2020-01-14 12:14 | Pulmonology Progress Note ---
Assessment/Plan Assessment/Plan 1. Bilateral pneumonia. COVID 19 positivity 2. Hemoptysis. Resolved 3. Hypertension 4. Diabetes. 5. Hyponatremia 6. Respiratory failure; intubated 01/10/20 7. ARDS 8. ATN DISCUSSION: Agree with management and care. Will adjust vent Currently unresponsive IV fluids plus bolus Has received Actemra and Ivermecti On Azithro Discussed previously with patient and advised risks and benefits of Actemra and Ivermectin Patient agreed May need HD Discussed possibility of transfer to [facility] for ECMO however currently her PaO2 is 132 on 100% FiO2 and PEEP 8 therefore she is not a candidate She may benefit from HD Discussed with daughter in detail Needs neuro eval for unresponsiveness; no [place] BUT no decorticate signs either; may be leftover effect from Fentanyl Shaun Omer M.D. Subjective Interval Events: Not doing well Constitutional: Reports: no symptoms HEENT: Repors: no symptoms Respiratory: Reports: no symptoms Cardiovascular: Reports: no symptoms Gastrointestinal/Abdominal: Reports: no symptoms Genitourinary: Reports: no symptoms Allergies: Coded Allergies: No Known Allergies (Unverified , 01/05/20) Objective Last 24 Hour Vital Signs Date Time Temp Pulse Resp B/P (MAP) Pulse Ox O2 Delivery O2 Flow Rate FiO2 01/14/20 11:00 81 24 115/59 (77) 100 01/14/20 11:00 115/59 01/14/20 10:30 81 24 130/65 (86) 100 01/14/20 10:00 127/66 01/14/20 10:00 81 24 131/65 (87) 100 01/14/20 09:30 92 25 131/66 (87) 100 01/14/20 09:10 97 24 100 01/14/20 09:00 75 24 123/66 (85) 100 01/14/20 09:00 67/44 01/14/20 08:30 74 24 123/66 (85) 100 01/14/20 08:00 Mechanical Ventilator 01/14/20 08:00 118/64 01/14/20 08:00 96.0 75 24 118/66 (83) 100 01/14/20 08:00 100 01/14/20 08:00 75 01/14/20 07:30 76 24 117/65 (82) 100 01/14/20 07:24 76 24 100 01/14/20 07:00 119/66 01/14/20 07:00 76 24 119/66 (83) 100 01/14/20 06:00 97.6 83 24 116/66 (83) 100 01/14/20 06:00 116/66 01/14/20 05:00 80/50 01/14/20 05:00 74 24 87/58 (68) 100 01/14/20 04:00 78 01/14/20 04:00 121/64 01/14/20 04:00 100 01/14/20 04:00 78 24 121/64 (83) 100 01/14/20 04:00 Mechanical Ventilator 01/14/20 03:25 101 28 100 01/14/20 03:00 75 24 118/60 (79) 100 01/14/20 03:00 118/60 01/14/20 02:00 98.8 76 24 81/50 (60) 100 01/14/20 01:58 98/57 01/14/20 01:00 102/58 01/14/20 01:00 76 24 102/58 (73) 100 01/14/20 00:00 Mechanical Ventilator 01/14/20 00:00 77 24 112/64 (80) 100 01/14/20 00:00 112/64 01/13/20 23:15 89 18 100 01/13/20 23:00 117/66 01/13/20 23:00 88 23 119/67 (84) 100 01/13/20 22:00 130/69 01/13/20 21:00 127/66 01/13/20 21:00 99.6 96 24 127/66 (86) 100 01/13/20 20:00 100 01/13/20 20:00 Mechanical Ventilator 01/13/20 20:00 97 22 127/73 (91) 100 01/13/20 20:00 113/70 01/13/20 20:00 97 01/13/20 19:54 102 18 100 01/13/20 19:00 97 0 126/49 (74) 100 01/13/20 19:00 126/49 4/20/20 18:00 129/50 01/13/20 18:00 98 24 112/70 (84) 100 01/13/20 17:30 100 24 123/70 (87) 100 01/13/20 17:15 100 24 119/70 (86) 100 01/13/20 17:00 119/70 01/13/20 17:00 100.2 101 24 120/71 (87) 100 01/13/20 16:33 100.2 01/13/20 16:30 103 24 137/75 (95) 100 01/13/20 16:00 104 01/13/20 16:00 100.7 104 24 128/71 (90) 100 01/13/20 16:00 100 01/13/20 16:00 131/72 01/13/20 16:00 Mechanical Ventilator 01/13/20 15:30 105 24 136/69 (91) 100 01/13/20 15:05 100 18 100 01/13/20 15:00 112/56 01/13/20 15:00 104 24 135/74 (94) 100 01/13/20 14:00 101 24 136/73 (94) 100 01/13/20 14:00 136/76 01/13/20 13:30 101 24 142/65 (90) 100 01/13/20 13:00 104 24 139/75 (96) 100 01/13/20 13:00 145/71 01/13/20 12:00 99.5 103 24 143/75 (97) 100 01/13/20 12:00 102 01/13/20 12:00 Mechanical Ventilator 01/13/20 12:00 150/73 01/13/20 12:00 100 Intake and Output 01/13/20 01/14/20 19:00 07:00 Intake Total 1420.655 ml 1363.18 ml Output Total 2060 ml 650 ml Balance -639.345 ml 713.18 ml Free Water 140 ml IV Total 1260.655 ml 1223.18 ml Other 160 ml Output Urine Total 2060 ml 650 ml General Appearance: no acute distress HEENT: normocephalic Respiratory/Chest: chest wall non-tender, lungs clear Cardiovascular: normal peripheral pulses, normal rate Abdomen: normal bowel sounds Genitourinary: normal external genitalia Microbiology Date/Time Source Procedure Growth Status 01/12/20 14:00 Urine,Clean Catch Urine Culture - Preliminary NO GROWTH AFTER 24 HOURS Resulted Laboratory Tests 01/13/20 16:15: White Blood Count 20.2H, Red Blood Count 3.89L, Hemoglobin 12.4, Hematocrit 36.9L, Mean Corpuscular Volume 95, Mean Corpuscular Hemoglobin 31.8H, Mean Corpuscular Hemoglobin Concent 33.5, Red Cell Distribution Width 13.0, Platelet Count 15L, Mean Platelet Volume 15.0H, Neutrophils (%) (Auto) , Lymphocytes (%) (Auto) , Monocytes (%) (Auto) , Eosinophils (%) (Auto) , Basophils (%) (Auto) , Differential Total Cells Counted 100, Neutrophils % (Manual) 94H, Lymphocytes % (Manual) 3L, Monocytes % (Manual) 1, Eosinophils % (Manual) 0, Basophils % ( Manual) 0, Band Neutrophils 2, Other Cell Type Pathologist review, Platelet Estimate DecreasedL, Platelet Morphology Normal, Red Blood Cell Morphology Normal, Reticulocyte Count 0.4L 01/13/20 16:40: Sodium Level 139, Potassium Level 3.2L, Chloride Level 103, Carbon Dioxide Level 23, Anion Gap 13, Blood Urea Nitrogen 44H, Creatinine 2.4H, Estimat Glomerular Filtration Rate 20.8, Glucose Level 326H, Hemoglobin A1c 7.3H, Calcium Level 7.4L, Phosphorus Level 3.1, Ferritin 754H, Lactate Dehydrogenase 2096H, Folate 10.4, Thyroid Stimulating Hormone (TSH) 0.033L 01/13/20 22:30: Prothrombin Time 12.4H, Prothromb Time International Ratio 1.2H 01/14/20 04:00: White Blood Count 18.9H, Red Blood Count 3.90L, Hemoglobin 12.4, Hematocrit 35.3L, Mean Corpuscular Volume 91, Mean Corpuscular Hemoglobin 31.9H, Mean Corpuscular Hemoglobin Concent 35.2, Red Cell Distribution Width 11.6, Platelet Count 16L, Mean Platelet Volume 8.5, Neutrophils (%) (Auto) , Lymphocytes (%) ( Auto) , Monocytes (%) (Auto) , Eosinophils (%) (Auto) , Basophils (%) (Auto) , Differential Total Cells Counted 100, Neutrophils % (Manual) 91H, Lymphocytes % (Manual) 5L, Monocytes % (Manual) 2, Eosinophils % (Manual) 1, Basophils % ( Manual) 0, Band Neutrophils 1, Platelet Estimate DecreasedL, Platelet Morphology Normal, Red Blood Cell Morphology Normal, Sodium Level 138, Potassium Level 3.3L, Chloride Level 101, Carbon Dioxide Level 26, Anion Gap 11 , Blood Urea Nitrogen 44H, Creatinine 2.3H, Estimat Glomerular Filtration Rate 21.9, Glucose Level 293H, Calcium Level 8.1L, Total Bilirubin 0.5, Aspartate Amino Transf (AST/SGOT) 193H, Alanine Aminotransferase (ALT/SGPT) 57, Alkaline Phosphatase 113, Total Protein 5.0L, Albumin 1.8L, Globulin 3.2, Albumin/ Globulin Ratio 0.6L 01/14/20 10:52: Arterial Blood pH 7.374, Arterial Blood Partial Pressure CO2 35.3, Arterial Blood Partial Pressure O2 102.6H, Arterial Blood HCO3 20.1L, Arterial Blood Oxygen Saturation 96.8, Arterial Blood Base Excess -4.4L, Jun Test Positive Current Medications Medications (Trade) Dose Ordered Sig/Neha Route PRN Reason Start Time Stop Time Status Last Admin Dose Admin Acetaminophen (Tylenol) 650 mg Q4H PRN ORAL Mild Pain (Pain Scale 1-3) 01/08/20 09:00 02/04/20 08:59 01/13/20 16:03 Acetaminophen (Tylenol) 650 mg Q4H PRN ORAL Temp >100.5 01/08/20 09:00 02/04/20 08:59 Artificial Tears (Akwa-Tears) 2 drop Q6H PRN BOTH EYES Dry Eyes 01/13/20 12:00 02/12/20 11:59 01/14/20 09:00 Azithromycin 250 mg/Dextrose 275 ml @ 275 mls/hr Q24HRS IV 01/10/20 11:00 01/15/20 10:59 01/14/20 09:00 Benzonatate (Tessalon Perles) 100 mg Q8H PRN ORAL For Cough 01/08/20 14:00 02/07/20 13:59 Chlorhexidine Gluconate (Saritha-Hex 2%) 1 applic DAILY@2000 TOPIC 01/12/20 20:00 04/11/20 19:59 01/13/20 20:47 Dextrose (Dextrose 50%) 25 ml Q30M PRN IV Hypoglycemia 4/15/20 08:30 04/04/20 08:59 Dextrose (Dextrose 50%) 50 ml Q30M PRN IV Hypoglycemia 01/08/20 08:30 04/04/20 08:59 Guaifenesin/ Dextromethorphan (Robitussin DM Syrup) 10 ml Q4H PRN ORAL For Cough 01/08/20 09:15 04/05/20 01:14 01/08/20 09:20 Insulin Aspart (NovoLOG) BEFORE MEALS AND HS SUBQ 01/08/20 11:30 04/06/20 16:29 01/14/20 06:19 Insulin Detemir (Levemir) 10 units BEDTIME SUBQ 01/14/20 21:00 04/13/20 20:59 Linezolid 300 ml @ 300 mls/hr EVERY 12 HOURS IVPB 01/12/20 21:00 01/19/20 20:59 01/14/20 08:59 Midazolam HCl 100 ml @ 0 mls/hr Q24H PRN IV Agitation 01/11/20 16:15 04/10/20 16:14 01/12/20 06:10 Morphine Sulfate (Morphine Sulfate) 1 mg EVERY 6 HOURS PRN IVP Severe Pain (Pain Scale 7-10) 01/09/20 20:30 01/16/20 20:29 01/12/20 00:18 Norepinephrine Bitartrate 8 mg/ Dextrose 558 ml @ 0 mls/hr Q24H IV 01/13/20 10:00 02/12/20 09:59 01/14/20 01:58 Piperacillin Sod/ Tazobactam Sod 3.375 gm/Sodium Chloride 110 ml @ 27.5 mls/hr Q8H IVPB 01/11/20 20:00 01/18/20 19:59 01/14/20 04:09 Sodium 1,000 ml @ 75 mls/hr [id number] IV 01/14/20 02:00 02/13/20 01:59 01/14/20 02:00 Shaun Omer MD Jan 14, 2020 12:14
--- NOTE | 2020-01-14 12:15 | NUR ---
NURSE NOTES: Collected blood for lab tests and sent down to the lab. Pt repositioned and oral care done. No distress noted at this time. Pt remains unresponsive.
--- NOTE | 2020-01-14 12:28 | NUR ---
*-* INSURANCE *-* UPDATED CLINICALS AND REVIEWS HAVE BEEN FAXED TO: [facility] TRK# [id number] VIPUL:BLESSING P: [phone] F: [phone] Addendum: 01/13/20 at 1440 by OBED ARZOLA CM F: [phone]
[2020-01-14 12:37] LABS: HEMATOCRIT 32.1 % (37.0-47.0); HEMOGLOBIN 11.3 G/DL (12.0-16.0); MEAN CORPUSCULAR VOLUME 90 FL (80-99); PLATELET COUNT 11 K/UL (150-450); RED BLOOD COUNT 3.57 M/UL (4.20-5.40); RED CELL DISTRIBUTION WIDTH 11.5 % (11.6-14.8); WHITE BLOOD COUNT 18.6 K/UL (4.8-10.8)
[2020-01-14 12:44] LABS: INR 1.1 (0.9-1.1)
--- NOTE | 2020-01-14 13:43 | Infectious Diseases Prog Note ---
Assessment/Plan Assessment/Plan ASSESSMENT AND PLAN: 1. covid-19 virus infection with pna, possible bacterial pna, hypoxia, vent, respiratory failure, sepsis/shock, fevers, leukocytosis, ARF, ARDS, non-responsive - s/p hydroxychloroquine - day # 5/5 - cover bacterial pna/infection with zosyn, zyvox, azithromycin - thrombocytopenia unlikely secondary to linezolid since just started () and developing prior to linezolid being started, thrombocytopenia likely secondary to sepsis and DIC - avoid nephrotoxic antibiotics if possible - tocilizumab x 1 given - monitor labs and chest x-ray - monitor respiratory status - chest x-ray worse - critical - d/w Dr. Laurent 2. Diabetes. 3. Hypertension. 4. Hemoptysis. 5. Continue treatment per primary consultants. 6. No known drug allergies. 7. Social history is negative. 8. Family history is noncontributory. 9. MAR was noted. 10. Case discussed with RN. 11. Continue treatment per primary consultants. Subjective Constitutional: Reports: fever, other - + vent, + pressors, non-responsive HEENT: Reports: congestion Respiratory: Reports: shortness of breath Gastrointestinal/Abdominal: Denies: diarrhea Genitourinary: Reports: other - + pollard Neurologic: Reports: other - non-responsive Skin: Denies: rash Hematologic: Denies: bleeding - d/w RN - no bleeding noted Allergies: Coded Allergies: No Known Allergies (Unverified , 01/05/20) Objective Vital Signs Last 24 Hour Vital Signs Date Time Temp Pulse Resp B/P (MAP) Pulse Ox O2 Delivery O2 Flow Rate FiO2 01/14/20 12:30 86 24 113/53 (73) 100 01/14/20 12:00 86 01/14/20 12:00 Mechanical Ventilator 01/14/20 12:00 100 01/14/20 12:00 109/56 01/14/20 12:00 97.9 84 24 114/57 (76) 100 01/14/20 11:30 80 24 114/59 (77) 100 01/14/20 11:00 81 24 115/59 (77) 100 01/14/20 11:00 115/59 01/14/20 10:30 81 24 130/65 (86) 100 01/14/20 10:00 127/66 4/21/20 10:00 81 24 131/65 (87) 100 01/14/20 09:30 92 25 131/66 (87) 100 01/14/20 09:10 97 24 100 01/14/20 09:00 75 24 123/66 (85) 100 01/14/20 09:00 67/44 01/14/20 08:30 74 24 123/66 (85) 100 01/14/20 08:00 Mechanical Ventilator 01/14/20 08:00 118/64 01/14/20 08:00 96.0 75 24 118/66 (83) 100 01/14/20 08:00 100 01/14/20 08:00 75 01/14/20 07:30 76 24 117/65 (82) 100 01/14/20 07:24 76 24 100 01/14/20 07:00 119/66 01/14/20 07:00 76 24 119/66 (83) 100 01/14/20 06:00 97.6 83 24 116/66 (83) 100 01/14/20 06:00 116/66 01/14/20 05:00 80/50 01/14/20 05:00 74 24 87/58 (68) 100 01/14/20 04:00 78 01/14/20 04:00 121/64 01/14/20 04:00 100 01/14/20 04:00 78 24 121/64 (83) 100 01/14/20 04:00 Mechanical Ventilator 01/14/20 03:25 101 28 100 01/14/20 03:00 75 24 118/60 (79) 100 01/14/20 03:00 118/60 01/14/20 02:00 98.8 76 24 81/50 (60) 100 01/14/20 01:58 98/57 01/14/20 01:00 102/58 01/14/20 01:00 76 24 102/58 (73) 100 01/14/20 00:00 Mechanical Ventilator 01/14/20 00:00 77 24 112/64 (80) 100 01/14/20 00:00 112/64 01/13/20 23:15 89 18 100 01/13/20 23:00 117/66 01/13/20 23:00 88 23 119/67 (84) 100 01/13/20 22:00 130/69 4 21:00 127/66 01/13/20 21:00 99.6 96 24 127/66 (86) 100 01/13/20 20:00 100 01/13/20 20:00 Mechanical Ventilator 01/13/20 20:00 97 22 127/73 (91) 100 01/13/20 20:00 113/70 01/13/20 20:00 97 01/13/20 19:54 102 18 100 01/13/20 19:00 97 0 126/49 (74) 100 01/13/20 19:00 126/49 01/13/20 18:00 129/50 01/13/20 18:00 98 24 112/70 (84) 100 01/13/20 17:30 100 24 123/70 (87) 100 01/13/20 17:15 100 24 119/70 (86) 100 01/13/20 17:00 119/70 01/13/20 17:00 100.2 101 24 120/71 (87) 100 01/13/20 16:33 100.2 01/13/20 16:30 103 24 137/75 (95) 100 01/13/20 16:00 104 01/13/20 16:00 100.7 104 24 128/71 (90) 100 01/13/20 16:00 100 01/13/20 16:00 131/72 01/13/20 16:00 Mechanical Ventilator 01/13/20 15:30 105 24 136/69 (91) 100 01/13/20 15:05 100 18 100 01/13/20 15:00 112/56 01/13/20 15:00 104 24 135/74 (94) 100 01/13/20 14:00 101 24 136/73 (94) 100 01/13/20 14:00 136/76 Height (Feet): 5 Height (Inches): 4.00 Weight (Pounds): 131 HEENT: normocephalic, atraumatic, other - oral - inubated Respiratory/Chest: crackles/rales, rhonchi - bilaterally Cardiovascular: normal rate, regular rhythm Abdomen: normal bowel sounds, soft, non tender Genitourinary: other - + pollard Neurologic/Psychiatric: unresponsiveness Objective 01/07/20 - Procedure: XRAY Chest 1v Indication: Shortness of breath Technique: One view of the chest Comparison: For 09/13/2020 Findings: There inspiration currently. Bilateral mostly central mostly interstitial disease with hazy airspace opacity is again demonstrated. Consolidation appears less dense at the lung bases, probably due to the better inspiratory effort, but there does appear to be more disease in the upper lungs. The pleural spaces are clear. The heart size is normal. Impression: Shifting infiltrates, with apparent partial clearing of lung bases but increased disease in the upper lungs. Change in appearance may be in part due to improved inspiratory effort, however. Chest x-ray - 01/09/20 - Procedure: XRAY Chest 1v Indication: Shortness of breath Technique: One view of the chest Comparison: 01/07/2020 Findings: Hazy infiltrates throughout the right lung have worsened since prior study. There is also slight worsening of hazy left mid and lower lung infiltrates since prior study. The heart size is normal. The pleural spaces remain clear. Impression: Worsening bilateral infiltrates, likely pneumonia, right greater than left, over 2 days Chest x-ray - 01/11/20 - IMPRESSION: 1. Endotracheal tube tip approximately 4.3 cm above the lauri, with expected radiographic position. Chest x-ray - 01/13/20 - Procedure: XRAY Chest 1v Indication: Shortness of breath Technique: One view of the chest Comparison: 01/12/2020 Findings: Solitary inspiration on the current exam. Interstitial and airspace opacities appear slightly improved, but this is probably artifact of the greater lung volumes. Diffuse mostly airspace opacities in the right lung appear worse than on the prior exam despite the better inspiration. No effusions. The heart size is normal. Stable satisfactory positions of endotracheal and orogastric tubes. Impression: Probably stable left and slightly worse right parenchymal opacities , over one day, appearance suggestive of pneumonia/ARDS 2. No significant interval change in the diffuse interstitial and alveolar opacities in bilateral lungs. This is concerning for multifocal pneumonia versus pulmonary edema or ARDS. Microbiology Date/Time Source Procedure Growth Status 01/12/20 14:00 Urine,Clean Catch Urine Culture - Preliminary NO GROWTH AFTER 24 HOURS Resulted Laboratory Tests Test 01/13/20 16:15 01/13/20 16:40 01/13/20 22:30 01/14/20 04:00 White Blood Count 20.2 K/UL (4.8-10.8) H 18.9 K/UL (4.8-10.8) H Red Blood Count 3.89 M/UL (4.20-5.40) L 3.90 M/UL (4.20-5.40) L Hemoglobin 12.4 G/DL (12.0-16.0) 12.4 G/DL (12.0-16.0) Hematocrit 36.9 % (37.0-47.0) L 35.3 % (37.0-47.0) L Mean Corpuscular Volume 95 FL (80-99) 91 FL (80-99) Mean Corpuscular Hemoglobin 31.8 PG (27.0-31.0) H 31.9 PG (27.0-31.0) H Mean Corpuscular Hemoglobin Concent 33.5 G/DL (32.0-36.0) 35.2 G/DL (32.0-36.0) Red Cell Distribution Width 13.0 % (11.6-14.8) 11.6 % (11.6-14.8) Platelet Count 15 K/UL (150-450) L 16 K/UL (150-450) L Mean Platelet Volume 15.0 FL (6.5-10.1) H 8.5 FL (6.5-10.1) Neutrophils (%) (Auto) % (45.0-75.0) % (45.0-75.0) Lymphocytes (%) (Auto) % (20.0-45.0) % (20.0-45.0) Monocytes (%) (Auto) % (1.0-10.0) % (1.0-10.0) Eosinophils (%) (Auto) % (0.0-3.0) % (0.0-3.0) Basophils (%) (Auto) % (0.0-2.0) % (0.0-2.0) Differential Total Cells Counted 100 100 Neutrophils % (Manual) 94 % (45-75) H 91 % (45-75) H Lymphocytes % (Manual) 3 % (20-45) L 5 % (20-45) L Monocytes % (Manual) 1 % (1-10) 2 % (1-10) Eosinophils % (Manual) 0 % (0-3) 1 % (0-3) Basophils % (Manual) 0 % (0-2) 0 % (0-2) Band Neutrophils 2 % (0-8) 1 % (0-8) Other Cell Type Pathologist review Platelet Estimate Decreased L Decreased L Platelet Morphology Normal Normal Red Blood Cell Morphology Normal Normal Reticulocyte Count 0.4 % (0.5-2.0) L Sodium Level 139 MMOL/L (136-145) 138 MMOL/L (136-145) Potassium Level 3.2 MMOL/L (3.5-5.1) L 3.3 MMOL/L (3.5-5.1) L Chloride Level 103 MMOL/L (98-107) 101 MMOL/L (98-107) Carbon Dioxide Level 23 MMOL/L (21-32) 26 MMOL/L (21-32) Anion Gap 13 mmol/L (5-15) 11 mmol/L (5-15) Blood Urea Nitrogen 44 mg/dL (7-18) H 44 mg/dL (7-18) H Creatinine 2.4 MG/DL (0.55-1.30) H 2.3 MG/DL (0.55-1.30) H Estimat Glomerular Filtration Rate 20.8 mL/min (>60) 21.9 mL/min (>60) Glucose Level 326 MG/DL (74-106) H 293 MG/DL (74-106) H Hemoglobin A1c 7.3 % (4.3-6.0) H Calcium Level 7.4 MG/DL (8.5-10.1) L 8.1 MG/DL (8.5-10.1) L Phosphorus Level 3.1 MG/DL (2.5-4.9) Ferritin 754 NG/ML (8-388) H Lactate Dehydrogenase 2096 U/L (81-234) H Folate 10.4 NG/ML (8.6-58.9) Thyroid Stimulating Hormone (TSH) 0.033 uiU/mL (0.358-3.740) Prothrombin Time 12.4 SEC (9.30-11.50) H Prothromb Time International Ratio 1.2 (0.9-1.1) H Total Bilirubin 0.5 MG/DL (0.2-1.0) Aspartate Amino Transf (AST/SGOT) 193 U/L (15-37) H Alanine Aminotransferase (ALT/SGPT) 57 U/L (12-78) Alkaline Phosphatase 113 U/L (46-116) Total Protein 5.0 G/DL (6.4-8.2) L Albumin 1.8 G/DL (3.4-5.0) L Globulin 3.2 g/dL Albumin/Globulin Ratio 0.6 (1.0-2.7) L Test 01/14/20 10:52 01/14/20 12:15 Arterial Blood pH 7.374 (7.350-7.450) Arterial Blood Partial Pressure CO2 35.3 mmHg (35.0-45.0) Arterial Blood Partial Pressure O2 102.6 mmHg (75.0-100.0) H Arterial Blood HCO3 20.1 mmol/L (22.0-26.0) L Arterial Blood Oxygen Saturation 96.8 % (95-100) Arterial Blood Base Excess -4.4 (-2-2) L Jun Test Positive White Blood Count 18.6 K/UL (4.8-10.8) H Red Blood Count 3.57 M/UL (4.20-5.40) L Hemoglobin 11.3 G/DL (12.0-16.0) L Hematocrit 32.1 % (37.0-47.0) L Mean Corpuscular Volume 90 FL (80-99) Mean Corpuscular Hemoglobin 31.5 PG (27.0-31.0) H Mean Corpuscular Hemoglobin Concent 35.1 G/DL (32.0-36.0) Red Cell Distribution Width 11.5 % (11.6-14.8) L Platelet Count 11 K/UL (150-450) L Mean Platelet Volume 10.0 FL (6.5-10.1) Neutrophils (%) (Auto) % (45.0-75.0) Lymphocytes (%) (Auto) % (20.0-45.0) Monocytes (%) (Auto) % (1.0-10.0) Eosinophils (%) (Auto) % (0.0-3.0) Basophils (%) (Auto) % (0.0-2.0) Differential Total Cells Counted 100 Neutrophils % (Manual) 93 % (45-75) H Lymphocytes % (Manual) 5 % (20-45) L Monocytes % (Manual) 1 % (1-10) Eosinophils % (Manual) 1 % (0-3) Basophils % (Manual) 0 % (0-2) Band Neutrophils 0 % (0-8) Platelet Estimate Decreased L Platelet Morphology Normal Red Blood Cell Morphology Normal Prothrombin Time 11.9 SEC (9.30-11.50) H Prothromb Time International Ratio 1.1 (0.9-1.1) Fibrinogen 260 mg/dL (200-400) Fibrin Degradation Products, Quant Pending Current Medications Medications (Trade) Dose Ordered Sig/Neha Route PRN Reason Start Time Stop Time Status Last Admin Dose Admin Acetaminophen (Tylenol) 650 mg Q4H PRN ORAL Mild Pain (Pain Scale 1-3) 01/08/20 09:00 02/04/20 08:59 01/13/20 16:03 Acetaminophen (Tylenol) 650 mg Q4H PRN ORAL Temp >100.5 01/08/20 09:00 02/04/20 08:59 Albumin Human 50 ml @ 50 mls/hr ONCE IV 01/14/20 12:15 01/14/20 15:00 01/14/20 13:20 Artificial Tears (Akwa-Tears) 2 drop Q6H PRN BOTH EYES Dry Eyes 01/13/20 12:00 02/12/20 11:59 01/14/20 09:00 Azithromycin 250 mg/Dextrose 275 ml @ 275 mls/hr Q24HRS IV 01/10/20 11:00 01/15/20 10:59 01/14/20 09:00 Benzonatate (Tessalon Perles) 100 mg Q8H PRN ORAL For Cough 01/08/20 14:00 02/07/20 13:59 Chlorhexidine Gluconate (Saritha-Hex 2%) 1 applic DAILY@2000 TOPIC 01/12/20 20:00 04/11/20 19:59 01/13/20 20:47 Dextrose (Dextrose 50%) 25 ml Q30M PRN IV Hypoglycemia 01/08/20 08:30 04/04/20 08:59 Dextrose (Dextrose 50%) 50 ml Q30M PRN IV Hypoglycemia 01/08/20 08:30 04/04/20 08:59 Furosemide (Lasix) 40 mg ONCE IV 01/14/20 12:15 01/14/20 14:00 01/14/20 13:20 Guaifenesin/ Dextromethorphan (Robitussin DM Syrup) 10 ml Q4H PRN ORAL For Cough 01/08/20 09:15 04/05/20 01:14 01/08/20 09:20 Insulin Aspart (NovoLOG) BEFORE MEALS AND HS SUBQ 01/08/20 11:30 04/06/20 16:29 01/14/20 11:30 Insulin Detemir (Levemir) 10 units BEDTIME SUBQ 01/14/20 21:00 04/13/20 20:59 Linezolid 300 ml @ 300 mls/hr EVERY 12 HOURS IVPB 01/12/20 21:00 01/19/20 20:59 01/14/20 08:59 Midazolam HCl 100 ml @ 0 mls/hr Q24H PRN IV Agitation 01/11/20 16:15 04/10/20 16:14 01/12/20 06:10 Morphine Sulfate (Morphine Sulfate) 1 mg EVERY 6 HOURS PRN IVP Severe Pain (Pain Scale 7-10) 01/09/20 20:30 01/16/20 20:29 01/12/20 00:18 Norepinephrine Bitartrate 8 mg/ Dextrose 558 ml @ 0 mls/hr Q24H IV 01/13/20 10:00 02/12/20 09:59 01/14/20 01:58 Piperacillin Sod/ Tazobactam Sod 3.375 gm/Sodium Chloride 110 ml @ 27.5 mls/hr Q8H IVPB 01/11/20 20:00 01/18/20 19:59 01/14/20 12:03 Potassium Chloride 100 ml @ 50 mls/hr ONCE ONCE IVPB 01/14/20 12:30 01/14/20 14:29 Sodium 1,000 ml @ 75 mls/hr [id number] IV 01/14/20 02:00 02/13/20 01:59 01/14/20 02:00 Pham Doyle MD Jan 14, 2020 13:43
--- NOTE | 2020-01-14 13:55 | Diagnostic Imaging Report ---
Indication: Dyspnea Technique: One view of the chest Comparison: 01/13/2020 Findings: Endotracheal tube has retracted, tip at or just above the thoracic inlet and just below the vocal cords. Bilateral diffuse infiltrates are again demonstrated, with consolidation appearing less dense in the right upper lobe, the right lower lobe and to a slight extent the left perihilar region stable satisfactory position of orogastric tube, proximal port just beyond the gastroesophageal junction. Impression: Interim retraction of endotracheal tube, as described. ICU charge nurse Maira notified at the time of interpretation Slightly improved but still extensive bilateral infiltrates as described
--- NOTE | 2020-01-14 14:00 | NUR ---
NURSE NOTES: Pt turned and positioned for comfort. Oral care complete. Pt remains on Levophed at 10mcg/min. No distress noted at this time
--- NOTE | 2020-01-14 16:00 | NUR ---
NURSE NOTES: No updates received on wether or not pt will be transferred to [facility] or [facility]. Pt's daughter would like a call with an update when either hospital responds to MD and community case manager' request .
--- NOTE | 2020-01-14 18:00 | NUR ---
NURSE NOTES: Pt temp 102.7. Tylenol given and ice packs applied. Will monitor
--- NOTE | 2020-01-14 19:20 | NUR ---
HAND-OFF: Report given to EMMETT Fletcher.
--- NOTE | 2020-01-14 19:30 | NUR ---
Report received from EMMETT Duncan for continuity of care. Pt in bed, non responsive to voice, painful stimuli, non verbal. Pt intubated and on mechanical vent at AC 24 TV 500 FiO2 100% and PEEP 8; O2 sat 100%. Sinus tachy with HR >100 bpm. RT femoral triple lumen central line patent and infusing Levophed @ 10mcg/min and 1/2 NS w/ 20mEq KCL @ 75mL/hr. Bilateral extremities SLIV noted. OGT patent. Bradshaw cath noted. Ice noted on pt. Dr. Moncada notified of PLT 11; stat orders for PT, PTT, INR and haptoglobin received. All safety measures met; will continue to monitor.
[2020-01-14] MEDS: Dyna-Hex 2% Top Sol 2oz TOPIC SCH (20:03)
[2020-01-14] MEDS ORDERED: Levemir Flexpen SUBQ SCH (21:00)
[2020-01-14 21:14] LABS: INR 1.1 (0.9-1.1)
--- NOTE | 2020-01-14 22:00 | NUR ---
Nurse Note: Stat labs drawn and awaiting results. No change in pt condition; levo infusing at 10 mcg/min. BS 220; insulin coverage given. Pt turned; suctioned as needed. All safety measures met; will continue to monitor.
--- NOTE | 2020-01-14 22:12 | Neurology Progress Note ---
Interim History Interim History ROS Limited/Unobtainable: Yes Interim History report no gag, does not overbreathe the vent renal function worsening Objective Physical Exam Last Vital Signs Date Time Temp Pulse Resp B/P (MAP) Pulse Ox O2 Delivery O2 Flow Rate FiO2 01/14/20 21:00 114 24 126/71 (89) 100 01/14/20 20:00 99.9 01/14/20 20:00 Mechanical Ventilator 01/14/20 20:00 100 01/11/20 12:18 40.0 Laboratory Tests Test 01/13/20 22:30 01/14/20 04:00 01/14/20 10:52 01/14/20 12:15 Prothrombin Time 12.4 SEC (9.30-11.50) H 11.9 SEC (9.30-11.50) H Prothromb Time International Ratio 1.2 (0.9-1.1) H 1.1 (0.9-1.1) White Blood Count 18.9 K/UL (4.8-10.8) H 18.6 K/UL (4.8-10.8) H Red Blood Count 3.90 M/UL (4.20-5.40) L 3.57 M/UL (4.20-5.40) L Hemoglobin 12.4 G/DL (12.0-16.0) 11.3 G/DL (12.0-16.0) L Hematocrit 35.3 % (37.0-47.0) L 32.1 % (37.0-47.0) L Mean Corpuscular Volume 91 FL (80-99) 90 FL (80-99) Mean Corpuscular Hemoglobin 31.9 PG (27.0-31.0) H 31.5 PG (27.0-31.0) H Mean Corpuscular Hemoglobin Concent 35.2 G/DL (32.0-36.0) 35.1 G/DL (32.0-36.0) Red Cell Distribution Width 11.6 % (11.6-14.8) 11.5 % (11.6-14.8) L Platelet Count 16 K/UL (150-450) L 11 K/UL (150-450) L Mean Platelet Volume 8.5 FL (6.5-10.1) 10.0 FL (6.5-10.1) Neutrophils (%) (Auto) % (45.0-75.0) % (45.0-75.0) Lymphocytes (%) (Auto) % (20.0-45.0) % (20.0-45.0) Monocytes (%) (Auto) % (1.0-10.0) % (1.0-10.0) Eosinophils (%) (Auto) % (0.0-3.0) % (0.0-3.0) Basophils (%) (Auto) % (0.0-2.0) % (0.0-2.0) Differential Total Cells Counted 100 100 Neutrophils % (Manual) 91 % (45-75) H 93 % (45-75) H Lymphocytes % (Manual) 5 % (20-45) L 5 % (20-45) L Monocytes % (Manual) 2 % (1-10) 1 % (1-10) Eosinophils % (Manual) 1 % (0-3) 1 % (0-3) Basophils % (Manual) 0 % (0-2) 0 % (0-2) Band Neutrophils 1 % (0-8) 0 % (0-8) Platelet Estimate Decreased L Decreased L Platelet Morphology Normal Normal Red Blood Cell Morphology Normal Normal Sodium Level 138 MMOL/L (136-145) Potassium Level 3.3 MMOL/L (3.5-5.1) L Chloride Level 101 MMOL/L (98-107) Carbon Dioxide Level 26 MMOL/L (21-32) Anion Gap 11 mmol/L (5-15) Blood Urea Nitrogen 44 mg/dL (7-18) H Creatinine 2.3 MG/DL (0.55-1.30) H Estimat Glomerular Filtration Rate 21.9 mL/min (>60) Glucose Level 293 MG/DL (74-106) H Calcium Level 8.1 MG/DL (8.5-10.1) L Total Bilirubin 0.5 MG/DL (0.2-1.0) Aspartate Amino Transf (AST/SGOT) 193 U/L (15-37) H Alanine Aminotransferase (ALT/SGPT) 57 U/L (12-78) Alkaline Phosphatase 113 U/L (46-116) Total Protein 5.0 G/DL (6.4-8.2) L Albumin 1.8 G/DL (3.4-5.0) L Globulin 3.2 g/dL Albumin/Globulin Ratio 0.6 (1.0-2.7) L Free Thyroxine 0.83 NG/DL (0.76-1.46) Free Triiodothyronine < 0.5 pg/mL (2.3-4.2) L Arterial Blood pH 7.374 (7.350-7.450) Arterial Blood Partial Pressure CO2 35.3 mmHg (35.0-45.0) Arterial Blood Partial Pressure O2 102.6 mmHg (75.0-100.0) H Arterial Blood HCO3 20.1 mmol/L (22.0-26.0) L Arterial Blood Oxygen Saturation 96.8 % (95-100) Arterial Blood Base Excess -4.4 (-2-2) L Jun Test Positive Fibrinogen 260 mg/dL (200-400) Fibrin Degradation Products, Quant Pending Mycoplasma pneumoniae IgG Antibody Pending Mycoplasma pneumoniae IgM Ab Titer Pending Test 01/14/20 20:30 Haptoglobin Pending Prothrombin Time 12.1 SEC (9.30-11.50) H Prothromb Time International Ratio 1.1 (0.9-1.1) Activated Partial Thromboplast Time 29 SEC (23-33) Urine Legionella Antigen Pending Head: normocophalic Neck: no rigidity Neurologic Exam Objective intubated off sedation Impression/Recommendations Problems: (1) Respiratory failure with hypoxia (2) COVID-19 virus infection (3) Diabetes type 2, controlled (4) HTN (hypertension) Diagnostic Impression Persistent Encephalopathy, possibly prolonged toxic effect from sedation. Rule out hemorrhagic encephalitis if no improvement in MS Rule out spontaneous brain bleeding Rule out NCSE COVID + WIll do exam off sedation EEG ordered CT brain if possible Will likely need HD given worsening kidney failure Royal Peguero MD Jan 14, 2020 22:12
--- NOTE | 2020-01-14 22:25 | Surgery Progress Note ---
Surgery Progress Note Subjective Additional Comments ill appearing exam stable seen this AM late entry Objective Last 24 Hour Vital Signs Date Time Temp Pulse Resp B/P (MAP) Pulse Ox O2 Delivery O2 Flow Rate FiO2 01/14/20 21:00 114 24 126/71 (89) 100 01/14/20 20:00 99.9 119 26 111/65 (80) 100 01/14/20 20:00 Mechanical Ventilator 01/14/20 20:00 100 01/14/20 19:10 107 22 100 01/14/20 19:00 126 27 114/69 (84) 100 01/14/20 19:00 117/67 01/14/20 18:38 102.0 01/14/20 18:30 128 27 111/51 (71) 100 01/14/20 18:00 131 24 96/68 (77) 100 01/14/20 18:00 103/70 01/14/20 17:30 135 24 103/62 (76) 100 01/14/20 17:07 122 24 100 01/14/20 17:00 117/68 01/14/20 17:00 132 17 117/68 (84) 100 01/14/20 16:30 118 27 123/64 (83) 100 01/14/20 16:00 Mechanical Ventilator 01/14/20 16:00 110 30 119/60 (79) 100 01/14/20 16:00 119/60 01/14/20 16:00 100 01/14/20 16:00 110 01/14/20 15:30 105 27 110/57 (74) 100 01/14/20 15:00 101 10 104/54 (71) 100 01/14/20 15:00 104/54 01/14/20 14:30 98 10 111/51 (71) 100 01/14/20 14:00 100/52 01/14/20 14:00 93 10 112/54 (73) 100 01/14/20 13:35 111/56 01/14/20 13:30 90 14 92/54 (67) 100 01/14/20 13:00 91 24 105/55 (72) 100 01/14/20 13:00 105/55 01/14/20 12:45 86 24 100 01/14/20 12:30 86 24 113/53 (73) 100 01/14/20 12:00 86 01/14/20 12:00 Mechanical Ventilator 01/14/20 12:00 100 01/14/20 12:00 109/56 01/14/20 12:00 97.9 84 24 114/57 (76) 100 01/14/20 11:30 80 24 114/59 (77) 100 01/14/20 11:00 81 24 115/59 (77) 100 01/14/20 11:00 115/59 01/14/20 10:30 81 24 130/65 (86) 100 01/14/20 10:00 127/66 01/14/20 10:00 81 24 131/65 (87) 100 01/14/20 09:30 92 25 131/66 (87) 100 01/14/20 09:10 97 24 100 01/14/20 09:00 75 24 123/66 (85) 100 01/14/20 09:00 67/44 01/14/20 08:30 74 24 123/66 (85) 100 01/14/20 08:00 Mechanical Ventilator 01/14/20 08:00 118/64 01/14/20 08:00 96.0 75 24 118/66 (83) 100 01/14/20 08:00 100 01/14/20 08:00 75 01/14/20 07:30 76 24 117/65 (82) 100 01/14/20 07:24 76 24 100 01/14/20 07:00 119/66 01/14/20 07:00 76 24 119/66 (83) 100 01/14/20 06:00 97.6 83 24 116/66 (83) 100 01/14/20 06:00 116/66 01/14/20 05:00 80/50 01/14/20 05:00 74 24 87/58 (68) 100 01/14/20 04:00 78 01/14/20 04:00 121/64 01/14/20 04:00 100 01/14/20 04:00 78 24 121/64 (83) 100 01/14/20 04:00 Mechanical Ventilator 01/14/20 03:25 101 28 100 01/14/20 03:00 75 24 118/60 (79) 100 01/14/20 03:00 118/60 01/14/20 02:00 98.8 76 24 81/50 (60) 100 01/14/20 01:58 98/57 01/14/20 01:00 102/58 01/14/20 01:00 76 24 102/58 (73) 100 01/14/20 00:00 Mechanical Ventilator 01/14/20 00:00 77 24 112/64 (80) 100 01/14/20 00:00 112/64 01/13/20 23:15 89 18 100 01/13/20 23:00 117/66 01/13/20 23:00 88 23 119/67 (84) 100 I&O Intake and Output 01/13/20 01/14/20 19:00 07:00 Intake Total 1420.655 ml 1363.18 ml Output Total 2060 ml 650 ml Balance -639.345 ml 713.18 ml Free Water 140 ml IV Total 1260.655 ml 1223.18 ml Other 160 ml Output Urine Total 2060 ml 650 ml Dressing: other Wound: other Drains: other Cardiovascular: RSR Respiratory: decreased breath sounds Abdomen: soft, non-tender, present bowel sounds Extremities: no cyanosis Laboratory Tests Test 01/13/20 22:30 01/14/20 04:00 01/14/20 10:52 01/14/20 12:15 Prothrombin Time 12.4 SEC (9.30-11.50) H 11.9 SEC (9.30-11.50) H Prothromb Time International Ratio 1.2 (0.9-1.1) H 1.1 (0.9-1.1) White Blood Count 18.9 K/UL (4.8-10.8) H 18.6 K/UL (4.8-10.8) H Red Blood Count 3.90 M/UL (4.20-5.40) L 3.57 M/UL (4.20-5.40) L Hemoglobin 12.4 G/DL (12.0-16.0) 11.3 G/DL (12.0-16.0) L Hematocrit 35.3 % (37.0-47.0) L 32.1 % (37.0-47.0) L Mean Corpuscular Volume 91 FL (80-99) 90 FL (80-99) Mean Corpuscular Hemoglobin 31.9 PG (27.0-31.0) H 31.5 PG (27.0-31.0) H Mean Corpuscular Hemoglobin Concent 35.2 G/DL (32.0-36.0) 35.1 G/DL (32.0-36.0) Red Cell Distribution Width 11.6 % (11.6-14.8) 11.5 % (11.6-14.8) L Platelet Count 16 K/UL (150-450) L 11 K/UL (150-450) L Mean Platelet Volume 8.5 FL (6.5-10.1) 10.0 FL (6.5-10.1) Neutrophils (%) (Auto) % (45.0-75.0) % (45.0-75.0) Lymphocytes (%) (Auto) % (20.0-45.0) % (20.0-45.0) Monocytes (%) (Auto) % (1.0-10.0) % (1.0-10.0) Eosinophils (%) (Auto) % (0.0-3.0) % (0.0-3.0) Basophils (%) (Auto) % (0.0-2.0) % (0.0-2.0) Differential Total Cells Counted 100 100 Neutrophils % (Manual) 91 % (45-75) H 93 % (45-75) H Lymphocytes % (Manual) 5 % (20-45) L 5 % (20-45) L Monocytes % (Manual) 2 % (1-10) 1 % (1-10) Eosinophils % (Manual) 1 % (0-3) 1 % (0-3) Basophils % (Manual) 0 % (0-2) 0 % (0-2) Band Neutrophils 1 % (0-8) 0 % (0-8) Platelet Estimate Decreased L Decreased L Platelet Morphology Normal Normal Red Blood Cell Morphology Normal Normal Sodium Level 138 MMOL/L (136-145) Potassium Level 3.3 MMOL/L (3.5-5.1) L Chloride Level 101 MMOL/L (98-107) Carbon Dioxide Level 26 MMOL/L (21-32) Anion Gap 11 mmol/L (5-15) Blood Urea Nitrogen 44 mg/dL (7-18) H Creatinine 2.3 MG/DL (0.55-1.30) H Estimat Glomerular Filtration Rate 21.9 mL/min (>60) Glucose Level 293 MG/DL (74-106) H Calcium Level 8.1 MG/DL (8.5-10.1) L Total Bilirubin 0.5 MG/DL (0.2-1.0) Aspartate Amino Transf (AST/SGOT) 193 U/L (15-37) H Alanine Aminotransferase (ALT/SGPT) 57 U/L (12-78) Alkaline Phosphatase 113 U/L (46-116) Total Protein 5.0 G/DL (6.4-8.2) L Albumin 1.8 G/DL (3.4-5.0) L Globulin 3.2 g/dL Albumin/Globulin Ratio 0.6 (1.0-2.7) L Free Thyroxine 0.83 NG/DL (0.76-1.46) Free Triiodothyronine < 0.5 pg/mL (2.3-4.2) L Arterial Blood pH 7.374 (7.350-7.450) Arterial Blood Partial Pressure CO2 35.3 mmHg (35.0-45.0) Arterial Blood Partial Pressure O2 102.6 mmHg (75.0-100.0) H Arterial Blood HCO3 20.1 mmol/L (22.0-26.0) L Arterial Blood Oxygen Saturation 96.8 % (95-100) Arterial Blood Base Excess -4.4 (-2-2) L Jun Test Positive Fibrinogen 260 mg/dL (200-400) Fibrin Degradation Products, Quant Pending Mycoplasma pneumoniae IgG Antibody Pending Mycoplasma pneumoniae IgM Ab Titer Pending Test 01/14/20 20:30 Haptoglobin Pending Prothrombin Time 12.1 SEC (9.30-11.50) H Prothromb Time International Ratio 1.1 (0.9-1.1) Activated Partial Thromboplast Time 29 SEC (23-33) Urine Legionella Antigen Pending Plan Problems: (1) Respiratory failure with hypoxia Assessment & Plan: COVID + intubated on support (2) COVID-19 virus infection Assessment & Plan: septic covid organ failure hypotensive needs urgent pressors needs central venous access see noted fluids vent support w will follow with recs (3) Diabetes type 2, controlled (4) HTN (hypertension) Jaylan Daley Jan 14, 2020 22:25
--- NOTE | 2020-01-14 22:59 | Consultation ---
DATE OF CONSULTATION: 01/14/2020 ENDOCRINOLOGY CONSULTATION CONSULTING PHYSICIAN: Ochoa Moreira MD REFERRING PHYSICIAN: Chema Posadas MD REASON FOR CONSULTATION: Diabetes management in a critically ill patient. HISTORY OF PRESENT ILLNESS: The patient is an unfortunate 59-year-old female who contracted COVID-19, came down with pneumonia and admitted to the hospital on 01/05/2020. She presents with shortness of breath, fever, and hemoptysis. Clinical course required the patient to be intubated and currently is intubated in the ICU on pressors and glucose is elevated therefore Endocrinology was consulted. Diabetes as an outpatient is managed by metformin therapy. PAST MEDICAL HISTORY: 1. Diabetes. 2. Hypertension. PAST SURGICAL HISTORY: None. FAMILY HISTORY: Lives at home. No smoking, alcohol, or drug use. REVIEW OF SYSTEMS: Unobtainable. The patient is intubated. She has a daughter. ALLERGIES TO MEDICATIONS: None. LABORATORY DATA: Sodium 138, potassium 3.3, chloride 101, bicarb 26, BUN 44, creatinine 2.2, glucose of 293. A1c of 7.3. Lactic acid of 1.5. A.m. cortisol was 37. TSH of 0.033. LDH of 3096. PHYSICAL EXAMINATION: GENERAL: The patient is intubated. VITAL SIGNS: Blood pressure is 111/51, heart rate 122, respiratory rate of 24. HEENT: Pupils are equal and reactive to light. Orally intubated. NECK: No JVD. LUNGS: Few rhonchi. ABDOMEN: Positive bowel sounds. EXTREMITIES: Positive for edema. DIAGNOSES: 1. Pneumonia with shock. 2. Respiratory failure. 3. COVID-19 infection. 4. Diabetes, out of control. 5. Suppressed TSH. DISCUSSION: 1. Discontinue Levemir. 2. Discontinue current NovoLog orders. 3. Start the patient on high dose NovoLog sliding scale every 4 hours. 4. NovoLog 5 units every 4 hours to be held if the glucose is less than 110 mg/dL. 5. Hypoglycemia protocol is in order. 6. Suppressed TSH is due to state of illness. I will check a free T4 and free T3 to confirm. No need to use antithyroid medication for now. 7. I will follow the patient during the hospital stay. Thank you Dr. Posadas, for the courtesy of this consultation. Ochoa Moreira M.D. DR: Keith JOB#: [id number] CC: ROMINA
[2020-01-15] VITALS (34 sets, daily range): BP systolic 73–141; BP diastolic 36–76
[2020-01-15] MEDS: NovoLOG Insulin Flexpen SUBQ SCH ×12 (01:00→21:00)
--- NOTE | 2020-01-15 01:00 | NUR ---
Nurse Note: Blood results pending; will inform MD. No changes to vent setting; satting at 100% O2 with vent. RT femoral central line infusing 1/2 NS with 20mEq at 75cc and levo at 10mcg/min. Pt kept clean, dry. All safety measures met; will continue to monitor.
[2020-01-15] MEDS: Norepinephrine Bitartrate 8 MG in D5W 500ml 550 ML IV SCH ×2 (03:29→09:00)
--- NOTE | 2020-01-15 05:00 | NUR ---
Nurse Note: New levo started. BS 118; standing order administered, sliding scale held. Pt remains at baseline. Pt turned as needed; cleaned and suctioned. Rectal temp 100 F. Cooling measures taken. No BM noted; urine output noted in [place]shaw cath. All safety measures met; will continue to monitor.
[2020-01-15 05:07] LABS: HEMATOCRIT 30.4 % (37.0-47.0); HEMOGLOBIN 10.7 G/DL (12.0-16.0); MEAN CORPUSCULAR VOLUME 91 FL (80-99); PLATELET COUNT 22 K/UL (150-450); RED BLOOD COUNT 3.35 M/UL (4.20-5.40); RED CELL DISTRIBUTION WIDTH 11.5 % (11.6-14.8); WHITE BLOOD COUNT 19.3 K/UL (4.8-10.8)
[2020-01-15] MEDS: 1/2NS w/KCl 20mEq 1000ml 1,000 ML IV SCH (05:15)
[2020-01-15] MEDS: Piperacillin/Tazobactam 3.375 GM in NS 110 ML IVPB SCH ×3 (05:15→20:59)
[2020-01-15 05:28] LABS: ALANINE AMINOTRANSFERASE 78 U/L (12-78); ALBUMIN 1.7 G/DL (3.4-5.0); ALBUMIN/GLOBULIN RATIO 0.5 (1.0-2.7); ALKALINE PHOSPHATASE 114 U/L (46-116); ANION GAP 12 mmol/L (5-15); ASPARTATE AMINO TRANSFERASE 397 U/L (15-37); BILIRUBIN,TOTAL 0.4 MG/DL (0.2-1.0); BLOOD UREA NITROGEN 39 mg/dL (7-18); CALCIUM 7.7 MG/DL (8.5-10.1); CARBON DIOXIDE 25 MMOL/L (21-32); CHLORIDE 113 MMOL/L (98-107); CREATININE 2.5 MG/DL (0.55-1.30); POTASSIUM 3.8 MMOL/L (3.5-5.1); SODIUM 150 MMOL/L (136-145)
--- NOTE | 2020-01-15 06:32 | Hematology/Onc Progress Note ---
Assessment/Plan Assessment/Plan Assessment and Recs # Thrombocytopenia that is severe, may be med related, but has not received heparin, and linezolid usually happens after 2 weeks, also may be due to DIC, coags uptrending, and due to covid-19 virus infection with pna, possible bacterial pna, hypoxia, vent, respiratory failure, sepsis/shock, fevers, leukocytosis, ARF, ARDS --> s/p hydroxychloroquine - day # 5/5 --> cover bacterial pna/infection with zosyn, zyvox, azithromycin --> DIC panel has been ordered and coags uptrending --> fibrinogen and fibrin split products pending --> treat underlying covid19 --> may need transfer to [facility] - ecmo and CRRT --> plt trend 161-->16-->11-->22 # Anemia of kidney disease, chronic disease --> r/o underlying hemolysis --> trend hgb 14-->12 # Leukocytosis --> likely related to covid, pna --> wbc trend 16-->20k # Diabetes. --> accuchecks qac and qhs --> per endo # Hypertension. --> sbp goal <140 # Hemoptysis. # KADEN on ckd # COVID19+ # Resp failure on vent Appreciate consultaiton and francisco j RN Subjective HEENT: Denies: no symptoms, eye pain, blurred vision, tearing, double vision, ear pain, ear discharge, nose pain, nose congestion, throat pain, throat swelling, mouth pain, mouth swelling, other Cardiovascular: Denies: no symptoms, chest pain, edema, irregular heart rate, lightheadedness, palpitations, syncope, other Respiratory: Denies: no symptoms, cough, shortness of breath, SOB with excertion, SOB at rest, sputum, wheezing, other Gastrointestinal/Abdominal: Denies: no symptoms, abdomen distended, abdominal pain, black stools, tarry stools, blood in stool, constipated, diarrhea, difficulty swallowing, nausea, poor appetite, poor fluid intake, rectal bleeding , vomiting, other Genitourinary: Denies: no symptoms, burning, discharge, frequency, flank pain, hematuria, incontinence, pain, urgency, other Neurologic/Psychiatric: Denies: no symptoms, anxiety, depressed, emotional problems, headache, numbness, paresthesia, pre-existing deficit, seizure, tingling, tremors, weakness, other Endocrine: Denies: no symptoms, excessive sweating, flushing, intolerance to cold, intolerance to heat, increased hunger, increased thirst, increased urine, unexplained weight gain, unexplained weight loss, other Allergies: Coded Allergies: No Known Allergies (Unverified , 01/05/20) Subjective 01/14 still remains critically ill, no bleeding, plt 22k, have ordered us abd, still pending, in icu Objective Objective Current Medications Medications (Trade) Dose Ordered Sig/Neha Route PRN Reason Start Time Stop Time Status Last Admin Dose Admin Acetaminophen (Tylenol) 650 mg Q4H PRN ORAL Mild Pain (Pain Scale 1-3) 01/08/20 09:00 02/04/20 08:59 01/14/20 18:08 Acetaminophen (Tylenol) 650 mg Q4H PRN ORAL Temp >100.5 01/08/20 09:00 02/04/20 08:59 Artificial Tears (Akwa-Tears) 2 drop Q6H PRN BOTH EYES Dry Eyes 01/13/20 12:00 02/12/20 11:59 01/14/20 09:00 Azithromycin 250 mg/Dextrose 275 ml @ 275 mls/hr Q24HRS IV 01/10/20 11:00 01/15/20 10:59 01/14/20 09:00 Benzonatate (Tessalon Perles) 100 mg Q8H PRN ORAL For Cough 01/08/20 14:00 02/07/20 13:59 Chlorhexidine Gluconate (Saritha-Hex 2%) 1 applic DAILY@1999 TOPIC 01/12/20 20:00 04/11/20 19:59 01/14/20 20:03 Dextrose (Dextrose 50%) 25 ml Q30M PRN IV Hypoglycemia 01/14/20 17:30 04/13/20 17:29 Dextrose (Dextrose 50%) 50 ml Q30M PRN IV Hypoglycemia 01/14/20 17:30 04/13/20 17:29 Guaifenesin/ Dextromethorphan (Robitussin DM Syrup) 10 ml Q4H PRN ORAL For Cough 01/08/20 09:15 04/05/20 01:14 01/08/20 09:20 Insulin Aspart (NovoLOG) EVERY 4 HOURS SUBQ 01/14/20 21:00 04/13/20 20:59 01/14/20 20:46 Insulin Aspart (NovoLOG) 5 units EVERY 4 HOURS SUBQ 01/14/20 21:00 04/13/20 20:59 01/15/20 05:16 Linezolid 300 ml @ 300 mls/hr EVERY 12 HOURS IVPB 01/12/20 21:00 01/19/20 20:59 01/14/20 20:03 Midazolam HCl 100 ml @ 0 mls/hr Q24H PRN IV Agitation 01/11/20 16:15 04/10/20 16:14 01/12/20 06:10 Morphine Sulfate (Morphine Sulfate) 1 mg EVERY 6 HOURS PRN IVP Severe Pain (Pain Scale 7-10) 01/09/20 20:30 01/16/20 20:29 01/12/20 00:18 Norepinephrine Bitartrate 8 mg/ Dextrose 558 ml @ 0 mls/hr Q24H IV 01/13/20 10:00 02/12/20 09:59 01/15/20 03:29 Piperacillin Sod/ Tazobactam Sod 3.375 gm/Sodium Chloride 110 ml @ 27.5 mls/hr Q8H IVPB 01/11/20 20:00 01/18/20 19:59 01/15/20 05:15 Sodium 1,000 ml @ 75 mls/hr [id number] IV 01/14/20 02:00 02/13/20 01:59 01/15/20 05:15 Last 24 Hour Vital Signs Date Time Temp Pulse Resp B/P (MAP) Pulse Ox O2 Delivery O2 Flow Rate FiO2 01/15/20 06:00 88 14 93/65 (74) 100 01/15/20 05:00 100.0 104 24 99/59 (72) 100 01/15/20 04:00 100 01/15/20 04:00 Mechanical Ventilator 01/15/20 04:00 95 24 108/64 (79) 100 01/15/20 03:29 75/61 01/15/20 03:17 101 22 100 01/15/20 03:00 97 27 80/55 (63) 100 01/15/20 02:00 103 30 113/66 (82) 100 01/15/20 01:00 103 28 134/66 (88) 100 01/15/20 00:00 100 24 127/76 (93) 100 01/15/20 00:00 127/76 01/15/20 00:00 Mechanical Ventilator 01/14/20 23:00 121/74 01/14/20 23:00 107 24 121/74 (90) 100 01/14/20 22:56 99 23 100 01/14/20 22:00 125/69 01/14/20 22:00 111 24 125/69 (87) 100 01/14/20 21:00 118/67 01/14/20 21:00 114 24 126/71 (89) 100 01/14/20 20:00 99.9 119 26 111/65 (80) 100 01/14/20 20:00 Mechanical Ventilator 01/14/20 20:00 100 01/14/20 19:10 107 22 100 01/14/20 19:00 126 27 114/69 (84) 100 01/14/20 19:00 117/67 01/14/20 18:38 102.0 01/14/20 18:30 128 27 111/51 (71) 100 01/14/20 18:00 131 24 96/68 (77) 100 01/14/20 18:00 103/70 01/14/20 17:30 135 24 103/62 (76) 100 01/14/20 17:07 122 24 100 01/14/20 17:00 117/68 01/14/20 17:00 132 17 117/68 (84) 100 01/14/20 16:30 118 27 123/64 (83) 100 01/14/20 16:00 Mechanical Ventilator 01/14/20 16:00 110 30 119/60 (79) 100 01/14/20 16:00 119/60 01/14/20 16:00 100 01/14/20 16:00 110 01/14/20 15:30 105 27 110/57 (74) 100 01/14/20 15:00 101 10 104/54 (71) 100 01/14/20 15:00 104/54 01/14/20 14:30 98 10 111/51 (71) 100 01/14/20 14:00 100/52 01/14/20 14:00 93 10 112/54 (73) 100 01/14/20 13:35 111/56 01/14/20 13:30 90 14 92/54 (67) 100 01/14/20 13:00 91 24 105/55 (72) 100 01/14/20 13:00 105/55 01/14/20 12:45 86 24 100 01/14/20 12:30 86 24 113/53 (73) 100 01/14/20 12:00 86 01/14/20 12:00 Mechanical Ventilator 01/14/20 12:00 100 01/14/20 12:00 109/56 01/14/20 12:00 97.9 84 24 114/57 (76) 100 01/14/20 11:30 80 24 114/59 (77) 100 01/14/20 11:00 81 24 115/59 (77) 100 01/14/20 11:00 115/59 01/14/20 10:30 81 24 130/65 (86) 100 01/14/20 10:00 127/66 01/14/20 10:00 81 24 131/65 (87) 100 01/14/20 09:30 92 25 131/66 (87) 100 01/14/20 09:10 97 24 100 01/14/20 09:00 75 24 123/66 (85) 100 01/14/20 09:00 67/44 01/14/20 08:30 74 24 123/66 (85) 100 01/14/20 08:00 Mechanical Ventilator 01/14/20 08:00 118/64 01/14/20 08:00 96.0 75 24 118/66 (83) 100 01/14/20 08:00 100 01/14/20 08:00 75 01/14/20 07:30 76 24 117/65 (82) 100 01/14/20 07:24 76 24 100 01/14/20 07:00 119/66 01/14/20 07:00 76 24 119/66 (83) 100 01/14/20 06:00 97.6 83 24 116/66 (83) 100 01/14/20 06:00 116/66 01/14/20 05:00 80/50 01/14/20 05:00 74 24 87/58 (68) 100 01/14/20 04:00 78 01/14/20 04:00 121/64 01/14/20 04:00 100 01/14/20 04:00 78 24 121/64 (83) 100 01/14/20 04:00 Mechanical Ventilator 01/14/20 03:25 101 28 100 01/14/20 03:00 75 24 118/60 (79) 100 01/14/20 03:00 118/60 01/14/20 02:00 98.8 76 24 81/50 (60) 100 01/14/20 01:58 98/57 01/14/20 01:00 102/58 01/14/20 01:00 76 24 102/58 (73) 100 01/14/20 00:00 Mechanical Ventilator 01/14/20 00:00 77 24 112/64 (80) 100 01/14/20 00:00 112/64 01/13/20 23:15 89 18 100 01/13/20 23:00 117/66 01/13/20 23:00 88 23 119/67 (84) 100 01/13/20 22:00 130/69 01/13/20 21:00 127/66 01/13/20 21:00 99.6 96 24 127/66 (86) 100 01/13/20 20:00 100 01/13/20 20:00 Mechanical Ventilator 01/13/20 20:00 97 22 127/73 (91) 100 01/13/20 20:00 113/70 01/13/20 20:00 97 01/13/20 19:54 102 18 100 01/13/20 19:00 97 0 126/49 (74) 100 01/13/20 19:00 126/49 01/13/20 18:00 129/50 01/13/20 18:00 98 24 112/70 (84) 100 01/13/20 17:30 100 24 123/70 (87) 100 20 17:15 100 24 119/70 (86) 100 20 17:00 119/70 01/13/20 17:00 100.2 101 24 120/71 (87) 100 20 16:30 103 24 137/75 (95) 100 01/13/20 16:00 104 01/13/20 16:00 100.7 104 24 128/71 (90) 100 20 16:00 100 01/13/20 16:00 131/72 4/20/20 16:00 Mechanical Ventilator 01/13/20 15:30 105 24 136/69 (91) 100 01/13/20 15:05 100 18 100 01/13/20 15:00 112/56 01/13/20 15:00 104 24 135/74 (94) 100 01/13/20 14:00 101 24 136/73 (94) 100 01/13/20 14:00 136/76 01/13/20 13:30 101 24 142/65 (90) 100 01/13/20 13:00 104 24 139/75 (96) 100 01/13/20 13:00 145/71 01/13/20 12:00 99.5 103 24 143/75 (97) 100 01/13/20 12:00 102 01/13/20 12:00 Mechanical Ventilator 01/13/20 12:00 150/73 01/13/20 12:00 100 01/13/20 11:30 100 24 154/73 (100) 100 01/13/20 11:18 102 24 100 01/13/20 11:00 150/70 01/13/20 11:00 100 24 139/71 (93) 100 01/13/20 10:30 128/63 01/13/20 10:00 106 24 124/53 (76) 100 01/13/20 10:00 124/53 01/13/20 10:00 100 01/13/20 09:30 110 18 130/62 (84) 100 01/13/20 09:00 111 18 129/60 (83) 100 01/13/20 09:00 129/60 01/13/20 08:30 110 18 122/56 (78) 100 01/13/20 08:00 116 01/13/20 08:00 100 01/13/20 08:00 101.2 114 18 124/65 (84) 100 01/13/20 08:00 Mechanical Ventilator 01/13/20 07:30 116 18 132/67 (88) 100 01/13/20 07:15 117 18 129/62 (84) 100 01/13/20 07:14 116 18 100 01/13/20 07:00 115 18 125/65 (85) 100 01/13/20 07:00 122/67 Intake and Output 01/14/20 01/15/20 19:00 07:00 Intake Total 1968.45 ml 832.40 ml Output Total 2275 ml 690 ml Balance -306.55 ml 142.40 ml Free Water 180 ml IV Total 1968.45 ml 652.40 ml Output Urine Total 2275 ml 690 ml Labs Test 01/12/20 14:00 01/12/20 20:00 01/13/20 04:00 01/13/20 08:44 Urine Color Yellow Urine Appearance Cloudy Urine pH 5 (4.5-8.0) Urine Specific [place] 1.015 (1.005-1.035) Urine Protein 3+ (NEGATIVE) Urine Glucose (UA) 2+ (NEGATIVE) Urine Ketones 1+ (NEGATIVE) Urine Blood 3+ (NEGATIVE) Urine Nitrite Negative (NEGATIVE) Urine Bilirubin Negative (NEGATIVE) Urine Urobilinogen Normal MG/DL (0.0-1.0) Urine Leukocyte Esterase Negative (NEGATIVE) Urine RBC 0-2 /HPF (0 - 2) Urine WBC 0-2 /HPF (0 - 2) Urine Squamous Epithelial Cells Few /LPF (NONE/OCC) Urine Bacteria Moderate /HPF (NONE) Urine Yeast Moderate /HPF (NONE) Urine Random Sodium < 20 mmol/L (20-110) Urine Creatinine 222.4 MG/DL (30.0-125.0) Vancomycin Level Trough 12.4 ug/mL (5.0-12.0) White Blood Count 21.8 K/UL (4.8-10.8) Red Blood Count 4.15 M/UL (4.20-5.40) Hemoglobin 13.4 G/DL (12.0-16.0) Hematocrit 38.6 % (37.0-47.0) Mean Corpuscular Volume 93 FL (80-99) Mean Corpuscular Hemoglobin 32.3 PG (27.0-31.0) Mean Corpuscular Hemoglobin Concent 34.8 G/DL (32.0-36.0) Red Cell Distribution Width 12.1 % (11.6-14.8) Platelet Count 18 K/UL (150-450) Mean Platelet Volume 7.3 FL (6.5-10.1) Neutrophils (%) (Auto) % (45.0-75.0) Lymphocytes (%) (Auto) % (20.0-45.0) Monocytes (%) (Auto) % (1.0-10.0) Eosinophils (%) (Auto) % (0.0-3.0) Basophils (%) (Auto) % (0.0-2.0) Differential Total Cells Counted 100 Neutrophils % (Manual) 96 % (45-75) Lymphocytes % (Manual) 2 % (20-45) Monocytes % (Manual) 1 % (1-10) Eosinophils % (Manual) 0 % (0-3) Basophils % (Manual) 1 % (0-2) Band Neutrophils 0 % (0-8) Platelet Estimate Decreased Platelet Morphology Normal Red Blood Cell Morphology Normal Sodium Level 138 MMOL/L (136-145) Potassium Level 3.7 MMOL/L (3.5-5.1) Chloride Level 102 MMOL/L (98-107) Carbon Dioxide Level 21 MMOL/L (21-32) Anion Gap 16 mmol/L (5-15) Blood Urea Nitrogen 44 mg/dL (7-18) Creatinine 2.1 MG/DL (0.55-1.30) Estimat Glomerular Filtration Rate 24.3 mL/min (>60) Glucose Level 404 MG/DL (74-106) Calcium Level 7.4 MG/DL (8.5-10.1) Phosphorus Level 5.1 MG/DL (2.5-4.9) Magnesium Level 2.1 MG/DL (1.8-2.4) Arterial Blood pH 7.200 (7.350-7.450) Arterial Blood Partial Pressure CO2 57.1 mmHg (35.0-45.0) Arterial Blood Partial Pressure O2 137.1 mmHg (75.0-100.0) Arterial Blood HCO3 21.8 mmol/L (22.0-26.0) Arterial Blood Oxygen Saturation 97.9 % (95-100) Arterial Blood Base Excess -6.8 (-2-2) Jun Test Positive Test 01/13/20 16:15 01/13/20 16:40 01/13/20 22:30 01/14/20 04:00 White Blood Count 20.2 K/UL (4.8-10.8) 18.9 K/UL (4.8-10.8) Red Blood Count 3.89 M/UL (4.20-5.40) 3.90 M/UL (4.20-5.40) Hemoglobin 12.4 G/DL (12.0-16.0) 12.4 G/DL (12.0-16.0) Hematocrit 36.9 % (37.0-47.0) 35.3 % (37.0-47.0) Mean Corpuscular Volume 95 FL (80-99) 91 FL (80-99) Mean Corpuscular Hemoglobin 31.8 PG (27.0-31.0) 31.9 PG (27.0-31.0) Mean Corpuscular Hemoglobin Concent 33.5 G/DL (32.0-36.0) 35.2 G/DL (32.0-36.0) Red Cell Distribution Width 13.0 % (11.6-14.8) 11.6 % (11.6-14.8) Platelet Count 15 K/UL (150-450) 16 K/UL (150-450) Mean Platelet Volume 15.0 FL (6.5-10.1) 8.5 FL (6.5-10.1) Neutrophils (%) (Auto) % (45.0-75.0) % (45.0-75.0) Lymphocytes (%) (Auto) % (20.0-45.0) % (20.0-45.0) Monocytes (%) (Auto) % (1.0-10.0) % (1.0-10.0) Eosinophils (%) (Auto) % (0.0-3.0) % (0.0-3.0) Basophils (%) (Auto) % (0.0-2.0) % (0.0-2.0) Differential Total Cells Counted 100 100 Neutrophils % (Manual) 94 % (45-75) 91 % (45-75) Lymphocytes % (Manual) 3 % (20-45) 5 % (20-45) Monocytes % (Manual) 1 % (1-10) 2 % (1-10) Eosinophils % (Manual) 0 % (0-3) 1 % (0-3) Basophils % (Manual) 0 % (0-2) 0 % (0-2) Band Neutrophils 2 % (0-8) 1 % (0-8) Other Cell Type Pathologist review Platelet Estimate Decreased Decreased Platelet Morphology Normal Normal Red Blood Cell Morphology Normal Normal Reticulocyte Count 0.4 % (0.5-2.0) Sodium Level 139 MMOL/L (136-145) 138 MMOL/L (136-145) Potassium Level 3.2 MMOL/L (3.5-5.1) 3.3 MMOL/L (3.5-5.1) Chloride Level 103 MMOL/L (98-107) 101 MMOL/L (98-107) Carbon Dioxide Level 23 MMOL/L (21-32) 26 MMOL/L (21-32) Anion Gap 13 mmol/L (5-15) 11 mmol/L (5-15) Blood Urea Nitrogen 44 mg/dL (7-18) 44 mg/dL (7-18) Creatinine 2.4 MG/DL (0.55-1.30) 2.3 MG/DL (0.55-1.30) Estimat Glomerular Filtration Rate 20.8 mL/min (>60) 21.9 mL/min (>60) Glucose Level 326 MG/DL (74-106) 293 MG/DL (74-106) Hemoglobin A1c 7.3 % (4.3-6.0) Calcium Level 7.4 MG/DL (8.5-10.1) 8.1 MG/DL (8.5-10.1) Phosphorus Level 3.1 MG/DL (2.5-4.9) Ferritin 754 NG/ML (8-388) Lactate Dehydrogenase 2096 U/L (81-234) Folate 10.4 NG/ML (8.6-58.9) Thyroid Stimulating Hormone (TSH) 0.033 uiU/mL (0.358-3.740) Prothrombin Time 12.4 SEC (9.30-11.50) Prothromb Time International Ratio 1.2 (0.9-1.1) Total Bilirubin 0.5 MG/DL (0.2-1.0) Aspartate Amino Transf (AST/SGOT) 193 U/L (15-37) Alanine Aminotransferase (ALT/SGPT) 57 U/L (12-78) Alkaline Phosphatase 113 U/L (46-116) Total Protein 5.0 G/DL (6.4-8.2) Albumin 1.8 G/DL (3.4-5.0) Globulin 3.2 g/dL Albumin/Globulin Ratio 0.6 (1.0-2.7) Free Thyroxine 0.83 NG/DL (0.76-1.46) Free Triiodothyronine < 0.5 pg/mL (2.3-4.2) Test 01/14/20 10:52 01/14/20 12:15 01/14/20 20:30 01/15/20 03:30 Arterial Blood pH 7.374 (7.350-7.450) Arterial Blood Partial Pressure CO2 35.3 mmHg (35.0-45.0) Arterial Blood Partial Pressure O2 102.6 mmHg (75.0-100.0) Arterial Blood HCO3 20.1 mmol/L (22.0-26.0) Arterial Blood Oxygen Saturation 96.8 % (95-100) Arterial Blood Base Excess -4.4 (-2-2) Jun Test Positive White Blood Count 18.6 K/UL (4.8-10.8) 19.3 K/UL (4.8-10.8) Red Blood Count 3.57 M/UL (4.20-5.40) 3.35 M/UL (4.20-5.40) Hemoglobin 11.3 G/DL (12.0-16.0) 10.7 G/DL (12.0-16.0) Hematocrit 32.1 % (37.0-47.0) 30.4 % (37.0-47.0) Mean Corpuscular Volume 90 FL (80-99) 91 FL (80-99) Mean Corpuscular Hemoglobin 31.5 PG (27.0-31.0) 32.0 PG (27.0-31.0) Mean Corpuscular Hemoglobin Concent 35.1 G/DL (32.0-36.0) 35.2 G/DL (32.0-36.0) Red Cell Distribution Width 11.5 % (11.6-14.8) 11.5 % (11.6-14.8) Platelet Count 11 K/UL (150-450) 22 K/UL (150-450) Mean Platelet Volume 10.0 FL (6.5-10.1) 8.7 FL (6.5-10.1) Neutrophils (%) (Auto) % (45.0-75.0) % (45.0-75.0) Lymphocytes (%) (Auto) % (20.0-45.0) % (20.0-45.0) Monocytes (%) (Auto) % (1.0-10.0) % (1.0-10.0) Eosinophils (%) (Auto) % (0.0-3.0) % (0.0-3.0) Basophils (%) (Auto) % (0.0-2.0) % (0.0-2.0) Differential Total Cells Counted 100 Neutrophils % (Manual) 93 % (45-75) Lymphocytes % (Manual) 5 % (20-45) Monocytes % (Manual) 1 % (1-10) Eosinophils % (Manual) 1 % (0-3) Basophils % (Manual) 0 % (0-2) Band Neutrophils 0 % (0-8) Platelet Estimate Decreased Platelet Morphology Normal Red Blood Cell Morphology Normal Prothrombin Time 11.9 SEC (9.30-11.50) 12.1 SEC (9.30-11.50) Prothromb Time International Ratio 1.1 (0.9-1.1) 1.1 (0.9-1.1) Fibrinogen 260 mg/dL (200-400) Activated Partial Thromboplast Time 29 SEC (23-33) Sodium Level 150 MMOL/L (136-145) Potassium Level 3.8 MMOL/L (3.5-5.1) Chloride Level 113 MMOL/L (98-107) Carbon Dioxide Level 25 MMOL/L (21-32) Anion Gap 12 mmol/L (5-15) Blood Urea Nitrogen 39 mg/dL (7-18) Creatinine 2.5 MG/DL (0.55-1.30) Estimat Glomerular Filtration Rate 19.9 mL/min (>60) Glucose Level 94 MG/DL (74-106) Calcium Level 7.7 MG/DL (8.5-10.1) Total Bilirubin 0.4 MG/DL (0.2-1.0) Aspartate Amino Transf (AST/SGOT) 397 U/L (15-37) Alanine Aminotransferase (ALT/SGPT) 78 U/L (12-78) Alkaline Phosphatase 114 U/L (46-116) Total Protein 4.8 G/DL (6.4-8.2) Albumin 1.7 G/DL (3.4-5.0) Globulin 3.1 g/dL Albumin/Globulin Ratio 0.5 (1.0-2.7) Height (Feet): 5 Height (Inches): 4.00 Weight (Pounds): 131 Objective Physical Exam Sp02 EP Interpretation: reviewed, normal General: normal inspection, alert, GCS 15, moderate distress Heent: normal inspection, full range of motion, supple, no bony tend Respiratory: normal inspection, lungs clear, normal breath sounds ++ vent Cardiovascular: regular rate, rhythm, no edema Gastrointestinal: normal inspection, normal bowel sounds, non tender, soft Genitourinary: no CVA tenderness Musculoskeletal: normal inspection, back normal, normal range of motion Neurologic: alert, motor strength/tone normal, land sales agent III-XII nml as tested, oriented x3, responsive Psychiatric: normal inspection, judgement/insight normal, mood/affect normal Chaz Moncada MD Jan 15, 2020 06:32
--- NOTE | 2020-01-15 06:49 | NUR ---
Nurse Note: Dr. Moncada seen pt; aware of lab results. Orders for ultrasound.
--- NOTE | 2020-01-15 07:08 | General Progress Note ---
Assessment/Plan Problem List: (1) Diabetes mellitus out of control ICD Codes: E11.65 - Type 2 diabetes mellitus with hyperglycemia SNOMED: 76191834, 913729030 (2) Respiratory failure with hypoxia ICD Codes: J96.91 - Respiratory failure, unspecified with hypoxia SNOMED: 99863092602843558 (3) COVID-19 virus infection ICD Codes: U07.1 - COVID-19 SNOMED: 099464946 Assessment/Plan: continue Novolog 5 units every 4 hours continue Novolog sliding scale every 4 hours Subjective ROS Limited/Unobtainable: Yes Allergies: Coded Allergies: No Known Allergies (Unverified , 01/05/20) Subjective events noted interval notes reviewed intubated in ICU on pressors Item Value Date Time Bedside Blood Glucose 118 mg/dl 01/15/20 0516 Bedside Blood Glucose 128 mg/dl H 01/15/20 0108 Bedside Blood Glucose 220 mg/dl H 01/14/20 2100 Bedside Blood Glucose 292 mg/dl H 01/14/20 1630 Bedside Blood Glucose 383 mg/dl H 01/14/20 1200 Objective Last 24 Hour Vital Signs Date Time Temp Pulse Resp B/P (MAP) Pulse Ox O2 Delivery O2 Flow Rate FiO2 01/15/20 06:30 117/64 01/15/20 06:00 93/65 01/15/20 06:00 88 14 93/65 (74) 100 01/15/20 05:00 100.0 104 24 99/59 (72) 100 01/15/20 05:00 99/59 01/15/20 04:00 100 01/15/20 04:00 Mechanical Ventilator 01/15/20 04:00 108/64 01/15/20 04:00 95 24 108/64 (79) 100 01/15/20 03:29 75/61 01/15/20 03:17 101 22 100 01/15/20 03:00 97 27 80/55 (63) 100 01/15/20 03:00 116/63 01/15/20 02:00 113/66 01/15/20 02:00 103 30 113/66 (82) 100 01/15/20 01:00 134/66 01/15/20 01:00 103 28 134/66 (88) 100 01/15/20 00:00 100 24 127/76 (93) 100 01/15/20 00:00 127/76 01/15/20 00:00 Mechanical Ventilator 01/14/20 23:00 121/74 01/14/20 23:00 107 24 121/74 (90) 100 01/14/20 22:56 99 23 100 01/14/20 22:00 125/69 01/14/20 22:00 111 24 125/69 (87) 100 01/14/20 21:00 118/67 01/14/20 21:00 114 24 126/71 (89) 100 01/14/20 20:00 99.9 119 26 111/65 (80) 100 01/14/20 20:00 Mechanical Ventilator 01/14/20 20:00 100 01/14/20 19:10 107 22 100 01/14/20 19:00 126 27 114/69 (84) 100 01/14/20 19:00 117/67 01/14/20 18:38 102.0 01/14/20 18:30 128 27 111/51 (71) 100 01/14/20 18:00 131 24 96/68 (77) 100 01/14/20 18:00 103/70 01/14/20 17:30 135 24 103/62 (76) 100 01/14/20 17:07 122 24 100 01/14/20 17:00 117/68 01/14/20 17:00 132 17 117/68 (84) 100 01/14/20 16:30 118 27 123/64 (83) 100 01/14/20 16:00 Mechanical Ventilator 01/14/20 16:00 110 30 119/60 (79) 100 01/14/20 16:00 119/60 01/14/20 16:00 100 01/14/20 16:00 110 01/14/20 15:30 105 27 110/57 (74) 100 01/14/20 15:00 101 10 104/54 (71) 100 01/14/20 15:00 104/54 01/14/20 14:30 98 10 111/51 (71) 100 01/14/20 14:00 100/52 01/14/20 14:00 93 10 112/54 (73) 100 01/14/20 13:35 111/56 01/14/20 13:30 90 14 92/54 (67) 100 01/14/20 13:00 91 24 105/55 (72) 100 01/14/20 13:00 105/55 01/14/20 12:45 86 24 100 01/14/20 12:30 86 24 113/53 (73) 100 01/14/20 12:00 86 01/14/20 12:00 Mechanical Ventilator 01/14/20 12:00 100 01/14/20 12:00 109/56 01/14/20 12:00 97.9 84 24 114/57 (76) 100 01/14/20 11:30 80 24 114/59 (77) 100 01/14/20 11:00 81 24 115/59 (77) 100 01/14/20 11:00 115/59 01/14/20 10:30 81 24 130/65 (86) 100 01/14/20 10:00 127/66 01/14/20 10:00 81 24 131/65 (87) 100 01/14/20 09:30 92 25 131/66 (87) 100 01/14/20 09:10 97 24 100 01/14/20 09:00 75 24 123/66 (85) 100 01/14/20 09:00 67/44 01/14/20 08:30 74 24 123/66 (85) 100 01/14/20 08:00 Mechanical Ventilator 01/14/20 08:00 118/64 01/14/20 08:00 96.0 75 24 118/66 (83) 100 01/14/20 08:00 100 01/14/20 08:00 75 01/14/20 07:30 76 24 117/65 (82) 100 01/14/20 07:24 76 24 100 Intake and Output 01/14/20 01/15/20 19:00 07:00 Intake Total 1968.45 ml 1544.26 ml Output Total 2275 ml 690 ml Balance -306.55 ml 854.26 ml Free Water 180 ml IV Total 1968.45 ml 1364.26 ml Output Urine Total 2275 ml 690 ml Laboratory Tests 01/14/20 10:52: Arterial Blood pH 7.374, Arterial Blood Partial Pressure CO2 35.3, Arterial Blood Partial Pressure O2 102.6H, Arterial Blood HCO3 20.1L, Arterial Blood Oxygen Saturation 96.8, Arterial Blood Base Excess -4.4L, Jun Test Positive 01/14/20 12:15: White Blood Count 18.6H, Red Blood Count 3.57L, Hemoglobin 11.3L, Hematocrit 32.1L, Mean Corpuscular Volume 90, Mean Corpuscular Hemoglobin 31.5H, Mean Corpuscular Hemoglobin Concent 35.1, Red Cell Distribution Width 11.5L, Platelet Count 11L, Mean Platelet Volume 10.0, Neutrophils (%) (Auto) , Lymphocytes (%) (Auto) , Monocytes (%) (Auto) , Eosinophils (%) (Auto) , Basophils (%) (Auto) , Differential Total Cells Counted 100, Neutrophils % ( Manual) 93H, Lymphocytes % (Manual) 5L, Monocytes % (Manual) 1, Eosinophils % ( Manual) 1, Basophils % (Manual) 0, Band Neutrophils 0, Platelet Estimate DecreasedL, Platelet Morphology Normal, Red Blood Cell Morphology Normal, Prothrombin Time 11.9H, Prothromb Time International Ratio 1.1, Fibrinogen 260, Fibrin Degradation Products, Quant [Pending], Mycoplasma pneumoniae IgG Antibody [Pending], Mycoplasma pneumoniae IgM Ab Titer [Pending] 01/14/20 20:30: Prothrombin Time 12.1H, Prothromb Time International Ratio 1.1, Haptoglobin [ Pending], Activated Partial Thromboplast Time 29, Urine Legionella Antigen [ Pending] 01/15/20 03:30: White Blood Count 19.3H, Red Blood Count 3.35L, Hemoglobin 10.7L, Hematocrit 30.4L, Mean Corpuscular Volume 91, Mean Corpuscular Hemoglobin 32.0H, Mean Corpuscular Hemoglobin Concent 35.2, Red Cell Distribution Width 11.5L, Platelet Count 22#L, Mean Platelet Volume 8.7, Neutrophils (%) (Auto) , Lymphocytes (%) (Auto) , Monocytes (%) (Auto) , Eosinophils (%) (Auto) , Basophils (%) (Auto) , Neutrophils % (Manual) [Pending], Lymphocytes % (Manual) [Pending], Platelet Estimate [Pending], Platelet Morphology [Pending], Sodium Level 150#H, Potassium Level 3.8, Chloride Level 113H, Carbon Dioxide Level 25, Anion Gap 12, Blood Urea Nitrogen 39H, Creatinine 2.5H, Estimat Glomerular Filtration Rate 19.9, Glucose Level 94#, Calcium Level 7.7L, Total Bilirubin 0.4 , Aspartate Amino Transf (AST/SGOT) 397H, Alanine Aminotransferase (ALT/SGPT) 78 , Alkaline Phosphatase 114, Total Protein 4.8L, Albumin 1.7L, Globulin 3.1, Albumin/Globulin Ratio 0.5L Height (Feet): 5 Height (Inches): 4.00 Weight (Pounds): 131 General Appearance: severe distress, other - intubated EENT: other - ETT Cardiovascular: tachycardia Respiratory/Chest: decreased breath sounds Abdomen: normal bowel sounds Pelvis: normal external exam Edema: 1+ Arm (L), 1+ Arm (R), 1+ Leg (L), 1+ Leg (R), 1+ Pedal (L), 1+ Pedal ( R), 1+ Generalized Objective Current Medications Medications (Trade) Dose Ordered Sig/Neha Route PRN Reason Start Time Stop Time Status Last Admin Dose Admin Acetaminophen (Tylenol) 650 mg Q4H PRN ORAL Mild Pain (Pain Scale 1-3) 01/08/20 09:00 02/04/20 08:59 01/14/20 18:08 Acetaminophen (Tylenol) 650 mg Q4H PRN ORAL Temp >100.5 01/08/20 09:00 02/04/20 08:59 Artificial Tears (Akwa-Tears) 2 drop Q6H PRN BOTH EYES Dry Eyes 01/13/20 12:00 02/12/20 11:59 01/14/20 09:00 Azithromycin 250 mg/Dextrose 275 ml @ 275 mls/hr Q24HRS IV 01/10/20 11:00 01/15/20 10:59 01/14/20 09:00 Benzonatate (Tessalon Perles) 100 mg Q8H PRN ORAL For Cough 01/08/20 14:00 02/07/20 13:59 Chlorhexidine Gluconate (Saritha-Hex 2%) 1 applic DAILY@2000 TOPIC 01/12/20 20:00 04/11/20 19:59 01/14/20 20:03 Dextrose (Dextrose 50%) 25 ml Q30M PRN IV Hypoglycemia 01/14/20 17:30 04/13/20 17:29 Dextrose (Dextrose 50%) 50 ml Q30M PRN IV Hypoglycemia 01/14/20 17:30 7/20/20 17:29 Guaifenesin/ Dextromethorphan (Robitussin DM Syrup) 10 ml Q4H PRN ORAL For Cough 01/08/20 09:15 04/05/20 01:14 01/08/20 09:20 Insulin Aspart (NovoLOG) EVERY 4 HOURS SUBQ 01/14/20 21:00 04/13/20 20:59 01/14/20 20:46 Insulin Aspart (NovoLOG) 5 units EVERY 4 HOURS SUBQ 01/14/20 21:00 04/13/20 20:59 01/15/20 05:16 Linezolid 300 ml @ 300 mls/hr EVERY 12 HOURS IVPB 01/12/20 21:00 01/19/20 20:59 01/14/20 20:03 Midazolam HCl 100 ml @ 0 mls/hr Q24H PRN IV Agitation 01/11/20 16:15 04/10/20 16:14 01/12/20 06:10 Morphine Sulfate (Morphine Sulfate) 1 mg EVERY 6 HOURS PRN IVP Severe Pain (Pain Scale 7-10) 01/09/20 20:30 01/16/20 20:29 01/12/20 00:18 Norepinephrine Bitartrate 8 mg/ Dextrose 558 ml @ 0 mls/hr Q24H IV 01/13/20 10:00 02/12/20 09:59 01/15/20 03:29 Piperacillin Sod/ Tazobactam Sod 3.375 gm/Sodium Chloride 110 ml @ 27.5 mls/hr Q8H IVPB 01/11/20 20:00 01/18/20 19:59 01/15/20 05:15 Sodium 1,000 ml @ 75 mls/hr [id number] IV 01/14/20 02:00 02/13/20 01:59 01/15/20 05:15 Ochoa Moreira MD Jan 15, 2020 07:08
--- NOTE | 2020-01-15 07:30 | NUR ---
Nurse Note: Endorsed care to EMMETT Flores for continuity of care.
--- NOTE | 2020-01-15 08:00 | NUR ---
NURSE NOTES: Received change of shift report from [facility]. Pt is obtunded, has no gag reflex and pupil dilated to 8mm. Pt is orally intubated, ETT 7.5 at 23cm lipline with vent settings AC14, VT500, Peep 8.0 and FIO2 100% with O2Sat from 98-100%. NSR to ST on monitoring analyst, HR is fluctuating from 96-110, while pt is on Levophed at 14mcg/min and BP currently 88/47. Temp 98.2F axillary. OGT in place, clamped. Bradshaw catheter is present, draining clear/light yellow urine. Skin has sacral DTI, covered with optifoam dressing. Pt has right femoral TLC, with IV fluid 0.45NS 20meq at 75ml/hour. Pt is on P200 mattress. HOB at 30degrees, bed locked, three side rails up and call light placed within reach. Will continue to monitor pt and follow plan of care per MD orders and protocol.
--- NOTE | 2020-01-15 08:38 | NUR ---
RADIOLOGY NOTE: PORTABLE CHEST X-RAY COMPLETED AT 0756 HRS. FTahira RIOS
--- NOTE | 2020-01-15 08:59 | Diagnostic Imaging Report ---
Indication: Abnormal chest sounds Technique: One view of the chest Comparison: 01/14/2020 Findings: Bilateral diffuse interstitial and airspace is again demonstrated, appears worse since previous study. The endotracheal tube is again demonstrated be high, tip projecting above the thoracic inlet just below the cords. Stable satisfactory position of orogastric tube Impression: Slight worsening of bilateral diffuse infiltrates, over one day High position of endotracheal tube. This finding was phoned to ICU charge nurse Maira at the time of interpretation
--- NOTE | 2020-01-15 09:00 | General Progress Note ---
Assessment/Plan Assessment/Plan: 59-year-old female with PMH of HTN, DM on metformin who presents with SOB x2 days. Patient notes [facility] [employer]IP[facility] she had nonproductive cough x5 days, 2 days ago went to a community clinic and was tested positive for COVID 19. #Acute hypoxic respiratory failure s/p intubation 01/09 #COVID positive as o/p #COVID POSITIVE while in-pt #CAP/PNA #Fevers #Acute Toxic Metabolic Encephalopathy #Severe Sepsis, Septic Shock 2/2 COVID -Appreciate ICU care -Cont current vent setting per Pulm, wean as tolerated -cont. droplet/contact isolation -01/04: BCx NGTD -S/p Actemra and Ivermectin -01/08: CXR with worsening infiltrates -01/09 pt intubated -01/12: CXR with b/l infitrates, concerning for ARDS -Abx per ID: Zyvox, Zosyn, azithromycin -01/12: D/w Dr. Omer, Dr. Doyle, Dr. Hopper, plan to transfer to [facility] for higher level of care -01/13: d/w daughter, pulm, nephro and ID, daughter wishes to attempt transfer to [facility] however will accept which hospital has an available bed -transfer order in place, pending acceptance to either [facility] or [facility] -Pt unresponsive off sedation -Neurology following - EEG pending -CT head ordered, unable to do given pt stability and COVID + -Updated daughterBarrera, #Severe Thrombocytopenia #Elevated D-Dimer -likely multifactorial 2/2 sepsis, COVID, DIC, less likely medication related -plts 18 >> 16 >11>22 -no signs of bleeding -cont to monitor for signs of bleeding -transfuse for signs of bleeding and plts <50k or when plts <10k -Hematology following, recs appreciated #Hypernatremia #Hyponatremia - resolved #Hypokalemia #KADEN -Cr worsening today, 0.8>>1.5>>2.1>>2.3>2.5 -Concern for need for CRRT -Nephro following: d/w nephro, pt w/good UO, cont. to monitor, may need HD. HD per nephro #HTN -pt unsure of home medications -CTM #NIDDM, type 2 #Hyperglycemia -holding home metformin while in-pt -Hgb A1c 6.7 -Endo following: continue Novolog 5 U q4h, Novolog sliding scale q4h DVT PPx: SCDs Prognosis: poor Time spent on encounter: 78 mins, 38 mins spent on critical care time. Critical Care Services performed include: Telemetry Review Hemodynamic measurement interpretation Laboratory data review and interpretation Radiology image review and interpretation Interpretation of ABG's Review of vent setting Discussion of patient's care with ICU team, Nursing staff Time of note doesn't reflect time of encounter. Subjective Allergies: Coded Allergies: No Known Allergies (Unverified , 01/05/20) Subjective F/u for COVID positive, acute respiratory distress s/p intubation. Pt remains intubated, remains unresponsive off sedation. EEG pending. Pending transfer to tertiary center for higher level of care. Objective Last 24 Hour Vital Signs Date Time Temp Pulse Resp B/P (MAP) Pulse Ox O2 Delivery O2 Flow Rate FiO2 01/15/20 07:50 93 24 100 01/15/20 07:00 98.7 90 12 101/56 (71) 100 01/15/20 07:00 101/66 01/15/20 06:30 117/64 01/15/20 06:00 93/65 01/15/20 06:00 88 14 93/65 (74) 100 01/15/20 05:00 100.0 104 24 99/59 (72) 100 01/15/20 05:00 99/59 01/15/20 04:00 100 01/15/20 04:00 Mechanical Ventilator 01/15/20 04:00 108/64 01/15/20 04:00 95 24 108/64 (79) 100 01/15/20 04:00 95 01/15/20 03:29 75/61 01/15/20 03:17 101 22 100 01/15/20 03:00 97 27 80/55 (63) 100 01/15/20 03:00 116/63 01/15/20 02:00 113/66 01/15/20 02:00 103 30 113/66 (82) 100 01/15/20 01:00 134/66 01/15/20 01:00 103 28 134/66 (88) 100 01/15/20 00:00 100 24 127/76 (93) 100 01/15/20 00:00 127/76 01/15/20 00:00 Mechanical Ventilator 01/15/20 00:00 100 01/14/20 23:00 121/74 01/14/20 23:00 107 24 121/74 (90) 100 01/14/20 22:56 99 23 100 01/14/20 22:00 125/69 01/14/20 22:00 111 24 125/69 (87) 100 01/14/20 21:00 118/67 01/14/20 21:00 114 24 126/71 (89) 100 01/14/20 20:00 99.9 119 26 111/65 (80) 100 01/14/20 20:00 Mechanical Ventilator 01/14/20 20:00 100 01/14/20 19:10 107 22 100 01/14/20 19:00 126 27 114/69 (84) 100 01/14/20 19:00 117/67 01/14/20 18:38 102.0 01/14/20 18:30 128 27 111/51 (71) 100 01/14/20 18:00 131 24 96/68 (77) 100 01/14/20 18:00 103/70 01/14/20 17:30 135 24 103/62 (76) 100 01/14/20 17:07 122 24 100 01/14/20 17:00 117/68 01/14/20 17:00 132 17 117/68 (84) 100 01/14/20 16:30 118 27 123/64 (83) 100 01/14/20 16:00 Mechanical Ventilator 01/14/20 16:00 110 30 119/60 (79) 100 01/14/20 16:00 119/60 01/14/20 16:00 100 01/14/20 16:00 110 01/14/20 15:30 105 27 110/57 (74) 100 01/14/20 15:00 101 10 104/54 (71) 100 01/14/20 15:00 104/54 01/14/20 14:30 98 10 111/51 (71) 100 01/14/20 14:00 100/52 01/14/20 14:00 93 10 112/54 (73) 100 01/14/20 13:35 111/56 01/14/20 13:30 90 14 92/54 (67) 100 01/14/20 13:00 91 24 105/55 (72) 100 01/14/20 13:00 105/55 01/14/20 12:45 86 24 100 01/14/20 12:30 86 24 113/53 (73) 100 01/14/20 12:00 86 01/14/20 12:00 Mechanical Ventilator 01/14/20 12:00 100 01/14/20 12:00 109/56 01/14/20 12:00 97.9 84 24 114/57 (76) 100 01/14/20 11:30 80 24 114/59 (77) 100 01/14/20 11:00 81 24 115/59 (77) 100 01/14/20 11:00 115/59 01/14/20 10:30 81 24 130/65 (86) 100 01/14/20 10:00 127/66 01/14/20 10:00 81 24 131/65 (87) 100 01/14/20 09:30 92 25 131/66 (87) 100 01/14/20 09:10 97 24 100 01/14/20 09:00 75 24 123/66 (85) 100 01/14/20 09:00 67/44 Intake and Output 01/14/20 01/15/20 19:00 07:00 Intake Total 1968.45 ml 1705.30 ml Output Total 2275 ml 750 ml Balance -306.55 ml 955.30 ml Free Water 180 ml IV Total 1968.45 ml 1525.30 ml Output Urine Total 2275 ml 750 ml Laboratory Tests 01/14/20 10:52: Arterial Blood pH 7.374, Arterial Blood Partial Pressure CO2 35.3, Arterial Blood Partial Pressure O2 102.6H, Arterial Blood HCO3 20.1L, Arterial Blood Oxygen Saturation 96.8, Arterial Blood Base Excess -4.4L, Jun Test Positive 01/14/20 12:15: White Blood Count 18.6H, Red Blood Count 3.57L, Hemoglobin 11.3L, Hematocrit 32.1L, Mean Corpuscular Volume 90, Mean Corpuscular Hemoglobin 31.5H, Mean Corpuscular Hemoglobin Concent 35.1, Red Cell Distribution Width 11.5L, Platelet Count 11L, Mean Platelet Volume 10.0, Neutrophils (%) (Auto) , Lymphocytes (%) (Auto) , Monocytes (%) (Auto) , Eosinophils (%) (Auto) , Basophils (%) (Auto) , Differential Total Cells Counted 100, Neutrophils % ( Manual) 93H, Lymphocytes % (Manual) 5L, Monocytes % (Manual) 1, Eosinophils % ( Manual) 1, Basophils % (Manual) 0, Band Neutrophils 0, Platelet Estimate DecreasedL, Platelet Morphology Normal, Red Blood Cell Morphology Normal, Prothrombin Time 11.9H, Prothromb Time International Ratio 1.1, Fibrinogen 260, Fibrin Degradation Products, Quant [Pending], Mycoplasma pneumoniae IgG Antibody [Pending], Mycoplasma pneumoniae IgM Ab Titer [Pending] 01/14/20 20:30: Prothrombin Time 12.1H, Prothromb Time International Ratio 1.1, Haptoglobin [ Pending], Activated Partial Thromboplast Time 29, Urine Legionella Antigen [ Pending] 01/15/20 03:30: White Blood Count 19.3H, Red Blood Count 3.35L, Hemoglobin 10.7L, Hematocrit 30.4L, Mean Corpuscular Volume 91, Mean Corpuscular Hemoglobin 32.0H, Mean Corpuscular Hemoglobin Concent 35.2, Red Cell Distribution Width 11.5L, Platelet Count 22#L, Mean Platelet Volume 8.7, Neutrophils (%) (Auto) , Lymphocytes (%) (Auto) , Monocytes (%) (Auto) , Eosinophils (%) (Auto) , Basophils (%) (Auto) , Neutrophils % (Manual) [Pending], Lymphocytes % (Manual) [Pending], Platelet Estimate [Pending], Platelet Morphology [Pending], Sodium Level 150#H, Potassium Level 3.8, Chloride Level 113H, Carbon Dioxide Level 25, Anion Gap 12, Blood Urea Nitrogen 39H, Creatinine 2.5H, Estimat Glomerular Filtration Rate 19.9, Glucose Level 94#, Calcium Level 7.7L, Total Bilirubin 0.4 , Aspartate Amino Transf (AST/SGOT) 397H, Alanine Aminotransferase (ALT/SGPT) 78 , Alkaline Phosphatase 114, Total Protein 4.8L, Albumin 1.7L, Globulin 3.1, Albumin/Globulin Ratio 0.5L, HIV (1&2) Antibody Rapid Negative Height (Feet): 5 Height (Inches): 4.00 Weight (Pounds): 134 Objective General: intubated, remains unresponsive off sedation HEENT: NCAT, ET tube in place CV: HR 76 on exam Pulm: b/l symmetrical rise in lungs GI: nondistended Ext: No lower extremity edema bilaterally Veronica Laurent M.D. Jan 15, 2020 09:00
--- NOTE | 2020-01-15 09:50 | NUR ---
RADIOLOGY DEPT., CHEST X-RAY DONE.-P.DYE
--- NOTE | 2020-01-15 10:00 | NUR ---
NURSE NOTES: Dr Omer is at the nurse's station. MD was updated on pt's status including no response to any stimulation, lack of gag reflex, and pupils dilated to 8mm. No new orders were received at this time. Pt remains on Levophed at 20mcg/min. AM meds were administered.
--- NOTE | 2020-01-15 10:56 | Pulmonology Progress Note ---
Assessment/Plan Assessment/Plan 1. Bilateral pneumonia. COVID 19 positivity 2. Hemoptysis. Resolved 3. Hypertension 4. Diabetes. 5. Hyponatremia 6. Respiratory failure; intubated 01/10/20 7. ARDS 8. ATN DISCUSSION: Agree with management and care. Will adjust vent Currently unresponsive IV fluids plus bolus Has received Actemra and Ivermecti On Azithro Discussed previously with patient and advised risks and benefits of Actemra and Ivermectin Patient agreed May need HD Discussed possibility of transfer to [facility] for ECMO however currently her PaO2 is 132 on 100% FiO2 and PEEP 8 therefore she is not a candidate She may benefit from HD Discussed with daughter in detail Noted neuro eval for unresponsiveness; no gag BUT no decorticate signs either; may be leftover effect from Fentanyl Needs EEG and head CT Shaun Omer M.D. Subjective ROS Limited/Unobtainable: Yes Interval Events: Not doing well Constitutional: Reports: fever, other - + vent, + pressors, non-responsive HEENT: Repors: no symptoms Respiratory: Reports: no symptoms Cardiovascular: Reports: no symptoms Gastrointestinal/Abdominal: Denies: diarrhea Genitourinary: Reports: no symptoms Psychiatric: Reports: other - NA Skin: Denies: rash Musculoskeletal: Reports: other - NA Allergies: Coded Allergies: No Known Allergies (Unverified , 01/05/20) Objective Last 24 Hour Vital Signs Date Time Temp Pulse Resp B/P (MAP) Pulse Ox O2 Delivery O2 Flow Rate FiO2 01/15/20 10:33 100 24 100 01/15/20 07:50 93 24 100 01/15/20 07:00 98.7 90 12 101/56 (71) 100 01/15/20 07:00 101/66 01/15/20 06:30 117/64 01/15/20 06:00 93/65 01/15/20 06:00 88 14 93/65 (74) 100 01/15/20 05:00 100.0 104 24 99/59 (72) 100 01/15/20 05:00 99/59 01/15/20 04:00 100 01/15/20 04:00 Mechanical Ventilator 01/15/20 04:00 108/64 01/15/20 04:00 95 24 108/64 (79) 100 01/15/20 04:00 95 01/15/20 03:29 75/61 01/15/20 03:17 101 22 100 01/15/20 03:00 97 27 80/55 (63) 100 01/15/20 03:00 116/63 01/15/20 02:00 113/66 01/15/20 02:00 103 30 113/66 (82) 100 01/15/20 01:00 134/66 01/15/20 01:00 103 28 134/66 (88) 100 01/15/20 00:00 100 24 127/76 (93) 100 01/15/20 00:00 127/76 01/15/20 00:00 Mechanical Ventilator 01/15/20 00:00 100 01/14/20 23:00 121/74 01/14/20 23:00 107 24 121/74 (90) 100 01/14/20 22:56 99 23 100 01/14/20 22:00 125/69 01/14/20 22:00 111 24 125/69 (87) 100 01/14/20 21:00 118/67 01/14/20 21:00 114 24 126/71 (89) 100 01/14/20 20:00 99.9 119 26 111/65 (80) 100 01/14/20 20:00 Mechanical Ventilator 01/14/20 20:00 100 01/14/20 19:10 107 22 100 01/14/20 19:00 126 27 114/69 (84) 100 01/14/20 19:00 117/67 01/14/20 18:38 102.0 01/14/20 18:30 128 27 111/51 (71) 100 01/14/20 18:00 131 24 96/68 (77) 100 01/14/20 18:00 103/70 01/14/20 17:30 135 24 103/62 (76) 100 01/14/20 17:07 122 24 100 01/14/20 17:00 117/68 01/14/20 17:00 132 17 117/68 (84) 100 01/14/20 16:30 118 27 123/64 (83) 100 01/14/20 16:00 Mechanical Ventilator 01/14/20 16:00 110 30 119/60 (79) 100 01/14/20 16:00 119/60 01/14/20 16:00 100 01/14/20 16:00 110 01/14/20 15:30 105 27 110/57 (74) 100 01/14/20 15:00 101 10 104/54 (71) 100 01/14/20 15:00 104/54 01/14/20 14:30 98 10 111/51 (71) 100 01/14/20 14:00 100/52 01/14/20 14:00 93 10 112/54 (73) 100 01/14/20 13:35 111/56 01/14/20 13:30 90 14 92/54 (67) 100 01/14/20 13:00 91 24 105/55 (72) 100 01/14/20 13:00 105/55 01/14/20 12:45 86 24 100 01/14/20 12:30 86 24 113/53 (73) 100 01/14/20 12:00 86 01/14/20 12:00 Mechanical Ventilator 01/14/20 12:00 100 01/14/20 12:00 109/56 01/14/20 12:00 97.9 84 24 114/57 (76) 100 01/14/20 11:30 80 24 114/59 (77) 100 01/14/20 11:00 81 24 115/59 (77) 100 01/14/20 11:00 115/59 Intake and Output 01/14/20 01/15/20 19:00 07:00 Intake Total 1968.45 ml 1705.30 ml Output Total 2275 ml 750 ml Balance -306.55 ml 955.30 ml Free Water 180 ml IV Total 1968.45 ml 1525.30 ml Output Urine Total 2275 ml 750 ml General Appearance: no acute distress HEENT: normocephalic, atraumatic, other - oral - inubated Respiratory/Chest: chest wall non-tender, lungs clear Cardiovascular: normal peripheral pulses, normal rate Abdomen: normal bowel sounds, soft, non tender Genitourinary: other - + pollard Extremities: no cyanosis Skin: no rash Neurologic/Psychiatric: unresponsiveness Lymphatic: no neck adenopathy Musculoskeletal: no effusion Microbiology Date/Time Source Procedure Growth Status 01/14/20 09:30 Indwelling Cath Urine Culture - Preliminary NO GROWTH Resulted 01/12/20 14:00 Urine,Clean Catch Urine Culture - Preliminary Resulted Laboratory Tests 01/14/20 12:15: White Blood Count 18.6H, Red Blood Count 3.57L, Hemoglobin 11.3L, Hematocrit 32.1L, Mean Corpuscular Volume 90, Mean Corpuscular Hemoglobin 31.5H, Mean Corpuscular Hemoglobin Concent 35.1, Red Cell Distribution Width 11.5L, Platelet Count 11L, Mean Platelet Volume 10.0, Neutrophils (%) (Auto) , Lymphocytes (%) (Auto) , Monocytes (%) (Auto) , Eosinophils (%) (Auto) , Basophils (%) (Auto) , Differential Total Cells Counted 100, Neutrophils % ( Manual) 93H, Lymphocytes % (Manual) 5L, Monocytes % (Manual) 1, Eosinophils % ( Manual) 1, Basophils % (Manual) 0, Band Neutrophils 0, Platelet Estimate DecreasedL, Platelet Morphology Normal, Red Blood Cell Morphology Normal, Prothrombin Time 11.9H, Prothromb Time International Ratio 1.1, Fibrinogen 260, Fibrin Degradation Products, Quant [Pending], Mycoplasma pneumoniae IgG Antibody [Pending], Mycoplasma pneumoniae IgM Ab Titer [Pending] 01/14/20 20:30: Prothrombin Time 12.1H, Prothromb Time International Ratio 1.1, Haptoglobin [ Pending], Activated Partial Thromboplast Time 29, Urine Legionella Antigen [ Pending] 01/15/20 03:30: White Blood Count 19.3H, Red Blood Count 3.35L, Hemoglobin 10.7L, Hematocrit 30.4L, Mean Corpuscular Volume 91, Mean Corpuscular Hemoglobin 32.0H, Mean Corpuscular Hemoglobin Concent 35.2, Red Cell Distribution Width 11.5L, Platelet Count 22#L, Mean Platelet Volume 8.7, Neutrophils (%) (Auto) , Lymphocytes (%) (Auto) , Monocytes (%) (Auto) , Eosinophils (%) (Auto) , Basophils (%) (Auto) , Differential Total Cells Counted 100, Neutrophils % ( Manual) 90H, Lymphocytes % (Manual) 5L, Monocytes % (Manual) 1, Eosinophils % ( Manual) 0, Basophils % (Manual) 0, Band Neutrophils 4, Platelet Estimate DecreasedL, Platelet Morphology Normal, Sodium Level 150#H, Potassium Level 3.8 , Chloride Level 113H, Carbon Dioxide Level 25, Anion Gap 12, Blood Urea Nitrogen 39H, Creatinine 2.5H, Estimat Glomerular Filtration Rate 19.9, Glucose Level 94#, Calcium Level 7.7L, Total Bilirubin 0.4, Aspartate Amino Transf (AST/ SGOT) 397H, Alanine Aminotransferase (ALT/SGPT) 78, Alkaline Phosphatase 114, Total Protein 4.8L, Albumin 1.7L, Globulin 3.1, Albumin/Globulin Ratio 0.5L, Hepatitis A IgM Antibody [Pending], Hepatitis B Surface Antigen [Pending], Hepatitis B Core IgM Antibody [Pending], Hepatitis C Antibody [Pending], HIV (1& 2) Antibody Rapid Negative 01/15/20 09:05: Arterial Blood pH 7.330L, Arterial Blood Partial Pressure CO2 43.6, Arterial Blood Partial Pressure O2 178.8H, Arterial Blood HCO3 22.5, Arterial Blood Oxygen Saturation 97.5, Arterial Blood Base Excess -3.4L, Jun Test Positive Current Medications Medications (Trade) Dose Ordered Sig/Neha Route PRN Reason Start Time Stop Time Status Last Admin Dose Admin Acetaminophen (Tylenol) 650 mg Q4H PRN ORAL Mild Pain (Pain Scale 1-3) 01/08/20 09:00 02/04/20 08:59 01/14/20 18:08 Acetaminophen (Tylenol) 650 mg Q4H PRN ORAL Temp >100.5 01/08/20 09:00 02/04/20 08:59 Artificial Tears (Akwa-Tears) 2 drop Q6H PRN BOTH EYES Dry Eyes 01/13/20 12:00 02/12/20 11:59 01/14/20 09:00 Azithromycin 250 mg/Dextrose 275 ml @ 275 mls/hr Q24HRS IV 01/10/20 11:00 01/15/20 10:59 01/14/20 09:00 Benzonatate (Tessalon Perles) 100 mg Q8H PRN ORAL For Cough 01/08/20 14:00 02/07/20 13:59 Chlorhexidine Gluconate (Saritha-Hex 2%) 1 applic DAILY@2000 TOPIC 01/12/20 20:00 04/11/20 19:59 4/21/20 20:03 Dextrose 500 ml @ 500 mls/hr ONCE ONCE IV 01/15/20 10:00 01/15/20 10:59 01/15/20 10:01 Dextrose (Dextrose 50%) 25 ml Q30M PRN IV Hypoglycemia 01/14/20 17:30 04/13/20 17:29 Dextrose (Dextrose 50%) 50 ml Q30M PRN IV Hypoglycemia 01/14/20 17:30 04/13/20 17:29 Guaifenesin/ Dextromethorphan (Robitussin DM Syrup) 10 ml Q4H PRN ORAL For Cough 01/08/20 09:15 04/05/20 01:14 01/08/20 09:20 Insulin Aspart (NovoLOG) EVERY 4 HOURS SUBQ 01/14/20 21:00 04/13/20 20:59 01/15/20 09:00 Insulin Aspart (NovoLOG) 5 units EVERY 4 HOURS SUBQ 01/14/20 21:00 04/13/20 20:59 01/15/20 09:00 Linezolid 300 ml @ 300 mls/hr EVERY 12 HOURS IVPB 01/12/20 21:00 01/19/20 20:59 01/15/20 09:00 Midazolam HCl 100 ml @ 0 mls/hr Q24H PRN IV Agitation 01/11/20 16:15 04/10/20 16:14 01/12/20 06:10 Morphine Sulfate (Morphine Sulfate) 1 mg EVERY 6 HOURS PRN IVP Severe Pain (Pain Scale 7-10) 01/09/20 20:30 01/16/20 20:29 01/12/20 00:18 Norepinephrine Bitartrate 8 mg/ Dextrose 558 ml @ 0 mls/hr Q24H IV 01/13/20 10:00 02/12/20 09:59 01/15/20 03:29 Piperacillin Sod/ Tazobactam Sod 3.375 gm/Sodium Chloride 110 ml @ 27.5 mls/hr Q8H IVPB 01/11/20 20:00 01/18/20 19:59 01/15/20 05:15 Sodium 1,000 ml @ 75 mls/hr [id number] IV 01/14/20 02:00 02/13/20 01:59 01/15/20 05:15 Shaun Omer MD Jan 15, 2020 10:55
--- NOTE | 2020-01-15 11:25 | Nephrology Progress Note ---
Assessment/Plan Plan #KADEN- concerns for developing ATN in the setting of sepsis- r/o vanco toxicity- now with worsening renal failure #Hyponatremia- mild- l r/o SIADH in the setting of pneumonia- improved #hypokalemia- repleted #COVID pneumonia #hypoxemic respiratary failure #HTN #DM #hypokalemia- cautiously replete - D5w 500cc today - albumin 25g - lasix 40IV - monitor UOP - maharkur placamenet to HD initiation if uop declines - CT brain if able to - neuro eval - consider transfer to [facility] or [facility] for higher level care- will likely need CVVHD and possibly echo support ? - s/p actema - switching vanco to linezolid - s/p actemra - hold amlodipine 5mg daily - BG control - breathing tx per pulm - supplemental O2 via vent Subjective ROS Limited/Unobtainable: Yes Subjective intubated for worsening resp failure recevied actemra worsening resp status cr up to 2.5 UOP over 3L yesterday sodium 150 Fio2 100 chest xray; Impression: Probably stable left and slightly worse right parenchymal opacities , over one day, appearance suggestive of pneumonia/ARDS Objective Objective Last 24 Hour Vital Signs Date Time Temp Pulse Resp B/P (MAP) Pulse Ox O2 Delivery O2 Flow Rate FiO2 01/15/20 10:33 100 24 100 01/15/20 07:50 93 24 100 01/15/20 07:00 98.7 90 12 101/56 (71) 100 01/15/20 07:00 101/66 01/15/20 06:30 117/64 01/15/20 06:00 93/65 01/15/20 06:00 88 14 93/65 (74) 100 01/15/20 05:00 100.0 104 24 99/59 (72) 100 01/15/20 05:00 99/59 01/15/20 04:00 100 01/15/20 04:00 Mechanical Ventilator 01/15/20 04:00 108/64 01/15/20 04:00 95 24 108/64 (79) 100 01/15/20 04:00 95 01/15/20 03:29 75/61 01/15/20 03:17 101 22 100 01/15/20 03:00 97 27 80/55 (63) 100 01/15/20 03:00 116/63 01/15/20 02:00 113/66 01/15/20 02:00 103 30 113/66 (82) 100 01/15/20 01:00 134/66 01/15/20 01:00 103 28 134/66 (88) 100 01/15/20 00:00 100 24 127/76 (93) 100 01/15/20 00:00 127/76 01/15/20 00:00 Mechanical Ventilator 01/15/20 00:00 100 01/14/20 23:00 121/74 01/14/20 23:00 107 24 121/74 (90) 100 01/14/20 22:56 99 23 100 01/14/20 22:00 125/69 01/14/20 22:00 111 24 125/69 (87) 100 01/14/20 21:00 118/67 01/14/20 21:00 114 24 126/71 (89) 100 01/14/20 20:00 99.9 119 26 111/65 (80) 100 01/14/20 20:00 Mechanical Ventilator 01/14/20 20:00 100 01/14/20 19:10 107 22 100 01/14/20 19:00 126 27 114/69 (84) 100 01/14/20 19:00 117/67 01/14/20 18:38 102.0 01/14/20 18:30 128 27 111/51 (71) 100 01/14/20 18:00 131 24 96/68 (77) 100 01/14/20 18:00 103/70 01/14/20 17:30 135 24 103/62 (76) 100 01/14/20 17:07 122 24 100 01/14/20 17:00 117/68 01/14/20 17:00 132 17 117/68 (84) 100 01/14/20 16:30 118 27 123/64 (83) 100 01/14/20 16:00 Mechanical Ventilator 01/14/20 16:00 110 30 119/60 (79) 100 01/14/20 16:00 119/60 01/14/20 16:00 100 01/14/20 16:00 110 01/14/20 15:30 105 27 110/57 (74) 100 01/14/20 15:00 101 10 104/54 (71) 100 01/14/20 15:00 104/54 01/14/20 14:30 98 10 111/51 (71) 100 01/14/20 14:00 100/52 01/14/20 14:00 93 10 112/54 (73) 100 01/14/20 13:35 111/56 01/14/20 13:30 90 14 92/54 (67) 100 01/14/20 13:00 91 24 105/55 (72) 100 01/14/20 13:00 105/55 01/14/20 12:45 86 24 100 01/14/20 12:30 86 24 113/53 (73) 100 01/14/20 12:00 86 01/14/20 12:00 Mechanical Ventilator 01/14/20 12:00 100 01/14/20 12:00 109/56 01/14/20 12:00 97.9 84 24 114/57 (76) 100 01/14/20 11:30 80 24 114/59 (77) 100 Intake and Output 01/14/20 01/15/20 19:00 07:00 Intake Total 1968.45 ml 1705.30 ml Output Total 2275 ml 750 ml Balance -306.55 ml 955.30 ml Free Water 180 ml IV Total 1968.45 ml 1525.30 ml Output Urine Total 2275 ml 750 ml Laboratory Tests 01/14/20 12:15: White Blood Count 18.6H, Red Blood Count 3.57L, Hemoglobin 11.3L, Hematocrit 32.1L, Mean Corpuscular Volume 90, Mean Corpuscular Hemoglobin 31.5H, Mean Corpuscular Hemoglobin Concent 35.1, Red Cell Distribution Width 11.5L, Platelet Count 11L, Mean Platelet Volume 10.0, Neutrophils (%) (Auto) , Lymphocytes (%) (Auto) , Monocytes (%) (Auto) , Eosinophils (%) (Auto) , Basophils (%) (Auto) , Differential Total Cells Counted 100, Neutrophils % ( Manual) 93H, Lymphocytes % (Manual) 5L, Monocytes % (Manual) 1, Eosinophils % ( Manual) 1, Basophils % (Manual) 0, Band Neutrophils 0, Platelet Estimate DecreasedL, Platelet Morphology Normal, Red Blood Cell Morphology Normal, Prothrombin Time 11.9H, Prothromb Time International Ratio 1.1, Fibrinogen 260, Fibrin Degradation Products, Quant [Pending], Mycoplasma pneumoniae IgG Antibody [Pending], Mycoplasma pneumoniae IgM Ab Titer [Pending] 01/14/20 20:30: Prothrombin Time 12.1H, Prothromb Time International Ratio 1.1, Haptoglobin [ Pending], Activated Partial Thromboplast Time 29, Urine Legionella Antigen [ Pending] 01/15/20 03:30: White Blood Count 19.3H, Red Blood Count 3.35L, Hemoglobin 10.7L, Hematocrit 30.4L, Mean Corpuscular Volume 91, Mean Corpuscular Hemoglobin 32.0H, Mean Corpuscular Hemoglobin Concent 35.2, Red Cell Distribution Width 11.5L, Platelet Count 22#L, Mean Platelet Volume 8.7, Neutrophils (%) (Auto) , Lymphocytes (%) (Auto) , Monocytes (%) (Auto) , Eosinophils (%) (Auto) , Basophils (%) (Auto) , Differential Total Cells Counted 100, Neutrophils % ( Manual) 90H, Lymphocytes % (Manual) 5L, Monocytes % (Manual) 1, Eosinophils % ( Manual) 0, Basophils % (Manual) 0, Band Neutrophils 4, Platelet Estimate DecreasedL, Platelet Morphology Normal, Sodium Level 150#H, Potassium Level 3.8 , Chloride Level 113H, Carbon Dioxide Level 25, Anion Gap 12, Blood Urea Nitrogen 39H, Creatinine 2.5H, Estimat Glomerular Filtration Rate 19.9, Glucose Level 94#, Calcium Level 7.7L, Total Bilirubin 0.4, Aspartate Amino Transf (AST/ SGOT) 397H, Alanine Aminotransferase (ALT/SGPT) 78, Alkaline Phosphatase 114, Total Protein 4.8L, Albumin 1.7L, Globulin 3.1, Albumin/Globulin Ratio 0.5L, Hepatitis A IgM Antibody [Pending], Hepatitis B Surface Antigen [Pending], Hepatitis B Core IgM Antibody [Pending], Hepatitis C Antibody [Pending], HIV (1& 2) Antibody Rapid Negative 01/15/20 09:05: Arterial Blood pH 7.330L, Arterial Blood Partial Pressure CO2 43.6, Arterial Blood Partial Pressure O2 178.8H, Arterial Blood HCO3 22.5, Arterial Blood Oxygen Saturation 97.5, Arterial Blood Base Excess -3.4L, Jun Test Positive Height (Feet): 5 Height (Inches): 4.00 Weight (Pounds): 134 Objective General: intubated, unresponsive off sedation HEENT: NCAT, ET tube in place CV: tachycardic, Pulm: coarse rhonchi, b/l symmetrical rise in lungs GI: Soft, nontender, nondistended Ext: No lower extremity edema bilaterally Justin Hopper M.D. Jan 15, 2020 11:25
--- NOTE | 2020-01-15 12:00 | NUR ---
NURSE NOTES: ETT tube was advanced by RT per radiologist recommendation. Oral care was done and pt suctioned. Pt remains ST with heart rate fluctuating from 100-120s, while on Levophed, current dose is at 20mcg/min. Pt remains afebrile.
--- NOTE | 2020-01-15 12:26 | Surgery Progress Note ---
Surgery Progress Note Subjective Additional Comments leukocytosis febrile ill appearing prognosis guarded Objective Last 24 Hour Vital Signs Date Time Temp Pulse Resp B/P (MAP) Pulse Ox O2 Delivery O2 Flow Rate FiO2 01/15/20 10:33 100 24 100 01/15/20 09:00 101/66 01/15/20 07:50 93 24 100 01/15/20 07:00 98.7 90 12 101/56 (71) 100 01/15/20 07:00 101/66 01/15/20 06:30 117/64 01/15/20 06:00 93/65 01/15/20 06:00 88 14 93/65 (74) 100 01/15/20 05:00 100.0 104 24 99/59 (72) 100 01/15/20 05:00 99/59 01/15/20 04:00 100 01/15/20 04:00 Mechanical Ventilator 01/15/20 04:00 108/64 01/15/20 04:00 95 24 108/64 (79) 100 01/15/20 04:00 95 01/15/20 03:29 75/61 01/15/20 03:17 101 22 100 01/15/20 03:00 97 27 80/55 (63) 100 01/15/20 03:00 116/63 01/15/20 02:00 113/66 01/15/20 02:00 103 30 113/66 (82) 100 01/15/20 01:00 134/66 01/15/20 01:00 103 28 134/66 (88) 100 01/15/20 00:00 100 24 127/76 (93) 100 01/15/20 00:00 127/76 01/15/20 00:00 Mechanical Ventilator 01/15/20 00:00 100 01/14/20 23:00 121/74 01/14/20 23:00 107 24 121/74 (90) 100 01/14/20 22:56 99 23 100 01/14/20 22:00 125/69 01/14/20 22:00 111 24 125/69 (87) 100 01/14/20 21:00 118/67 01/14/20 21:00 114 24 126/71 (89) 100 01/14/20 20:00 99.9 119 26 111/65 (80) 100 01/14/20 20:00 Mechanical Ventilator 01/14/20 20:00 100 01/14/20 19:10 107 22 100 01/14/20 19:00 126 27 114/69 (84) 100 01/14/20 19:00 117/67 01/14/20 18:38 102.0 01/14/20 18:30 128 27 111/51 (71) 100 01/14/20 18:00 131 24 96/68 (77) 100 01/14/20 18:00 103/70 01/14/20 17:30 135 24 103/62 (76) 100 01/14/20 17:07 122 24 100 01/14/20 17:00 117/68 01/14/20 17:00 132 17 117/68 (84) 100 01/14/20 16:30 118 27 123/64 (83) 100 01/14/20 16:00 Mechanical Ventilator 01/14/20 16:00 110 30 119/60 (79) 100 01/14/20 16:00 119/60 01/14/20 16:00 100 01/14/20 16:00 110 01/14/20 15:30 105 27 110/57 (74) 100 01/14/20 15:00 101 10 104/54 (71) 100 01/14/20 15:00 104/54 01/14/20 14:30 98 10 111/51 (71) 100 01/14/20 14:00 100/52 01/14/20 14:00 93 10 112/54 (73) 100 01/14/20 13:35 111/56 01/14/20 13:30 90 14 92/54 (67) 100 01/14/20 13:00 91 24 105/55 (72) 100 01/14/20 13:00 105/55 01/14/20 12:45 86 24 100 01/14/20 12:30 86 24 113/53 (73) 100 I&O Intake and Output 01/14/20 01/15/20 19:00 07:00 Intake Total 1968.45 ml 1705.30 ml Output Total 2275 ml 750 ml Balance -306.55 ml 955.30 ml Free Water 180 ml IV Total 1968.45 ml 1525.30 ml Output Urine Total 2275 ml 750 ml Dressing: other Wound: other Drains: other Cardiovascular: RSR Respiratory: decreased breath sounds Abdomen: soft, non-tender, present bowel sounds Extremities: no tenderness, no cyanosis Laboratory Tests Test 01/14/20 20:30 01/15/20 03:30 01/15/20 09:05 Haptoglobin Pending Prothrombin Time 12.1 SEC (9.30-11.50) H Prothromb Time International Ratio 1.1 (0.9-1.1) Activated Partial Thromboplast Time 29 SEC (23-33) Urine Legionella Antigen Pending White Blood Count 19.3 K/UL (4.8-10.8) H Red Blood Count 3.35 M/UL (4.20-5.40) L Hemoglobin 10.7 G/DL (12.0-16.0) L Hematocrit 30.4 % (37.0-47.0) L Mean Corpuscular Volume 91 FL (80-99) Mean Corpuscular Hemoglobin 32.0 PG (27.0-31.0) H Mean Corpuscular Hemoglobin Concent 35.2 G/DL (32.0-36.0) Red Cell Distribution Width 11.5 % (11.6-14.8) L Platelet Count 22 K/UL (150-450) #L Mean Platelet Volume 8.7 FL (6.5-10.1) Neutrophils (%) (Auto) % (45.0-75.0) Lymphocytes (%) (Auto) % (20.0-45.0) Monocytes (%) (Auto) % (1.0-10.0) Eosinophils (%) (Auto) % (0.0-3.0) Basophils (%) (Auto) % (0.0-2.0) Differential Total Cells Counted 100 Neutrophils % (Manual) 90 % (45-75) H Lymphocytes % (Manual) 5 % (20-45) L Monocytes % (Manual) 1 % (1-10) Eosinophils % (Manual) 0 % (0-3) Basophils % (Manual) 0 % (0-2) Band Neutrophils 4 % (0-8) Platelet Estimate Decreased L Platelet Morphology Normal Sodium Level 150 MMOL/L (136-145) #H Potassium Level 3.8 MMOL/L (3.5-5.1) Chloride Level 113 MMOL/L (98-107) H Carbon Dioxide Level 25 MMOL/L (21-32) Anion Gap 12 mmol/L (5-15) Blood Urea Nitrogen 39 mg/dL (7-18) H Creatinine 2.5 MG/DL (0.55-1.30) H Estimat Glomerular Filtration Rate 19.9 mL/min (>60) Glucose Level 94 MG/DL (74-106) # Calcium Level 7.7 MG/DL (8.5-10.1) L Total Bilirubin 0.4 MG/DL (0.2-1.0) Aspartate Amino Transf (AST/SGOT) 397 U/L (15-37) H Alanine Aminotransferase (ALT/SGPT) 78 U/L (12-78) Alkaline Phosphatase 114 U/L (46-116) Total Protein 4.8 G/DL (6.4-8.2) L Albumin 1.7 G/DL (3.4-5.0) L Globulin 3.1 g/dL Albumin/Globulin Ratio 0.5 (1.0-2.7) L Hepatitis A IgM Antibody Pending Hepatitis B Surface Antigen Pending Hepatitis B Core IgM Antibody Pending Hepatitis C Antibody Pending HIV (1&2) Antibody Rapid Negative (NEGATIVE) Arterial Blood pH 7.330 (7.350-7.450) Arterial Blood Partial Pressure CO2 43.6 mmHg (35.0-45.0) Arterial Blood Partial Pressure O2 178.8 mmHg (75.0-100.0) H Arterial Blood HCO3 22.5 mmol/L (22.0-26.0) Arterial Blood Oxygen Saturation 97.5 % (95-100) Arterial Blood Base Excess -3.4 (-2-2) L Jun Test Positive Plan Problems: (1) Respiratory failure with hypoxia Assessment & Plan: COVID + intubated on support (2) COVID-19 virus infection Assessment & Plan: septic covid organ failure hypotensive needs urgent pressors needs central venous access see noted fluids vent support w will follow with recs unfortunately not improving much worsening leukocytosis febrile prognosis guarded (3) Diabetes type 2, controlled (4) HTN (hypertension) Jaylan Daley Jan 15, 2020 12:25
--- NOTE | 2020-01-15 14:00 | NUR ---
NURSE NOTES: Dr Laurent is at the nurse's station. MD updated on pt's status. Order noted for CT scan of the head with no contrast. Spoke with Anshul, per radiology, pt is too unstable to be transferred down for CT scan. MD aware. Awaiting for EEG at bedside.
--- NOTE | 2020-01-15 15:09 | NUR ---
CASE MANAGEMENT: REVIEW SI: COVID-19 . PNA T 98.2 HR 114 RR 32 BP 81/36 SAT 100% MECH VENT FIO2 100 WBC 19.3 NA 150 BUN 39 CR 2.5 CXR -- BILATERAL DIFFUSE INFILTRATES IS: LEVOPHED IV Q24HR ZOSYN IV Q8HR ZYVOX IV Q12HR ICU STATUS DCP: PATIENT IS FROM HOME. ORDER TO TRANSFER TO [facility] [phone]. ORDERS TO TRANSFER TO [facility] [phone]. ALL CLINICALS FAXED TO BOTH TRANSFER [facility]
--- NOTE | 2020-01-15 15:16 | NUR ---
*-* INSURANCE *-* UPDATED CLINICALS AND REVIEWS HAVE BEEN FAXED TO: [facility] TRK# [id number] VIPUL:BLESSING P: [phone] F: [phone]
--- NOTE | 2020-01-15 15:17 | NUR ---
CASE MANAGEMENT: DCP ORDER TO TRANSFER TO [facility] NOTED CLINICAL DOCUMENTATION FAXED TO TRANSFER CENTER [phone] / [phone] FAX ORDER TO TRANSFER TO [facility] NOTED PATIENT REFERRED TO [facility] [phone] HEAD AND CURRENT NEURO NOTES CT HEAD PENDING TODAY'S NEURO NOTES PENDING
[2020-01-15] MEDS: Morphine Sulfate 2mg/ml Inj(IV/IM USE ONLY) IVP PRN (15:39)
[2020-01-15] MEDS: Norepinephrine Bitartrate 8 MG in Sodium Chloride 492 ML IV SCH ×2 (15:44→22:58)
--- NOTE | 2020-01-15 16:00 | NUR ---
NURSE NOTES: Awaiting for status update on pt's transfer pending for [facility] or [facility] per Dr Laurent.
[2020-01-15 16:05] LABS: ANION GAP 13 mmol/L (5-15); BLOOD UREA NITROGEN 39 mg/dL (7-18); CALCIUM 8.2 MG/DL (8.5-10.1); CARBON DIOXIDE 24 MMOL/L (21-32); CHLORIDE 109 MMOL/L (98-107); CREATININE 2.4 MG/DL (0.55-1.30); PHOSPHORUS 2.5 MG/DL (2.5-4.9); POTASSIUM 3.7 MMOL/L (3.5-5.1); SODIUM 146 MMOL/L (136-145)
--- NOTE | 2020-01-15 18:00 | NUR ---
NURSE NOTES: EEG is being done, slot technician Dariel is now at bedside. VS remain stable while pt is on Levophed at 16mcg/min. Pt was cleaned and repositioned, gown/bed linens were changed. Oral care was done.
--- NOTE | 2020-01-15 18:56 | Neurology Progress Note ---
Interim History Interim History ROS Limited/Unobtainable: Yes Interim History remains off sedation, no movement, CN absent Objective Physical Exam Last Vital Signs Date Time Temp Pulse Resp B/P (MAP) Pulse Ox O2 Delivery O2 Flow Rate FiO2 01/15/20 18:00 119 23 82/39 (53) 100 01/15/20 17:00 99.4 01/15/20 16:00 100 01/15/20 16:00 Mechanical Ventilator 01/11/20 12:18 40.0 Laboratory Tests Test 01/14/20 20:30 01/15/20 03:30 01/15/20 09:05 01/15/20 13:30 Haptoglobin Pending Prothrombin Time 12.1 SEC (9.30-11.50) H Prothromb Time International Ratio 1.1 (0.9-1.1) Activated Partial Thromboplast Time 29 SEC (23-33) Urine Legionella Antigen Pending White Blood Count 19.3 K/UL (4.8-10.8) H Red Blood Count 3.35 M/UL (4.20-5.40) L Hemoglobin 10.7 G/DL (12.0-16.0) L Hematocrit 30.4 % (37.0-47.0) L Mean Corpuscular Volume 91 FL (80-99) Mean Corpuscular Hemoglobin 32.0 PG (27.0-31.0) H Mean Corpuscular Hemoglobin Concent 35.2 G/DL (32.0-36.0) Red Cell Distribution Width 11.5 % (11.6-14.8) L Platelet Count 22 K/UL (150-450) #L Mean Platelet Volume 8.7 FL (6.5-10.1) Neutrophils (%) (Auto) % (45.0-75.0) Lymphocytes (%) (Auto) % (20.0-45.0) Monocytes (%) (Auto) % (1.0-10.0) Eosinophils (%) (Auto) % (0.0-3.0) Basophils (%) (Auto) % (0.0-2.0) Differential Total Cells Counted 100 Neutrophils % (Manual) 90 % (45-75) H Lymphocytes % (Manual) 5 % (20-45) L Monocytes % (Manual) 1 % (1-10) Eosinophils % (Manual) 0 % (0-3) Basophils % (Manual) 0 % (0-2) Band Neutrophils 4 % (0-8) Platelet Estimate Decreased L Platelet Morphology Normal Sodium Level 150 MMOL/L (136-145) #H 146 MMOL/L (136-145) H Potassium Level 3.8 MMOL/L (3.5-5.1) 3.7 MMOL/L (3.5-5.1) Chloride Level 113 MMOL/L (98-107) H 109 MMOL/L (98-107) H Carbon Dioxide Level 25 MMOL/L (21-32) 24 MMOL/L (21-32) Anion Gap 12 mmol/L (5-15) 13 mmol/L (5-15) Blood Urea Nitrogen 39 mg/dL (7-18) H 39 mg/dL (7-18) H Creatinine 2.5 MG/DL (0.55-1.30) H 2.4 MG/DL (0.55-1.30) H Estimat Glomerular Filtration Rate 19.9 mL/min (>60) 20.8 mL/min (>60) Glucose Level 94 MG/DL (74-106) # 198 MG/DL (74-106) #H Calcium Level 7.7 MG/DL (8.5-10.1) L 8.2 MG/DL (8.5-10.1) L Total Bilirubin 0.4 MG/DL (0.2-1.0) Aspartate Amino Transf (AST/SGOT) 397 U/L (15-37) H Alanine Aminotransferase (ALT/SGPT) 78 U/L (12-78) Alkaline Phosphatase 114 U/L (46-116) Total Protein 4.8 G/DL (6.4-8.2) L Albumin 1.7 G/DL (3.4-5.0) L Globulin 3.1 g/dL Albumin/Globulin Ratio 0.5 (1.0-2.7) L Hepatitis A IgM Antibody Pending Hepatitis B Surface Antigen Pending Hepatitis B Core IgM Antibody Pending Hepatitis C Antibody Pending HIV (1&2) Antibody Rapid Negative (NEGATIVE) Arterial Blood pH 7.330 (7.350-7.450) Arterial Blood Partial Pressure CO2 43.6 mmHg (35.0-45.0) Arterial Blood Partial Pressure O2 178.8 mmHg (75.0-100.0) H Arterial Blood HCO3 22.5 mmol/L (22.0-26.0) Arterial Blood Oxygen Saturation 97.5 % (95-100) Arterial Blood Base Excess -3.4 (-2-2) L Jun Test Positive Phosphorus Level 2.5 MG/DL (2.5-4.9) Magnesium Level 2.1 MG/DL (1.8-2.4) Head: normocophalic Neck: no rigidity Neurologic Exam Objective intubated off sedation pupils 4 mm non reactive gag absent does not overbreath vent no movement Impression/Recommendations Problems: (1) Respiratory failure with hypoxia (2) COVID-19 virus infection (3) Diabetes type 2, controlled (4) HTN (hypertension) Diagnostic Impression Persistent Encephalopathy, possibly prolonged toxic effect from sedation. Rule out hemorrhagic encephalitis if no improvement in MS Rule out spontaneous brain bleeding Rule out NCSE COVID + At this time prognosis is poor but we can not do a brain examination in the absence of PERINATAL TECHNICIAN etiology EEG ordered CT brain ordered Will likely need HD given worsening kidney failure if no improvement DW with multiple teams Royal Peguero MD Jan 15, 2020 18:56
--- NOTE | 2020-01-15 19:28 | NUR ---
HAND-OFF: Report given to [employer] CHRISTINE.
--- NOTE | 2020-01-15 20:00 | NUR ---
Nurse Note: Report received from EMMETT Flores for continuity of care. Pt is nonverbal, no gag reflex, does not respond to stimuli. Pupils not reactive to light and accommodation. Pt is intubated with ETT 7.5 at 23cm lip line with vent settings AC24, VT500, FiO2 100% and PEEP 8. O2 sat at 100%. RT femoral central line intact; Levophed was not infusing, BP at 75/66; increased Levophed to 26mcg/min. Bradshaw cath present with urine output noted. No skin mottling noted, no changes to skin condition. Skin injury on sacral area noted. EEG completed by Dariel railroad signal technician. Updated Dr. Doyle on pt condition. Called Dr. Peguero for EEG results; no answer and left a voicemail. All safety measures met; will continue to monitor.
--- NOTE | 2020-01-15 20:40 | NUR ---
Nurse Note: Called and informed Dr. Omer about ETT placement at 26cm at lip and incorrect position. Per Dr. Omer, RT to place ETT at 23 cm at lip line and get chest xray. RT at pt side. Dr. Omer also aware of EEG result.
--- NOTE | 2020-01-15 20:45 | NUR ---
Nurse Note: RT pulled ETT from 26cm at lip to 23cm at lip. O2 at 100%, RT able to suction. MD called back and informed MD about EEG results.
--- NOTE | 2020-01-15 20:50 | NUR ---
RESPIRATORY NOTE: Received pt on AC 24, 500VT, 100%, PEEP +8. Pt intubated w/ ETT 7.5 @ 26cm lipline, secured by anchorfast. Pt obtunded/comatose. B/S viridiana. diminished, unable to sxn pt right now, davis & 14fr catheter unable to pass through. RN & MD notified.Vent plugged into red outlet, ambubag at bedside. Pt in no apparent distress at this time. Will continue to monitor pt. Addendum: 01/15/20 at 2051 by MICHEL DALLAS RT Note for 2020 timeframe.
--- NOTE | 2020-01-15 20:51 | NUR ---
RESPIRATORY NOTE: ETT pulled back to 23cm per MD Negra. Bon now able to pass through for sxn. Pt sxn scant amounts of thick/thin, bloody secretions. Pt tolerating. Will continue to monitor pt.
[2020-01-15] MEDS: Dyna-Hex 2% Top Sol 2oz TOPIC SCH (20:58)
--- NOTE | 2020-01-15 21:06 | Infectious Diseases Prog Note ---
Assessment/Plan Assessment/Plan ASSESSMENT AND PLAN: 1. covid-19 virus infection with pna, possible bacterial pna, hypoxia, vent, respiratory failure, sepsis/shock, fevers, leukocytosis, ARF, ARDS, non-responsive - s/p hydroxychloroquine - day # 5/5 - cover bacterial pna/infection with zosyn, zyvox - thrombocytopenia unlikely secondary to linezolid since just started () and developing prior to linezolid being started, thrombocytopenia likely secondary to sepsis and DIC - avoid nephrotoxic antibiotics if possible - tocilizumab x 1 given - monitor labs and chest x-ray - monitor respiratory status - chest x-ray worse - critical - d/w Dr. Laurent 2. Diabetes. 3. Hypertension. 4. Hemoptysis. 5. Continue treatment per primary consultants. 6. No known drug allergies. 7. Social history is negative. 8. Family history is noncontributory. 9. MAR was noted. 10. Case discussed with RN. 11. Continue treatment per primary consultants. Subjective Constitutional: Reports: fever, fatigue, other - on vent and pressors HEENT: Reports: congestion Respiratory: Reports: shortness of breath Cardiovascular: Reports: other - + pressors Gastrointestinal/Abdominal: Denies: nausea, vomiting Genitourinary: Reports: other - + pollard Neurologic: Reports: other - poorly responsive Psychiatric: Reports: other - NA Skin: Denies: rash Allergies: Coded Allergies: No Known Allergies (Unverified , 01/05/20) Objective Vital Signs Last 24 Hour Vital Signs Date Time Temp Pulse Resp B/P (MAP) Pulse Ox O2 Delivery O2 Flow Rate FiO2 01/15/20 20:16 108 24 100 01/15/20 19:20 75/64 01/15/20 19:15 127 25 75/54 (61) 01/15/20 19:00 102/62 01/15/20 19:00 129 25 73/47 (56) 100 01/15/20 18:00 119 23 82/39 (53) 100 01/15/20 18:00 100/64 01/15/20 17:00 96/64 01/15/20 17:00 99.4 98 24 94/56 (69) 100 01/15/20 16:30 98 24 92/55 (67) 100 01/15/20 16:09 98.9 01/15/20 16:00 100 01/15/20 16:00 26 34 74/46 (55) 100 01/15/20 16:00 98 01/15/20 16:00 Mechanical Ventilator 01/15/20 15:44 74/46 01/15/20 15:35 102 24 100 01/15/20 15:30 98 21 92/55 (67) 100 01/15/20 15:00 131 34 74/46 (55) 100 01/15/20 14:30 112 23 103/63 (76) 100 01/15/20 14:15 114 29 106/65 (79) 100 01/15/20 14:00 111 27 109/63 (78) 100 01/15/20 13:00 133 27 91/60 (70) 100 01/15/20 12:00 112 01/15/20 12:00 100 01/15/20 12:00 98.9 113 39 138/76 (96) 100 01/15/20 12:00 Mechanical Ventilator 01/15/20 11:30 111 30 141/73 (95) 100 01/15/20 11:00 112 32 81/36 (51) 100 01/15/20 11:00 114 24 138/75 (96) 100 01/15/20 10:33 100 24 100 01/15/20 10:30 99 24 109/62 (78) 99 01/15/20 10:00 103 25 134/62 (86) 100 01/15/20 10:00 102 24 120/66 (84) 100 01/15/20 09:30 91 24 111/59 (76) 100 01/15/20 09:00 95 24 121/66 (84) 100 01/15/20 09:00 101/66 01/15/20 09:00 91 24 109/65 (80) 100 01/15/20 08:30 89 24 102/63 (76) 100 01/15/20 08:00 98.2 90 24 106/59 (75) 100 01/15/20 08:00 100 01/15/20 08:00 90 24 96/61 (73) 100 01/15/20 08:00 Mechanical Ventilator 01/15/20 08:00 91 01/15/20 07:50 93 24 100 01/15/20 07:00 98.7 90 12 101/56 (71) 100 01/15/20 07:00 101/66 01/15/20 06:30 117/64 01/15/20 06:00 93/65 01/15/20 06:00 88 14 93/65 (74) 100 01/15/20 05:00 100.0 104 24 99/59 (72) 100 01/15/20 05:00 99/59 01/15/20 04:00 100 01/15/20 04:00 Mechanical Ventilator 01/15/20 04:00 108/64 01/15/20 04:00 95 24 108/64 (79) 100 01/15/20 04:00 95 01/15/20 03:29 75/61 01/15/20 03:17 101 22 100 01/15/20 03:00 97 27 80/55 (63) 100 01/15/20 03:00 116/63 01/15/20 02:00 113/66 01/15/20 02:00 103 30 113/66 (82) 100 01/15/20 01:00 134/66 01/15/20 01:00 103 28 134/66 (88) 100 01/15/20 00:00 100 24 127/76 (93) 100 01/15/20 00:00 127/76 01/15/20 00:00 Mechanical Ventilator 01/15/20 00:00 100 01/14/20 23:00 121/74 01/14/20 23:00 107 24 121/74 (90) 100 01/14/20 22:56 99 23 100 01/14/20 22:00 125/69 01/14/20 22:00 111 24 125/69 (87) 100 Height (Feet): 5 Height (Inches): 4.00 Weight (Pounds): 134 General Appearance: other - on vent and pressors HEENT: normocephalic, atraumatic, other - oral - intubated Respiratory/Chest: crackles/rales, rhonchi - bilaterally Cardiovascular: regular rhythm, no gallop/murmur, no JVD, tachycardia Abdomen: normal bowel sounds, non distended Genitourinary: other - + pollard Extremities: other - no cellulitis Skin: no rash Neurologic/Psychiatric: other - non-responsive, weak Objective 01/07/20 - Procedure: XRAY Chest 1v Indication: Shortness of breath Technique: One view of the chest Comparison: For 09/13/2020 Findings: There inspiration currently. Bilateral mostly central mostly interstitial disease with hazy airspace opacity is again demonstrated. Consolidation appears less dense at the lung bases, probably due to the better inspiratory effort, but there does appear to be more disease in the upper lungs. The pleural spaces are clear. The heart size is normal. Impression: Shifting infiltrates, with apparent partial clearing of lung bases but increased disease in the upper lungs. Change in appearance may be in part due to improved inspiratory effort, however. Chest x-ray - 01/09/20 - Procedure: XRAY Chest 1v Indication: Shortness of breath Technique: One view of the chest Comparison: 01/07/2020 Findings: Hazy infiltrates throughout the right lung have worsened since prior study. There is also slight worsening of hazy left mid and lower lung infiltrates since prior study. The heart size is normal. The pleural spaces remain clear. Impression: Worsening bilateral infiltrates, likely pneumonia, right greater than left, over 2 days Chest x-ray - 01/11/20 - IMPRESSION: 1. Endotracheal tube tip approximately 4.3 cm above the lauri, with expected radiographic position. Chest x-ray - 01/13/20 - Procedure: XRAY Chest 1v Indication: Shortness of breath Technique: One view of the chest Comparison: 01/12/2020 Findings: Solitary inspiration on the current exam. Interstitial and airspace opacities appear slightly improved, but this is probably artifact of the greater lung volumes. Diffuse mostly airspace opacities in the right lung appear worse than on the prior exam despite the better inspiration. No effusions. The heart size is normal. Stable satisfactory positions of endotracheal and orogastric tubes. Impression: Probably stable left and slightly worse right parenchymal opacities , over one day, appearance suggestive of pneumonia/ARDS 2. No significant interval change in the diffuse interstitial and alveolar opacities in bilateral lungs. This is concerning for multifocal pneumonia versus pulmonary edema or ARDS. chest x-ray - 01/15/20 - Procedure: XRAY Chest 1v Indication: Abnormal chest sounds Technique: One view of the chest Comparison: 01/14/2020 Findings: Bilateral diffuse interstitial and airspace is again demonstrated, appears worse since previous study. The endotracheal tube is again demonstrated be high , tip projecting above the thoracic inlet just below the cords. Stable satisfactory position of orogastric tube Impression: Slight worsening of bilateral diffuse infiltrates, over one day Microbiology Date/Time Source Procedure Growth Status 01/05/20 07:40 Blood Blood Culture - Final NO GROWTH AFTER 5 DAYS Complete 01/05/20 08:00 Nasopharynx Coronavirus COVID-19 PCR (TAM) - Final Complete 01/14/20 09:30 Indwelling Cath Urine Culture - Preliminary NO GROWTH Resulted Microbiology Date/Time Source Procedure Growth Status 01/14/20 09:30 Indwelling Cath Urine Culture - Preliminary NO GROWTH Resulted Laboratory Tests Test 01/15/20 03:30 01/15/20 09:05 01/15/20 13:30 White Blood Count 19.3 K/UL (4.8-10.8) H Red Blood Count 3.35 M/UL (4.20-5.40) L Hemoglobin 10.7 G/DL (12.0-16.0) L Hematocrit 30.4 % (37.0-47.0) L Mean Corpuscular Volume 91 FL (80-99) Mean Corpuscular Hemoglobin 32.0 PG (27.0-31.0) H Mean Corpuscular Hemoglobin Concent 35.2 G/DL (32.0-36.0) Red Cell Distribution Width 11.5 % (11.6-14.8) L Platelet Count 22 K/UL (150-450) #L Mean Platelet Volume 8.7 FL (6.5-10.1) Neutrophils (%) (Auto) % (45.0-75.0) Lymphocytes (%) (Auto) % (20.0-45.0) Monocytes (%) (Auto) % (1.0-10.0) Eosinophils (%) (Auto) % (0.0-3.0) Basophils (%) (Auto) % (0.0-2.0) Differential Total Cells Counted 100 Neutrophils % (Manual) 90 % (45-75) H Lymphocytes % (Manual) 5 % (20-45) L Monocytes % (Manual) 1 % (1-10) Eosinophils % (Manual) 0 % (0-3) Basophils % (Manual) 0 % (0-2) Band Neutrophils 4 % (0-8) Platelet Estimate Decreased L Platelet Morphology Normal Sodium Level 150 MMOL/L (136-145) #H 146 MMOL/L (136-145) H Potassium Level 3.8 MMOL/L (3.5-5.1) 3.7 MMOL/L (3.5-5.1) Chloride Level 113 MMOL/L (98-107) H 109 MMOL/L (98-107) H Carbon Dioxide Level 25 MMOL/L (21-32) 24 MMOL/L (21-32) Anion Gap 12 mmol/L (5-15) 13 mmol/L (5-15) Blood Urea Nitrogen 39 mg/dL (7-18) H 39 mg/dL (7-18) H Creatinine 2.5 MG/DL (0.55-1.30) H 2.4 MG/DL (0.55-1.30) H Estimat Glomerular Filtration Rate 19.9 mL/min (>60) 20.8 mL/min (>60) Glucose Level 94 MG/DL (74-106) # 198 MG/DL (74-106) #H Calcium Level 7.7 MG/DL (8.5-10.1) L 8.2 MG/DL (8.5-10.1) L Total Bilirubin 0.4 MG/DL (0.2-1.0) Aspartate Amino Transf (AST/SGOT) 397 U/L (15-37) H Alanine Aminotransferase (ALT/SGPT) 78 U/L (12-78) Alkaline Phosphatase 114 U/L (46-116) Total Protein 4.8 G/DL (6.4-8.2) L Albumin 1.7 G/DL (3.4-5.0) L Globulin 3.1 g/dL Albumin/Globulin Ratio 0.5 (1.0-2.7) L Hepatitis A IgM Antibody Pending Hepatitis B Surface Antigen Pending Hepatitis B Core IgM Antibody Pending Hepatitis C Antibody Pending HIV (1&2) Antibody Rapid Negative (NEGATIVE) Arterial Blood pH 7.330 (7.350-7.450) Arterial Blood Partial Pressure CO2 43.6 mmHg (35.0-45.0) Arterial Blood Partial Pressure O2 178.8 mmHg (75.0-100.0) H Arterial Blood HCO3 22.5 mmol/L (22.0-26.0) Arterial Blood Oxygen Saturation 97.5 % (95-100) Arterial Blood Base Excess -3.4 (-2-2) L Jun Test Positive Phosphorus Level 2.5 MG/DL (2.5-4.9) Magnesium Level 2.1 MG/DL (1.8-2.4) Current Medications Medications (Trade) Dose Ordered Sig/Neha Route PRN Reason Start Time Stop Time Status Last Admin Dose Admin Acetaminophen (Tylenol) 650 mg Q4H PRN ORAL Mild Pain (Pain Scale 1-3) 01/08/20 09:00 02/04/20 08:59 01/14/20 18:08 Acetaminophen (Tylenol) 650 mg Q4H PRN ORAL Temp >100.5 01/08/20 09:00 02/04/20 08:59 Albumin Human 50 ml @ 50 mls/hr ONCE ONCE IV 01/15/20 20:45 01/15/20 21:44 01/15/20 20:59 Artificial Tears (Akwa-Tears) 2 drop Q6H PRN BOTH EYES Dry Eyes 01/13/20 12:00 02/12/20 11:59 01/14/20 09:00 Benzonatate (Tessalon Perles) 100 mg Q8H PRN ORAL For Cough 01/08/20 14:00 02/07/20 13:59 Chlorhexidine Gluconate (Saritha-Hex 2%) 1 applic DAILY@2000 TOPIC 01/12/20 20:00 04/11/20 19:59 01/15/20 20:58 Dextrose (Dextrose 50%) 25 ml Q30M PRN IV Hypoglycemia 01/14/20 17:30 04/13/20 17:29 Dextrose (Dextrose 50%) 50 ml Q30M PRN IV Hypoglycemia 01/14/20 17:30 04/13/20 17:29 Guaifenesin/ Dextromethorphan (Robitussin DM Syrup) 10 ml Q4H PRN ORAL For Cough 01/08/20 09:15 04/05/20 01:14 01/08/20 09:20 Insulin Aspart (NovoLOG) EVERY 4 HOURS SUBQ 01/14/20 21:00 04/13/20 20:59 01/15/20 13:00 Insulin Aspart (NovoLOG) 5 units EVERY 4 HOURS SUBQ 01/14/20 21:00 04/13/20 20:59 01/15/20 17:19 Linezolid 300 ml @ 300 mls/hr EVERY 12 HOURS IVPB 01/12/20 21:00 01/19/20 20:59 01/15/20 20:59 Midazolam HCl 100 ml @ 0 mls/hr Q24H PRN IV Agitation 01/11/20 16:15 04/10/20 16:14 01/12/20 06:10 Morphine Sulfate (Morphine Sulfate) 1 mg EVERY 6 HOURS PRN IVP Severe Pain (Pain Scale 7-10) 01/09/20 20:30 01/16/20 20:29 01/15/20 15:39 Norepinephrine Bitartrate 8 mg/ Sodium Chloride 500 ml @ 0 mls/hr Q24H IV 01/15/20 13:00 02/14/20 12:59 01/15/20 15:44 Piperacillin Sod/ Tazobactam Sod 3.375 gm/Sodium Chloride 110 ml @ 27.5 mls/hr Q8H IVPB 01/11/20 20:00 01/18/20 19:59 01/15/20 20:59 Pham Doyle MD Jan 15, 2020 21:06
--- NOTE | 2020-01-15 21:45 | Diagnostic Imaging Report ---
Chest 1 view History: Tube placement Comparison: 01/14/2020 Findings: ET tube tip is at the upper trachea at the cervicothoracic junction. Diffuse bilateral slightly increased lung infiltrates are seen. NG tube extends into the distal stomach. Impression: 1. Diffuse bilateral lung infiltrates of slightly increased. 2. Proximal position of the ET tube at the cervicothoracic junction. 3. NG tube in stomach
--- NOTE | 2020-01-15 22:05 | NUR ---
Nurse Note: Blood sugar 75; no insulin coverage (both scheduled and sliding scale) given. Chest x-ray taken to confirm ETT placement. No signs of resp distress. Axillary temp 99.6 F. Head of bed at 30degrees. All safety measures met; will continue to monitor.
[2020-01-16] VITALS (40 sets, daily range): BP systolic 53–160; BP diastolic 28–76
--- NOTE | 2020-01-16 01:10 | NUR ---
Nurse Note: Spoke to Noris at [facility] and gave clinicals. Per Noris, she will relay the clinicals to the MD for further decisions. Ice applied to pt. All safety measures met; will continue to monitor.
[2020-01-16] MEDS: NovoLOG Insulin Flexpen SUBQ SCH ×12 (01:36→21:36)
[2020-01-16] MEDS: Piperacillin/Tazobactam 3.375 GM in NS 110 ML IVPB SCH (04:15)
[2020-01-16] MEDS: Norepinephrine Bitartrate 8 MG in Sodium Chloride 492 ML IV SCH (04:16)
[2020-01-16 05:11] LABS: HEMATOCRIT 29.4 % (37.0-47.0); HEMOGLOBIN 10.2 G/DL (12.0-16.0); MEAN CORPUSCULAR VOLUME 92 FL (80-99); PLATELET COUNT 19 K/UL (150-450); RED BLOOD COUNT 3.19 M/UL (4.20-5.40); RED CELL DISTRIBUTION WIDTH 11.9 % (11.6-14.8)
[2020-01-16 05:27] LABS: WHITE BLOOD COUNT 22.3 K/UL (4.8-10.8)
[2020-01-16 05:31] LABS: ALANINE AMINOTRANSFERASE 80 U/L (12-78); ALBUMIN 2.1 G/DL (3.4-5.0); ALBUMIN/GLOBULIN RATIO 0.7 (1.0-2.7); ALKALINE PHOSPHATASE 139 U/L (46-116); ANION GAP 11 mmol/L (5-15); ASPARTATE AMINO TRANSFERASE 449 U/L (15-37); BILIRUBIN,TOTAL 0.4 MG/DL (0.2-1.0); BLOOD UREA NITROGEN 37 mg/dL (7-18); CALCIUM 7.8 MG/DL (8.5-10.1); CARBON DIOXIDE 25 MMOL/L (21-32); CHLORIDE 121 MMOL/L (98-107); CREATININE 2.4 MG/DL (0.55-1.30); POTASSIUM 3.7 MMOL/L (3.5-5.1); SODIUM 157 MMOL/L (136-145)
--- NOTE | 2020-01-16 06:30 | NUR ---
Nurse Note: No change in pt condition from baseline. Pt is nonverbal, no gag reflex, does not respond to stimuli. Pupils not reactive to light and accommodation. Pt is intubated with ETT 7.5 at 23cm lip line with vent settings AC24, VT500, FiO2 100% and PEEP 8. O2 sat at 100%. Pt suctioned and oral care done. RT femoral central line intact; Levophed infusing at 26mcg/min; MAP >65. Bradshaw cath present with urine output noted. No new skin breakdown. Pt cleaned, turned as needed. BS 76 at 0500; no insulin given as ordered. All safety measures met; will continue to monitor.
--- NOTE | 2020-01-16 07:19 | NUR ---
RESPIRATORY NOTE: Received pt on AC 24,500ml ,100%, peep 8. Pt is obtunded and intubated with ETT 7.5 @ 23cm lip line, secured by anchor fast. Vent plugged into red outlet, alarms are set and audible, ambu bag at bedside. Pt in no apparent distress at this time. Will continue to monitor pt.
--- NOTE | 2020-01-16 07:30 | NUR ---
Nurse Note: Endorsed care to EMMETT Flores for continuity of care. Informed EMMETT Floers that pt does not have hx of ETOH. drug, smoking use in past; no hx of liver damage.
--- NOTE | 2020-01-16 08:00 | NUR ---
NURSE NOTES: Received change of shift report from [employer] CHRISTINE. Pt is obtunded, has no gag reflex and pupil dilated to 8mm and no response to painful stimuli. Pt is orally intubated, ETT 7.5 at 23cm lipline with vent settings AC14, VT500, Peep 8.0 and FIO2 100% with O2Sat from 98-100%. NSR to ST on surveillance monitor, HR is fluctuating from 96-110, while pt is on Levophed at 26mcg/min via right femoral TLC, and BP currently 92/62. Temp 98.8F axillary. OGT in place, clamped. Bradshaw catheter is present, draining clear/light yellow urine. Skin has sacral DTI, covered with optifoam dressing. Pt is on P200 mattress. HOB at 30degrees, bed locked, three side rails up and call light placed within reach. Will continue to monitor pt and follow plan of care per MD orders and protocol.
--- NOTE | 2020-01-16 09:00 | NUR ---
NURSE NOTES: Insulin dosage was verified with another RN outside of the pt's room because pt is COVID positive, and her insulin pens are inside the room by the pt, considered contaminated now. Addendum: 01/16/20 at 1411 by GREGORIO BUENROSTRO RN Was unable to directly scan insulin pens because they are located inside the Positive-COVID room, and there is no computer inside that room. Addendum: 01/16/20 at 1612 by GREGORIO BUENROSTRO RN All meds are verified at the computer by the nurse's station, prior to administration due to COVID precautions and no computer inside the pt's room.
[2020-01-16] MEDS: Norepinephrine Bitartrate 8 MG in D5W 500ml 500 ML IV SCH ×3 (09:16→22:20)
--- NOTE | 2020-01-16 09:31 | NUR ---
NURSE NOTES: Pt was administered Tylenol per PRN order for temp above 100.5F axillary. Cooling measures are in place.
--- NOTE | 2020-01-16 09:48 | NUR ---
DISCHARGE/TRANSFER: NOTE F/U CALL PLACED TO HARRIETT AT [facility]. PT REMAINS ON THE LIST. P2P HELD WITH ATTENDING AND ICU SUEDING AND BUFFING MACHINE OPERATOR DR MASCORRO. ACCEPTANCE TO ICU IS PENDING DR Garay APPROVAL. CM WILL F/U Addendum: 01/16/20 at 1005 by Tari Reilly CM CALL PLACED TO HARRIETT AT [facility]SF[facility]. HARRIETT STATED THAT HE NEEDS A HEAD CT TO PROCESS TRANSFER. CALL PLACED TO BEDSIDE NURSE IN ICU REQUESTING A PRIORITY CHANGE FOR THE CT HEAD SINCE PT IS COVID (+). SHE WILL SPEAK TO . AWAITING ORDER CHANGE. Addendum: 01/16/20 at 1551 by Tari Reilly CM MELONY @ [facility] IS CANCELLING THE TRANSFER REQUEST. CT HEAD NEEDS TO BE PERFORMED AND FAXED. THE INTERNSHIP COORDINATOR WILL NOT ACCEPT AN EEG PER CRN PATIENT IS NOT STABLE FOR CT SCANNER AND EEG READING IS PENDING.
[2020-01-16] MEDS ORDERED: NOREPINEPHRINE BITARTRATE IV SCH (10:00)
[2020-01-16] MEDS ORDERED: SODIUM CHLORIDE IV SCH (10:00)
--- NOTE | 2020-01-16 10:00 | NUR ---
NURSE NOTES: AM meds were administered. Oral care was done. Pt was repositioned. Pt was seen by Dr Laurent and Dr Omer. CT Scan of the head on hold and pending due to pt currently being on high dose of pressor Levophed, and hemodynamically unstable, unable to transfer down to CT. Dr Omer and Dr Laurent both aware. MDs currenty awaiting for official interpretation of the EEG reading. Spoke with Tari from case management regarding pending transfer, which is on hold pending results of CT scan.
--- NOTE | 2020-01-16 11:11 | Diagnostic Imaging Report ---
Indication: Low platelets, abnormal liver function tests Technique: Only limited exam of the liver and spleen performed; COVID-19 positive patient Comparison: none Findings: The liver appears unremarkable, demonstrating normal echogenicity. Maximal sagittal dimension is 13.1 cm. No surface nodularity Nondilated common bile duct. The spleen is normal in size, measuring 9 cm Impression: Limited exam,, demonstrating normal size noncirrhotic liver and normal size spleen
--- NOTE | 2020-01-16 11:54 | General Progress Note ---
Assessment/Plan Problem List: (1) Anemia ICD Codes: D64.9 - Anemia, unspecified SNOMED: 936178710 (2) Elevated LFTs ICD Codes: R79.89 - Other specified abnormal findings of blood chemistry SNOMED: 593478322, 253440303 (3) HTN (hypertension) ICD Codes: I10 - Essential (primary) hypertension SNOMED: 35044914 (4) Diabetes type 2, controlled ICD Codes: E11.9 - Type 2 diabetes mellitus without complications SNOMED: 16431410, 975797746 (5) COVID-19 virus infection ICD Codes: U07.1 - COVID-19 SNOMED: 436594041 (6) Respiratory failure with hypoxia ICD Codes: J96.91 - Respiratory failure, unspecified with hypoxia SNOMED: 49220926312346600 (7) Diabetes mellitus out of control ICD Codes: E11.65 - Type 2 diabetes mellitus with hyperglycemia SNOMED: 28052456, 486644502 Assessment/Plan: on pressors brain septic shock liver supportive care poor prognosis fu labs Subjective ROS Limited/Unobtainable: No Allergies: Coded Allergies: No Known Allergies (Unverified , 01/05/20) Objective Last 24 Hour Vital Signs Date Time Temp Pulse Resp B/P (MAP) Pulse Ox O2 Delivery O2 Flow Rate FiO2 01/16/20 11:00 127 24 102/58 (73) 97 01/16/20 11:00 92/62 01/16/20 10:01 99.7 01/16/20 10:00 90/56 01/16/20 10:00 127 24 101/60 (74) 99 01/16/20 09:16 80/51 01/16/20 09:00 131 24 148/76 (100) 100 01/16/20 09:00 88/46 01/16/20 08:00 126 24 108/62 (77) 99 01/16/20 08:00 100 01/16/20 08:00 92/60 01/16/20 08:00 Mechanical Ventilator 01/16/20 08:00 126 01/16/20 07:19 128 24 100 01/16/20 07:00 123 24 116/64 (81) 100 01/16/20 07:00 116/51 01/16/20 06:00 126/59 01/16/20 06:00 126 23 126/59 (81) 100 01/16/20 05:00 137/74 01/16/20 05:00 116 23 137/74 (95) 100 01/16/20 04:16 103/64 01/16/20 04:00 100 01/16/20 04:00 73/42 01/16/20 04:00 121 01/16/20 04:00 99.6 125 23 73/42 (52) 100 01/16/20 04:00 Mechanical Ventilator 01/16/20 03:37 121 24 100 01/16/20 03:00 121 23 119/63 (81) 100 01/16/20 03:00 119/63 01/16/20 02:00 126 23 115/61 (79) 100 01/16/20 02:00 115/63 01/16/20 01:00 101/55 01/16/20 01:00 100.6 129 24 101/55 (70) 100 01/16/20 00:00 124 01/16/20 00:00 Mechanical Ventilator 01/16/20 00:00 124/65 01/16/20 00:00 100.0 123 24 124/65 (84) 100 01/15/20 23:16 122 24 100 01/15/20 23:00 129 24 124/69 (87) 100 01/15/20 22:58 116/58 01/15/20 22:00 120/70 01/15/20 22:00 115 24 120/70 (87) 100 01/15/20 21:00 131/67 01/15/20 21:00 99.6 105 24 131/67 (88) 100 01/15/20 20:35 122/64 01/15/20 20:20 118/60 01/15/20 20:16 108 24 100 01/15/20 20:05 114/62 01/15/20 20:00 109 01/15/20 20:00 100 01/15/20 20:00 Mechanical Ventilator 01/15/20 20:00 108 27 114/62 (79) 98 01/15/20 19:50 140/71 01/15/20 19:35 94/66 01/15/20 19:30 110 24 140/71 (94) 100 01/15/20 19:20 75/64 01/15/20 19:15 127 25 75/54 (61) 01/15/20 19:00 102/62 01/15/20 19:00 129 25 73/47 (56) 100 01/15/20 18:00 119 23 82/39 (53) 100 01/15/20 18:00 100/64 01/15/20 17:00 96/64 01/15/20 17:00 99.4 98 24 94/56 (69) 100 01/15/20 16:30 98 24 92/55 (67) 100 01/15/20 16:09 98.9 01/15/20 16:00 100 01/15/20 16:00 26 34 74/46 (55) 100 01/15/20 16:00 98 01/15/20 16:00 Mechanical Ventilator 01/15/20 15:44 74/46 01/15/20 15:35 102 24 100 01/15/20 15:30 98 21 92/55 (67) 100 01/15/20 15:00 131 34 74/46 (55) 100 01/15/20 14:30 112 23 103/63 (76) 100 01/15/20 14:15 114 29 106/65 (79) 100 01/15/20 14:00 111 27 109/63 (78) 100 01/15/20 13:00 133 27 91/60 (70) 100 01/15/20 12:00 112 01/15/20 12:00 100 01/15/20 12:00 98.9 113 39 138/76 (96) 100 01/15/20 12:00 Mechanical Ventilator Intake and Output 01/15/20 01/16/20 19:00 07:00 Intake Total 1863.6 ml 2125.0 ml Output Total 700 ml 840 ml Balance 1163.6 ml 1285.0 ml Free Water 120 ml IV Total 1863.6 ml 2005.0 ml Output Urine Total 700 ml 840 ml Laboratory Tests 01/15/20 13:30: Sodium Level 146H, Potassium Level 3.7, Chloride Level 109H, Carbon Dioxide Level 24, Anion Gap 13, Blood Urea Nitrogen 39H, Creatinine 2.4H, Estimat Glomerular Filtration Rate 20.8, Glucose Level 198#H, Calcium Level 8.2L, Phosphorus Level 2.5, Magnesium Level 2.1 01/16/20 03:55: Sodium Level 157#H, Potassium Level 3.7, Chloride Level 121H, Carbon Dioxide Level 25, Anion Gap 11, Blood Urea Nitrogen 37H, Creatinine 2.4H, Estimat Glomerular Filtration Rate 20.8, Glucose Level 76#, Calcium Level 7.8L, White Blood Count 22.3*H, Red Blood Count 3.19L, Hemoglobin 10.2L, Hematocrit 29.4L, Mean Corpuscular Volume 92, Mean Corpuscular Hemoglobin 31.8H, Mean Corpuscular Hemoglobin Concent 34.5, Red Cell Distribution Width 11.9, Platelet Count 19L, Mean Platelet Volume 9.0, Neutrophils (%) (Auto) , Lymphocytes (%) (Auto) , Monocytes (%) (Auto) , Eosinophils (%) (Auto) , Basophils (%) (Auto) , Differential Total Cells Counted 100, Neutrophils % (Manual) 93H, Lymphocytes % (Manual) 5L, Monocytes % (Manual) 1, Eosinophils % (Manual) 1, Basophils % ( Manual) 0, Band Neutrophils 0, Platelet Estimate DecreasedL, Platelet Morphology Normal, Hypochromasia 1+, Total Bilirubin 0.4, Aspartate Amino Transf (AST/SGOT) 449H, Alanine Aminotransferase (ALT/SGPT) 80H, Alkaline Phosphatase 139H, Total Protein 5.2L, Albumin 2.1L, Globulin 3.1, Albumin/ Globulin Ratio 0.7L Height (Feet): 5 Height (Inches): 4.00 Weight (Pounds): 135 General Appearance: lethargic EENT: normal ENT inspection Neck: supple Cardiovascular: tachycardia Respiratory/Chest: decreased breath sounds Abdomen: normal bowel sounds, non tender, soft Extremities: non-tender Navid Nguyen MD Jan 16, 2020 11:54
--- NOTE | 2020-01-16 12:00 | NUR ---
NURSE NOTES: Abdominal ultrasound is being done at bedside, per Dr. Moncada's order. Pt remains on Levophed currently at 28mcg/min to maintain SBP above 90. Vent settings maintained at 100% FIO2 to maintain O2Sat above 90%. Cooling measures are in place to maintain Temp below 100.5F.
--- NOTE | 2020-01-16 12:29 | Nephrology Progress Note ---
Assessment/Plan Plan #KADEN- concerns for developing ATN in the setting of sepsis- r/o vanco toxicity- now with worsening renal failure #Hyponatremia- mild- l r/o SIADH in the setting of pneumonia- improved #hypokalemia- repleted #COVID pneumonia #hypoxemic respiratary failure #HTN #DM #hypokalemia- cautiously replete - D5w 500cc today - albumin 25g - monitor UOP - maharkur placed to HD initiation if uop declines - CT brain if able to - neuro eval - consider transfer to [facility] or [facility] for higher level care- will likely need CVVHD and possibly echo support ? - s/p actema - switching vanco to linezolid - s/p actemra - hold amlodipine 5mg daily - BG control - breathing tx per pulm - supplemental O2 via vent Critical Care Services performed include: Hemodynamic measurement interpretation Laboratory data review and interpretation Radiology image review and interpretation Telemetry review ABG interpretation Discussion of patient's care with consultants and [facility] Subjective ROS Limited/Unobtainable: No Subjective intubated for worsening resp failure recevied actemra Fio2 100 sodium up to 157 WBC uptrending UOP 1.5L yesterday sodium 150 Fio2 100 chest xray; Impression: Probably stable left and slightly worse right parenchymal opacities , over one day, appearance suggestive of pneumonia/ARDS Objective Objective Last 24 Hour Vital Signs Date Time Temp Pulse Resp B/P (MAP) Pulse Ox O2 Delivery O2 Flow Rate FiO2 01/16/20 11:00 127 24 102/58 (73) 97 01/16/20 11:00 92/62 01/16/20 10:49 126 24 100 01/16/20 10:01 99.7 01/16/20 10:00 90/56 01/16/20 10:00 127 24 101/60 (74) 99 01/16/20 09:16 80/51 01/16/20 09:00 131 24 148/76 (100) 100 01/16/20 09:00 88/46 01/16/20 08:00 126 24 108/62 (77) 99 01/16/20 08:00 100 01/16/20 08:00 92/60 01/16/20 08:00 Mechanical Ventilator 01/16/20 08:00 126 4/23/20 07:19 128 24 100 01/16/20 07:00 123 24 116/64 (81) 100 01/16/20 07:00 116/51 01/16/20 06:00 126/59 01/16/20 06:00 126 23 126/59 (81) 100 01/16/20 05:00 137/74 01/16/20 05:00 116 23 137/74 (95) 100 01/16/20 04:16 103/64 01/16/20 04:00 100 01/16/20 04:00 73/42 01/16/20 04:00 121 01/16/20 04:00 99.6 125 23 73/42 (52) 100 01/16/20 04:00 Mechanical Ventilator 01/16/20 03:37 121 24 100 01/16/20 03:00 121 23 119/63 (81) 100 01/16/20 03:00 119/63 01/16/20 02:00 126 23 115/61 (79) 100 01/16/20 02:00 115/63 01/16/20 01:00 101/55 01/16/20 01:00 100.6 129 24 101/55 (70) 100 01/16/20 00:00 124 01/16/20 00:00 Mechanical Ventilator 01/16/20 00:00 124/65 01/16/20 00:00 100.0 123 24 124/65 (84) 100 01/15/20 23:16 122 24 100 01/15/20 23:00 129 24 124/69 (87) 100 01/15/20 22:58 116/58 01/15/20 22:00 120/70 01/15/20 22:00 115 24 120/70 (87) 100 01/15/20 21:00 131/67 01/15/20 21:00 99.6 105 24 131/67 (88) 100 01/15/20 20:35 122/64 01/15/20 20:20 118/60 01/15/20 20:16 108 24 100 01/15/20 20:05 114/62 01/15/20 20:00 109 01/15/20 20:00 100 01/15/20 20:00 Mechanical Ventilator 01/15/20 20:00 108 27 114/62 (79) 98 4/22/20 19:50 140/71 01/15/20 19:35 94/66 01/15/20 19:30 110 24 140/71 (94) 100 01/15/20 19:20 75/64 01/15/20 19:15 127 25 75/54 (61) 01/15/20 19:00 102/62 01/15/20 19:00 129 25 73/47 (56) 100 01/15/20 18:00 119 23 82/39 (53) 100 01/15/20 18:00 100/64 01/15/20 17:00 96/64 01/15/20 17:00 99.4 98 24 94/56 (69) 100 01/15/20 16:30 98 24 92/55 (67) 100 01/15/20 16:09 98.9 01/15/20 16:00 100 01/15/20 16:00 26 34 74/46 (55) 100 01/15/20 16:00 98 01/15/20 16:00 Mechanical Ventilator 01/15/20 15:44 74/46 01/15/20 15:35 102 24 100 01/15/20 15:30 98 21 92/55 (67) 100 01/15/20 15:00 131 34 74/46 (55) 100 01/15/20 14:30 112 23 103/63 (76) 100 01/15/20 14:15 114 29 106/65 (79) 100 01/15/20 14:00 111 27 109/63 (78) 100 01/15/20 13:00 133 27 91/60 (70) 100 Intake and Output 01/15/20 01/16/20 19:00 07:00 Intake Total 1863.6 ml 2125.0 ml Output Total 700 ml 840 ml Balance 1163.6 ml 1285.0 ml Free Water 120 ml IV Total 1863.6 ml 2005.0 ml Output Urine Total 700 ml 840 ml Laboratory Tests 01/15/20 13:30: Sodium Level 146H, Potassium Level 3.7, Chloride Level 109H, Carbon Dioxide Level 24, Anion Gap 13, Blood Urea Nitrogen 39H, Creatinine 2.4H, Estimat Glomerular Filtration Rate 20.8, Glucose Level 198#H, Calcium Level 8.2L, Phosphorus Level 2.5, Magnesium Level 2.1 01/16/20 03:55: Sodium Level 157#H, Potassium Level 3.7, Chloride Level 121H, Carbon Dioxide Level 25, Anion Gap 11, Blood Urea Nitrogen 37H, Creatinine 2.4H, Estimat Glomerular Filtration Rate 20.8, Glucose Level 76#, Calcium Level 7.8L, White Blood Count 22.3*H, Red Blood Count 3.19L, Hemoglobin 10.2L, Hematocrit 29.4L, Mean Corpuscular Volume 92, Mean Corpuscular Hemoglobin 31.8H, Mean Corpuscular Hemoglobin Concent 34.5, Red Cell Distribution Width 11.9, Platelet Count 19L, Mean Platelet Volume 9.0, Neutrophils (%) (Auto) , Lymphocytes (%) (Auto) , Monocytes (%) (Auto) , Eosinophils (%) (Auto) , Basophils (%) (Auto) , Differential Total Cells Counted 100, Neutrophils % (Manual) 93H, Lymphocytes % (Manual) 5L, Monocytes % (Manual) 1, Eosinophils % (Manual) 1, Basophils % ( Manual) 0, Band Neutrophils 0, Platelet Estimate DecreasedL, Platelet Morphology Normal, Hypochromasia 1+, Total Bilirubin 0.4, Aspartate Amino Transf (AST/SGOT) 449H, Alanine Aminotransferase (ALT/SGPT) 80H, Alkaline Phosphatase 139H, Total Protein 5.2L, Albumin 2.1L, Globulin 3.1, Albumin/ Globulin Ratio 0.7L Height (Feet): 5 Height (Inches): 4.00 Weight (Pounds): 135 Objective General: intubated, unresponsive off sedation HEENT: NCAT, ET tube in place CV: tachycardic, Pulm: coarse rhonchi, b/l symmetrical rise in lungs GI: Soft, nontender, nondistended Ext: No lower extremity edema bilaterally Justin Hopper M.D. Jan 16, 2020 12:29
--- NOTE | 2020-01-16 12:33 | General Progress Note ---
Assessment/Plan Assessment/Plan: 59-year-old female with PMH of HTN, DM on metformin who presents with SOB x2 days. 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 #Acute hypoxic respiratory failure 2/2 #COVID positive #CAP/PNA #ARDS #Fevers #Acute Toxic Metabolic Encephalopathy #Severe Sepsis, Septic Shock 2/2 COVID #Leukocytosis -Appreciate ICU care -Vent management per Pulm, wean as tolerated -cont. droplet/contact isolation -01/04: BCx NGTD -01/08: CXR with worsening infiltrates -s/p hydroxychloroquine -S/p Actemra and Ivermectin -01/09 pt intubated -01/12: CXR with b/l infiltrates, concerning for ARDS -01/12: D/w Dr. Omer, Dr. Doyle, Dr. Hopper, plan to transfer to [facility] for higher level of care -transfer order in place, pending acceptance to either [facility] or [facility] -unable to perform CT head earlier given COVID infection risk -01/14: CT head ordered, d/w Nurse/Pulm Dr. Omer, ID Dr. Doyle and Nephro Dr. Hopper, pt too unstable at this time for CT head and high risk of COVID+ spread and rapid decompensation -Pt remains unresponsive off sedation -01/15: EEG pending final read -Abx per ID: Zyvox, Zosyn -Updated daughter, Barrera, #Severe Thrombocytopenia #Elevated D-Dimer -likely multifactorial 2/2 sepsis, COVID, DIC, less likely medication related -plts 18 >> 16 >11>22 -no signs of bleeding -cont to monitor for signs of bleeding -transfuse for signs of bleeding and plts <50k or when plts <10k -Hematology following, recs appreciated #Hypernatremia #Hyponatremia - resolved #Hypokalemia #KADEN -Cr worsening today, 0.8>>1.5>>2.1>>2.3>2.5 -Concern for need for CRRT -Nephro following: HD per nephro, appreciate recs #HTN -pt unsure of home medications -CTM #NIDDM, type 2 #Hyperglycemia -holding home metformin while in-pt -Hgb A1c 6.7 -Endo following: continue Novolog 5 U q4h, Novolog sliding scale q4h DVT PPx: SCDs Prognosis: poor Time spent on encounter: 78 mins, 38 mins spent on critical care time. Critical Care Services performed include: Telemetry Review Hemodynamic measurement interpretation Laboratory data review and interpretation Radiology image review and interpretation Interpretation of ABG's Review of vent setting Discussion of patient's care with ICU team, Nursing staff, ID, Pulm, Nephro, Neuro Time of note doesn't reflect time of encounter. Subjective Allergies: Coded Allergies: No Known Allergies (Unverified , 01/05/20) Subjective F/u for COVID positive, acute respiratory distress s/p intubation. Pt remains intubated, unresponsive off sedation. EEG done, pending official read. Transfer to tertiary center for higher level of care pending on EEG/CT head. Objective Last 24 Hour Vital Signs Date Time Temp Pulse Resp B/P (MAP) Pulse Ox O2 Delivery O2 Flow Rate FiO2 01/16/20 11:00 127 24 102/58 (73) 97 01/16/20 11:00 92/62 01/16/20 10:49 126 24 100 01/16/20 10:01 99.7 01/16/20 10:00 90/56 01/16/20 10:00 127 24 101/60 (74) 99 01/16/20 09:16 80/51 01/16/20 09:00 131 24 148/76 (100) 100 01/16/20 09:00 88/46 01/16/20 08:00 126 24 108/62 (77) 99 01/16/20 08:00 100 01/16/20 08:00 92/60 01/16/20 08:00 Mechanical Ventilator 01/16/20 08:00 126 01/16/20 07:19 128 24 100 01/16/20 07:00 123 24 116/64 (81) 100 01/16/20 07:00 116/51 01/16/20 06:00 126/59 01/16/20 06:00 126 23 126/59 (81) 100 01/16/20 05:00 137/74 01/16/20 05:00 116 23 137/74 (95) 100 01/16/20 04:16 103/64 01/16/20 04:00 100 01/16/20 04:00 73/42 01/16/20 04:00 121 01/16/20 04:00 99.6 125 23 73/42 (52) 100 01/16/20 04:00 Mechanical Ventilator 01/16/20 03:37 121 24 100 01/16/20 03:00 121 23 119/63 (81) 100 01/16/20 03:00 119/63 01/16/20 02:00 126 23 115/61 (79) 100 01/16/20 02:00 115/63 01/16/20 01:00 101/55 01/16/20 01:00 100.6 129 24 101/55 (70) 100 01/16/20 00:00 124 01/16/20 00:00 Mechanical Ventilator 01/16/20 00:00 124/65 01/16/20 00:00 100.0 123 24 124/65 (84) 100 01/15/20 23:16 122 24 100 01/15/20 23:00 129 24 124/69 (87) 100 01/15/20 22:58 116/58 01/15/20 22:00 120/70 01/15/20 22:00 115 24 120/70 (87) 100 01/15/20 21:00 131/67 01/15/20 21:00 99.6 105 24 131/67 (88) 100 01/15/20 20:35 122/64 01/15/20 20:20 118/60 01/15/20 20:16 108 24 100 01/15/20 20:05 114/62 01/15/20 20:00 109 01/15/20 20:00 100 01/15/20 20:00 Mechanical Ventilator 01/15/20 20:00 108 27 114/62 (79) 98 01/15/20 19:50 140/71 01/15/20 19:35 94/66 01/15/20 19:30 110 24 140/71 (94) 100 01/15/20 19:20 75/64 01/15/20 19:15 127 25 75/54 (61) 01/15/20 19:00 102/62 01/15/20 19:00 129 25 73/47 (56) 100 01/15/20 18:00 119 23 82/39 (53) 100 01/15/20 18:00 100/64 01/15/20 17:00 96/64 01/15/20 17:00 99.4 98 24 94/56 (69) 100 01/15/20 16:30 98 24 92/55 (67) 100 01/15/20 16:09 98.9 01/15/20 16:00 100 01/15/20 16:00 26 34 74/46 (55) 100 01/15/20 16:00 98 01/15/20 16:00 Mechanical Ventilator 01/15/20 15:44 74/46 01/15/20 15:35 102 24 100 01/15/20 15:30 98 21 92/55 (67) 100 01/15/20 15:00 131 34 74/46 (55) 100 01/15/20 14:30 112 23 103/63 (76) 100 01/15/20 14:15 114 29 106/65 (79) 100 01/15/20 14:00 111 27 109/63 (78) 100 01/15/20 13:00 133 27 91/60 (70) 100 Intake and Output 01/15/20 01/16/20 19:00 07:00 Intake Total 1863.6 ml 2125.0 ml Output Total 700 ml 840 ml Balance 1163.6 ml 1285.0 ml Free Water 120 ml IV Total 1863.6 ml 2005.0 ml Output Urine Total 700 ml 840 ml Laboratory Tests 01/15/20 13:30: Sodium Level 146H, Potassium Level 3.7, Chloride Level 109H, Carbon Dioxide Level 24, Anion Gap 13, Blood Urea Nitrogen 39H, Creatinine 2.4H, Estimat Glomerular Filtration Rate 20.8, Glucose Level 198#H, Calcium Level 8.2L, Phosphorus Level 2.5, Magnesium Level 2.1 01/16/20 03:55: Sodium Level 157#H, Potassium Level 3.7, Chloride Level 121H, Carbon Dioxide Level 25, Anion Gap 11, Blood Urea Nitrogen 37H, Creatinine 2.4H, Estimat Glomerular Filtration Rate 20.8, Glucose Level 76#, Calcium Level 7.8L, White Blood Count 22.3*H, Red Blood Count 3.19L, Hemoglobin 10.2L, Hematocrit 29.4L, Mean Corpuscular Volume 92, Mean Corpuscular Hemoglobin 31.8H, Mean Corpuscular Hemoglobin Concent 34.5, Red Cell Distribution Width 11.9, Platelet Count 19L, Mean Platelet Volume 9.0, Neutrophils (%) (Auto) , Lymphocytes (%) (Auto) , Monocytes (%) (Auto) , Eosinophils (%) (Auto) , Basophils (%) (Auto) , Differential Total Cells Counted 100, Neutrophils % (Manual) 93H, Lymphocytes % (Manual) 5L, Monocytes % (Manual) 1, Eosinophils % (Manual) 1, Basophils % ( Manual) 0, Band Neutrophils 0, Platelet Estimate DecreasedL, Platelet Morphology Normal, Hypochromasia 1+, Total Bilirubin 0.4, Aspartate Amino Transf (AST/SGOT) 449H, Alanine Aminotransferase (ALT/SGPT) 80H, Alkaline Phosphatase 139H, Total Protein 5.2L, Albumin 2.1L, Globulin 3.1, Albumin/ Globulin Ratio 0.7L Height (Feet): 5 Height (Inches): 4.00 Weight (Pounds): 135 Objective General: intubated, remains unresponsive off sedation per nurse HEENT: NCAT, ET tube in place CV: HR tachycardic on tele Pulm: b/l symmetrical rise in lungs GI: nondistended appearing Ext: No lower extremity edema bilaterally Neuro: per nurse, pupils fixed, no gag reflex, unresponsive Veronica Laurent M.D. Jan 16, 2020 12:33
--- NOTE | 2020-01-16 13:27 | General Progress Note ---
Assessment/Plan Problem List: (1) Diabetes mellitus out of control ICD Codes: E11.65 - Type 2 diabetes mellitus with hyperglycemia SNOMED: 45066569, 140686998 (2) Respiratory failure with hypoxia ICD Codes: J96.91 - Respiratory failure, unspecified with hypoxia SNOMED: 41261190632739698 (3) COVID-19 virus infection ICD Codes: U07.1 - COVID-19 SNOMED: 602533532 Assessment/Plan: continue Novolog 5 units every 4 hours continue Novolog sliding scale every 4 hours Subjective ROS Limited/Unobtainable: Yes Allergies: Coded Allergies: No Known Allergies (Unverified , 01/05/20) Subjective events noted interval notes reviewed intubated in ICU on pressors glucose values are stable Item Value Date Time Bedside Blood Glucose 92 mg/dl 01/16/20 0919 Bedside Blood Glucose 76 mg/dl 01/16/20 0500 Bedside Blood Glucose 144 mg/dl H 01/16/20 0136 Bedside Blood Glucose 75 mg/dl 01/15/20 2100 Bedside Blood Glucose 125 mg/dl H 01/15/20 1719 Bedside Blood Glucose 236 mg/dl H 01/15/20 1300 Objective Last 24 Hour Vital Signs Date Time Temp Pulse Resp B/P (MAP) Pulse Ox O2 Delivery O2 Flow Rate FiO2 01/16/20 11:00 127 24 102/58 (73) 97 01/16/20 11:00 92/62 01/16/20 10:49 126 24 100 01/16/20 10:01 99.7 01/16/20 10:00 90/56 01/16/20 10:00 127 24 101/60 (74) 99 01/16/20 09:16 80/51 01/16/20 09:00 131 24 148/76 (100) 100 01/16/20 09:00 88/46 01/16/20 08:00 126 24 108/62 (77) 99 01/16/20 08:00 100 01/16/20 08:00 92/60 01/16/20 08:00 Mechanical Ventilator 01/16/20 08:00 126 01/16/20 07:19 128 24 100 01/16/20 07:00 123 24 116/64 (81) 100 01/16/20 07:00 116/51 01/16/20 06:00 126/59 01/16/20 06:00 126 23 126/59 (81) 100 01/16/20 05:00 137/74 01/16/20 05:00 116 23 137/74 (95) 100 01/16/20 04:16 103/64 01/16/20 04:00 100 01/16/20 04:00 73/42 01/16/20 04:00 121 01/16/20 04:00 99.6 125 23 73/42 (52) 100 01/16/20 04:00 Mechanical Ventilator 01/16/20 03:37 121 24 100 01/16/20 03:00 121 23 119/63 (81) 100 01/16/20 03:00 119/63 01/16/20 02:00 126 23 115/61 (79) 100 01/16/20 02:00 115/63 01/16/20 01:00 101/55 01/16/20 01:00 100.6 129 24 101/55 (70) 100 01/16/20 00:00 124 01/16/20 00:00 Mechanical Ventilator 01/16/20 00:00 124/65 01/16/20 00:00 100.0 123 24 124/65 (84) 100 01/15/20 23:16 122 24 100 01/15/20 23:00 129 24 124/69 (87) 100 01/15/20 22:58 116/58 01/15/20 22:00 120/70 01/15/20 22:00 115 24 120/70 (87) 100 01/15/20 21:00 131/67 01/15/20 21:00 99.6 105 24 131/67 (88) 100 01/15/20 20:35 122/64 01/15/20 20:20 118/60 01/15/20 20:16 108 24 100 01/15/20 20:05 114/62 01/15/20 20:00 109 01/15/20 20:00 100 01/15/20 20:00 Mechanical Ventilator 01/15/20 20:00 108 27 114/62 (79) 98 01/15/20 19:50 140/71 01/15/20 19:35 94/66 01/15/20 19:30 110 24 140/71 (94) 100 01/15/20 19:20 75/64 01/15/20 19:15 127 25 75/54 (61) 01/15/20 19:00 102/62 01/15/20 19:00 129 25 73/47 (56) 100 01/15/20 18:00 119 23 82/39 (53) 100 01/15/20 18:00 100/64 01/15/20 17:00 96/64 01/15/20 17:00 99.4 98 24 94/56 (69) 100 01/15/20 16:30 98 24 92/55 (67) 100 01/15/20 16:09 98.9 01/15/20 16:00 100 01/15/20 16:00 26 34 74/46 (55) 100 01/15/20 16:00 98 01/15/20 16:00 Mechanical Ventilator 01/15/20 15:44 74/46 01/15/20 15:35 102 24 100 01/15/20 15:30 98 21 92/55 (67) 100 01/15/20 15:00 131 34 74/46 (55) 100 01/15/20 14:30 112 23 103/63 (76) 100 01/15/20 14:15 114 29 106/65 (79) 100 01/15/20 14:00 111 27 109/63 (78) 100 Intake and Output 01/15/20 01/16/20 19:00 07:00 Intake Total 1863.6 ml 2125.0 ml Output Total 700 ml 840 ml Balance 1163.6 ml 1285.0 ml Free Water 120 ml IV Total 1863.6 ml 2005.0 ml Output Urine Total 700 ml 840 ml Laboratory Tests 01/15/20 13:30: Sodium Level 146H, Potassium Level 3.7, Chloride Level 109H, Carbon Dioxide Level 24, Anion Gap 13, Blood Urea Nitrogen 39H, Creatinine 2.4H, Estimat Glomerular Filtration Rate 20.8, Glucose Level 198#H, Calcium Level 8.2L, Phosphorus Level 2.5, Magnesium Level 2.1 01/16/20 03:55: Sodium Level 157#H, Potassium Level 3.7, Chloride Level 121H, Carbon Dioxide Level 25, Anion Gap 11, Blood Urea Nitrogen 37H, Creatinine 2.4H, Estimat Glomerular Filtration Rate 20.8, Glucose Level 76#, Calcium Level 7.8L, White Blood Count 22.3*H, Red Blood Count 3.19L, Hemoglobin 10.2L, Hematocrit 29.4L, Mean Corpuscular Volume 92, Mean Corpuscular Hemoglobin 31.8H, Mean Corpuscular Hemoglobin Concent 34.5, Red Cell Distribution Width 11.9, Platelet Count 19L, Mean Platelet Volume 9.0, Neutrophils (%) (Auto) , Lymphocytes (%) (Auto) , Monocytes (%) (Auto) , Eosinophils (%) (Auto) , Basophils (%) (Auto) , Differential Total Cells Counted 100, Neutrophils % (Manual) 93H, Lymphocytes % (Manual) 5L, Monocytes % (Manual) 1, Eosinophils % (Manual) 1, Basophils % ( Manual) 0, Band Neutrophils 0, Platelet Estimate DecreasedL, Platelet Morphology Normal, Hypochromasia 1+, Total Bilirubin 0.4, Aspartate Amino Transf (AST/SGOT) 449H, Alanine Aminotransferase (ALT/SGPT) 80H, Alkaline Phosphatase 139H, Total Protein 5.2L, Albumin 2.1L, Globulin 3.1, Albumin/ Globulin Ratio 0.7L Height (Feet): 5 Height (Inches): 4.00 Weight (Pounds): 135 General Appearance: other - intubated EENT: other - ETT Cardiovascular: normal rate Respiratory/Chest: decreased breath sounds Abdomen: normal bowel sounds Pelvis: normal external exam Objective Current Medications Medications (Trade) Dose Ordered Sig/Neha Route PRN Reason Start Time Stop Time Status Last Admin Dose Admin Acetaminophen (Tylenol) 650 mg Q4H PRN ORAL Mild Pain (Pain Scale 1-3) 01/08/20 09:00 02/04/20 08:59 01/16/20 09:31 Acetaminophen (Tylenol) 650 mg Q4H PRN ORAL Temp >100.5 01/08/20 09:00 02/04/20 08:59 Artificial Tears (Akwa-Tears) 2 drop Q6H PRN BOTH EYES Dry Eyes 01/13/20 12:00 02/12/20 11:59 01/14/20 09:00 Benzonatate (Tessalon Perles) 100 mg Q8H PRN ORAL For Cough 01/08/20 14:00 02/07/20 13:59 Chlorhexidine Gluconate (Saritha-Hex 2%) 1 applic DAILY@1999 TOPIC 01/12/20 20:00 04/11/20 19:59 01/15/20 20:58 Dextrose (Dextrose 50%) 25 ml Q30M PRN IV Hypoglycemia 01/14/20 17:30 04/13/20 17:29 Dextrose (Dextrose 50%) 50 ml Q30M PRN IV Hypoglycemia 01/14/20 17:30 04/13/20 17:29 Guaifenesin/ Dextromethorphan (Robitussin DM Syrup) 10 ml Q4H PRN ORAL For Cough 01/08/20 09:15 04/05/20 01:14 01/08/20 09:20 Insulin Aspart (NovoLOG) EVERY 4 HOURS SUBQ 01/14/20 21:00 04/13/20 20:59 01/16/20 01:36 Insulin Aspart (NovoLOG) 5 units EVERY 4 HOURS SUBQ 01/14/20 21:00 04/13/20 20:59 01/16/20 09:19 Meropenem 1 gm/ Sodium Chloride 100 ml @ 200 mls/hr EVERY 12 HOURS IVPB 01/16/20 21:00 01/21/20 20:59 Micafungin Sodium 100 mg/Sodium Chloride 100 ml @ 100 mls/hr Q24H IVPB 01/16/20 14:00 01/23/20 13:59 Midazolam HCl 100 ml @ 0 mls/hr Q24H PRN IV Agitation 01/11/20 16:15 04/10/20 16:14 01/12/20 06:10 Morphine Sulfate (Morphine Sulfate) 1 mg EVERY 6 HOURS PRN IVP Severe Pain (Pain Scale 7-10) 01/09/20 20:30 01/16/20 20:29 01/15/20 15:39 Norepinephrine Bitartrate 8 mg/ Dextrose 508 ml @ 0 mls/hr Q24H IV 01/16/20 09:00 01/23/20 08:59 01/16/20 09:16 Ochoa Moreira MD Jan 16, 2020 13:27
--- NOTE | 2020-01-16 13:56 | NUR ---
*-* INSURANCE *-* UPDATED CLINICALS AND REVIEWS HAVE BEEN FAXED TO: [facility] TRK# [id number] VIPUL:BLESSING P: [phone] F: [phone]
--- NOTE | 2020-01-16 14:34 | Pulmonology Progress Note ---
Assessment/Plan Assessment/Plan 1. Bilateral pneumonia. COVID 19 positivity 2. Hemoptysis. Resolved 3. Hypertension 4. Diabetes. 5. Hyponatremia 6. Respiratory failure; intubated 01/10/20 7. ARDS 8. ATN DISCUSSION: Agree with management and care. Will adjust vent Currently unresponsive IV fluids plus bolus Has received Actemra and Ivermectin On Azithro Discussed previously with patient and advised risks and benefits of Actemra and Ivermectin Patient agreed May need HD Discussed possibility of transfer to [facility] for ECMO however currently her PaO2 is 132 on 100% FiO2 and PEEP 8 therefore she is not a candidate She may benefit from HD Discussed with daughter in detail Noted neuro eval for unresponsiveness; no gag BUT no decorticate signs either; may be leftover effect from Fentanyl Needs EEG and head CT Unable to do head CT due to high levophed requirements; unsafe to transport Shaun Omer M.D. Subjective ROS Limited/Unobtainable: Yes Interval Events: Not doing well; unresponsive Constitutional: Reports: fever, fatigue, other - on vent and pressors HEENT: Repors: no symptoms Respiratory: Reports: no symptoms Cardiovascular: Reports: no symptoms Gastrointestinal/Abdominal: Denies: nausea, vomiting Genitourinary: Reports: no symptoms Psychiatric: Reports: other - NA Skin: Denies: rash Musculoskeletal: Reports: other - NA Allergies: Coded Allergies: No Known Allergies (Unverified , 01/05/20) Objective Last 24 Hour Vital Signs Date Time Temp Pulse Resp B/P (MAP) Pulse Ox O2 Delivery O2 Flow Rate FiO2 01/16/20 13:00 130 24 88/53 (65) 100 01/16/20 12:00 129 01/16/20 12:00 129 24 97/57 (70) 100 01/16/20 12:00 Mechanical Ventilator 01/16/20 12:00 100 01/16/20 11:00 127 24 102/58 (73) 97 01/16/20 11:00 92/62 01/16/20 10:49 126 24 100 01/16/20 10:01 99.7 01/16/20 10:00 90/56 01/16/20 10:00 127 24 101/60 (74) 99 01/16/20 09:16 80/51 01/16/20 09:00 131 24 148/76 (100) 100 01/16/20 09:00 88/46 01/16/20 08:00 126 24 108/62 (77) 99 01/16/20 08:00 100 01/16/20 08:00 92/60 01/16/20 08:00 Mechanical Ventilator 01/16/20 08:00 126 01/16/20 07:19 128 24 100 01/16/20 07:00 123 24 116/64 (81) 100 01/16/20 07:00 116/51 01/16/20 06:00 126/59 01/16/20 06:00 126 23 126/59 (81) 100 01/16/20 05:00 137/74 01/16/20 05:00 116 23 137/74 (95) 100 01/16/20 04:16 103/64 01/16/20 04:00 100 01/16/20 04:00 73/42 01/16/20 04:00 121 01/16/20 04:00 99.6 125 23 73/42 (52) 100 01/16/20 04:00 Mechanical Ventilator 01/16/20 03:37 121 24 100 01/16/20 03:00 121 23 119/63 (81) 100 01/16/20 03:00 119/63 01/16/20 02:00 126 23 115/61 (79) 100 01/16/20 02:00 115/63 01/16/20 01:00 101/55 01/16/20 01:00 100.6 129 24 101/55 (70) 100 01/16/20 00:00 124 01/16/20 00:00 Mechanical Ventilator 01/16/20 00:00 124/65 01/16/20 00:00 100.0 123 24 124/65 (84) 100 01/15/20 23:16 122 24 100 01/15/20 23:00 129 24 124/69 (87) 100 01/15/20 22:58 116/58 01/15/20 22:00 120/70 01/15/20 22:00 115 24 120/70 (87) 100 01/15/20 21:00 131/67 4/22/20 21:00 99.6 105 24 131/67 (88) 100 01/15/20 20:35 122/64 01/15/20 20:20 118/60 01/15/20 20:16 108 24 100 01/15/20 20:05 114/62 01/15/20 20:00 109 01/15/20 20:00 100 01/15/20 20:00 Mechanical Ventilator 01/15/20 20:00 108 27 114/62 (79) 98 01/15/20 19:50 140/71 01/15/20 19:35 94/66 01/15/20 19:30 110 24 140/71 (94) 100 01/15/20 19:20 75/64 01/15/20 19:15 127 25 75/54 (61) 01/15/20 19:00 102/62 01/15/20 19:00 129 25 73/47 (56) 100 01/15/20 18:00 119 23 82/39 (53) 100 01/15/20 18:00 100/64 01/15/20 17:00 96/64 01/15/20 17:00 99.4 98 24 94/56 (69) 100 01/15/20 16:30 98 24 92/55 (67) 100 01/15/20 16:09 98.9 01/15/20 16:00 100 01/15/20 16:00 26 34 74/46 (55) 100 01/15/20 16:00 98 01/15/20 16:00 Mechanical Ventilator 01/15/20 15:44 74/46 01/15/20 15:35 102 24 100 01/15/20 15:30 98 21 92/55 (67) 100 01/15/20 15:00 131 34 74/46 (55) 100 Intake and Output 01/15/20 01/16/20 19:00 07:00 Intake Total 1863.6 ml 2125.0 ml Output Total 700 ml 840 ml Balance 1163.6 ml 1285.0 ml Free Water 120 ml IV Total 1863.6 ml 2005.0 ml Output Urine Total 700 ml 840 ml General Appearance: other - on vent and pressors HEENT: normocephalic, atraumatic, other - oral - intubated Respiratory/Chest: chest wall non-tender, lungs clear Cardiovascular: normal peripheral pulses, normal rate Abdomen: normal bowel sounds, non distended Genitourinary: other - + pollard Extremities: other - no cellulitis Skin: no rash Neurologic/Psychiatric: other - non-responsive, weak Lymphatic: no neck adenopathy Musculoskeletal: no effusion Microbiology Date/Time Source Procedure Growth Status 01/14/20 12:15 Blood Blood Culture - Preliminary NO GROWTH AFTER 24 HOURS Resulted 01/14/20 10:50 Sputum Gram Stain - Final Resulted 01/14/20 10:50 Sputum Culture - Preliminary Gram Negative Ze Resulted 01/14/20 09:30 Indwelling Cath Urine Culture - Preliminary Resulted Laboratory Tests 01/16/20 03:55: White Blood Count 22.3*H, Red Blood Count 3.19L, Hemoglobin 10.2L, Hematocrit 29.4L, Mean Corpuscular Volume 92, Mean Corpuscular Hemoglobin 31.8H, Mean Corpuscular Hemoglobin Concent 34.5, Red Cell Distribution Width 11.9, Platelet Count 19L, Mean Platelet Volume 9.0, Neutrophils (%) (Auto) , Lymphocytes (%) ( Auto) , Monocytes (%) (Auto) , Eosinophils (%) (Auto) , Basophils (%) (Auto) , Differential Total Cells Counted 100, Neutrophils % (Manual) 93H, Lymphocytes % (Manual) 5L, Monocytes % (Manual) 1, Eosinophils % (Manual) 1, Basophils % ( Manual) 0, Band Neutrophils 0, Platelet Estimate DecreasedL, Platelet Morphology Normal, Hypochromasia 1+, Sodium Level 157#H, Potassium Level 3.7, Chloride Level 121H, Carbon Dioxide Level 25, Anion Gap 11, Blood Urea Nitrogen 37H, Creatinine 2.4H, Estimat Glomerular Filtration Rate 20.8, Glucose Level 76# , Calcium Level 7.8L, Total Bilirubin 0.4, Aspartate Amino Transf (AST/SGOT) 449H, Alanine Aminotransferase (ALT/SGPT) 80H, Alkaline Phosphatase 139H, Total Protein 5.2L, Albumin 2.1L, Globulin 3.1, Albumin/Globulin Ratio 0.7L Current Medications Medications (Trade) Dose Ordered Sig/Neha Route PRN Reason Start Time Stop Time Status Last Admin Dose Admin Acetaminophen (Tylenol) 650 mg Q4H PRN ORAL Mild Pain (Pain Scale 1-3) 01/08/20 09:00 5/12/20 08:59 01/16/20 09:31 Acetaminophen (Tylenol) 650 mg Q4H PRN ORAL Temp >100.5 01/08/20 09:00 02/04/20 08:59 Artificial Tears (Akwa-Tears) 2 drop Q6H PRN BOTH EYES Dry Eyes 01/13/20 12:00 02/12/20 11:59 01/14/20 09:00 Benzonatate (Tessalon Perles) 100 mg Q8H PRN ORAL For Cough 01/08/20 14:00 02/07/20 13:59 Chlorhexidine Gluconate (Saritha-Hex 2%) 1 applic DAILY@2000 TOPIC 01/12/20 20:00 04/11/20 19:59 01/15/20 20:58 Dextrose (Dextrose 50%) 25 ml Q30M PRN IV Hypoglycemia 01/14/20 17:30 04/13/20 17:29 Dextrose (Dextrose 50%) 50 ml Q30M PRN IV Hypoglycemia 01/14/20 17:30 04/13/20 17:29 Guaifenesin/ Dextromethorphan (Robitussin DM Syrup) 10 ml Q4H PRN ORAL For Cough 01/08/20 09:15 04/05/20 01:14 01/08/20 09:20 Insulin Aspart (NovoLOG) EVERY 4 HOURS SUBQ 01/14/20 21:00 04/13/20 20:59 01/16/20 13:00 Insulin Aspart (NovoLOG) 5 units EVERY 4 HOURS SUBQ 01/14/20 21:00 04/13/20 20:59 01/16/20 13:00 Meropenem 1 gm/ Sodium Chloride 100 ml @ 200 mls/hr EVERY 12 HOURS IVPB 01/16/20 21:00 01/21/20 20:59 Micafungin Sodium 100 mg/Sodium Chloride 100 ml @ 100 mls/hr Q24H IVPB 01/16/20 14:00 01/23/20 13:59 Midazolam HCl 100 ml @ 0 mls/hr Q24H PRN IV Agitation 01/11/20 16:15 04/10/20 16:14 01/12/20 06:10 Morphine Sulfate (Morphine Sulfate) 1 mg EVERY 6 HOURS PRN IVP Severe Pain (Pain Scale 7-10) 4/16/20 20:30 01/16/20 20:29 01/15/20 15:39 Norepinephrine Bitartrate 8 mg/ Dextrose 508 ml @ 0 mls/hr Q24H IV 01/16/20 09:00 01/23/20 08:59 01/16/20 09:16 Shaun Omer MD Jan 16, 2020 14:34
--- NOTE | 2020-01-16 15:00 | NUR ---
NURSE NOTES: Levophed is infusing at 28mcg/min to maintain SBP above 90. ST on playground monitor, O2Sat at 100%.
--- NOTE | 2020-01-16 15:40 | Surgery Progress Note ---
Surgery Progress Note Subjective Additional Comments EEG noted labs reviewed ill appearing Objective Last 24 Hour Vital Signs Date Time Temp Pulse Resp B/P (MAP) Pulse Ox O2 Delivery O2 Flow Rate FiO2 01/16/20 15:00 130 24 53/28 (36) 100 01/16/20 14:45 130 24 102/61 (75) 100 01/16/20 14:30 133 24 94/57 (69) 99 01/16/20 14:15 131 24 99/55 (70) 96 01/16/20 14:00 121 24 101/60 (74) 96 01/16/20 13:13 140 24 100 01/16/20 13:00 130 24 88/53 (65) 100 01/16/20 12:00 129 01/16/20 12:00 129 24 97/57 (70) 100 01/16/20 12:00 Mechanical Ventilator 01/16/20 12:00 100 01/16/20 11:00 127 24 102/58 (73) 97 01/16/20 11:00 92/62 01/16/20 10:49 126 24 100 01/16/20 10:01 99.7 01/16/20 10:00 90/56 01/16/20 10:00 127 24 101/60 (74) 99 01/16/20 09:16 80/51 01/16/20 09:00 131 24 148/76 (100) 100 01/16/20 09:00 88/46 01/16/20 08:00 126 24 108/62 (77) 99 01/16/20 08:00 100 01/16/20 08:00 92/60 01/16/20 08:00 Mechanical Ventilator 01/16/20 08:00 126 01/16/20 07:19 128 24 100 01/16/20 07:00 123 24 116/64 (81) 100 01/16/20 07:00 116/51 01/16/20 06:00 126/59 01/16/20 06:00 126 23 126/59 (81) 100 01/16/20 05:00 137/74 01/16/20 05:00 116 23 137/74 (95) 100 01/16/20 04:16 103/64 01/16/20 04:00 100 01/16/20 04:00 73/42 01/16/20 04:00 121 01/16/20 04:00 99.6 125 23 73/42 (52) 100 01/16/20 04:00 Mechanical Ventilator 01/16/20 03:37 121 24 100 01/16/20 03:00 121 23 119/63 (81) 100 01/16/20 03:00 119/63 01/16/20 02:00 126 23 115/61 (79) 100 01/16/20 02:00 115/63 01/16/20 01:00 101/55 01/16/20 01:00 100.6 129 24 101/55 (70) 100 01/16/20 00:00 124 01/16/20 00:00 Mechanical Ventilator 01/16/20 00:00 124/65 01/16/20 00:00 100.0 123 24 124/65 (84) 100 01/15/20 23:16 122 24 100 01/15/20 23:00 129 24 124/69 (87) 100 01/15/20 22:58 116/58 01/15/20 22:00 120/70 01/15/20 22:00 115 24 120/70 (87) 100 01/15/20 21:00 131/67 01/15/20 21:00 99.6 105 24 131/67 (88) 100 01/15/20 20:35 122/64 01/15/20 20:20 118/60 01/15/20 20:16 108 24 100 01/15/20 20:05 114/62 01/15/20 20:00 109 01/15/20 20:00 100 01/15/20 20:00 Mechanical Ventilator 01/15/20 20:00 108 27 114/62 (79) 98 01/15/20 19:50 140/71 01/15/20 19:35 94/66 01/15/20 19:30 110 24 140/71 (94) 100 01/15/20 19:20 75/64 01/15/20 19:15 127 25 75/54 (61) 01/15/20 19:00 102/62 01/15/20 19:00 129 25 73/47 (56) 100 01/15/20 18:00 119 23 82/39 (53) 100 01/15/20 18:00 100/64 01/15/20 17:00 96/64 01/15/20 17:00 99.4 98 24 94/56 (69) 100 01/15/20 16:30 98 24 92/55 (67) 100 01/15/20 16:09 98.9 01/15/20 16:00 100 01/15/20 16:00 26 34 74/46 (55) 100 01/15/20 16:00 98 01/15/20 16:00 Mechanical Ventilator 01/15/20 15:44 74/46 I&O Intake and Output 01/15/20 01/16/20 19:00 07:00 Intake Total 1863.6 ml 2125.0 ml Output Total 700 ml 840 ml Balance 1163.6 ml 1285.0 ml Free Water 120 ml IV Total 1863.6 ml 2005.0 ml Output Urine Total 700 ml 840 ml Dressing: other Wound: other Drains: other Cardiovascular: RSR Respiratory: decreased breath sounds Abdomen: soft, non-tender, present bowel sounds Extremities: no cyanosis Laboratory Tests Test 01/16/20 03:55 White Blood Count 22.3 K/UL (4.8-10.8) *H Red Blood Count 3.19 M/UL (4.20-5.40) L Hemoglobin 10.2 G/DL (12.0-16.0) L Hematocrit 29.4 % (37.0-47.0) L Mean Corpuscular Volume 92 FL (80-99) Mean Corpuscular Hemoglobin 31.8 PG (27.0-31.0) H Mean Corpuscular Hemoglobin Concent 34.5 G/DL (32.0-36.0) Red Cell Distribution Width 11.9 % (11.6-14.8) Platelet Count 19 K/UL (150-450) L Mean Platelet Volume 9.0 FL (6.5-10.1) Neutrophils (%) (Auto) % (45.0-75.0) Lymphocytes (%) (Auto) % (20.0-45.0) Monocytes (%) (Auto) % (1.0-10.0) Eosinophils (%) (Auto) % (0.0-3.0) Basophils (%) (Auto) % (0.0-2.0) Differential Total Cells Counted 100 Neutrophils % (Manual) 93 % (45-75) H Lymphocytes % (Manual) 5 % (20-45) L Monocytes % (Manual) 1 % (1-10) Eosinophils % (Manual) 1 % (0-3) Basophils % (Manual) 0 % (0-2) Band Neutrophils 0 % (0-8) Platelet Estimate Decreased L Platelet Morphology Normal Hypochromasia 1+ Sodium Level 157 MMOL/L (136-145) #H Potassium Level 3.7 MMOL/L (3.5-5.1) Chloride Level 121 MMOL/L (98-107) H Carbon Dioxide Level 25 MMOL/L (21-32) Anion Gap 11 mmol/L (5-15) Blood Urea Nitrogen 37 mg/dL (7-18) H Creatinine 2.4 MG/DL (0.55-1.30) H Estimat Glomerular Filtration Rate 20.8 mL/min (>60) Glucose Level 76 MG/DL (74-106) # Calcium Level 7.8 MG/DL (8.5-10.1) L Total Bilirubin 0.4 MG/DL (0.2-1.0) Aspartate Amino Transf (AST/SGOT) 449 U/L (15-37) H Alanine Aminotransferase (ALT/SGPT) 80 U/L (12-78) H Alkaline Phosphatase 139 U/L (46-116) H Total Protein 5.2 G/DL (6.4-8.2) L Albumin 2.1 G/DL (3.4-5.0) L Globulin 3.1 g/dL Albumin/Globulin Ratio 0.7 (1.0-2.7) L Plan Problems: (1) Respiratory failure with hypoxia Assessment & Plan: COVID + intubated on support (2) COVID-19 virus infection Assessment & Plan: septic covid organ failure hypotensive needs urgent pressors needs central venous access see noted fluids vent support w will follow with recs unfortunately not improving much worsening leukocytosis febrile prognosis guarded (3) Diabetes type 2, controlled (4) HTN (hypertension) Jaylan Daley Jan 16, 2020 15:40
--- NOTE | 2020-01-16 15:52 | NUR ---
CASE MANAGEMENT:REVIEW 01/16/20 SI: COVID 19 PNEUMONIA 99.7 HR 126 RR 24 B/P 88/53 SATS 100% ON MECH VENT FIO2 100 LABS: WBC 22.3 NA 157 CL 121 BUN 37 CR 2.4 AST 449 ALT 80 ALP 139 IS: INSULIN ASPART SUBQ Q4H MEROPENEM IV Q12H LEVOPHED IV PER PARAMETERS MICAFUNGIN IV Q24H : ICU DCP: PATIENT IS FROM HOME PLAN: pt too unstable at this time for CT head and high risk of COVID+ spread and rapid decompensation Pt remains unresponsive off sedation EEG pending final read
--- NOTE | 2020-01-16 18:00 | NUR ---
NURSE NOTES: Pt was cleaned, gown/linens were changed. Pt was repositioned. Temp 100.3, cooling measures in place, cold free water flush via NGT. VS remain stable while pt is maintained on Levophed at 28mcg/min.
--- NOTE | 2020-01-16 18:45 | Neurology Progress Note ---
Interim History Interim History ROS Limited/Unobtainable: Yes Interim History eeg with This is a severely abnormal EEG revealing the absence of electrical cerebral activity. Objective Physical Exam Last Vital Signs Date Time Temp Pulse Resp B/P (MAP) Pulse Ox O2 Delivery O2 Flow Rate FiO2 01/16/20 17:00 127 24 109/55 (73) 100 01/16/20 16:45 100 01/16/20 12:00 Mechanical Ventilator 01/16/20 10:01 99.7 01/11/20 12:18 40.0 Laboratory Tests Test 01/16/20 03:55 White Blood Count 22.3 K/UL (4.8-10.8) *H Red Blood Count 3.19 M/UL (4.20-5.40) L Hemoglobin 10.2 G/DL (12.0-16.0) L Hematocrit 29.4 % (37.0-47.0) L Mean Corpuscular Volume 92 FL (80-99) Mean Corpuscular Hemoglobin 31.8 PG (27.0-31.0) H Mean Corpuscular Hemoglobin Concent 34.5 G/DL (32.0-36.0) Red Cell Distribution Width 11.9 % (11.6-14.8) Platelet Count 19 K/UL (150-450) L Mean Platelet Volume 9.0 FL (6.5-10.1) Neutrophils (%) (Auto) % (45.0-75.0) Lymphocytes (%) (Auto) % (20.0-45.0) Monocytes (%) (Auto) % (1.0-10.0) Eosinophils (%) (Auto) % (0.0-3.0) Basophils (%) (Auto) % (0.0-2.0) Differential Total Cells Counted 100 Neutrophils % (Manual) 93 % (45-75) H Lymphocytes % (Manual) 5 % (20-45) L Monocytes % (Manual) 1 % (1-10) Eosinophils % (Manual) 1 % (0-3) Basophils % (Manual) 0 % (0-2) Band Neutrophils 0 % (0-8) Platelet Estimate Decreased L Platelet Morphology Normal Hypochromasia 1+ Sodium Level 157 MMOL/L (136-145) #H Potassium Level 3.7 MMOL/L (3.5-5.1) Chloride Level 121 MMOL/L (98-107) H Carbon Dioxide Level 25 MMOL/L (21-32) Anion Gap 11 mmol/L (5-15) Blood Urea Nitrogen 37 mg/dL (7-18) H Creatinine 2.4 MG/DL (0.55-1.30) H Estimat Glomerular Filtration Rate 20.8 mL/min (>60) Glucose Level 76 MG/DL (74-106) # Calcium Level 7.8 MG/DL (8.5-10.1) L Total Bilirubin 0.4 MG/DL (0.2-1.0) Aspartate Amino Transf (AST/SGOT) 449 U/L (15-37) H Alanine Aminotransferase (ALT/SGPT) 80 U/L (12-78) H Alkaline Phosphatase 139 U/L (46-116) H Total Protein 5.2 G/DL (6.4-8.2) L Albumin 2.1 G/DL (3.4-5.0) L Globulin 3.1 g/dL Albumin/Globulin Ratio 0.7 (1.0-2.7) L Head: normocophalic Neck: no rigidity Neurologic Exam Objective intubated off sedation pupils 4 mm non reactive gag absent does not overbreath vent no movement Impression/Recommendations Problems: (1) Respiratory failure with hypoxia (2) COVID-19 virus infection (3) Diabetes type 2, controlled (4) HTN (hypertension) Diagnostic Impression Persistent Encephalopathy, possibly prolonged toxic effect from sedation. Rule out hemorrhagic encephalitis if no improvement in MS Rule out spontaneous brain bleeding Rule out NCSE COVID + At this time prognosis is poor but we can not do a brain examination in the absence of [employer] etiology EEG ordered CT brain ordered Will likely need HD given worsening kidney failure if no improvement DW with multiple teams Royal Peguero MD Jan 16, 2020 18:45
--- NOTE | 2020-01-16 19:30 | NUR ---
HAND-OFF: Report given to Florecita CHRISTINE. Endorsed plan of care.
--- NOTE | 2020-01-16 19:30 | NUR ---
NURSE NOTES: Received report from Sandra CHRISTINE. Patient is obtunded, no gag reflex and pupil dilated no response to painful stimuli. Orally intubated, ETT 7.5 at 23cm lip line with vent settings AC14, VT500, Peep 8.0 and FIO2 100% with O2Sat from 98-100%. ST on medical collections HR 125. Received patient on Levophed at 28mcg/min via right femoral TLC, and BP 108/52. Temp 100.[address], clamped. Bradshaw catheter draining clear/light yellow urine. Skin has sacral DTI, covered with optifoam dressing. Pt is on P200 mattress for wound management. HOB elevated. bed locked, three side rails up and call light placed within reach. Airborne, droplet and contact isolation maintained and observed. Will continue to monitor patient.
[2020-01-16] MEDS: Dyna-Hex 2% Top Sol 2oz TOPIC SCH (20:35)
--- NOTE | 2020-01-16 20:36 | NUR ---
NURSE NOTES: Temp 100.6 axillary cooling mesaure provided not effective, Tylenol given will continue to monitor patient.
--- NOTE | 2020-01-16 20:53 | Hematology/Onc Progress Note ---
Assessment/Plan Assessment/Plan Assessment and Recs # Thrombocytopenia that is severe, may be med related, but has not received heparin, and linezolid usually happens after 2 weeks, also may be due to DIC, coags uptrending, and due to covid-19 virus infection with pna, possible bacterial pna, hypoxia, vent, respiratory failure, sepsis/shock, fevers, leukocytosis, ARF, ARDS --> s/p hydroxychloroquine -may be also culprit --> cover bacterial pna/infection with zosyn, zyvox, azithromycin --> DIC panel has been ordered and coags uptrending-->now better --> fibrinogen and fibrin split products reviewed, is wnl/mildly high --> treat underlying covid19 --> may need transfer to [facility] - ecmo and CRRT --> plt trend 161-->16-->11-->22--.19 # Anemia of kidney disease, chronic disease --> r/o underlying hemolysis --> trend hgb 14-->12->10.2 # Leukocytosis --> likely related to covid, pna --> wbc trend 16-->20k # Diabetes. --> accuchecks qac and qhs --> per endo # Hypertension. --> sbp goal <140 # Hemoptysis. # KADEN on ckd # COVID19+ # Brain # Resp failure on vent Appreciate consultaiton and francisco j RN Subjective Constitutional: Denies: no symptoms, chills, fever, malaise, weakness, other Cardiovascular: Denies: no symptoms, chest pain, edema, irregular heart rate, lightheadedness, palpitations, syncope, other Genitourinary: Denies: no symptoms, burning, discharge, frequency, flank pain, hematuria, incontinence, pain, urgency, other Neurologic/Psychiatric: Denies: no symptoms, anxiety, depressed, emotional problems, headache, numbness, paresthesia, pre-existing deficit, seizure, tingling, tremors, weakness, other Endocrine: Denies: no symptoms, excessive sweating, flushing, intolerance to cold, intolerance to heat, increased hunger, increased thirst, increased urine, unexplained weight gain, unexplained weight loss, other Hematologic/Lymphatic: Denies: no symptoms, anemia, easy bleeding, easy bruising, adenopathy, other Allergies: Coded Allergies: No Known Allergies (Unverified , 01/05/20) Subjective 01/14 still remains critically ill, no bleeding, plt 22k, have ordered us abd, still pending, in icu 01/15 is still brain , in icu, dw us tech, us done, liver and spleen wnl, plt low Objective Objective Current Medications Medications (Trade) Dose Ordered Sig/Neha Route PRN Reason Start Time Stop Time Status Last Admin Dose Admin Acetaminophen (Tylenol) 650 mg Q4H PRN ORAL Mild Pain (Pain Scale 1-3) 01/08/20 09:00 02/04/20 08:59 01/16/20 09:31 Acetaminophen (Tylenol) 650 mg Q4H PRN ORAL Temp >100.5 01/08/20 09:00 02/04/20 08:59 01/16/20 20:36 Artificial Tears (Akwa-Tears) 2 drop Q6H PRN BOTH EYES Dry Eyes 01/13/20 12:00 02/12/20 11:59 01/14/20 09:00 Benzonatate (Tessalon Perles) 100 mg Q8H PRN ORAL For Cough 01/08/20 14:00 02/07/20 13:59 Chlorhexidine Gluconate (Saritha-Hex 2%) 1 applic DAILY@1999 TOPIC 01/12/20 20:00 04/11/20 19:59 01/16/20 20:35 Dextrose (Dextrose 50%) 25 ml Q30M PRN IV Hypoglycemia 01/14/20 17:30 04/13/20 17:29 Dextrose (Dextrose 50%) 50 ml Q30M PRN IV Hypoglycemia 01/14/20 17:30 04/13/20 17:29 Guaifenesin/ Dextromethorphan (Robitussin DM Syrup) 10 ml Q4H PRN ORAL For Cough 01/08/20 09:15 04/05/20 01:14 01/08/20 09:20 Insulin Aspart (NovoLOG) EVERY 4 HOURS SUBQ 01/14/20 21:00 04/13/20 20:59 01/16/20 17:00 Insulin Aspart (NovoLOG) 5 units EVERY 4 HOURS SUBQ 01/14/20 21:00 04/13/20 20:59 01/16/20 17:00 Meropenem 1 gm/ Sodium Chloride 100 ml @ 200 mls/hr EVERY 12 HOURS IVPB 01/16/20 21:00 01/21/20 20:59 01/16/20 20:35 Micafungin Sodium 100 mg/Sodium Chloride 100 ml @ 100 mls/hr Q24H IVPB 01/16/20 14:00 01/23/20 13:59 01/16/20 14:00 Midazolam HCl 100 ml @ 0 mls/hr Q24H PRN IV Agitation 01/11/20 16:15 04/10/20 16:14 01/12/20 06:10 Norepinephrine Bitartrate 8 mg/ Dextrose 508 ml @ 0 mls/hr Q24H IV 01/16/20 09:00 01/23/20 08:59 01/16/20 15:00 Last 24 Hour Vital Signs Date Time Temp Pulse Resp B/P (MAP) Pulse Ox O2 Delivery O2 Flow Rate FiO2 01/16/20 20:00 121 24 110/59 (76) 100 01/16/20 20:00 100 01/16/20 19:45 122 24 108/52 (70) 100 01/16/20 19:30 124 24 109/60 (76) 100 01/16/20 19:15 125 24 100 01/16/20 19:00 130 24 121/59 (79) 100 01/16/20 19:00 116/45 01/16/20 18:30 126 24 108/60 (76) 100 01/16/20 18:00 118/59 01/16/20 18:00 100.3 126 24 112/55 (74) 100 01/16/20 17:00 112/61 01/16/20 17:00 127 24 109/55 (73) 100 01/16/20 16:45 126 24 100 01/16/20 16:30 127 24 105/55 (72) 100 01/16/20 16:00 100 01/16/20 16:00 127 01/16/20 16:00 128 24 111/54 (73) 99 01/16/20 16:00 111/54 01/16/20 16:00 Mechanical Ventilator 01/16/20 15:30 127 24 109/60 (76) 100 01/16/20 15:00 53/28 4/23/20 15:00 53/28 01/16/20 15:00 130 24 53/28 (36) 100 01/16/20 14:45 130 24 102/61 (75) 100 01/16/20 14:30 133 24 94/57 (69) 99 01/16/20 14:15 131 24 99/55 (70) 96 01/16/20 14:00 121 24 101/60 (74) 96 01/16/20 14:00 59/33 01/16/20 13:13 140 24 100 01/16/20 13:00 130 24 88/53 (65) 100 01/16/20 13:00 70/48 01/16/20 12:00 129 01/16/20 12:00 129 24 97/57 (70) 100 01/16/20 12:00 96/66 01/16/20 12:00 Mechanical Ventilator 01/16/20 12:00 100 01/16/20 11:00 98.9 127 24 102/58 (73) 97 01/16/20 11:00 92/62 01/16/20 10:49 126 24 100 01/16/20 10:01 99.7 01/16/20 10:00 90/56 01/16/20 10:00 127 24 101/60 (74) 99 01/16/20 09:16 80/51 01/16/20 09:00 131 24 148/76 (100) 100 01/16/20 09:00 88/46 01/16/20 08:00 126 24 108/62 (77) 99 01/16/20 08:00 100 01/16/20 08:00 92/60 01/16/20 08:00 Mechanical Ventilator 01/16/20 08:00 126 01/16/20 07:19 128 24 100 01/16/20 07:00 123 24 116/64 (81) 100 01/16/20 07:00 116/51 01/16/20 06:00 126/59 01/16/20 06:00 126 23 126/59 (81) 100 01/16/20 05:00 137/74 01/16/20 05:00 116 23 137/74 (95) 100 01/16/20 04:16 103/64 01/16/20 04:00 100 01/16/20 04:00 73/42 01/16/20 04:00 121 4/23/20 04:00 99.6 125 23 73/42 (52) 100 01/16/20 04:00 Mechanical Ventilator 01/16/20 03:37 121 24 100 01/16/20 03:00 121 23 119/63 (81) 100 01/16/20 03:00 119/63 01/16/20 02:00 126 23 115/61 (79) 100 01/16/20 02:00 115/63 01/16/20 01:00 101/55 01/16/20 01:00 100.6 129 24 101/55 (70) 100 01/16/20 00:00 124 01/16/20 00:00 Mechanical Ventilator 01/16/20 00:00 124/65 01/16/20 00:00 100.0 123 24 124/65 (84) 100 01/15/20 23:16 122 24 100 01/15/20 23:00 129 24 124/69 (87) 100 01/15/20 22:58 116/58 01/15/20 22:00 120/70 01/15/20 22:00 115 24 120/70 (87) 100 01/15/20 21:00 131/67 01/15/20 21:00 99.6 105 24 131/67 (88) 100 01/15/20 20:35 122/64 01/15/20 20:20 118/60 01/15/20 20:16 108 24 100 01/15/20 20:05 114/62 01/15/20 20:00 109 01/15/20 20:00 100 01/15/20 20:00 Mechanical Ventilator 01/15/20 20:00 108 27 114/62 (79) 98 01/15/20 19:50 140/71 01/15/20 19:35 94/66 01/15/20 19:30 110 24 140/71 (94) 100 01/15/20 19:20 75/64 01/15/20 19:15 127 25 75/54 (61) 01/15/20 19:00 102/62 01/15/20 19:00 129 25 73/47 (56) 100 01/15/20 18:00 119 23 82/39 (53) 100 01/15/20 18:00 100/64 4/22/20 17:00 96/64 01/15/20 17:00 99.4 98 24 94/56 (69) 100 01/15/20 16:30 98 24 92/55 (67) 100 01/15/20 16:09 98.9 01/15/20 16:00 100 01/15/20 16:00 26 34 74/46 (55) 100 01/15/20 16:00 98 01/15/20 16:00 Mechanical Ventilator 01/15/20 15:44 74/46 01/15/20 15:35 102 24 100 01/15/20 15:30 98 21 92/55 (67) 100 01/15/20 15:00 131 34 74/46 (55) 100 01/15/20 14:30 112 23 103/63 (76) 100 01/15/20 14:15 114 29 106/65 (79) 100 01/15/20 14:00 111 27 109/63 (78) 100 01/15/20 13:00 133 27 91/60 (70) 100 01/15/20 12:00 112 01/15/20 12:00 100 01/15/20 12:00 98.9 113 39 138/76 (96) 100 01/15/20 12:00 Mechanical Ventilator 01/15/20 11:30 111 30 141/73 (95) 100 01/15/20 11:00 112 32 81/36 (51) 100 01/15/20 11:00 114 24 138/75 (96) 100 01/15/20 10:33 100 24 100 01/15/20 10:30 99 24 109/62 (78) 99 01/15/20 10:00 103 25 134/62 (86) 100 01/15/20 10:00 102 24 120/66 (84) 100 01/15/20 09:30 91 24 111/59 (76) 100 01/15/20 09:00 95 24 121/66 (84) 100 01/15/20 09:00 101/66 01/15/20 09:00 91 24 109/65 (80) 100 01/15/20 08:30 89 24 102/63 (76) 100 01/15/20 08:00 98.2 90 24 106/59 (75) 100 01/15/20 08:00 100 01/15/20 08:00 90 24 96/61 (73) 100 01/15/20 08:00 Mechanical Ventilator 01/15/20 08:00 91 01/15/20 07:50 93 24 100 01/15/20 07:00 98.7 90 12 101/56 (71) 100 01/15/20 07:00 101/66 01/15/20 06:30 117/64 01/15/20 06:00 93/65 01/15/20 06:00 88 14 93/65 (74) 100 01/15/20 05:00 100.0 104 24 99/59 (72) 100 01/15/20 05:00 99/59 01/15/20 04:00 100 01/15/20 04:00 Mechanical Ventilator 01/15/20 04:00 108/64 01/15/20 04:00 95 24 108/64 (79) 100 01/15/20 04:00 95 01/15/20 03:29 75/61 01/15/20 03:17 101 22 100 01/15/20 03:00 97 27 80/55 (63) 100 01/15/20 03:00 116/63 01/15/20 02:00 113/66 01/15/20 02:00 103 30 113/66 (82) 100 01/15/20 01:00 134/66 01/15/20 01:00 103 28 134/66 (88) 100 01/15/20 00:00 100 24 127/76 (93) 100 01/15/20 00:00 127/76 01/15/20 00:00 Mechanical Ventilator 01/15/20 00:00 100 01/14/20 23:00 121/74 01/14/20 23:00 107 24 121/74 (90) 100 01/14/20 22:56 99 23 100 01/14/20 22:00 125/69 01/14/20 22:00 111 24 125/69 (87) 100 01/14/20 21:00 118/67 01/14/20 21:00 114 24 126/71 (89) 100 Intake and Output 01/15/20 01/16/20 19:00 07:00 Intake Total 1863.6 ml 2125.0 ml Output Total 700 ml 840 ml Balance 1163.6 ml 1285.0 ml Free Water 120 ml IV Total 1863.6 ml 2005.0 ml Output Urine Total 700 ml 840 ml Labs Test 01/13/20 22:30 01/14/20 04:00 01/14/20 10:52 01/14/20 12:15 Prothrombin Time 12.4 SEC (9.30-11.50) 11.9 SEC (9.30-11.50) Prothromb Time International Ratio 1.2 (0.9-1.1) 1.1 (0.9-1.1) White Blood Count 18.9 K/UL (4.8-10.8) 18.6 K/UL (4.8-10.8) Red Blood Count 3.90 M/UL (4.20-5.40) 3.57 M/UL (4.20-5.40) Hemoglobin 12.4 G/DL (12.0-16.0) 11.3 G/DL (12.0-16.0) Hematocrit 35.3 % (37.0-47.0) 32.1 % (37.0-47.0) Mean Corpuscular Volume 91 FL (80-99) 90 FL (80-99) Mean Corpuscular Hemoglobin 31.9 PG (27.0-31.0) 31.5 PG (27.0-31.0) Mean Corpuscular Hemoglobin Concent 35.2 G/DL (32.0-36.0) 35.1 G/DL (32.0-36.0) Red Cell Distribution Width 11.6 % (11.6-14.8) 11.5 % (11.6-14.8) Platelet Count 16 K/UL (150-450) 11 K/UL (150-450) Mean Platelet Volume 8.5 FL (6.5-10.1) 10.0 FL (6.5-10.1) Neutrophils (%) (Auto) % (45.0-75.0) % (45.0-75.0) Lymphocytes (%) (Auto) % (20.0-45.0) % (20.0-45.0) Monocytes (%) (Auto) % (1.0-10.0) % (1.0-10.0) Eosinophils (%) (Auto) % (0.0-3.0) % (0.0-3.0) Basophils (%) (Auto) % (0.0-2.0) % (0.0-2.0) Differential Total Cells Counted 100 100 Neutrophils % (Manual) 91 % (45-75) 93 % (45-75) Lymphocytes % (Manual) 5 % (20-45) 5 % (20-45) Monocytes % (Manual) 2 % (1-10) 1 % (1-10) Eosinophils % (Manual) 1 % (0-3) 1 % (0-3) Basophils % (Manual) 0 % (0-2) 0 % (0-2) Band Neutrophils 1 % (0-8) 0 % (0-8) Platelet Estimate Decreased Decreased Platelet Morphology Normal Normal Red Blood Cell Morphology Normal Normal Sodium Level 138 MMOL/L (136-145) Potassium Level 3.3 MMOL/L (3.5-5.1) Chloride Level 101 MMOL/L (98-107) Carbon Dioxide Level 26 MMOL/L (21-32) Anion Gap 11 mmol/L (5-15) Blood Urea Nitrogen 44 mg/dL (7-18) Creatinine 2.3 MG/DL (0.55-1.30) Estimat Glomerular Filtration Rate 21.9 mL/min (>60) Glucose Level 293 MG/DL (74-106) Calcium Level 8.1 MG/DL (8.5-10.1) Total Bilirubin 0.5 MG/DL (0.2-1.0) Aspartate Amino Transf (AST/SGOT) 193 U/L (15-37) Alanine Aminotransferase (ALT/SGPT) 57 U/L (12-78) Alkaline Phosphatase 113 U/L (46-116) Total Protein 5.0 G/DL (6.4-8.2) Albumin 1.8 G/DL (3.4-5.0) Globulin 3.2 g/dL Albumin/Globulin Ratio 0.6 (1.0-2.7) Free Thyroxine 0.83 NG/DL (0.76-1.46) Free Triiodothyronine < 0.5 pg/mL (2.3-4.2) Arterial Blood pH 7.374 (7.350-7.450) Arterial Blood Partial Pressure CO2 35.3 mmHg (35.0-45.0) Arterial Blood Partial Pressure O2 102.6 mmHg (75.0-100.0) Arterial Blood HCO3 20.1 mmol/L (22.0-26.0) Arterial Blood Oxygen Saturation 96.8 % (95-100) Arterial Blood Base Excess -4.4 (-2-2) Jun Test Positive Fibrinogen 260 mg/dL (200-400) Fibrin Degradation Products, Quant 40 ug/mL (<5) Mycoplasma pneumoniae IgG Antibody 107 U/mL (0-99) Mycoplasma pneumoniae IgM Ab Titer <770 U/mL (0-769) Test 01/14/20 20:30 01/15/20 03:30 01/15/20 09:05 01/15/20 13:30 Prothrombin Time 12.1 SEC (9.30-11.50) Prothromb Time International Ratio 1.1 (0.9-1.1) Activated Partial Thromboplast Time 29 SEC (23-33) White Blood Count 19.3 K/UL (4.8-10.8) Red Blood Count 3.35 M/UL (4.20-5.40) Hemoglobin 10.7 G/DL (12.0-16.0) Hematocrit 30.4 % (37.0-47.0) Mean Corpuscular Volume 91 FL (80-99) Mean Corpuscular Hemoglobin 32.0 PG (27.0-31.0) Mean Corpuscular Hemoglobin Concent 35.2 G/DL (32.0-36.0) Red Cell Distribution Width 11.5 % (11.6-14.8) Platelet Count 22 K/UL (150-450) Mean Platelet Volume 8.7 FL (6.5-10.1) Neutrophils (%) (Auto) % (45.0-75.0) Lymphocytes (%) (Auto) % (20.0-45.0) Monocytes (%) (Auto) % (1.0-10.0) Eosinophils (%) (Auto) % (0.0-3.0) Basophils (%) (Auto) % (0.0-2.0) Differential Total Cells Counted 100 Neutrophils % (Manual) 90 % (45-75) Lymphocytes % (Manual) 5 % (20-45) Monocytes % (Manual) 1 % (1-10) Eosinophils % (Manual) 0 % (0-3) Basophils % (Manual) 0 % (0-2) Band Neutrophils 4 % (0-8) Platelet Estimate Decreased Platelet Morphology Normal Sodium Level 150 MMOL/L (136-145) 146 MMOL/L (136-145) Potassium Level 3.8 MMOL/L (3.5-5.1) 3.7 MMOL/L (3.5-5.1) Chloride Level 113 MMOL/L (98-107) 109 MMOL/L (98-107) Carbon Dioxide Level 25 MMOL/L (21-32) 24 MMOL/L (21-32) Anion Gap 12 mmol/L (5-15) 13 mmol/L (5-15) Blood Urea Nitrogen 39 mg/dL (7-18) 39 mg/dL (7-18) Creatinine 2.5 MG/DL (0.55-1.30) 2.4 MG/DL (0.55-1.30) Estimat Glomerular Filtration Rate 19.9 mL/min (>60) 20.8 mL/min (>60) Glucose Level 94 MG/DL (74-106) 198 MG/DL (74-106) Calcium Level 7.7 MG/DL (8.5-10.1) 8.2 MG/DL (8.5-10.1) Total Bilirubin 0.4 MG/DL (0.2-1.0) Aspartate Amino Transf (AST/SGOT) 397 U/L (15-37) Alanine Aminotransferase (ALT/SGPT) 78 U/L (12-78) Alkaline Phosphatase 114 U/L (46-116) Total Protein 4.8 G/DL (6.4-8.2) Albumin 1.7 G/DL (3.4-5.0) Globulin 3.1 g/dL Albumin/Globulin Ratio 0.5 (1.0-2.7) Hepatitis A IgM Antibody Negative (Negative) Hepatitis B Surface Antigen Negative (Negative) Hepatitis B Core IgM Antibody Negative (Negative) Hepatitis C Antibody 0.1 s/co ratio (0.0-0.9) HIV (1&2) Antibody Rapid Negative (NEGATIVE) Arterial Blood pH 7.330 (7.350-7.450) Arterial Blood Partial Pressure CO2 43.6 mmHg (35.0-45.0) Arterial Blood Partial Pressure O2 178.8 mmHg (75.0-100.0) Arterial Blood HCO3 22.5 mmol/L (22.0-26.0) Arterial Blood Oxygen Saturation 97.5 % (95-100) Arterial Blood Base Excess -3.4 (-2-2) Jun Test Positive Phosphorus Level 2.5 MG/DL (2.5-4.9) Magnesium Level 2.1 MG/DL (1.8-2.4) Test 01/16/20 03:55 White Blood Count 22.3 K/UL (4.8-10.8) Red Blood Count 3.19 M/UL (4.20-5.40) Hemoglobin 10.2 G/DL (12.0-16.0) Hematocrit 29.4 % (37.0-47.0) Mean Corpuscular Volume 92 FL (80-99) Mean Corpuscular Hemoglobin 31.8 PG (27.0-31.0) Mean Corpuscular Hemoglobin Concent 34.5 G/DL (32.0-36.0) Red Cell Distribution Width 11.9 % (11.6-14.8) Platelet Count 19 K/UL (150-450) Mean Platelet Volume 9.0 FL (6.5-10.1) Neutrophils (%) (Auto) % (45.0-75.0) Lymphocytes (%) (Auto) % (20.0-45.0) Monocytes (%) (Auto) % (1.0-10.0) Eosinophils (%) (Auto) % (0.0-3.0) Basophils (%) (Auto) % (0.0-2.0) Differential Total Cells Counted 100 Neutrophils % (Manual) 93 % (45-75) Lymphocytes % (Manual) 5 % (20-45) Monocytes % (Manual) 1 % (1-10) Eosinophils % (Manual) 1 % (0-3) Basophils % (Manual) 0 % (0-2) Band Neutrophils 0 % (0-8) Platelet Estimate Decreased Platelet Morphology Normal Hypochromasia 1+ Sodium Level 157 MMOL/L (136-145) Potassium Level 3.7 MMOL/L (3.5-5.1) Chloride Level 121 MMOL/L (98-107) Carbon Dioxide Level 25 MMOL/L (21-32) Anion Gap 11 mmol/L (5-15) Blood Urea Nitrogen 37 mg/dL (7-18) Creatinine 2.4 MG/DL (0.55-1.30) Estimat Glomerular Filtration Rate 20.8 mL/min (>60) Glucose Level 76 MG/DL (74-106) Calcium Level 7.8 MG/DL (8.5-10.1) Total Bilirubin 0.4 MG/DL (0.2-1.0) Aspartate Amino Transf (AST/SGOT) 449 U/L (15-37) Alanine Aminotransferase (ALT/SGPT) 80 U/L (12-78) Alkaline Phosphatase 139 U/L (46-116) Total Protein 5.2 G/DL (6.4-8.2) Albumin 2.1 G/DL (3.4-5.0) Globulin 3.1 g/dL Albumin/Globulin Ratio 0.7 (1.0-2.7) Height (Feet): 5 Height (Inches): 4.00 Weight (Pounds): 135 Objective Physical Exam Sp02 EP Interpretation: reviewed, normal General: normal inspection, alert, GCS 15, moderate distress Heent: normal inspection, full range of motion, supple, no bony tend Respiratory: normal inspection, lungs clear, normal breath sounds ++ vent Cardiovascular: regular rate, rhythm, no edema Gastrointestinal: normal inspection, normal bowel sounds, non tender, soft Genitourinary: no CVA tenderness Musculoskeletal: normal inspection, back normal, normal range of motion Neurologic: alert, motor strength/tone normal, applications packager III-XII nml as tested, oriented x3, responsive Psychiatric: normal inspection, judgement/insight normal, mood/affect normal Chaz Moncada MD Jan 16, 2020 20:53
--- NOTE | 2020-01-16 21:10 | NUR ---
NURSE NOTES: Rechecked Temp 100.0 axillary
--- NOTE | 2020-01-16 23:00 | NUR ---
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 Airborne, droplet and contact isolation maintained and observed. frequent visual checks continued.
[2020-01-17] VITALS (36 sets, daily range): BP systolic 69–152; BP diastolic 31–82
--- NOTE | 2020-01-17 00:30 | Electroencephalogram ---
DATE OF PROCEDURE: 01/15/2020 REQUESTING PHYSICIAN: Royal Peguero MD READING PHYSICIAN: Benntet Alvarez MD PROCEDURE PERFORMED: EEG. HISTORY: This EEG was performed on a 59-year-old lady with a history of hypertension and diabetes mellitus, who is COVID-19 positive and was noted to have respiratory failure with severe hypoxia and septic shock. The purpose of this EEG was to evaluate the patient for the degree and type of cerebral dysfunction. TECHNICAL NOTE: This EEG was performed on a [facility] with electrodes placed on the scalp according to the International 10-20 system. A special double distance electrode montage was used. The EEG was performed while the patient was unresponsive. OBSERVATION: In the reportedly unresponsive state, no signs of electrical cerebral activity were seen at gains as high as 2 microvolts per millimeter using double distance electrodes. On stimulating the patient no change in the EEG was seen. IMPRESSION: This is a severely abnormal EEG revealing the absence of electrical cerebral activity. COMMENT: The study is consistent with electrocerebral inactivity. Clinical correlation is recommended. Bennett Alvarez M.D., M.S.P.H. Clinical Neurophysiologist DR: Dustin JOB#: [id number] MTDD
[2020-01-17] MEDS: NovoLOG Insulin Flexpen SUBQ SCH ×10 (01:00→17:00)
--- NOTE | 2020-01-17 01:00 | NUR ---
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 Airborne, droplet and contact isolation maintained and observed.cooling measure provided. comfort measure provided. frequent visual checks continued.repositioned pt in bed. will continue plan of care.
--- NOTE | 2020-01-17 03:00 | NUR ---
NURSE NOTES: Bed bath given tolerated well. repositioned in bed. comfort measure provided.
[2020-01-17] MEDS: Norepinephrine Bitartrate 8 MG in D5W 500ml 500 ML IV SCH (03:06)
--- NOTE | 2020-01-17 05:00 | NUR ---
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 Airborne, droplet and contact isolation maintained and observed.cooling measure provided. comfort measure provided. frequent visual checks continued.repositioned pt in bed. will continue plan of care.
[2020-01-17 06:26] LABS: HEMATOCRIT 26.3 % (37.0-47.0); MEAN CORPUSCULAR VOLUME 94 FL (80-99); PLATELET COUNT 12 K/UL (150-450); RED CELL DISTRIBUTION WIDTH 12.4 % (11.6-14.8)
--- NOTE | 2020-01-17 06:33 | Hematology/Onc Progress Note ---
Assessment/Plan Assessment/Plan Assessment and Recs # Thrombocytopenia that is severe, may be med related, but has not received heparin, and linezolid usually happens after 2 weeks, also may be due to DIC, coags uptrending, and due to covid-19 virus infection with pna, possible bacterial pna, hypoxia, vent, respiratory failure, sepsis/shock, fevers, leukocytosis, ARF, ARDS --> s/p hydroxychloroquine -may be also culprit --> cover bacterial pna/infection with zosyn, zyvox, azithromycin --> DIC panel has been ordered and coags uptrending-->now better --> fibrinogen and fibrin split products reviewed, is wnl/mildly high --> treat underlying covid19 --> may need transfer to [facility] - ecmo and CRRT --> plt trend 161-->16-->11-->22--.19 # Anemia of kidney disease, chronic disease --> r/o underlying hemolysis --> trend hgb 14-->12->10.2 # Leukocytosis --> likely related to covid, pna --> wbc trend 16-->20k # Diabetes. --> accuchecks qac and qhs --> per endo # Hypertension. --> sbp goal <140 # Hemoptysis. # KADEN on ckd # COVID19+ # Brain # Resp failure on vent Appreciate consultaiton and francisco j RN Subjective Constitutional: Denies: no symptoms, chills, fever, malaise, weakness, other HEENT: Denies: no symptoms, eye pain, blurred vision, tearing, double vision, ear pain, ear discharge, nose pain, nose congestion, throat pain, throat swelling, mouth pain, mouth swelling, other Cardiovascular: Denies: no symptoms, chest pain, edema, irregular heart rate, lightheadedness, palpitations, syncope, other Gastrointestinal/Abdominal: Denies: no symptoms, abdomen distended, abdominal pain, black stools, tarry stools, blood in stool, constipated, diarrhea, difficulty swallowing, nausea, poor appetite, poor fluid intake, rectal bleeding , vomiting, other Genitourinary: Denies: no symptoms, burning, discharge, frequency, flank pain, hematuria, incontinence, pain, urgency, other Neurologic/Psychiatric: Denies: no symptoms, anxiety, depressed, emotional problems, headache, numbness, paresthesia, pre-existing deficit, seizure, tingling, tremors, weakness, other Allergies: Coded Allergies: No Known Allergies (Unverified , 01/05/20) Subjective 01/14 still remains critically ill, no bleeding, plt 22k, have ordered us abd, still pending, in icu 01/15 is still brain , in icu, dw us tech, us done, liver and spleen wnl, plt low 01/16 remains confused, nio bleeding, remains on pressors, dw rn at the icu Objective Objective Current Medications Medications (Trade) Dose Ordered Sig/Neha Route PRN Reason Start Time Stop Time Status Last Admin Dose Admin Acetaminophen (Tylenol) 650 mg Q4H PRN ORAL Mild Pain (Pain Scale 1-3) 01/08/20 09:00 02/04/20 08:59 01/16/20 09:31 Acetaminophen (Tylenol) 650 mg Q4H PRN ORAL Temp >100.5 01/08/20 09:00 02/04/20 08:59 01/16/20 20:36 Artificial Tears (Akwa-Tears) 2 drop Q6H PRN BOTH EYES Dry Eyes 01/13/20 12:00 02/12/20 11:59 01/14/20 09:00 Benzonatate (Tessalon Perles) 100 mg Q8H PRN ORAL For Cough 01/08/20 14:00 02/07/20 13:59 Chlorhexidine Gluconate (Saritha-Hex 2%) 1 applic DAILY@2000 TOPIC 01/12/20 20:00 04/11/20 19:59 01/16/20 20:35 Dextrose (Dextrose 50%) 25 ml Q30M PRN IV Hypoglycemia 01/14/20 17:30 04/13/20 17:29 Dextrose (Dextrose 50%) 50 ml Q30M PRN IV Hypoglycemia 01/14/20 17:30 04/13/20 17:29 Guaifenesin/ Dextromethorphan (Robitussin DM Syrup) 10 ml Q4H PRN ORAL For Cough 01/08/20 09:15 04/05/20 01:14 01/08/20 09:20 Insulin Aspart (NovoLOG) EVERY 4 HOURS SUBQ 01/14/20 21:00 04/13/20 20:59 01/16/20 17:00 Insulin Aspart (NovoLOG) 5 units EVERY 4 HOURS SUBQ 01/14/20 21:00 04/13/20 20:59 01/17/20 01:08 Meropenem 1 gm/ Sodium Chloride 100 ml @ 200 mls/hr EVERY 12 HOURS IVPB 01/16/20 21:00 01/21/20 20:59 01/16/20 20:35 Micafungin Sodium 100 mg/Sodium Chloride 100 ml @ 100 mls/hr Q24H IVPB 01/16/20 14:00 01/23/20 13:59 01/16/20 14:00 Midazolam HCl 100 ml @ 0 mls/hr Q24H PRN IV Agitation 01/11/20 16:15 04/10/20 16:14 01/12/20 06:10 Norepinephrine Bitartrate 8 mg/ Dextrose 508 ml @ 0 mls/hr Q24H IV 01/16/20 09:00 01/23/20 08:59 01/17/20 03:06 Last 24 Hour Vital Signs Date Time Temp Pulse Resp B/P (MAP) Pulse Ox O2 Delivery O2 Flow Rate FiO2 01/17/20 06:00 125 24 93/47 (62) 92 01/17/20 05:45 129 24 98/49 (65) 91 01/17/20 05:16 125 24 100 01/17/20 05:15 125 24 96/49 (65) 94 01/17/20 05:00 127 24 99/52 (68) 92 01/17/20 04:45 133 24 111/56 (74) 92 01/17/20 04:39 147 23 129/69 (89) 92 01/17/20 04:15 123 24 107/51 (69) 93 01/17/20 04:00 99.3 124 24 105/52 (69) 93 01/17/20 04:00 123 01/17/20 04:00 100 01/17/20 04:00 Mechanical Ventilator 01/17/20 03:45 123 24 106/53 (70) 94 01/17/20 03:30 125 29 89/47 (61) 98 01/17/20 03:30 123 24 100 01/17/20 03:15 126 24 110/58 (75) 99 01/17/20 03:06 113/61 01/17/20 03:00 127 24 111/59 (76) 99 01/17/20 02:30 131 24 113/61 (78) 98 01/17/20 02:15 131 24 152/82 (105) 100 01/17/20 02:12 131 25 98/44 (62) 100 01/17/20 01:30 125 24 112/60 (77) 99 01/17/20 01:15 127 24 100 01/17/20 01:00 125 24 110/63 (79) 99 01/17/20 00:15 124 24 115/59 (77) 100 01/17/20 00:00 100 01/17/20 00:00 Mechanical Ventilator 01/17/20 00:00 115/59 01/17/20 00:00 100.0 123 24 106/58 (74) 99 01/17/20 00:00 123 01/16/20 23:30 124 24 100 01/16/20 23:00 129 24 120/58 (78) 98 01/16/20 23:00 112/59 01/16/20 22:50 148 24 160/76 (104) 100 01/16/20 22:47 125 23 73/42 (52) 100 01/16/20 22:30 121 24 117/65 (82) 100 01/16/20 22:20 110/59 20 22:15 120 24 111/58 (75) 100 01/16/20 22:00 119 24 120/57 (78) 100 01/16/20 21:59 110/59 01/16/20 21:45 121 24 117/57 (77) 100 20 21:30 121 24 117/66 (83) 100 01/16/20 21:21 124 24 100 20 21:15 121 24 116/62 (80) 100 01/16/20 21:06 100.0 01/16/20 21:04 124 24 106/62 (77) 100 01/16/20 21:00 126 24 74/47 (56) 100 01/16/20 21:00 106/62 01/16/20 20:00 121 24 110/59 (76) 100 01/16/20 20:00 Mechanical Ventilator 01/16/20 20:00 121 01/16/20 20:00 112/62 01/16/20 20:00 100 01/16/20 19:45 122 24 108/52 (70) 100 01/16/20 19:30 124 24 109/60 (76) 100 01/16/20 19:15 125 24 100 01/16/20 19:00 130 24 121/59 (79) 100 01/16/20 19:00 116/45 01/16/20 18:30 126 24 108/60 (76) 100 01/16/20 18:00 118/59 01/16/20 18:00 100.3 126 24 112/55 (74) 100 01/16/20 17:00 112/61 01/16/20 17:00 127 24 109/55 (73) 100 01/16/20 16:45 126 24 100 01/16/20 16:30 127 24 105/55 (72) 100 01/16/20 16:00 100 01/16/20 16:00 127 01/16/20 16:00 128 24 111/54 (73) 99 01/16/20 16:00 111/54 01/16/20 16:00 Mechanical Ventilator 01/16/20 15:30 127 24 109/60 (76) 100 01/16/20 15:00 53/28 01/16/20 15:00 53/28 01/16/20 15:00 130 24 53/28 (36) 100 01/16/20 14:45 130 24 102/61 (75) 100 01/16/20 14:30 133 24 94/57 (69) 99 01/16/20 14:15 131 24 99/55 (70) 96 01/16/20 14:00 121 24 101/60 (74) 96 01/16/20 14:00 59/33 01/16/20 13:13 140 24 100 01/16/20 13:00 130 24 88/53 (65) 100 01/16/20 13:00 70/48 01/16/20 12:00 129 01/16/20 12:00 129 24 97/57 (70) 100 01/16/20 12:00 96/66 01/16/20 12:00 Mechanical Ventilator 01/16/20 12:00 100 01/16/20 11:00 98.9 127 24 102/58 (73) 97 01/16/20 11:00 92/62 01/16/20 10:49 126 24 100 01/16/20 10:01 99.7 01/16/20 10:00 90/56 01/16/20 10:00 127 24 101/60 (74) 99 01/16/20 09:16 80/51 01/16/20 09:00 131 24 148/76 (100) 100 01/16/20 09:00 88/46 01/16/20 08:00 126 24 108/62 (77) 99 01/16/20 08:00 100 01/16/20 08:00 92/60 01/16/20 08:00 Mechanical Ventilator 01/16/20 08:00 126 01/16/20 07:19 128 24 100 01/16/20 07:00 123 24 116/64 (81) 100 01/16/20 07:00 116/51 01/16/20 06:00 126/59 01/16/20 06:00 126 23 126/59 (81) 100 01/16/20 05:00 137/74 01/16/20 05:00 116 23 137/74 (95) 100 01/16/20 04:16 103/64 01/16/20 04:00 100 01/16/20 04:00 73/42 01/16/20 04:00 121 01/16/20 04:00 99.6 125 23 73/42 (52) 100 01/16/20 04:00 Mechanical Ventilator 01/16/20 03:37 121 24 100 01/16/20 03:00 121 23 119/63 (81) 100 01/16/20 03:00 119/63 01/16/20 02:00 126 23 115/61 (79) 100 01/16/20 02:00 115/63 01/16/20 01:00 101/55 01/16/20 01:00 100.6 129 24 101/55 (70) 100 01/16/20 00:00 124 01/16/20 00:00 Mechanical Ventilator 01/16/20 00:00 124/65 01/16/20 00:00 100.0 123 24 124/65 (84) 100 01/15/20 23:16 122 24 100 01/15/20 23:00 129 24 124/69 (87) 100 01/15/20 22:58 116/58 01/15/20 22:00 120/70 01/15/20 22:00 115 24 120/70 (87) 100 01/15/20 21:00 131/67 01/15/20 21:00 99.6 105 24 131/67 (88) 100 01/15/20 20:35 122/64 01/15/20 20:20 118/60 01/15/20 20:16 108 24 100 01/15/20 20:05 114/62 01/15/20 20:00 109 01/15/20 20:00 100 01/15/20 20:00 Mechanical Ventilator 01/15/20 20:00 108 27 114/62 (79) 98 01/15/20 19:50 140/71 01/15/20 19:35 94/66 01/15/20 19:30 110 24 140/71 (94) 100 01/15/20 19:20 75/64 01/15/20 19:15 127 25 75/54 (61) 01/15/20 19:00 102/62 01/15/20 19:00 129 25 73/47 (56) 100 01/15/20 18:00 119 23 82/39 (53) 100 01/15/20 18:00 100/64 01/15/20 17:00 96/64 01/15/20 17:00 99.4 98 24 94/56 (69) 100 01/15/20 16:30 98 24 92/55 (67) 100 01/15/20 16:09 98.9 01/15/20 16:00 100 01/15/20 16:00 26 34 74/46 (55) 100 01/15/20 16:00 98 01/15/20 16:00 Mechanical Ventilator 01/15/20 15:44 74/46 01/15/20 15:35 102 24 100 01/15/20 15:30 98 21 92/55 (67) 100 01/15/20 15:00 131 34 74/46 (55) 100 01/15/20 14:30 112 23 103/63 (76) 100 01/15/20 14:15 114 29 106/65 (79) 100 01/15/20 14:00 111 27 109/63 (78) 100 01/15/20 13:00 133 27 91/60 (70) 100 01/15/20 12:00 112 01/15/20 12:00 100 01/15/20 12:00 98.9 113 39 138/76 (96) 100 01/15/20 12:00 Mechanical Ventilator 01/15/20 11:30 111 30 141/73 (95) 100 01/15/20 11:00 112 32 81/36 (51) 100 01/15/20 11:00 114 24 138/75 (96) 100 01/15/20 10:33 100 24 100 01/15/20 10:30 99 24 109/62 (78) 99 01/15/20 10:00 103 25 134/62 (86) 100 01/15/20 10:00 102 24 120/66 (84) 100 01/15/20 09:30 91 24 111/59 (76) 100 01/15/20 09:00 95 24 121/66 (84) 100 01/15/20 09:00 101/66 01/15/20 09:00 91 24 109/65 (80) 100 01/15/20 08:30 89 24 102/63 (76) 100 01/15/20 08:00 98.2 90 24 106/59 (75) 100 01/15/20 08:00 100 01/15/20 08:00 90 24 96/61 (73) 100 01/15/20 08:00 Mechanical Ventilator 01/15/20 08:00 91 01/15/20 07:50 93 24 100 01/15/20 07:00 98.7 90 12 101/56 (71) 100 01/15/20 07:00 101/66 Intake and Output 01/16/20 01/17/20 19:00 07:00 Intake Total 2409.56 ml 956.76 ml Output Total 765 ml 615 ml Balance 1644.56 ml 341.76 ml Free Water 120 ml 50 ml IV Total 2289.56 ml 846.76 ml Other 60 ml Output Urine Total 765 ml 615 ml Labs Test 01/14/20 10:52 01/14/20 12:15 01/14/20 20:30 01/15/20 03:30 Arterial Blood pH 7.374 (7.350-7.450) Arterial Blood Partial Pressure CO2 35.3 mmHg (35.0-45.0) Arterial Blood Partial Pressure O2 102.6 mmHg (75.0-100.0) Arterial Blood HCO3 20.1 mmol/L (22.0-26.0) Arterial Blood Oxygen Saturation 96.8 % (95-100) Arterial Blood Base Excess -4.4 (-2-2) Jun Test Positive White Blood Count 18.6 K/UL (4.8-10.8) 19.3 K/UL (4.8-10.8) Red Blood Count 3.57 M/UL (4.20-5.40) 3.35 M/UL (4.20-5.40) Hemoglobin 11.3 G/DL (12.0-16.0) 10.7 G/DL (12.0-16.0) Hematocrit 32.1 % (37.0-47.0) 30.4 % (37.0-47.0) Mean Corpuscular Volume 90 FL (80-99) 91 FL (80-99) Mean Corpuscular Hemoglobin 31.5 PG (27.0-31.0) 32.0 PG (27.0-31.0) Mean Corpuscular Hemoglobin Concent 35.1 G/DL (32.0-36.0) 35.2 G/DL (32.0-36.0) Red Cell Distribution Width 11.5 % (11.6-14.8) 11.5 % (11.6-14.8) Platelet Count 11 K/UL (150-450) 22 K/UL (150-450) Mean Platelet Volume 10.0 FL (6.5-10.1) 8.7 FL (6.5-10.1) Neutrophils (%) (Auto) % (45.0-75.0) % (45.0-75.0) Lymphocytes (%) (Auto) % (20.0-45.0) % (20.0-45.0) Monocytes (%) (Auto) % (1.0-10.0) % (1.0-10.0) Eosinophils (%) (Auto) % (0.0-3.0) % (0.0-3.0) Basophils (%) (Auto) % (0.0-2.0) % (0.0-2.0) Differential Total Cells Counted 100 100 Neutrophils % (Manual) 93 % (45-75) 90 % (45-75) Lymphocytes % (Manual) 5 % (20-45) 5 % (20-45) Monocytes % (Manual) 1 % (1-10) 1 % (1-10) Eosinophils % (Manual) 1 % (0-3) 0 % (0-3) Basophils % (Manual) 0 % (0-2) 0 % (0-2) Band Neutrophils 0 % (0-8) 4 % (0-8) Platelet Estimate Decreased Decreased Platelet Morphology Normal Normal Red Blood Cell Morphology Normal Prothrombin Time 11.9 SEC (9.30-11.50) 12.1 SEC (9.30-11.50) Prothromb Time International Ratio 1.1 (0.9-1.1) 1.1 (0.9-1.1) Fibrinogen 260 mg/dL (200-400) Fibrin Degradation Products, Quant 40 ug/mL (<5) Mycoplasma pneumoniae IgG Antibody 107 U/mL (0-99) Mycoplasma pneumoniae IgM Ab Titer <770 U/mL (0-769) Activated Partial Thromboplast Time 29 SEC (23-33) Sodium Level 150 MMOL/L (136-145) Potassium Level 3.8 MMOL/L (3.5-5.1) Chloride Level 113 MMOL/L (98-107) Carbon Dioxide Level 25 MMOL/L (21-32) Anion Gap 12 mmol/L (5-15) Blood Urea Nitrogen 39 mg/dL (7-18) Creatinine 2.5 MG/DL (0.55-1.30) Estimat Glomerular Filtration Rate 19.9 mL/min (>60) Glucose Level 94 MG/DL (74-106) Calcium Level 7.7 MG/DL (8.5-10.1) Total Bilirubin 0.4 MG/DL (0.2-1.0) Aspartate Amino Transf (AST/SGOT) 397 U/L (15-37) Alanine Aminotransferase (ALT/SGPT) 78 U/L (12-78) Alkaline Phosphatase 114 U/L (46-116) Total Protein 4.8 G/DL (6.4-8.2) Albumin 1.7 G/DL (3.4-5.0) Globulin 3.1 g/dL Albumin/Globulin Ratio 0.5 (1.0-2.7) Hepatitis A IgM Antibody Negative (Negative) Hepatitis B Surface Antigen Negative (Negative) Hepatitis B Core IgM Antibody Negative (Negative) Hepatitis C Antibody 0.1 s/co ratio (0.0-0.9) HIV (1&2) Antibody Rapid Negative (NEGATIVE) Test 01/15/20 09:05 01/15/20 13:30 01/16/20 03:55 01/17/20 04:00 Arterial Blood pH 7.330 (7.350-7.450) Arterial Blood Partial Pressure CO2 43.6 mmHg (35.0-45.0) Arterial Blood Partial Pressure O2 178.8 mmHg (75.0-100.0) Arterial Blood HCO3 22.5 mmol/L (22.0-26.0) Arterial Blood Oxygen Saturation 97.5 % (95-100) Arterial Blood Base Excess -3.4 (-2-2) Jun Test Positive Sodium Level 146 MMOL/L (136-145) 157 MMOL/L (136-145) Potassium Level 3.7 MMOL/L (3.5-5.1) 3.7 MMOL/L (3.5-5.1) Chloride Level 109 MMOL/L (98-107) 121 MMOL/L (98-107) Carbon Dioxide Level 24 MMOL/L (21-32) 25 MMOL/L (21-32) Anion Gap 13 mmol/L (5-15) 11 mmol/L (5-15) Blood Urea Nitrogen 39 mg/dL (7-18) 37 mg/dL (7-18) Creatinine 2.4 MG/DL (0.55-1.30) 2.4 MG/DL (0.55-1.30) Estimat Glomerular Filtration Rate 20.8 mL/min (>60) 20.8 mL/min (>60) Glucose Level 198 MG/DL (74-106) 76 MG/DL (74-106) Calcium Level 8.2 MG/DL (8.5-10.1) 7.8 MG/DL (8.5-10.1) Phosphorus Level 2.5 MG/DL (2.5-4.9) Magnesium Level 2.1 MG/DL (1.8-2.4) White Blood Count 22.3 K/UL (4.8-10.8) Red Blood Count 3.19 M/UL (4.20-5.40) Hemoglobin 10.2 G/DL (12.0-16.0) Hematocrit 29.4 % (37.0-47.0) Mean Corpuscular Volume 92 FL (80-99) Mean Corpuscular Hemoglobin 31.8 PG (27.0-31.0) Mean Corpuscular Hemoglobin Concent 34.5 G/DL (32.0-36.0) Red Cell Distribution Width 11.9 % (11.6-14.8) Platelet Count 19 K/UL (150-450) Mean Platelet Volume 9.0 FL (6.5-10.1) Neutrophils (%) (Auto) % (45.0-75.0) Lymphocytes (%) (Auto) % (20.0-45.0) Monocytes (%) (Auto) % (1.0-10.0) Eosinophils (%) (Auto) % (0.0-3.0) Basophils (%) (Auto) % (0.0-2.0) Differential Total Cells Counted 100 Neutrophils % (Manual) 93 % (45-75) Lymphocytes % (Manual) 5 % (20-45) Monocytes % (Manual) 1 % (1-10) Eosinophils % (Manual) 1 % (0-3) Basophils % (Manual) 0 % (0-2) Band Neutrophils 0 % (0-8) Platelet Estimate Decreased Platelet Morphology Normal Hypochromasia 1+ Total Bilirubin 0.4 MG/DL (0.2-1.0) Aspartate Amino Transf (AST/SGOT) 449 U/L (15-37) Alanine Aminotransferase (ALT/SGPT) 80 U/L (12-78) Alkaline Phosphatase 139 U/L (46-116) Total Protein 5.2 G/DL (6.4-8.2) Albumin 2.1 G/DL (3.4-5.0) Globulin 3.1 g/dL Albumin/Globulin Ratio 0.7 (1.0-2.7) Height (Feet): 5 Height (Inches): 4.00 Weight (Pounds): 135 Objective Physical Exam Sp02 EP Interpretation: reviewed, normal General: normal inspection, alert, GCS 15, moderate distress Heent: normal inspection, full range of motion, supple, no bony tend Respiratory: normal inspection, lungs clear, normal breath sounds ++ vent Cardiovascular: regular rate, rhythm, no edema Gastrointestinal: normal inspection, normal bowel sounds, non tender, soft Genitourinary: no CVA tenderness Musculoskeletal: normal inspection, back normal, normal range of motion Neurologic: alert, motor strength/tone normal, detention deputy III-XII nml as tested, oriented x3, responsive Psychiatric: normal inspection, judgement/insight normal, mood/affect normal Chaz Moncada MD Jan 17, 2020 06:33
[2020-01-17 07:13] LABS: ALANINE AMINOTRANSFERASE 65 U/L (12-78); ALBUMIN 1.9 G/DL (3.4-5.0); ALBUMIN/GLOBULIN RATIO 0.6 (1.0-2.7); ALKALINE PHOSPHATASE 206 U/L (46-116); ANION GAP 12 mmol/L (5-15); ASPARTATE AMINO TRANSFERASE 398 U/L (15-37); BILIRUBIN,TOTAL 0.4 MG/DL (0.2-1.0); BLOOD UREA NITROGEN 38 mg/dL (7-18); CALCIUM 7.5 MG/DL (8.5-10.1); CARBON DIOXIDE 25 MMOL/L (21-32); CHLORIDE 117 MMOL/L (98-107); CREATININE 2.8 MG/DL (0.55-1.30); POTASSIUM 4.2 MMOL/L (3.5-5.1); SODIUM 154 MMOL/L (136-145)
--- NOTE | 2020-01-17 07:20 | NUR ---
HAND-OFF: Report given to Rj CHRISTINE.
--- NOTE | 2020-01-17 07:30 | NUR ---
NURSE NOTES: received report from Florecita [place] pt in bed. comatose. pupils unable to determine. no gag, no reflexes noted. no response to pain. bilateral radial pulses faint. dependent edema noted. pt intubated 7.5, 23cm lip. settings ac 24, 500, ps 8, 100% fi02. abdomen distended, hypoactive bowel sounds. ogt. npo. last bm report 01/07. accuchk q 4hr. skin- see assessment. rt femoral tlc. dressing dry and intact. Levophed running at 28mcg/min. a febrile. pt on airborne isolation. will continue to monitor pt.
--- NOTE | 2020-01-17 07:56 | General Progress Note ---
Assessment/Plan Assessment/Plan: 59-year-old female with PMH of HTN, DM on metformin who presents with SOB x2 days. 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 #Acute hypoxic respiratory failure 2/2 #COVID positive #CAP/PNA #ARDS #Fevers #Acute Toxic Metabolic Encephalopathy #Severe Sepsis, Septic Shock 2/2 COVID #Leukocytosis #Irreversible HIGHWAY PATROL PILOT damage -Appreciate ICU care -Vent management per Pulm, wean as tolerated -cont. droplet/contact isolation -01/04: BCx NGTD -01/08: CXR with worsening infiltrates -s/p hydroxychloroquine -S/p Actemra and Ivermectin -01/09 pt intubated -01/12: CXR with b/l infiltrates, concerning for ARDS -01/12: D/w Dr. Omer, Dr. Doyle, Dr. Hopper, plan to transfer to [facility] for higher level of care -transfer order in place, pending acceptance to either [facility] or [facility] however pt not candidate given vent settings, PaO2 132 on 100% FiO2, PEEP 8 -unable to perform CT head due to levophed requirements, unsafe to transport -Pt remains unresponsive off sedation -01/15: EEG without any activity -d/w Neuro, Dr. Peguero, pt with irreversible HIGHWAY PATROL PILOT damage, likely anoxic -Abx per ID: Zyvox, Zosyn -start norepi and titrate as needed for hypotension -Updated daughter, Barrera, , explained to daughter pt has very poor meaningful recovery at this time #Severe Thrombocytopenia #Elevated D-Dimer -multifactorial 2/2 sepsis, COVID, DIC, less likely medication related -plts 18 >> 16 >11>22 -no overt signs of bleeding -cont to monitor for signs of bleeding -transfuse for signs of bleeding and plts <50k or when plts <10k -Hematology following, recs appreciated #Hypernatremia #Hyponatremia - resolved #Hypokalemia #KADEN -Cr worsening today, 0.8>>1.5>>2.1>>2.3>2.5>>2.8 -Concern for need for CRRT -Nephro following: HD per nephro, appreciate recs #HTN -pt unsure of home medications -CTM #NIDDM, type 2 #Hyperglycemia -holding home metformin while in-pt -Hgb A1c 6.7 -Endo following: continue Novolog 5 U q4h, Novolog sliding scale q4h DVT PPx: SCDs Prognosis: poor Time spent on encounter: 90 mins, 45 mins spent on critical care time. Critical Care Services performed include: Telemetry Review Hemodynamic measurement interpretation Laboratory data review and interpretation Radiology image review and interpretation Interpretation of ABG's Review of vent setting Discussion of patient's care with ICU team, Nursing staff, ID, Pulm, Nephro, Neurology Additional 40 mins spent with discussing with daughter, Jin, family members, and consultants regarding grim prognosis. Time of note doesn't reflect time of encounter. Subjective Allergies: Coded Allergies: No Known Allergies (Unverified , 01/05/20) Subjective F/u for COVID positive, acute respiratory distress s/p intubation. Pt remains intubated, unresponsive off sedation, EEG without any activity. Objective Last 24 Hour Vital Signs Date Time Temp Pulse Resp B/P (MAP) Pulse Ox O2 Delivery O2 Flow Rate FiO2 01/17/20 06:00 94/46 01/17/20 06:00 125 24 93/47 (62) 92 01/17/20 05:45 129 24 98/49 (65) 91 01/17/20 05:16 125 24 100 01/17/20 05:15 125 24 96/49 (65) 94 01/17/20 05:00 96/49 01/17/20 05:00 127 24 99/52 (68) 92 01/17/20 04:45 133 24 111/56 (74) 92 01/17/20 04:39 147 23 129/69 (89) 92 01/17/20 04:15 123 24 107/51 (69) 93 01/17/20 04:00 99.3 124 24 105/52 (69) 93 01/17/20 04:00 107/51 01/17/20 04:00 123 01/17/20 04:00 100 01/17/20 04:00 Mechanical Ventilator 01/17/20 03:45 123 24 106/53 (70) 94 01/17/20 03:30 125 29 89/47 (61) 98 01/17/20 03:30 123 24 100 01/17/20 03:15 126 24 110/58 (75) 99 01/17/20 03:06 113/61 01/17/20 03:00 127 24 111/59 (76) 99 01/17/20 03:00 113/61 01/17/20 02:30 131 24 113/61 (78) 98 01/17/20 02:15 131 24 152/82 (105) 100 01/17/20 02:12 131 25 98/44 (62) 100 01/17/20 01:30 125 24 112/60 (77) 99 01/17/20 01:15 127 24 100 01/17/20 01:00 125 24 110/63 (79) 99 01/17/20 01:00 109/61 01/17/20 00:15 124 24 115/59 (77) 100 01/17/20 00:00 100 01/17/20 00:00 Mechanical Ventilator 01/17/20 00:00 115/59 01/17/20 00:00 100.0 123 24 106/58 (74) 99 01/17/20 00:00 123 01/16/20 23:30 124 24 100 01/16/20 23:00 129 24 120/58 (78) 98 01/16/20 23:00 112/59 01/16/20 22:50 148 24 160/76 (104) 100 01/16/20 22:47 125 23 73/42 (52) 100 01/16/20 22:30 121 24 117/65 (82) 100 01/16/20 22:20 110/59 01/16/20 22:15 120 24 111/58 (75) 100 01/16/20 22:00 119 24 120/57 (78) 100 01/16/20 21:59 110/59 20 21:45 121 24 117/57 (77) 100 20 21:30 121 24 117/66 (83) 100 01/16/20 21:21 124 24 100 20 21:15 121 24 116/62 (80) 100 01/16/20 21:06 100.0 01/16/20 21:04 124 24 106/62 (77) 100 01/16/20 21:00 126 24 74/47 (56) 100 01/16/20 21:00 106/62 4/23/20 20:00 121 24 110/59 (76) 100 01/16/20 20:00 Mechanical Ventilator 01/16/20 20:00 121 01/16/20 20:00 112/62 01/16/20 20:00 100 01/16/20 19:45 122 24 108/52 (70) 100 01/16/20 19:30 124 24 109/60 (76) 100 01/16/20 19:15 125 24 100 01/16/20 19:00 130 24 121/59 (79) 100 01/16/20 19:00 116/45 01/16/20 18:30 126 24 108/60 (76) 100 01/16/20 18:00 118/59 01/16/20 18:00 100.3 126 24 112/55 (74) 100 01/16/20 17:00 112/61 01/16/20 17:00 127 24 109/55 (73) 100 01/16/20 16:45 126 24 100 01/16/20 16:30 127 24 105/55 (72) 100 01/16/20 16:00 100 01/16/20 16:00 127 01/16/20 16:00 128 24 111/54 (73) 99 01/16/20 16:00 111/54 01/16/20 16:00 Mechanical Ventilator 01/16/20 15:30 127 24 109/60 (76) 100 01/16/20 15:00 53/28 01/16/20 15:00 53/28 01/16/20 15:00 130 24 53/28 (36) 100 01/16/20 14:45 130 24 102/61 (75) 100 01/16/20 14:30 133 24 94/57 (69) 99 01/16/20 14:15 131 24 99/55 (70) 96 01/16/20 14:00 121 24 101/60 (74) 96 01/16/20 14:00 59/33 01/16/20 13:13 140 24 100 01/16/20 13:00 130 24 88/53 (65) 100 01/16/20 13:00 70/48 01/16/20 12:00 129 01/16/20 12:00 129 24 97/57 (70) 100 01/16/20 12:00 96/66 4/23/20 12:00 Mechanical Ventilator 01/16/20 12:00 100 01/16/20 11:00 98.9 127 24 102/58 (73) 97 01/16/20 11:00 92/62 01/16/20 10:49 126 24 100 01/16/20 10:01 99.7 01/16/20 10:00 90/56 01/16/20 10:00 127 24 101/60 (74) 99 01/16/20 09:16 80/51 01/16/20 09:00 131 24 148/76 (100) 100 01/16/20 09:00 88/46 01/16/20 08:00 126 24 108/62 (77) 99 01/16/20 08:00 100 01/16/20 08:00 92/60 01/16/20 08:00 Mechanical Ventilator 01/16/20 08:00 126 Intake and Output 01/16/20 01/17/20 19:00 07:00 Intake Total 2409.56 ml 1382.80 ml Output Total 765 ml 615 ml Balance 1644.56 ml 767.80 ml Free Water 120 ml 50 ml IV Total 2289.56 ml 1272.80 ml Other 60 ml Output Urine Total 765 ml 615 ml Laboratory Tests 01/17/20 04:00: White Blood Count 22.0H, Red Blood Count 2.80L, Hemoglobin 9.0L, Hematocrit 26.3L, Mean Corpuscular Volume 94, Mean Corpuscular Hemoglobin 32.0H, Mean Corpuscular Hemoglobin Concent 34.1, Red Cell Distribution Width 12.4, Platelet Count 12L, Mean Platelet Volume , Neutrophils (%) (Auto) , Lymphocytes (%) (Auto ) , Monocytes (%) (Auto) , Eosinophils (%) (Auto) , Basophils (%) (Auto) , Neutrophils % (Manual) [Pending], Lymphocytes % (Manual) [Pending], Platelet Estimate [Pending], Platelet Morphology [Pending], Sodium Level 154H, Potassium Level 4.2, Chloride Level 117H, Carbon Dioxide Level 25, Anion Gap 12, Blood Urea Nitrogen 38H, Creatinine 2.8H, Estimat Glomerular Filtration Rate 17.4, Glucose Level 62L, Calcium Level 7.5L, Total Bilirubin 0.4, Aspartate Amino Transf (AST/SGOT) 398H, Alanine Aminotransferase (ALT/SGPT) 65, Alkaline Phosphatase 206H, Total Protein 4.9L, Albumin 1.9L, Globulin 3.0, Albumin/ Globulin Ratio 0.6L Height (Feet): 5 Height (Inches): 4.00 Weight (Pounds): 132 Objective General: intubated, unresponsive off sedation HEENT: NCAT, ET tube in place CV: HR tachycardic on tele Pulm: b/l symmetrical rise in lungs GI: nondistended appearing Ext: No lower extremity edema bilaterally Neuro: pupils fixed, no gag reflex, unresponsive, does not withdraw to pain Veronica Laurent M.D. Jan 17, 2020 07:55
[2020-01-17] MEDS ORDERED: Norepinephrine Bitartrate 16 MG in D5W 500ml 550 ML IV SCH (08:00)
--- NOTE | 2020-01-17 08:49 | Neurology Progress Note ---
Interim History Interim History ROS Limited/Unobtainable: Yes Interim History no movement, no CN nerves EEG noted Long discussion with daughter. There is an irreversible brain damage. Daughter considering flying to [place] to be with mother before palliative care Objective Physical Exam Last Vital Signs Date Time Temp Pulse Resp B/P (MAP) Pulse Ox O2 Delivery O2 Flow Rate FiO2 01/17/20 08:22 80/49 01/17/20 07:30 135 24 100 01/17/20 06:00 92 01/17/20 04:00 99.3 01/17/20 04:00 Mechanical Ventilator 01/11/20 12:18 40.0 Laboratory Tests Test 01/17/20 04:00 White Blood Count 22.0 K/UL (4.8-10.8) H Red Blood Count 2.80 M/UL (4.20-5.40) L Hemoglobin 9.0 G/DL (12.0-16.0) L Hematocrit 26.3 % (37.0-47.0) L Mean Corpuscular Volume 94 FL (80-99) Mean Corpuscular Hemoglobin 32.0 PG (27.0-31.0) H Mean Corpuscular Hemoglobin Concent 34.1 G/DL (32.0-36.0) Red Cell Distribution Width 12.4 % (11.6-14.8) Platelet Count 12 K/UL (150-450) L Mean Platelet Volume FL (6.5-10.1) Neutrophils (%) (Auto) % (45.0-75.0) Lymphocytes (%) (Auto) % (20.0-45.0) Monocytes (%) (Auto) % (1.0-10.0) Eosinophils (%) (Auto) % (0.0-3.0) Basophils (%) (Auto) % (0.0-2.0) Neutrophils % (Manual) Pending Lymphocytes % (Manual) Pending Platelet Estimate Pending Platelet Morphology Pending Sodium Level 154 MMOL/L (136-145) H Potassium Level 4.2 MMOL/L (3.5-5.1) Chloride Level 117 MMOL/L (98-107) H Carbon Dioxide Level 25 MMOL/L (21-32) Anion Gap 12 mmol/L (5-15) Blood Urea Nitrogen 38 mg/dL (7-18) H Creatinine 2.8 MG/DL (0.55-1.30) H Estimat Glomerular Filtration Rate 17.4 mL/min (>60) Glucose Level 62 MG/DL (74-106) L Calcium Level 7.5 MG/DL (8.5-10.1) L Total Bilirubin 0.4 MG/DL (0.2-1.0) Aspartate Amino Transf (AST/SGOT) 398 U/L (15-37) H Alanine Aminotransferase (ALT/SGPT) 65 U/L (12-78) Alkaline Phosphatase 206 U/L (46-116) H Total Protein 4.9 G/DL (6.4-8.2) L Albumin 1.9 G/DL (3.4-5.0) L Globulin 3.0 g/dL Albumin/Globulin Ratio 0.6 (1.0-2.7) L Head: normocophalic Neck: no rigidity Neurologic Exam Objective intubated off sedation pupils 4 mm non reactive gag absent does not overbreathe vent no movement cc 75 min long discussion with family Impression/Recommendations Problems: (1) Respiratory failure with hypoxia (2) COVID-19 virus infection (3) Diabetes type 2, controlled (4) HTN (hypertension) Diagnostic Impression Irreversible 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 likely anoxic brain injury EEG with cerebral electrical inactivity. COVID + Daughter aware of this and will decide on next steps DW with multiple teams DW with daughter Royal Peguero MD Jan 17, 2020 08:49
--- NOTE | 2020-01-17 09:00 | NUR ---
RD ASSESSMENT & RECOMMENDATIONS SEE CARE ACTIVITY FOR COMPLETE ASSESSMENT DAILY ESTIMATED NEEDS: Needs based on DM, Cardiac, Critical Care/ 56kg 22-28 kcals/kg 4585-1414 total kcals 1.2-2 g protein/kg 67-112 g total protein 20-25 mL/kg 1446-1697 total fluid mLs NUTRITION DIAGNOSIS: * Swallowing difficulty R/T respiratory status as evidenced by s/p intubation, w/ an order OGT insertion, pt is COVID-19 positive * Altered nutrition related lab values R/T clinical condition, diabetes as evidenced by elev Na (154), elev BG (274 195 226-> now wnl), elev POC glu (194-323), A1C 7.3, hypotensive on pressor support (80/49), febrile. ENTERAL NUTRITION RECOMMENDATIONS: Vital AF 1.2 @ 50ml/hr x 24 hrs to provide 1200ml, 1440kcal, 90g prot, 973ml free water * As medically appropriate with hemodynamic stability, initiate TF. * Vital AF 1.2 recommended for critical care and carb control * Initiate Vital AF 1.2 @ 20ml/hr x 6 hrs, advance 10ml q 4-6 hrs as tolerated to goal rate. * HOB over 30 degrees/ water flush per MD ADDITIONAL RECOMMENDATIONS: * Calibrated bedscale wt * Monitor lytes, replete as needed * Rec D5 while NPO to prevent hypoglycemia * Feed as medically able-> unable to feed when in prone position + pt is not hemodynamically stable at this time to feed at goal * Wound care: NPO at this time
--- NOTE | 2020-01-17 10:01 | NUR ---
RESPIRATORY NOTE: PT saturated at 75-78%, suctioned large amounts of thick/thin brown bloody with small clots secretions, saturation slowly increased to 88%. RN Trista garcia MD notified.
--- NOTE | 2020-01-17 10:03 | NUR ---
NURSE NOTES: called [facility] call center spoke with Laylah to inform pt 13+ beats of v-tach at 0900. current hr 140's. awaiting call back.
--- NOTE | 2020-01-17 10:05 | NUR ---
NURSE NOTES: received call back from MD Laurent, informed that pt had 13+ beats v-tach. the pt's current HR 140's, on levo at 28mcg/hr, bp 94/45, sating 88%. Received order to place electrolyte panel with mg. phosphorus, 500l ns bolus. will inquire for MD Zheng consult.
--- NOTE | 2020-01-17 10:30 | NUR ---
*-* INSURANCE *-* UPDATED CLINICALS AND REVIEWS HAVE BEEN FAXED TO: [facility] TRK# [id number] LAVONNE:BLESSING P: [phone] F: [phone] Addendum: 01/17/20 at 1355 by Tari Reilly ANISA GARCIA [facility] UPDATED ON PTs PROGNOSIS AND POC.
[2020-01-17 11:24] LABS: ANION GAP 15 mmol/L (5-15); CARBON DIOXIDE 21 MMOL/L (21-32); CHLORIDE 118 MMOL/L (98-107); PHOSPHORUS 3.4 MG/DL (2.5-4.9); POTASSIUM 4.2 MMOL/L (3.5-5.1); SODIUM 154 MMOL/L (136-145)
--- NOTE | 2020-01-17 11:40 | Nephrology Progress Note ---
Assessment/Plan Plan #KADEN- concerns for developing ATN in the setting of sepsis- r/o vanco toxicity- now with worsening renal failure #Hyponatremia- mild- l r/o SIADH in the setting of pneumonia- improved #hypokalemia- repleted #COVID pneumonia #hypoxemic respiratary failure #HTN #DM #hypokalemia- cautiously replete - D5w 500cc today - monitor UOP- patient now with progressively worsening renal function likely going into ischemic ATN Patient is not HD candidate given EEG finding or brain consider CT brain if able to assess etiology of brain - continue pressors to maintain MAP > 65 - neuro eval - consider transfer to [facility] or [facility] for higher level care- will likely need CVVHD and possibly echo support ? 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 Subjective ROS Limited/Unobtainable: Yes Subjective intubated for worsening resp failure recevied actemra Fio2 100 sodium 154 WBC uptrending UOP 1.45L yesterday EEG consistent with brain Fio2 100 chest xray; Impression: Probably stable left and slightly worse right parenchymal opacities , over one day, appearance suggestive of pneumonia/ARDS Objective Objective Last 24 Hour Vital Signs Date Time Temp Pulse Resp B/P (MAP) Pulse Ox O2 Delivery O2 Flow Rate FiO2 01/17/20 10:30 140 24 87/45 (59) 88 01/17/20 10:01 141 24 100 01/17/20 10:00 141 24 94/45 (61) 89 01/17/20 09:30 142 27 91/51 (64) 91 01/17/20 09:00 142 24 86/38 (54) 90 01/17/20 08:30 138 24 101/52 (68) 01/17/20 08:22 80/49 01/17/20 08:00 125 01/17/20 08:00 98.7 128 24 90/47 (61) 84 01/17/20 08:00 Mechanical Ventilator 01/17/20 08:00 100 01/17/20 07:30 135 24 90/48 (62) 85 01/17/20 07:30 135 24 100 01/17/20 07:00 122 24 69/39 (49) 88 01/17/20 06:00 94/46 01/17/20 06:00 125 24 93/47 (62) 92 01/17/20 05:45 129 24 98/49 (65) 91 01/17/20 05:16 125 24 100 01/17/20 05:15 125 24 96/49 (65) 94 01/17/20 05:00 96/49 01/17/20 05:00 127 24 99/52 (68) 92 01/17/20 04:45 133 24 111/56 (74) 92 01/17/20 04:39 147 23 129/69 (89) 92 01/17/20 04:15 123 24 107/51 (69) 93 01/17/20 04:00 99.3 124 24 105/52 (69) 93 01/17/20 04:00 107/51 01/17/20 04:00 123 01/17/20 04:00 100 01/17/20 04:00 Mechanical Ventilator 01/17/20 03:45 123 24 106/53 (70) 94 01/17/20 03:30 125 29 89/47 (61) 98 01/17/20 03:30 123 24 100 01/17/20 03:15 126 24 110/58 (75) 99 01/17/20 03:06 113/61 01/17/20 03:00 127 24 111/59 (76) 99 01/17/20 03:00 113/61 01/17/20 02:30 131 24 113/61 (78) 98 01/17/20 02:15 131 24 152/82 (105) 100 01/17/20 02:12 131 25 98/44 (62) 100 01/17/20 01:30 125 24 112/60 (77) 99 01/17/20 01:15 127 24 100 01/17/20 01:00 125 24 110/63 (79) 99 01/17/20 01:00 109/61 01/17/20 00:15 124 24 115/59 (77) 100 01/17/20 00:00 100 01/17/20 00:00 Mechanical Ventilator 01/17/20 00:00 115/59 01/17/20 00:00 100.0 123 24 106/58 (74) 99 01/17/20 00:00 123 01/16/20 23:30 124 24 100 01/16/20 23:00 129 24 120/58 (78) 98 01/16/20 23:00 112/59 20 22:50 148 24 160/76 (104) 100 01/16/20 22:47 125 23 73/42 (52) 100 01/16/20 22:30 121 24 117/65 (82) 100 01/16/20 22:20 110/59 20 22:15 120 24 111/58 (75) 100 01/16/20 22:00 119 24 120/57 (78) 100 01/16/20 21:59 110/59 01/16/20 21:45 121 24 117/57 (77) 100 01/16/20 21:30 121 24 117/66 (83) 100 01/16/20 21:21 124 24 100 01/16/20 21:15 121 24 116/62 (80) 100 01/16/20 21:06 100.0 01/16/20 21:04 124 24 106/62 (77) 100 01/16/20 21:00 126 24 74/47 (56) 100 01/16/20 21:00 106/62 01/16/20 20:00 121 24 110/59 (76) 100 01/16/20 20:00 Mechanical Ventilator 01/16/20 20:00 121 01/16/20 20:00 112/62 01/16/20 20:00 100 01/16/20 19:45 122 24 108/52 (70) 100 01/16/20 19:30 124 24 109/60 (76) 100 20 19:15 125 24 100 01/16/20 19:00 130 24 121/59 (79) 100 01/16/20 19:00 116/45 01/16/20 18:30 126 24 108/60 (76) 100 01/16/20 18:00 118/59 01/16/20 18:00 100.3 126 24 112/55 (74) 100 01/16/20 17:00 112/61 01/16/20 17:00 127 24 109/55 (73) 100 01/16/20 16:45 126 24 100 01/16/20 16:30 127 24 105/55 (72) 100 01/16/20 16:00 100 01/16/20 16:00 127 01/16/20 16:00 128 24 111/54 (73) 99 01/16/20 16:00 111/54 01/16/20 16:00 Mechanical Ventilator 01/16/20 15:30 127 24 109/60 (76) 100 01/16/20 15:00 53/28 01/16/20 15:00 53/28 01/16/20 15:00 130 24 53/28 (36) 100 01/16/20 14:45 130 24 102/61 (75) 100 01/16/20 14:30 133 24 94/57 (69) 99 01/16/20 14:15 131 24 99/55 (70) 96 01/16/20 14:00 121 24 101/60 (74) 96 01/16/20 14:00 59/33 01/16/20 13:13 140 24 100 01/16/20 13:00 130 24 88/53 (65) 100 01/16/20 13:00 70/48 01/16/20 12:00 129 01/16/20 12:00 129 24 97/57 (70) 100 01/16/20 12:00 96/66 01/16/20 12:00 Mechanical Ventilator 01/16/20 12:00 100 Intake and Output 01/16/20 01/17/20 19:00 07:00 Intake Total 2409.56 ml 1382.80 ml Output Total 765 ml 645 ml Balance 1644.56 ml 737.80 ml Free Water 120 ml 50 ml IV Total 2289.56 ml 1272.80 ml Other 60 ml Output Urine Total 765 ml 645 ml Laboratory Tests 01/17/20 04:00: White Blood Count 22.0H, Red Blood Count 2.80L, Hemoglobin 9.0L, Hematocrit 26.3L, Mean Corpuscular Volume 94, Mean Corpuscular Hemoglobin 32.0H, Mean Corpuscular Hemoglobin Concent 34.1, Red Cell Distribution Width 12.4, Platelet Count 12L, Mean Platelet Volume , Neutrophils (%) (Auto) , Lymphocytes (%) (Auto ) , Monocytes (%) (Auto) , Eosinophils (%) (Auto) , Basophils (%) (Auto) , Differential Total Cells Counted 100, Neutrophils % (Manual) 92H, Lymphocytes % (Manual) 6L, Monocytes % (Manual) 1, Eosinophils % (Manual) 1, Basophils % ( Manual) 0, Band Neutrophils 0, Platelet Estimate DecreasedL, Platelet Morphology Normal, Hypochromasia 2+, Anisocytosis 1+, Spherocytes 2+, Sodium Level 154H, Potassium Level 4.2, Chloride Level 118H, Carbon Dioxide Level 21, Anion Gap 15, Blood Urea Nitrogen 38H, Creatinine 2.8H, Estimat Glomerular Filtration Rate 17.4, Glucose Level 62L, Calcium Level 7.5L, Phosphorus Level 3.4, Magnesium Level 2.1, Total Bilirubin 0.4, Aspartate Amino Transf (AST/SGOT ) 398H, Alanine Aminotransferase (ALT/SGPT) 65, Alkaline Phosphatase 206H, Total Protein 4.9L, Albumin 1.9L, Globulin 3.0, Albumin/Globulin Ratio 0.6L 01/17/20 09:40: Arterial Blood pH 7.056*L, Arterial Blood Partial Pressure CO2 57.9*H, Arterial Blood Partial Pressure O2 49.4*L, Arterial Blood HCO3 15.9*L, Arterial Blood Oxygen Saturation 76.7*L, Arterial Blood Base Excess -14.1*L, Jun Test Positive Height (Feet): 5 Height (Inches): 4.00 Weight (Pounds): 132 Objective General: intubated, unresponsive off sedation HEENT: NCAT, ET tube in place CV: tachycardic, Pulm: coarse rhonchi, b/l symmetrical rise in lungs GI: Soft, nontender, nondistended Ext: No lower extremity edema bilaterally Justin Hopper M.D. Jan 17, 2020 11:40
--- NOTE | 2020-01-17 12:10 | NUR ---
NURSE NOTES: Spoke with MD Laurent regarding pt bp drop with of 500ml NS bolus. Received order for phenylephrine. called MD Omer regarding pt sandra bloody secretions. difficulty suctioning through ett. desats to 70's, no new orders.
--- NOTE | 2020-01-17 12:12 | Pulmonology Progress Note ---
Assessment/Plan Assessment/Plan 1. Bilateral pneumonia. COVID 19 positivity 2. Hemoptysis. Resolved 3. Hypertension 4. Diabetes. 5. Hyponatremia 6. Respiratory failure; intubated 01/10/20 7. ARDS 8. ATN DISCUSSION: Agree with management and care. Will adjust vent Currently unresponsive IV fluids plus bolus Has received Actemra and Ivermectin On Azithro Discussed previously with patient and advised risks and benefits of Actemra and Ivermectin Patient agreed May need HD Discussed possibility of transfer to [facility] for ECMO however currently her PaO2 is 132 on 100% FiO2 and PEEP 8 therefore she is not a candidate She may benefit from HD Discussed with daughter in detail Noted neuro eval for unresponsiveness; no gag BUT no decorticate signs either; may be leftover effect from Fentanyl reviewed EEG; mimimal to no activity per neuro Unable to do head CT due to high levophed requirements; unsafe to transport Now having hemoptysis and having further hypotension despite pressors Shaun Omer M.D. Subjective ROS Limited/Unobtainable: Yes Interval Events: Not doing well; unresponsive Constitutional: Reports: fever, fatigue, other - on vent and pressors HEENT: Repors: no symptoms Respiratory: Reports: no symptoms Cardiovascular: Reports: no symptoms Gastrointestinal/Abdominal: Denies: nausea, vomiting Genitourinary: Reports: no symptoms Psychiatric: Reports: other - NA Skin: Denies: rash Musculoskeletal: Reports: other - NA Allergies: Coded Allergies: No Known Allergies (Unverified , 01/05/20) Objective Last 24 Hour Vital Signs Date Time Temp Pulse Resp B/P (MAP) Pulse Ox O2 Delivery O2 Flow Rate FiO2 01/17/20 10:30 140 24 87/45 (59) 88 01/17/20 10:01 141 24 100 01/17/20 10:00 141 24 94/45 (61) 89 01/17/20 09:30 142 27 91/51 (64) 91 01/17/20 09:00 142 24 86/38 (54) 90 01/17/20 08:30 138 24 101/52 (68) 01/17/20 08:22 80/49 01/17/20 08:00 125 01/17/20 08:00 98.7 128 24 90/47 (61) 84 01/17/20 08:00 Mechanical Ventilator 01/17/20 08:00 100 01/17/20 07:30 135 24 90/48 (62) 85 01/17/20 07:30 135 24 100 01/17/20 07:00 122 24 69/39 (49) 88 01/17/20 06:00 94/46 01/17/20 06:00 125 24 93/47 (62) 92 01/17/20 05:45 129 24 98/49 (65) 91 01/17/20 05:16 125 24 100 01/17/20 05:15 125 24 96/49 (65) 94 01/17/20 05:00 96/49 01/17/20 05:00 127 24 99/52 (68) 92 01/17/20 04:45 133 24 111/56 (74) 92 01/17/20 04:39 147 23 129/69 (89) 92 01/17/20 04:15 123 24 107/51 (69) 93 01/17/20 04:00 99.3 124 24 105/52 (69) 93 01/17/20 04:00 107/51 01/17/20 04:00 123 01/17/20 04:00 100 01/17/20 04:00 Mechanical Ventilator 01/17/20 03:45 123 24 106/53 (70) 94 01/17/20 03:30 125 29 89/47 (61) 98 01/17/20 03:30 123 24 100 01/17/20 03:15 126 24 110/58 (75) 99 01/17/20 03:06 113/61 01/17/20 03:00 127 24 111/59 (76) 99 01/17/20 03:00 113/61 01/17/20 02:30 131 24 113/61 (78) 98 01/17/20 02:15 131 24 152/82 (105) 100 01/17/20 02:12 131 25 98/44 (62) 100 01/17/20 01:30 125 24 112/60 (77) 99 01/17/20 01:15 127 24 100 01/17/20 01:00 125 24 110/63 (79) 99 01/17/20 01:00 109/61 01/17/20 00:15 124 24 115/59 (77) 100 01/17/20 00:00 100 01/17/20 00:00 Mechanical Ventilator 01/17/20 00:00 115/59 01/17/20 00:00 100.0 123 24 106/58 (74) 99 01/17/20 00:00 123 01/16/20 23:30 124 24 100 01/16/20 23:00 129 24 120/58 (78) 98 01/16/20 23:00 112/59 01/16/20 22:50 148 24 160/76 (104) 100 01/16/20 22:47 125 23 73/42 (52) 100 01/16/20 22:30 121 24 117/65 (82) 100 01/16/20 22:20 110/59 01/16/20 22:15 120 24 111/58 (75) 100 01/16/20 22:00 119 24 120/57 (78) 100 01/16/20 21:59 110/59 01/16/20 21:45 121 24 117/57 (77) 100 01/16/20 21:30 121 24 117/66 (83) 100 01/16/20 21:21 124 24 100 01/16/20 21:15 121 24 116/62 (80) 100 01/16/20 21:06 100.0 01/16/20 21:04 124 24 106/62 (77) 100 01/16/20 21:00 126 24 74/47 (56) 100 01/16/20 21:00 106/62 01/16/20 20:00 121 24 110/59 (76) 100 01/16/20 20:00 Mechanical Ventilator 01/16/20 20:00 121 01/16/20 20:00 112/62 01/16/20 20:00 100 01/16/20 19:45 122 24 108/52 (70) 100 01/16/20 19:30 124 24 109/60 (76) 100 01/16/20 19:15 125 24 100 01/16/20 19:00 130 24 121/59 (79) 100 01/16/20 19:00 116/45 01/16/20 18:30 126 24 108/60 (76) 100 01/16/20 18:00 118/59 01/16/20 18:00 100.3 126 24 112/55 (74) 100 01/16/20 17:00 112/61 01/16/20 17:00 127 24 109/55 (73) 100 01/16/20 16:45 126 24 100 01/16/20 16:30 127 24 105/55 (72) 100 01/16/20 16:00 100 01/16/20 16:00 127 01/16/20 16:00 128 24 111/54 (73) 99 01/16/20 16:00 111/54 01/16/20 16:00 Mechanical Ventilator 01/16/20 15:30 127 24 109/60 (76) 100 01/16/20 15:00 53/28 01/16/20 15:00 53/28 01/16/20 15:00 130 24 53/28 (36) 100 01/16/20 14:45 130 24 102/61 (75) 100 01/16/20 14:30 133 24 94/57 (69) 99 01/16/20 14:15 131 24 99/55 (70) 96 01/16/20 14:00 121 24 101/60 (74) 96 01/16/20 14:00 59/33 01/16/20 13:13 140 24 100 01/16/20 13:00 130 24 88/53 (65) 100 01/16/20 13:00 70/48 Intake and Output 01/16/20 01/17/20 19:00 07:00 Intake Total 2409.56 ml 1382.80 ml Output Total 765 ml 645 ml Balance 1644.56 ml 737.80 ml Free Water 120 ml 50 ml IV Total 2289.56 ml 1272.80 ml Other 60 ml Output Urine Total 765 ml 645 ml General Appearance: other - on vent and pressors HEENT: normocephalic, atraumatic, other - oral - intubated Respiratory/Chest: chest wall non-tender, lungs clear Cardiovascular: normal peripheral pulses, normal rate Abdomen: normal bowel sounds, non distended Genitourinary: other - + pollard Extremities: other - no cellulitis Skin: no rash Neurologic/Psychiatric: other - non-responsive, weak Lymphatic: no neck adenopathy Musculoskeletal: no effusion Microbiology Date/Time Source Procedure Growth Status 01/14/20 12:15 Blood Blood Culture - Preliminary NO GROWTH AFTER 48 HOURS Resulted Laboratory Tests 01/17/20 04:00: White Blood Count 22.0H, Red Blood Count 2.80L, Hemoglobin 9.0L, Hematocrit 26.3L, Mean Corpuscular Volume 94, Mean Corpuscular Hemoglobin 32.0H, Mean Corpuscular Hemoglobin Concent 34.1, Red Cell Distribution Width 12.4, Platelet Count 12L, Mean Platelet Volume , Neutrophils (%) (Auto) , Lymphocytes (%) (Auto ) , Monocytes (%) (Auto) , Eosinophils (%) (Auto) , Basophils (%) (Auto) , Differential Total Cells Counted 100, Neutrophils % (Manual) 92H, Lymphocytes % (Manual) 6L, Monocytes % (Manual) 1, Eosinophils % (Manual) 1, Basophils % ( Manual) 0, Band Neutrophils 0, Platelet Estimate DecreasedL, Platelet Morphology Normal, Hypochromasia 2+, Anisocytosis 1+, Spherocytes 2+, Sodium Level 154H, Potassium Level 4.2, Chloride Level 118H, Carbon Dioxide Level 21, Anion Gap 15, Blood Urea Nitrogen 38H, Creatinine 2.8H, Estimat Glomerular Filtration Rate 17.4, Glucose Level 62L, Calcium Level 7.5L, Phosphorus Level 3.4, Magnesium Level 2.1, Total Bilirubin 0.4, Aspartate Amino Transf (AST/SGOT ) 398H, Alanine Aminotransferase (ALT/SGPT) 65, Alkaline Phosphatase 206H, Total Protein 4.9L, Albumin 1.9L, Globulin 3.0, Albumin/Globulin Ratio 0.6L 01/17/20 09:40: Arterial Blood pH 7.056*L, Arterial Blood Partial Pressure CO2 57.9*H, Arterial Blood Partial Pressure O2 49.4*L, Arterial Blood HCO3 15.9*L, Arterial Blood Oxygen Saturation 76.7*L, Arterial Blood Base Excess -14.1*L, Jun Test Positive Current Medications Medications (Trade) Dose Ordered Sig/Neha Route PRN Reason Start Time Stop Time Status Last Admin Dose Admin Acetaminophen (Tylenol) 650 mg Q4H PRN ORAL Mild Pain (Pain Scale 1-3) 01/08/20 09:00 02/04/20 08:59 01/16/20 09:31 Acetaminophen (Tylenol) 650 mg Q4H PRN ORAL Temp >100.5 01/08/20 09:00 02/04/20 08:59 01/16/20 20:36 Artificial Tears (Akwa-Tears) 2 drop Q6H PRN BOTH EYES Dry Eyes 01/13/20 12:00 02/12/20 11:59 01/14/20 09:00 Benzonatate (Tessalon Perles) 100 mg Q8H PRN ORAL For Cough 01/08/20 14:00 02/07/20 13:59 Chlorhexidine Gluconate (Saritha-Hex 2%) 1 applic DAILY@2000 TOPIC 01/12/20 20:00 04/11/20 19:59 01/16/20 20:35 Dextrose 500 ml @ 500 mls/hr ONCE ONCE IV 01/17/20 11:45 01/17/20 12:44 Dextrose (Dextrose 50%) 25 ml Q30M PRN IV Hypoglycemia 01/14/20 17:30 04/13/20 17:29 Dextrose (Dextrose 50%) 50 ml Q30M PRN IV Hypoglycemia 01/14/20 17:30 04/13/20 17:29 Guaifenesin/ Dextromethorphan (Robitussin DM Syrup) 10 ml Q4H PRN ORAL For Cough 01/08/20 09:15 04/05/20 01:14 01/08/20 09:20 Insulin Aspart (NovoLOG) EVERY 4 HOURS SUBQ 01/14/20 21:00 04/13/20 20:59 01/16/20 17:00 Insulin Aspart (NovoLOG) 5 units EVERY 4 HOURS SUBQ 01/14/20 21:00 04/13/20 20:59 01/17/20 08:27 Meropenem 1 gm/ Sodium Chloride 100 ml @ 200 mls/hr EVERY 12 HOURS IVPB 01/16/20 21:00 01/21/20 20:59 01/17/20 08:23 Micafungin Sodium 100 mg/Sodium Chloride 100 ml @ 100 mls/hr Q24H IVPB 01/16/20 14:00 01/23/20 13:59 01/16/20 14:00 Midazolam HCl 100 ml @ 0 mls/hr Q24H PRN IV Agitation 01/11/20 16:15 04/10/20 16:14 01/12/20 06:10 Norepinephrine Bitartrate 16 mg/ Dextrose 566 ml @ 0 mls/hr Q24H IV 01/17/20 08:00 02/16/20 07:59 01/17/20 08:22 Phenylephrine HCl 100 mg/Dextrose 250 ml @ 0 mls/hr Q24H STAT IV 01/17/20 12:07 01/17/20 12:08 UNV Sodium Chloride 500 ml @ 999 mls/hr Q31M ONCE IV 01/17/20 12:00 01/17/20 12:30 01/17/20 11:59 Shaun Omer MD Jan 17, 2020 12:12
[2020-01-17] MEDS ORDERED: Phenylephrine 100 MG in D5W 240 ML IV SCH (12:29)
--- NOTE | 2020-01-17 13:00 | NUR ---
NURSE NOTES: bp 73/ 28. hr 126 sp02 79. rr 24. pt suctioned. bolus given. md aware of pt condition. will continue to monitor pt.
--- NOTE | 2020-01-17 13:45 | General Progress Note ---
Assessment/Plan Problem List: (1) Anemia ICD Codes: D64.9 - Anemia, unspecified SNOMED: 341504218 (2) Elevated LFTs ICD Codes: R79.89 - Other specified abnormal findings of blood chemistry SNOMED: 589032959, 755952455 (3) HTN (hypertension) ICD Codes: I10 - Essential (primary) hypertension SNOMED: 71309945 (4) Diabetes type 2, controlled ICD Codes: E11.9 - Type 2 diabetes mellitus without complications SNOMED: 74933545, 431494869 (5) COVID-19 virus infection ICD Codes: U07.1 - COVID-19 SNOMED: 033464471 (6) Respiratory failure with hypoxia ICD Codes: J96.91 - Respiratory failure, unspecified with hypoxia SNOMED: 45518258020360210 (7) Diabetes mellitus out of control ICD Codes: E11.65 - Type 2 diabetes mellitus with hyperglycemia SNOMED: 15885734, 287860523 Assessment/Plan: on pressors brain septic shock liver supportive care poor prognosis fu labs Subjective ROS Limited/Unobtainable: No Allergies: Coded Allergies: No Known Allergies (Unverified , 01/05/20) Objective Last 24 Hour Vital Signs Date Time Temp Pulse Resp B/P (MAP) Pulse Ox O2 Delivery O2 Flow Rate FiO2 01/17/20 13:30 122 77/47 01/17/20 12:09 142 24 100 01/17/20 10:30 140 24 87/45 (59) 88 01/17/20 10:01 141 24 100 01/17/20 10:00 141 24 94/45 (61) 89 01/17/20 09:30 142 27 91/51 (64) 91 01/17/20 09:00 142 24 86/38 (54) 90 01/17/20 08:30 138 24 101/52 (68) 01/17/20 08:22 80/49 01/17/20 08:00 125 01/17/20 08:00 98.7 128 24 90/47 (61) 84 01/17/20 08:00 Mechanical Ventilator 01/17/20 08:00 100 01/17/20 07:30 135 24 90/48 (62) 85 01/17/20 07:30 135 24 100 01/17/20 07:00 122 24 69/39 (49) 88 01/17/20 06:00 94/46 01/17/20 06:00 125 24 93/47 (62) 92 01/17/20 05:45 129 24 98/49 (65) 91 01/17/20 05:16 125 24 100 01/17/20 05:15 125 24 96/49 (65) 94 01/17/20 05:00 96/49 01/17/20 05:00 127 24 99/52 (68) 92 01/17/20 04:45 133 24 111/56 (74) 92 01/17/20 04:39 147 23 129/69 (89) 92 01/17/20 04:15 123 24 107/51 (69) 93 01/17/20 04:00 99.3 124 24 105/52 (69) 93 01/17/20 04:00 107/51 01/17/20 04:00 123 01/17/20 04:00 100 01/17/20 04:00 Mechanical Ventilator 01/17/20 03:45 123 24 106/53 (70) 94 01/17/20 03:30 125 29 89/47 (61) 98 01/17/20 03:30 123 24 100 01/17/20 03:15 126 24 110/58 (75) 99 01/17/20 03:06 113/61 01/17/20 03:00 127 24 111/59 (76) 99 01/17/20 03:00 113/61 01/17/20 02:30 131 24 113/61 (78) 98 01/17/20 02:15 131 24 152/82 (105) 100 01/17/20 02:12 131 25 98/44 (62) 100 01/17/20 01:30 125 24 112/60 (77) 99 01/17/20 01:15 127 24 100 01/17/20 01:00 125 24 110/63 (79) 99 01/17/20 01:00 109/61 01/17/20 00:15 124 24 115/59 (77) 100 01/17/20 00:00 100 01/17/20 00:00 Mechanical Ventilator 01/17/20 00:00 115/59 01/17/20 00:00 100.0 123 24 106/58 (74) 99 01/17/20 00:00 123 01/16/20 23:30 124 24 100 01/16/20 23:00 129 24 120/58 (78) 98 20 23:00 112/59 01/16/20 22:50 148 24 160/76 (104) 100 20 22:47 125 23 73/42 (52) 100 01/16/20 22:30 121 24 117/65 (82) 100 20 22:20 110/59 20 22:15 120 24 111/58 (75) 100 01/16/20 22:00 119 24 120/57 (78) 100 20 21:59 110/59 20 21:45 121 24 117/57 (77) 100 01/16/20 21:30 121 24 117/66 (83) 100 01/16/20 21:21 124 24 100 01/16/20 21:15 121 24 116/62 (80) 100 01/16/20 21:06 100.0 01/16/20 21:04 124 24 106/62 (77) 100 01/16/20 21:00 126 24 74/47 (56) 100 01/16/20 21:00 106/62 01/16/20 20:00 121 24 110/59 (76) 100 01/16/20 20:00 Mechanical Ventilator 01/16/20 20:00 121 01/16/20 20:00 112/62 01/16/20 20:00 100 01/16/20 19:45 122 24 108/52 (70) 100 01/16/20 19:30 124 24 109/60 (76) 100 01/16/20 19:15 125 24 100 01/16/20 19:00 130 24 121/59 (79) 100 01/16/20 19:00 116/45 01/16/20 18:30 126 24 108/60 (76) 100 01/16/20 18:00 118/59 01/16/20 18:00 100.3 126 24 112/55 (74) 100 20 17:00 112/61 01/16/20 17:00 127 24 109/55 (73) 100 01/16/20 16:45 126 24 100 01/16/20 16:30 127 24 105/55 (72) 100 01/16/20 16:00 100 01/16/20 16:00 127 01/16/20 16:00 128 24 111/54 (73) 99 01/16/20 16:00 111/54 01/16/20 16:00 Mechanical Ventilator 01/16/20 15:30 127 24 109/60 (76) 100 01/16/20 15:00 53/28 01/16/20 15:00 53/28 01/16/20 15:00 130 24 53/28 (36) 100 01/16/20 14:45 130 24 102/61 (75) 100 01/16/20 14:30 133 24 94/57 (69) 99 01/16/20 14:15 131 24 99/55 (70) 96 01/16/20 14:00 121 24 101/60 (74) 96 01/16/20 14:00 59/33 Intake and Output 01/16/20 01/17/20 19:00 07:00 Intake Total 2409.56 ml 1382.80 ml Output Total 765 ml 645 ml Balance 1644.56 ml 737.80 ml Free Water 120 ml 50 ml IV Total 2289.56 ml 1272.80 ml Other 60 ml Output Urine Total 765 ml 645 ml Laboratory Tests 01/17/20 04:00: White Blood Count 22.0H, Red Blood Count 2.80L, Hemoglobin 9.0L, Hematocrit 26.3L, Mean Corpuscular Volume 94, Mean Corpuscular Hemoglobin 32.0H, Mean Corpuscular Hemoglobin Concent 34.1, Red Cell Distribution Width 12.4, Platelet Count 12L, Mean Platelet Volume , Neutrophils (%) (Auto) , Lymphocytes (%) (Auto ) , Monocytes (%) (Auto) , Eosinophils (%) (Auto) , Basophils (%) (Auto) , Differential Total Cells Counted 100, Neutrophils % (Manual) 92H, Lymphocytes % (Manual) 6L, Monocytes % (Manual) 1, Eosinophils % (Manual) 1, Basophils % ( Manual) 0, Band Neutrophils 0, Platelet Estimate DecreasedL, Platelet Morphology Normal, Hypochromasia 2+, Anisocytosis 1+, Spherocytes 2+, Sodium Level 154H, Potassium Level 4.2, Chloride Level 118H, Carbon Dioxide Level 21, Anion Gap 15, Blood Urea Nitrogen 38H, Creatinine 2.8H, Estimat Glomerular Filtration Rate 17.4, Glucose Level 62L, Calcium Level 7.5L, Phosphorus Level 3.4, Magnesium Level 2.1, Total Bilirubin 0.4, Aspartate Amino Transf (AST/SGOT ) 398H, Alanine Aminotransferase (ALT/SGPT) 65, Alkaline Phosphatase 206H, Total Protein 4.9L, Albumin 1.9L, Globulin 3.0, Albumin/Globulin Ratio 0.6L 01/17/20 09:40: Arterial Blood pH 7.056*L, Arterial Blood Partial Pressure CO2 57.9*H, Arterial Blood Partial Pressure O2 49.4*L, Arterial Blood HCO3 15.9*L, Arterial Blood Oxygen Saturation 76.7*L, Arterial Blood Base Excess -14.1*L, Jun Test Positive Height (Feet): 5 Height (Inches): 4.00 Weight (Pounds): 132 General Appearance: lethargic EENT: normal ENT inspection Neck: supple Cardiovascular: normal rate Respiratory/Chest: decreased breath sounds Abdomen: normal bowel sounds, non tender, soft Extremities: non-tender Navid Nguyen MD Jan 17, 2020 13:45
--- NOTE | 2020-01-17 13:49 | NUR ---
CASE MANAGEMENT:REVIEW 01/17/20 SI: COVID 19 PNEUMONIA T 98.7 HR 125 RR 24 B/P 90/47 SATS 84% ON MECH VENT FIO2 100 LABS: WBC 22 NA 154 CL 118 BUN 38 CR 2.8 CA 7.5 AST 398 ALP 206 ABGs PH 7.056 PCO2 57.9 PO2 49.4 HCO3 15.9 O2 SAT 76.7 BE -14.1 IS: INSULIN ASPART SUBQ Q4H MEROPENEM IV Q12H LEVOPHED IV PER PARAMETERS MICAFUNGIN IV Q24H PHENYLEPHRINE IV PER PARAMETERS : ICU DCP: PATIENT IS FROM HOME PLAN: PALLIATIVE CARE EMINENT
--- NOTE | 2020-01-17 13:59 | Cardiac Electrophysiology PN ---
Subjective Subjective [id number] Objective Last 24 Hour Vital Signs Date Time Temp Pulse Resp B/P (MAP) Pulse Ox O2 Delivery O2 Flow Rate FiO2 01/17/20 13:30 122 77/47 01/17/20 12:09 142 24 100 01/17/20 10:30 140 24 87/45 (59) 88 01/17/20 10:01 141 24 100 01/17/20 10:00 141 24 94/45 (61) 89 01/17/20 09:30 142 27 91/51 (64) 91 01/17/20 09:00 142 24 86/38 (54) 90 01/17/20 08:30 138 24 101/52 (68) 01/17/20 08:22 80/49 01/17/20 08:00 125 01/17/20 08:00 98.7 128 24 90/47 (61) 84 01/17/20 08:00 Mechanical Ventilator 01/17/20 08:00 100 01/17/20 07:30 135 24 90/48 (62) 85 01/17/20 07:30 135 24 100 01/17/20 07:00 122 24 69/39 (49) 88 01/17/20 06:00 94/46 01/17/20 06:00 125 24 93/47 (62) 92 01/17/20 05:45 129 24 98/49 (65) 91 01/17/20 05:16 125 24 100 01/17/20 05:15 125 24 96/49 (65) 94 01/17/20 05:00 96/49 01/17/20 05:00 127 24 99/52 (68) 92 01/17/20 04:45 133 24 111/56 (74) 92 01/17/20 04:39 147 23 129/69 (89) 92 01/17/20 04:15 123 24 107/51 (69) 93 01/17/20 04:00 99.3 124 24 105/52 (69) 93 01/17/20 04:00 107/51 01/17/20 04:00 123 01/17/20 04:00 100 01/17/20 04:00 Mechanical Ventilator 01/17/20 03:45 123 24 106/53 (70) 94 01/17/20 03:30 125 29 89/47 (61) 98 01/17/20 03:30 123 24 100 01/17/20 03:15 126 24 110/58 (75) 99 01/17/20 03:06 113/61 01/17/20 03:00 127 24 111/59 (76) 99 01/17/20 03:00 113/61 01/17/20 02:30 131 24 113/61 (78) 98 01/17/20 02:15 131 24 152/82 (105) 100 01/17/20 02:12 131 25 98/44 (62) 100 01/17/20 01:30 125 24 112/60 (77) 99 01/17/20 01:15 127 24 100 01/17/20 01:00 125 24 110/63 (79) 99 01/17/20 01:00 109/61 01/17/20 00:15 124 24 115/59 (77) 100 01/17/20 00:00 100 01/17/20 00:00 Mechanical Ventilator 01/17/20 00:00 115/59 01/17/20 00:00 100.0 123 24 106/58 (74) 99 01/17/20 00:00 123 01/16/20 23:30 124 24 100 01/16/20 23:00 129 24 120/58 (78) 98 01/16/20 23:00 112/59 01/16/20 22:50 148 24 160/76 (104) 100 01/16/20 22:47 125 23 73/42 (52) 100 01/16/20 22:30 121 24 117/65 (82) 100 01/16/20 22:20 110/59 01/16/20 22:15 120 24 111/58 (75) 100 01/16/20 22:00 119 24 120/57 (78) 100 01/16/20 21:59 110/59 20 21:45 121 24 117/57 (77) 100 20 21:30 121 24 117/66 (83) 100 01/16/20 21:21 124 24 100 20 21:15 121 24 116/62 (80) 100 01/16/20 21:06 100.0 01/16/20 21:04 124 24 106/62 (77) 100 01/16/20 21:00 126 24 74/47 (56) 100 01/16/20 21:00 106/62 01/16/20 20:00 121 24 110/59 (76) 100 01/16/20 20:00 Mechanical Ventilator 01/16/20 20:00 121 01/16/20 20:00 112/62 01/16/20 20:00 100 01/16/20 19:45 122 24 108/52 (70) 100 01/16/20 19:30 124 24 109/60 (76) 100 01/16/20 19:15 125 24 100 01/16/20 19:00 130 24 121/59 (79) 100 01/16/20 19:00 116/45 01/16/20 18:30 126 24 108/60 (76) 100 01/16/20 18:00 118/59 01/16/20 18:00 100.3 126 24 112/55 (74) 100 01/16/20 17:00 112/61 01/16/20 17:00 127 24 109/55 (73) 100 01/16/20 16:45 126 24 100 01/16/20 16:30 127 24 105/55 (72) 100 01/16/20 16:00 100 01/16/20 16:00 127 01/16/20 16:00 128 24 111/54 (73) 99 01/16/20 16:00 111/54 01/16/20 16:00 Mechanical Ventilator 01/16/20 15:30 127 24 109/60 (76) 100 01/16/20 15:00 53/28 01/16/20 15:00 53/28 01/16/20 15:00 130 24 53/28 (36) 100 01/16/20 14:45 130 24 102/61 (75) 100 01/16/20 14:30 133 24 94/57 (69) 99 01/16/20 14:15 131 24 99/55 (70) 96 01/16/20 14:00 121 24 101/60 (74) 96 01/16/20 14:00 59/33 Intake and Output 01/16/20 01/17/20 19:00 07:00 Intake Total 2409.56 ml 1382.80 ml Output Total 765 ml 645 ml Balance 1644.56 ml 737.80 ml Free Water 120 ml 50 ml IV Total 2289.56 ml 1272.80 ml Other 60 ml Output Urine Total 765 ml 645 ml Laboratory Tests Test 01/17/20 04:00 01/17/20 09:40 White Blood Count 22.0 K/UL (4.8-10.8) H Red Blood Count 2.80 M/UL (4.20-5.40) L Hemoglobin 9.0 G/DL (12.0-16.0) L Hematocrit 26.3 % (37.0-47.0) L Mean Corpuscular Volume 94 FL (80-99) Mean Corpuscular Hemoglobin 32.0 PG (27.0-31.0) H Mean Corpuscular Hemoglobin Concent 34.1 G/DL (32.0-36.0) Red Cell Distribution Width 12.4 % (11.6-14.8) Platelet Count 12 K/UL (150-450) L Mean Platelet Volume FL (6.5-10.1) Neutrophils (%) (Auto) % (45.0-75.0) Lymphocytes (%) (Auto) % (20.0-45.0) Monocytes (%) (Auto) % (1.0-10.0) Eosinophils (%) (Auto) % (0.0-3.0) Basophils (%) (Auto) % (0.0-2.0) Differential Total Cells Counted 100 Neutrophils % (Manual) 92 % (45-75) H Lymphocytes % (Manual) 6 % (20-45) L Monocytes % (Manual) 1 % (1-10) Eosinophils % (Manual) 1 % (0-3) Basophils % (Manual) 0 % (0-2) Band Neutrophils 0 % (0-8) Platelet Estimate Decreased L Platelet Morphology Normal Hypochromasia 2+ Anisocytosis 1+ Spherocytes 2+ Sodium Level 154 MMOL/L (136-145) H Potassium Level 4.2 MMOL/L (3.5-5.1) Chloride Level 118 MMOL/L (98-107) H Carbon Dioxide Level 21 MMOL/L (21-32) Anion Gap 15 mmol/L (5-15) Blood Urea Nitrogen 38 mg/dL (7-18) H Creatinine 2.8 MG/DL (0.55-1.30) H Estimat Glomerular Filtration Rate 17.4 mL/min (>60) Glucose Level 62 MG/DL (74-106) L Calcium Level 7.5 MG/DL (8.5-10.1) L Phosphorus Level 3.4 MG/DL (2.5-4.9) Magnesium Level 2.1 MG/DL (1.8-2.4) Total Bilirubin 0.4 MG/DL (0.2-1.0) Aspartate Amino Transf (AST/SGOT) 398 U/L (15-37) H Alanine Aminotransferase (ALT/SGPT) 65 U/L (12-78) Alkaline Phosphatase 206 U/L (46-116) H Total Protein 4.9 G/DL (6.4-8.2) L Albumin 1.9 G/DL (3.4-5.0) L Globulin 3.0 g/dL Albumin/Globulin Ratio 0.6 (1.0-2.7) L Arterial Blood pH 7.056 (7.350-7.450) Arterial Blood Partial Pressure CO2 57.9 mmHg (35.0-45.0) *H Arterial Blood Partial Pressure O2 49.4 mmHg (75.0-100.0) Arterial Blood HCO3 15.9 mmol/L (22.0-26.0) *L Arterial Blood Oxygen Saturation 76.7 % (95-100) *L Arterial Blood Base Excess -14.1 (-2-2) *L Jun Test Positive Gustavo Zheng MD Jan 17, 2020 13:59
--- NOTE | 2020-01-17 14:28 | Surgery Progress Note ---
Surgery Progress Note Subjective Additional Comments ill appearing labs noted not improving much Objective Last 24 Hour Vital Signs Date Time Temp Pulse Resp B/P (MAP) Pulse Ox O2 Delivery O2 Flow Rate FiO2 01/17/20 13:30 122 77/47 01/17/20 12:09 142 24 100 01/17/20 10:30 140 24 87/45 (59) 88 01/17/20 10:01 141 24 100 01/17/20 10:00 141 24 94/45 (61) 89 01/17/20 09:30 142 27 91/51 (64) 91 01/17/20 09:00 142 24 86/38 (54) 90 01/17/20 08:30 138 24 101/52 (68) 01/17/20 08:22 80/49 01/17/20 08:00 125 01/17/20 08:00 98.7 128 24 90/47 (61) 84 01/17/20 08:00 Mechanical Ventilator 01/17/20 08:00 100 01/17/20 07:30 135 24 90/48 (62) 85 01/17/20 07:30 135 24 100 01/17/20 07:00 122 24 69/39 (49) 88 01/17/20 06:00 94/46 01/17/20 06:00 125 24 93/47 (62) 92 01/17/20 05:45 129 24 98/49 (65) 91 01/17/20 05:16 125 24 100 01/17/20 05:15 125 24 96/49 (65) 94 01/17/20 05:00 96/49 01/17/20 05:00 127 24 99/52 (68) 92 01/17/20 04:45 133 24 111/56 (74) 92 01/17/20 04:39 147 23 129/69 (89) 92 01/17/20 04:15 123 24 107/51 (69) 93 01/17/20 04:00 99.3 124 24 105/52 (69) 93 01/17/20 04:00 107/51 01/17/20 04:00 123 01/17/20 04:00 100 01/17/20 04:00 Mechanical Ventilator 01/17/20 03:45 123 24 106/53 (70) 94 01/17/20 03:30 125 29 89/47 (61) 98 01/17/20 03:30 123 24 100 01/17/20 03:15 126 24 110/58 (75) 99 01/17/20 03:06 113/61 01/17/20 03:00 127 24 111/59 (76) 99 01/17/20 03:00 113/61 01/17/20 02:30 131 24 113/61 (78) 98 01/17/20 02:15 131 24 152/82 (105) 100 01/17/20 02:12 131 25 98/44 (62) 100 01/17/20 01:30 125 24 112/60 (77) 99 01/17/20 01:15 127 24 100 01/17/20 01:00 125 24 110/63 (79) 99 01/17/20 01:00 109/61 01/17/20 00:15 124 24 115/59 (77) 100 01/17/20 00:00 100 01/17/20 00:00 Mechanical Ventilator 01/17/20 00:00 115/59 01/17/20 00:00 100.0 123 24 106/58 (74) 99 01/17/20 00:00 123 01/16/20 23:30 124 24 100 01/16/20 23:00 129 24 120/58 (78) 98 01/16/20 23:00 112/59 01/16/20 22:50 148 24 160/76 (104) 100 01/16/20 22:47 125 23 73/42 (52) 100 01/16/20 22:30 121 24 117/65 (82) 100 01/16/20 22:20 110/59 01/16/20 22:15 120 24 111/58 (75) 100 01/16/20 22:00 119 24 120/57 (78) 100 20 21:59 110/59 01/16/20 21:45 121 24 117/57 (77) 100 20 21:30 121 24 117/66 (83) 100 01/16/20 21:21 124 24 100 20 21:15 121 24 116/62 (80) 100 20 21:06 100.0 01/16/20 21:04 124 24 106/62 (77) 100 01/16/20 21:00 126 24 74/47 (56) 100 01/16/20 21:00 106/62 01/16/20 20:00 121 24 110/59 (76) 100 01/16/20 20:00 Mechanical Ventilator 01/16/20 20:00 121 01/16/20 20:00 112/62 01/16/20 20:00 100 01/16/20 19:45 122 24 108/52 (70) 100 01/16/20 19:30 124 24 109/60 (76) 100 01/16/20 19:15 125 24 100 01/16/20 19:00 130 24 121/59 (79) 100 01/16/20 19:00 116/45 01/16/20 18:30 126 24 108/60 (76) 100 01/16/20 18:00 118/59 01/16/20 18:00 100.3 126 24 112/55 (74) 100 01/16/20 17:00 112/61 01/16/20 17:00 127 24 109/55 (73) 100 01/16/20 16:45 126 24 100 01/16/20 16:30 127 24 105/55 (72) 100 01/16/20 16:00 100 01/16/20 16:00 127 01/16/20 16:00 128 24 111/54 (73) 99 01/16/20 16:00 111/54 01/16/20 16:00 Mechanical Ventilator 01/16/20 15:30 127 24 109/60 (76) 100 01/16/20 15:00 53/28 01/16/20 15:00 53/28 01/16/20 15:00 130 24 53/28 (36) 100 01/16/20 14:45 130 24 102/61 (75) 100 01/16/20 14:30 133 24 94/57 (69) 99 I&O Intake and Output 01/16/20 01/17/20 19:00 07:00 Intake Total 2409.56 ml 1382.80 ml Output Total 765 ml 645 ml Balance 1644.56 ml 737.80 ml Free Water 120 ml 50 ml IV Total 2289.56 ml 1272.80 ml Other 60 ml Output Urine Total 765 ml 645 ml Dressing: other Wound: other Cardiovascular: RSR Respiratory: decreased breath sounds Abdomen: soft, non-tender, present bowel sounds Extremities: no cyanosis Laboratory Tests Test 01/17/20 04:00 01/17/20 09:40 White Blood Count 22.0 K/UL (4.8-10.8) H Red Blood Count 2.80 M/UL (4.20-5.40) L Hemoglobin 9.0 G/DL (12.0-16.0) L Hematocrit 26.3 % (37.0-47.0) L Mean Corpuscular Volume 94 FL (80-99) Mean Corpuscular Hemoglobin 32.0 PG (27.0-31.0) H Mean Corpuscular Hemoglobin Concent 34.1 G/DL (32.0-36.0) Red Cell Distribution Width 12.4 % (11.6-14.8) Platelet Count 12 K/UL (150-450) L Mean Platelet Volume FL (6.5-10.1) Neutrophils (%) (Auto) % (45.0-75.0) Lymphocytes (%) (Auto) % (20.0-45.0) Monocytes (%) (Auto) % (1.0-10.0) Eosinophils (%) (Auto) % (0.0-3.0) Basophils (%) (Auto) % (0.0-2.0) Differential Total Cells Counted 100 Neutrophils % (Manual) 92 % (45-75) H Lymphocytes % (Manual) 6 % (20-45) L Monocytes % (Manual) 1 % (1-10) Eosinophils % (Manual) 1 % (0-3) Basophils % (Manual) 0 % (0-2) Band Neutrophils 0 % (0-8) Platelet Estimate Decreased L Platelet Morphology Normal Hypochromasia 2+ Anisocytosis 1+ Spherocytes 2+ Sodium Level 154 MMOL/L (136-145) H Potassium Level 4.2 MMOL/L (3.5-5.1) Chloride Level 118 MMOL/L (98-107) H Carbon Dioxide Level 21 MMOL/L (21-32) Anion Gap 15 mmol/L (5-15) Blood Urea Nitrogen 38 mg/dL (7-18) H Creatinine 2.8 MG/DL (0.55-1.30) H Estimat Glomerular Filtration Rate 17.4 mL/min (>60) Glucose Level 62 MG/DL (74-106) L Calcium Level 7.5 MG/DL (8.5-10.1) L Phosphorus Level 3.4 MG/DL (2.5-4.9) Magnesium Level 2.1 MG/DL (1.8-2.4) Total Bilirubin 0.4 MG/DL (0.2-1.0) Aspartate Amino Transf (AST/SGOT) 398 U/L (15-37) H Alanine Aminotransferase (ALT/SGPT) 65 U/L (12-78) Alkaline Phosphatase 206 U/L (46-116) H Troponin I Pending Total Protein 4.9 G/DL (6.4-8.2) L Albumin 1.9 G/DL (3.4-5.0) L Globulin 3.0 g/dL Albumin/Globulin Ratio 0.6 (1.0-2.7) L Arterial Blood pH 7.056 (7.350-7.450) Arterial Blood Partial Pressure CO2 57.9 mmHg (35.0-45.0) *H Arterial Blood Partial Pressure O2 49.4 mmHg (75.0-100.0) Arterial Blood HCO3 15.9 mmol/L (22.0-26.0) *L Arterial Blood Oxygen Saturation 76.7 % (95-100) *L Arterial Blood Base Excess -14.1 (-2-2) *L Jun Test Positive Plan Problems: (1) Respiratory failure with hypoxia Assessment & Plan: COVID + intubated on support (2) COVID-19 virus infection Assessment & Plan: septic covid organ failure hypotensive needs urgent pressors needs central venous access see noted fluids vent support w will follow with recs unfortunately not improving much worsening leukocytosis febrile prognosis guarded (3) Diabetes type 2, controlled (4) HTN (hypertension) Jaylan Daley Jan 17, 2020 14:28
--- NOTE | 2020-01-17 14:48 | General Progress Note ---
Assessment/Plan Problem List: (1) Diabetes mellitus out of control ICD Codes: E11.65 - Type 2 diabetes mellitus with hyperglycemia SNOMED: 71440208, 945611280 (2) Respiratory failure with hypoxia ICD Codes: J96.91 - Respiratory failure, unspecified with hypoxia SNOMED: 71741853620014429 (3) COVID-19 virus infection ICD Codes: U07.1 - COVID-19 SNOMED: 975710428 Assessment/Plan: continue Novolog 5 units every 4 hours continue Novolog sliding scale every 4 hours Subjective ROS Limited/Unobtainable: Yes Allergies: Coded Allergies: No Known Allergies (Unverified , 01/05/20) Subjective events noted interval notes reviewed intubated in ICU on pressors glucose values are stable Item Value Date Time Bedside Blood Glucose 140 mg/dl H 01/17/20 1333 Bedside Blood Glucose 123 mg/dl H 01/17/20 0827 Bedside Blood Glucose 103 mg/dl 01/17/20 0552 Bedside Blood Glucose 117 mg/dl 01/17/20 0108 Bedside Blood Glucose 113 mg/dl 01/16/20 2136 Bedside Blood Glucose 192 mg/dl H 01/16/20 1700 Bedside Blood Glucose 246 mg/dl H 01/16/20 1300 Bedside Blood Glucose 92 mg/dl 01/16/20 0919 Objective Last 24 Hour Vital Signs Date Time Temp Pulse Resp B/P (MAP) Pulse Ox O2 Delivery O2 Flow Rate FiO2 01/17/20 13:30 122 77/47 01/17/20 12:09 142 24 100 01/17/20 10:30 140 24 87/45 (59) 88 01/17/20 10:01 141 24 100 01/17/20 10:00 141 24 94/45 (61) 89 01/17/20 09:30 142 27 91/51 (64) 91 01/17/20 09:00 142 24 86/38 (54) 90 01/17/20 08:30 138 24 101/52 (68) 01/17/20 08:22 80/49 01/17/20 08:00 125 01/17/20 08:00 98.7 128 24 90/47 (61) 84 01/17/20 08:00 Mechanical Ventilator 01/17/20 08:00 100 01/17/20 07:30 135 24 90/48 (62) 85 01/17/20 07:30 135 24 100 01/17/20 07:00 122 24 69/39 (49) 88 01/17/20 06:00 94/46 01/17/20 06:00 125 24 93/47 (62) 92 01/17/20 05:45 129 24 98/49 (65) 91 01/17/20 05:16 125 24 100 01/17/20 05:15 125 24 96/49 (65) 94 01/17/20 05:00 96/49 01/17/20 05:00 127 24 99/52 (68) 92 01/17/20 04:45 133 24 111/56 (74) 92 01/17/20 04:39 147 23 129/69 (89) 92 01/17/20 04:15 123 24 107/51 (69) 93 01/17/20 04:00 99.3 124 24 105/52 (69) 93 01/17/20 04:00 107/51 01/17/20 04:00 123 01/17/20 04:00 100 01/17/20 04:00 Mechanical Ventilator 01/17/20 03:45 123 24 106/53 (70) 94 01/17/20 03:30 125 29 89/47 (61) 98 01/17/20 03:30 123 24 100 01/17/20 03:15 126 24 110/58 (75) 99 01/17/20 03:06 113/61 01/17/20 03:00 127 24 111/59 (76) 99 01/17/20 03:00 113/61 01/17/20 02:30 131 24 113/61 (78) 98 01/17/20 02:15 131 24 152/82 (105) 100 01/17/20 02:12 131 25 98/44 (62) 100 01/17/20 01:30 125 24 112/60 (77) 99 01/17/20 01:15 127 24 100 01/17/20 01:00 125 24 110/63 (79) 99 01/17/20 01:00 109/61 01/17/20 00:15 124 24 115/59 (77) 100 01/17/20 00:00 100 01/17/20 00:00 Mechanical Ventilator 01/17/20 00:00 115/59 4/24/20 00:00 100.0 123 24 106/58 (74) 99 20 00:00 123 01/16/20 23:30 124 24 100 01/16/20 23:00 129 24 120/58 (78) 98 20 23:00 112/59 20 22:50 148 24 160/76 (104) 100 20 22:47 125 23 73/42 (52) 100 01/16/20 22:30 121 24 117/65 (82) 100 20 22:20 110/59 20 22:15 120 24 111/58 (75) 100 20 22:00 119 24 120/57 (78) 100 01/16/20 21:59 110/59 01/16/20 21:45 121 24 117/57 (77) 100 01/16/20 21:30 121 24 117/66 (83) 100 01/16/20 21:21 124 24 100 01/16/20 21:15 121 24 116/62 (80) 100 01/16/20 21:06 100.0 01/16/20 21:04 124 24 106/62 (77) 100 01/16/20 21:00 126 24 74/47 (56) 100 01/16/20 21:00 106/62 01/16/20 20:00 121 24 110/59 (76) 100 01/16/20 20:00 Mechanical Ventilator 01/16/20 20:00 121 01/16/20 20:00 112/62 01/16/20 20:00 100 01/16/20 19:45 122 24 108/52 (70) 100 01/16/20 19:30 124 24 109/60 (76) 100 01/16/20 19:15 125 24 100 01/16/20 19:00 130 24 121/59 (79) 100 01/16/20 19:00 116/45 01/16/20 18:30 126 24 108/60 (76) 100 20 18:00 118/59 01/16/20 18:00 100.3 126 24 112/55 (74) 100 20 17:00 112/61 01/16/20 17:00 127 24 109/55 (73) 100 4/23/20 16:45 126 24 100 01/16/20 16:30 127 24 105/55 (72) 100 01/16/20 16:00 100 01/16/20 16:00 127 01/16/20 16:00 128 24 111/54 (73) 99 01/16/20 16:00 111/54 01/16/20 16:00 Mechanical Ventilator 01/16/20 15:30 127 24 109/60 (76) 100 01/16/20 15:00 53/28 01/16/20 15:00 53/28 01/16/20 15:00 130 24 53/28 (36) 100 Intake and Output 01/16/20 01/17/20 19:00 07:00 Intake Total 2409.56 ml 1382.80 ml Output Total 765 ml 645 ml Balance 1644.56 ml 737.80 ml Free Water 120 ml 50 ml IV Total 2289.56 ml 1272.80 ml Other 60 ml Output Urine Total 765 ml 645 ml Laboratory Tests 01/17/20 04:00: White Blood Count 22.0H, Red Blood Count 2.80L, Hemoglobin 9.0L, Hematocrit 26.3L, Mean Corpuscular Volume 94, Mean Corpuscular Hemoglobin 32.0H, Mean Corpuscular Hemoglobin Concent 34.1, Red Cell Distribution Width 12.4, Platelet Count 12L, Mean Platelet Volume , Neutrophils (%) (Auto) , Lymphocytes (%) (Auto ) , Monocytes (%) (Auto) , Eosinophils (%) (Auto) , Basophils (%) (Auto) , Differential Total Cells Counted 100, Neutrophils % (Manual) 92H, Lymphocytes % (Manual) 6L, Monocytes % (Manual) 1, Eosinophils % (Manual) 1, Basophils % ( Manual) 0, Band Neutrophils 0, Platelet Estimate DecreasedL, Platelet Morphology Normal, Hypochromasia 2+, Anisocytosis 1+, Spherocytes 2+, Sodium Level 154H, Potassium Level 4.2, Chloride Level 118H, Carbon Dioxide Level 21, Anion Gap 15, Blood Urea Nitrogen 38H, Creatinine 2.8H, Estimat Glomerular Filtration Rate 17.4, Glucose Level 62L, Calcium Level 7.5L, Phosphorus Level 3.4, Magnesium Level 2.1, Total Bilirubin 0.4, Aspartate Amino Transf (AST/SGOT ) 398H, Alanine Aminotransferase (ALT/SGPT) 65, Alkaline Phosphatase 206H, Troponin I [Pending], Total Protein 4.9L, Albumin 1.9L, Globulin 3.0, Albumin/ Globulin Ratio 0.6L 01/17/20 09:40: Arterial Blood pH 7.056*L, Arterial Blood Partial Pressure CO2 57.9*H, Arterial Blood Partial Pressure O2 49.4*L, Arterial Blood HCO3 15.9*L, Arterial Blood Oxygen Saturation 76.7*L, Arterial Blood Base Excess -14.1*L, Jun Test Positive Height (Feet): 5 Height (Inches): 4.00 Weight (Pounds): 132 General Appearance: severe distress Neck: normal alignment Cardiovascular: tachycardia Respiratory/Chest: decreased breath sounds Abdomen: normal bowel sounds Pelvis: normal external exam Objective Current Medications Medications (Trade) Dose Ordered Sig/Neha Route PRN Reason Start Time Stop Time Status Last Admin Dose Admin Acetaminophen (Tylenol) 650 mg Q4H PRN ORAL Mild Pain (Pain Scale 1-3) 01/08/20 09:00 02/04/20 08:59 01/16/20 09:31 Acetaminophen (Tylenol) 650 mg Q4H PRN ORAL Temp >100.5 01/08/20 09:00 02/04/20 08:59 01/16/20 20:36 Artificial Tears (Akwa-Tears) 2 drop Q6H PRN BOTH EYES Dry Eyes 01/13/20 12:00 02/12/20 11:59 01/14/20 09:00 Benzonatate (Tessalon Perles) 100 mg Q8H PRN ORAL For Cough 01/08/20 14:00 02/07/20 13:59 Chlorhexidine Gluconate (Saritha-Hex 2%) 1 applic DAILY@1999 TOPIC 01/12/20 20:00 04/11/20 19:59 01/16/20 20:35 Dextrose (Dextrose 50%) 25 ml Q30M PRN IV Hypoglycemia 01/14/20 17:30 04/13/20 17:29 Dextrose (Dextrose 50%) 50 ml Q30M PRN IV Hypoglycemia 01/14/20 17:30 04/13/20 17:29 Guaifenesin/ Dextromethorphan (Robitussin DM Syrup) 10 ml Q4H PRN ORAL For Cough 01/08/20 09:15 04/05/20 01:14 01/08/20 09:20 Insulin Aspart (NovoLOG) EVERY 4 HOURS SUBQ 01/14/20 21:00 04/13/20 20:59 01/17/20 13:31 Insulin Aspart (NovoLOG) 5 units EVERY 4 HOURS SUBQ 01/14/20 21:00 04/13/20 20:59 01/17/20 13:33 Meropenem 1 gm/ Sodium Chloride 100 ml @ 200 mls/hr EVERY 12 HOURS IVPB 01/16/20 21:00 01/21/20 20:59 01/17/20 08:23 Micafungin Sodium 100 mg/Sodium Chloride 100 ml @ 100 mls/hr Q24H IVPB 01/16/20 14:00 01/23/20 13:59 01/17/20 13:33 Midazolam HCl 100 ml @ 0 mls/hr Q24H PRN IV Agitation 01/11/20 16:15 04/10/20 16:14 01/12/20 06:10 Norepinephrine Bitartrate 16 mg/ Dextrose 566 ml @ 0 mls/hr Q24H IV 01/17/20 08:00 02/16/20 07:59 01/17/20 08:22 Phenylephrine HCl 100 mg/Dextrose 250 ml @ 0 mls/hr Q24H IV 01/17/20 12:29 02/16/20 12:28 01/17/20 13:30 Ochoa Moreira MD Jan 17, 2020 14:48
--- NOTE | 2020-01-17 16:30 | NUR ---
NURSE NOTES: pt hypotensive pressors maxed. unable to feel femoral pulses. code blue called, cpr started.
--- NOTE | 2020-01-17 16:37 | NUR ---
RESPIRATORY NOTE: Code blue at 1631, CPR performed by RT and RN. Dr. Suarez pronounced pt at 1637.
--- NOTE | 2020-01-17 16:37 | NUR ---
Nursing Heavy Cleaner NURSE NOTES: Call placed to Gisela informed her of Mother's change of condition and that currently resuscitative measures/efforts are being performed. Daughter at this time requested to speak with Dr Suarez who is currently at Nurse Station. After a brief discussion with Dr Suarez, we both spoke with daughter (myself & Dr Suarez) and she requested all resuscitative efforts be discontinued. Team members made aware of the aforementioned. (See Code Blue Sheet for complete details)
--- NOTE | 2020-01-17 17:00 | Emergency Room Report ---
History of Present Illness General Chief Complaint: Dyspnea/Respdistress Source: Medical Record, PMD Present Illness Allergies: Coded Allergies: No Known Allergies (Unverified , 01/05/20) COVID-19 Screening Contact w/high risk pt: No Recent Travel to affected area: No Experienced COVID-19 symptoms?: Yes COVID-19 symptoms experienced: Shortness of Breath, Cough Patient History Now: No Nursing Documentation-PMH Past Medical History: No History, Except For Hx Cardiac Problems: Yes Hx Hypertension: Yes Hx Diabetes: Yes Hx Cancer: No Hx Gastrointestinal Problems: No Hx Neurological Problems: No Physical Exam Vital Signs Date Time Temp Pulse Resp B/P (MAP) Pulse Ox O2 Delivery O2 Flow Rate FiO2 01/13/20 07:00 122/67 01/13/20 07:00 115 18 100 01/13/20 07:14 100 01/13/20 08:00 Mechanical Ventilator 01/13/20 08:00 101.2 Procedures Critical Care Time Critical Care Time i. I feel this is a highly complex case requiring extensive working including EKG/Rhythm strip, Xray/CT/US, Blood/urine lab work, repeat exams while in ED, and administration of strong opiates/narcotics for pain control, admission to hospital or close patient follow up. Total time: 30 min bedside evaluation and treatment excludes procedures (EKG). Reason for critical care: cardiac arrest Possible complications: hypotension, hypertension, PA, shock, arrhythmias, metabolic acidosis, end organ damage, respiratory failure. Interventions: chest compressions, epinephrine, discussion with daughter Course: Patient presenting in cardiac arrest. COVID positive. Intubated. On 2 pressors at maximum dose. Chest compressions started. Given epinephrine. Confirmed brain activity on EEG. Daughter called requesting that we discontinue resuscitative efforts. Patient expires Consultations: nursing staff, EMS, family Performed by: Dr Suarez Tolerated well condition = j. because of unstable vital signs this patient had a condition that could potentially threaten life or limb. I feel this is a critical patient who required my full attention while patient was considered critical. Total Critical Care Time excluding procedures was greater than 35 minutes CPR/Code Blue CPR/Code Blue Narrative see code blue sheet for full narrative Medical Decision Making Diagnostic Impression: Primary Impression: Respiratory failure with hypoxia Qualified Codes: J96.91 - Respiratory failure, unspecified with hypoxia Additional Impressions: COVID-19 virus infection Diabetes type 2, controlled Qualified Codes: E11.8 - Type 2 diabetes mellitus with unspecified complications ER Course I was called to the ICU for this CODE BLUE. Patient intubated. On max pressors. COVID positive. Chest compressions started. Patient in isolation room. Given epinephrine x2. Nursing confirmed that patient is brain confirmed on EEG. Daughter called and I explained prognosis to the daughter. She agrees not to continue any resuscitative efforts. Patient expires Last Vital Signs Date Time Temp Pulse Resp B/P (MAP) Pulse Ox O2 Delivery O2 Flow Rate FiO2 01/17/20 14:30 125 24 78/40 (53) 79 01/17/20 12:09 100 01/17/20 12:00 Mechanical Ventilator 01/17/20 12:00 100.1 Status: worsened Disposition: Condition: Referrals: NOT CHOSEN IPA/,REFERRING (PCP) Bernabe Suarez MD Jan 17, 2020 17:00
--- NOTE | 2020-01-17 17:12 | NUR ---
NURSE NOTES: called [employer] spoke with customer service representative perla. gould, not candidate for donation. [phone]. called keying machine operator spoke with customer service representative gray. cerna no coroners case.
--- NOTE | 2020-01-17 17:48 | Discharge Summary ---
Discharge Summary Hospital Course Date of Admission Jan 05, 2020 at 08:35 Date of Discharge Admitting Diagnosis Confirmed COVID19, Hypoxia HPI Bryant Parikh is a 59 year old female who was admitted on Jan 05, 2020 at 08: 35 for Confirmed Covid19, Hypoxia Hospital Course 59-year-old female with PMH of HTN, DM on metformin who presents with SOB x2 days. Pt was COVID+, placed on NRB. Pt acutely decompensated and was intubated on 01/09. Pt then began to develop multiorgan failure, kindey failure at which time attempt to transfer to tertiary center for higher level of care. Transfer order was in place, pending acceptance to either [facility] or [facility] however pt not candidate given vent settings, PaO2 132 on 100% FiO2, PEEP 8. Pt noted to be unresponsive off sedation. EEG performed which showed no evidence of brain activity. Neurology noted pt w/irreversible AVIATION PROGRAM MANAGER damage likely due to anoxic injury. Unable to perform CT head as pt too unstable, requiring 2 pressors. Code kirk was called at 1631, daughter, Barrera, was called and stated to stop compressions. Pt was pronounced at 1637. Discharge Discharge Vital Signs Last Vital Signs Date Time Temp Pulse Resp B/P (MAP) Pulse Ox O2 Delivery O2 Flow Rate FiO2 01/17/20 14:30 125 24 78/40 (53) 79 01/17/20 12:09 100 01/17/20 12:00 Mechanical Ventilator 01/17/20 12:00 100.1 01/11/20 12:18 40.0 Discharge Disposition Patient was discharged to Veronica Laurent M.D. Jan 17, 2020 17:48
--- NOTE | 2020-01-17 18:30 | NUR ---
NURSE NOTES: post mortem care complete. pt belongings taken to nursing car and yard supervisor
--- NOTE | 2020-01-18 00:30 | Consultation ---
DATE OF CONSULTATION: 01/17/2020 CARDIOLOGY CONSULTATION CONSULTING PHYSICIAN: Gustavo Zheng MD. REFERRING PHYSICIAN: Chema Posadas MD. REASON FOR CONSULTATION: Hypotension and septic shock in the patient with respiratory failure, on the ventilator due to COVID-19 pneumonia. HISTORY OF PRESENT ILLNESS: The patient is a 59-year-old lady who presented to the hospital for increasing shortness of breath for two days. The patient was being brought over by paramedics. The patient had recent COVID-19 infection and had some traces of hemoptysis. The patient also has history of hypertension and diabetes, who was taking metformin. The patient was subsequently intubated and was brought to intensive care unit. At the time of my evaluation, the patient has already maxed out on 2 pressors, is on the ventilator, and has developed acute renal failure. The patient also had severe thrombocytopenia for DIC. At the time of my evaluation, the patient unresponsive in the intensive care unit on the ventilator. She is not able to provide any information. REVIEW OF SYSTEMS: Cannot be obtained. PAST MEDICAL HISTORY: As mentioned above. FAMILY HISTORY: Noncontributory. SOCIAL HISTORY: She lived at home. No history of smoking or drinking. PHYSICAL EXAMINATION: VITAL SIGNS: Show blood pressure of 77/47, pulse is 120-140, respirations 24, temperature is 98.7. HEAD AND NECK: Shows she is orally intubated. No JVD. LUNGS: Decreased breath sounds and coarse rhonchi. CARDIOVASCULAR: Shows irregular S1, S2 and tachycardic. ABDOMEN: Soft. EXTREMITIES: She has 1+ pitting edema. LABORATORY AND DIAGNOSTIC DATA: Labs show white count of 22,000, hemoglobin 9, hematocrit 26, and platelet count is only 12,000. Sodium 154, potassium 4.2, BUN of 38, creatinine 2.8, and glucose 62. Her LDH is more than 2000. ASSESSMENT AND PLAN: 1. Septic shock due to COVID bilateral pneumonia. The patient is on max-dose of Levophed and is on phenylephrine. The patient is also on meropenem. The patient is obviously at risk of [id number] FL with hypertension, diabetes, and demand ischemia. We will get repeat EKG, echo, and troponin. 2. Respiratory failure due to bilateral COVID pneumonia. Further evaluation by Dr. Dubois. for transfer to [facility] for ECMO at this time. 3. ARDS, intubated on January 10, 2020. 4. Acute renal failure. 5. Severe thrombocytopenia. Further evaluation by Dr. Moncada. 6. Encephalopathy. The patient's EEG is consistent with electrocerebral inactivity. Further evaluation by Dr. Alvarez. The case was discussed with the ICU nurse in intensive care unit. Thank you very much for allowing me to participate in the care of this very unfortunate lady. Please do not hesitate to contact me for any questions regarding my evaluation. Izabela Moran JOB#: [id number] CC:
--- NOTE | 2020-01-20 15:29 | NUR ---
*-* INSURANCE *-* UPDATED CLINICALS AND REVIEWS HAVE BEEN FAXED TO: [facility] YOEL# [id number] LAVONNE:BLESSING P: [phone] F: [phone] Addendum: 01/20/20 at 1531 by OBED ARZOLA CM DISCHARGE SUMMARY HAS BEEN FAXED
== END 2020-01-17 19:00 | disposition expired | DRG 207 ==
LOC: EDBD 07:28 → EMR 07:50 → EDBEDREQ 07:58 → 2W 08:35 → EDBEDREQ 19:28 → 2W 01-06 00:14 → 2E 01-08 08:10 → ICU 01-10 00:45
PROC: 0BH17EZ Insertion of Endotracheal Airway into Trachea, Via Natural or Artificial Opening (ICD-10-PCS; principal; 2020-01-11)
PROC: 5A1955Z Respiratory Ventilation, Greater than 96 Consecutive Hours (ICD-10-PCS; principal; 2020-01-11)
PROC: 3E03328 Introduction of Oxazolidinones into Peripheral Vein, Percutaneous Approach (ICD-10-PCS; 2020-01-12)
PROC: 06HM33Z Insertion of Infusion Device into Right Femoral Vein, Percutaneous Approach (ICD-10-PCS; 2020-01-12)
DX: U07.1 COVID-19 (principal); J12.89 Other viral pneumonia; G92 Toxic encephalopathy; A41.89 Other specified sepsis; R65.21 Severe sepsis with septic shock; J96.01 Acute respiratory failure with hypoxia; N17.0 Acute kidney failure with tubular necrosis; R04.2 Hemoptysis; E87.1 Hypo-osmolality and hyponatremia; G93.1 Anoxic brain damage, not elsewhere classified; E11.65 Type 2 diabetes mellitus with hyperglycemia; D69.6 Thrombocytopenia, unspecified; E87.6 Hypokalemia; N18.9 Chronic kidney disease, unspecified; D63.1 Anemia in chronic kidney disease; I12.9 Hypertensive chronic kidney disease with stage 1 through stage 4 chronic kidney disease, or unspecified chronic kidney disease; E11.22 Type 2 diabetes mellitus with diabetic chronic kidney disease
CPT/HCPCS: 36415; 36600; 71045; 74018; 76705; 80048; 80051; 80053; 80202; 81001; 81003; 82164; 82533; 82550; 82553; 82570; 82728; 82746; 82803; 82962; 83010; 83036; 83605; 83615; 83735; 83880; 83930; 83935; 84100; 84300; 84439; 84443; 84478; 84481; 84484; 85007; 85025; 85044; 85060; 85362; 85379; 85384; 85610; 85730; 86140; 86703; 86705; 86709; 86738; 86803; 86850; 86900; 86901; 87040; 87070; 87086; 87181; 87205; 87340; 87635; 92950; 93005; 94002; 94003; 95819; 96365; 96368; 99285; J1815; J2370; J3490; J8499; S5561